=== PATIENT | male | born 1950 | race Caucasian/White ===

== ENCOUNTER 2018-05-26 11:55 | Inpatient (IN) ==
[2018-05-26] MEDS ORDERED: Sod Chloride 0.9% Inj 1,000 ML IV.SIG ONE (12:11)
--- NOTE | 2018-05-26 12:33 | ED ---
HPI General Chief Complaint: Altered Mental Status Stated Complaint: Poss AMS Time Seen by Provider: 05/26/18 12:05 Source: EMS Mode of arrival: EMS Limitations: altered mental status History of Present Illness HPI narrative: 68 YO M presents to the ED via EMS for evaluation of altered mental status. Per EMS report the patient was found lying on a couch, in filthy living conditions and altered this morning by his landlord. The landlord states that they last saw the patient normal about 6 weeks ago. On arrival to the ED the patient is alert to self only. He is covered in feces and urine. He moves the extremities spontaneously. He answers YES or WHY repeatedly to all history questions. He intermittently follows commands. He is resistant to exam, repeatedly trying to brush my hands and instruments away. EMS reportedly administered 1L NS enroute with no change to the patients status. Per EMS the patient has a history of stroke. Related Data Home Medications Medication Instructions Recorded Confirmed Unable to Obtain Home Meds 05/26/18 05/26/18 Allergies Allergy/AdvReac Type Severity Reaction Status Date / Time No Known Allergies Allergy Uncoded 07/11/16 17:32 Review of Systems ROS Unobtainable ROS Unobtainable: unobtainable due to mental status PMFSH Social History Social History Substance History: Past History Second Hand Smoke Exposure: Yes Smoking Status: Current every day smoker Tobacco Type: Cigarettes How Often Do You Have a Drink Containing Alcohol: Unable to Obtain Recent Travel in [facility] within the Last 8 Weeks: No Recent Out of Country Travel within the Last 8 Weeks: No Exam Narrative Exam Narrative: GENERAL: Cachetic, foul smelling white male in NAD. SKIN: Focused skin assessment warm/dry. Nail clubbing noted. HEAD: Atraumatic. Normocephalic. EYES: Pupils equal and round. No scleral icterus. No injection or drainage. ENT: No nasal bleeding or discharge. Mucous membranes dry. NECK: Trachea midline. No JVD. CARDIOVASCULAR: Regular rate and rhythm. No murmur appreciated. RESPIRATORY: No accessory muscle use. Clear to auscultation. Breath sounds equal bilaterally. GASTROINTESTINAL: Abdomen scaphoid, non-tender, nondistended. No hepatosplenomegaly. Hypoactive bowel sounds. MUSCULOSKELETAL: No obvious deformities. No clubbing. No cyanosis. No edema. Equal revenue enforcement agent strength bilaterally. NEUROLOGICAL: Awake and alert. No obvious cranial nerve deficits. Motor grossly within normal limits. Garbled speech. PSYCHIATRIC: Altered. Intermittently aggressive. Course Initial Documented Vital Signs Temperature 96.3 F L 05/26/18 11:59 Pulse Rate 106 H 05/26/18 11:59 Respiratory Rate 22 05/26/18 11:59 Blood Pressure 142/80 H 05/26/18 11:59 Pulse Oximetry 95 05/26/18 11:59 Last Documented Vital Signs Temperature 96.3 F L 05/26/18 12:37 Pulse Rate 103 H 05/26/18 13:18 Respiratory Rate 26 H 05/26/18 17:37 Blood Pressure 140/80 05/26/18 13:18 Pulse Oximetry 96 05/26/18 13:18 Medical Decision Making SILVA Attestation SILVA supervised visit: Yes Attestation: I, Dr. Gardner, have reviewed the advance practice practitioner's documentation and am in agreement, met with the patient face to face, made the diagnosis, and the medical decision making was done by me. *My assessment and Findings: Patient is a 68-year-old male who is acutely altered. He is grabbing at staff. He does say he drinks every day. He did appears somewhat tremulous. He is tachycardic on exam. Patient given IV fluids, given Ativan. Admitted for further management. MDM Narrative Medical decision making narrative: 68 YO M presents to the ED via EMS for evaluation of altered mental status. Per EMS report the patient was found lying on a couch, in filthy living conditions and altered this morning by his landlord. normal about 6 weeks ago. On arrival to the ED the patient is alert to self only. He is covered in feces and urine. He moves the extremities spontaneously. He answers YES or WHY repeatedly to all history questions. He intermittently follows commands. He is resistant to exam. Patient is tachycardic with a rectal temp of 96.3 on arrival. He was administered a liter of fluids, warming blanket was placed. Lab work reveals no anemia or leukocytosis. Mild dehydration noted. EKG without acute findings.Head CT without acute findings. No acute findings on the chest x-ray. On recheck the patient states "I drink every day." He repeatedly reaches out to grab the providers at bedside. He was administered 2 mg Ativan. [facility] protocol was ordered. UA with evidence of UTI, administered 750 Levaquin IV. Patient remains altered. Plan to admit to medicine. I spoke with Dr. Goldsmith who agrees to accept the patient to the medicine service. Please see medicine notes for disposition. Medical Screen Exam Complete: Yes Emergency Medical Condition: Yes Differential Diagnosis Differential Diagnosis: ACS versus ICH versus PNA versus UTI versus metabolic derangement versus alcohol withdrawal versus other Medical Records Medical records reviewed: Yes I reviewed the patient's medical records. PAD, stroke, herpes zoster, chronic pain, current smoker according to chart review. Last visit in 2015. Lab Data Result diagrams: 05/26/18 12:24 05/26/18 12:24 Lab Results 05/26/18 05/26/18 05/26/18 Range/Units 12:24 12:24 12:24 WBC 7.3 (4.0-11.0) th/mm3 RBC 3.79 L (4.50-5.90) mil/mm3 Hgb 12.7 L (13.0-17.0) gm/dL Hct 37.0 L (39.0-51.0) % MCV 97.5 (80.0-100.0) fL MCH 33.5 (27.0-34.0) pg MCHC 34.3 (32.0-36.0) % RDW 17.0 (11.6-17.2) % Plt Count 161 (150-450) th/mm3 MPV 8.2 (7.0-11.0) fL Neut % (Auto) 83.3 H (16.0-70.0) % Lymph % (Auto) 10.4 (9.0-44.0) % Childress % (Auto) 6.0 (0.0-8.0) % Eos % (Auto) 0.3 (0.0-4.0) % Baso % (Auto) 0.0 (0.0-2.0) % Neut # (Auto) 6.1 (1.8-7.7) th/mm3 Lymph # (Auto) 0.8 L (1.0-4.8) th/mm3 Childress # (Auto) 0.4 (0.0-0.9) th/mm3 Eos # (Auto) 0.0 (0.0-0.4) th/mm3 Baso # (Auto) 0.0 (0.0-0.2) th/mm3 WBC Differential . Differential Comment Auto diff final Sodium 137 (136-145) meq/L Potassium 3.8 (3.5-5.1) meq/L Chloride 102 (98-107) meq/L Carbon Dioxide 23.6 (21.0-32.0) meq/L Anion Gap 11 (5-15) meq/L BUN 22 H (7-18) mg/dL Creatinine 1.07 (0.60-1.30) mg/dL Estimated GFR 69 L (>89) mL/min Random Glucose 74 (74-106) mg/dL Calcium 8.1 L (8.5-10.1) mg/dL Phosphorus 2.2 L (2.5-4.9) mg/dL Magnesium 1.9 (1.5-2.5) mg/dL Total Bilirubin 1.3 H (0.2-1.0) mg/dL AST 15 (15-37) U/L ALT 15 (12-78) U/L Alkaline Phosphatase 72 (45-117) U/L Ammonia (11-32) mcmol/L Total Creatine Kinase 29 L (39-308) U/L Troponin I 0.02 (0.02-0.05) ng/mL Total Protein 6.1 L (6.4-8.2) g/dL Albumin 2.6 L (3.4-5.0) g/dL Vitamin B12 Greater than 2000 H Cancelled (193-986) pg/mL TSH 1.470 (0.358-3.740) uIU/mL Urine Color (Yellw/Straw) Urine Clarity (Clear) Urine pH (5.0-8.5) Ur Specific [place] (1.002-1.035) Urine Protein (Neg-Trace) mg/dL Urine Glucose (UA) (Negative) mg/dL Urine Ketones (Negative) mg/dL Urine Occult Blood (Negative) Urine Nitrate (Negative) Urine Bilirubin (Negative) Urine Urobilinogen (Less than 2) mg/dL Ur Leukocyte Esterase (Negative) Urine RBC (0-3) /hpf Urine WBC (0-5) /hpf Urine Bacteria (None) /hpf Urine Mucus (Occasional) /lpf Micro UA Comment Ur Microscopic Review Urine Culture Comments Urine Opiates Screen (Neg) Ur Barbiturates Screen (Neg) Ur Amphetamines Screen (Neg) U Benzodiazepines Scrn (Neg) Urine Cocaine Screen (Neg) U Cannabinoids Screen (Neg) Serum Alcohol Less than 3 (0-5) mg/dL 05/26/18 05/26/18 05/26/18 Range/Units 12:24 12:24 12:24 WBC (4.0-11.0) th/mm3 RBC (4.50-5.90) mil/mm3 Hgb (13.0-17.0) gm/dL Hct (39.0-51.0) % MCV (80.0-100.0) fL MCH (27.0-34.0) pg MCHC (32.0-36.0) % RDW (11.6-17.2) % Plt Count (150-450) th/mm3 MPV (7.0-11.0) fL Neut % (Auto) (16.0-70.0) % Lymph % (Auto) (9.0-44.0) % Childress % (Auto) (0.0-8.0) % Eos % (Auto) (0.0-4.0) % Baso % (Auto) (0.0-2.0) % Neut # (Auto) (1.8-7.7) th/mm3 Lymph # (Auto) (1.0-4.8) th/mm3 Childress # (Auto) (0.0-0.9) th/mm3 Eos # (Auto) (0.0-0.4) th/mm3 Baso # (Auto) (0.0-0.2) th/mm3 WBC Differential Differential Comment Sodium (136-145) meq/L Potassium (3.5-5.1) meq/L Chloride (98-107) meq/L Carbon Dioxide (21.0-32.0) meq/L Anion Gap (5-15) meq/L BUN (7-18) mg/dL Creatinine (0.60-1.30) mg/dL Estimated GFR (>89) mL/min Random Glucose (74-106) mg/dL Calcium (8.5-10.1) mg/dL Phosphorus Cancelled (2.5-4.9) mg/dL Magnesium Cancelled (1.5-2.5) mg/dL Total Bilirubin (0.2-1.0) mg/dL AST (15-37) U/L ALT (12-78) U/L Alkaline Phosphatase (45-117) U/L Ammonia (11-32) mcmol/L Total Creatine Kinase Cancelled (39-308) U/L Troponin I (0.02-0.05) ng/mL Total Protein (6.4-8.2) g/dL Albumin (3.4-5.0) g/dL Vitamin B12 (193-986) pg/mL TSH (0.358-3.740) uIU/mL Urine Color (Yellw/Straw) Urine Clarity (Clear) Urine pH (5.0-8.5) Ur Specific [place] (1.002-1.035) Urine Protein (Neg-Trace) mg/dL Urine Glucose (UA) (Negative) mg/dL Urine Ketones (Negative) mg/dL Urine Occult Blood (Negative) Urine Nitrate (Negative) Urine Bilirubin (Negative) Urine Urobilinogen (Less than 2) mg/dL Ur Leukocyte Esterase (Negative) Urine RBC (0-3) /hpf Urine WBC (0-5) /hpf Urine Bacteria (None) /hpf Urine Mucus (Occasional) /lpf Micro UA Comment Ur Microscopic Review Urine Culture Comments Urine Opiates Screen (Neg) Ur Barbiturates Screen (Neg) Ur Amphetamines Screen (Neg) U Benzodiazepines Scrn (Neg) Urine Cocaine Screen (Neg) U Cannabinoids Screen (Neg) Serum Alcohol (0-5) mg/dL 05/26/18 05/26/18 05/26/18 Range/Units 12:47 14:30 14:30 WBC (4.0-11.0) th/mm3 RBC (4.50-5.90) mil/mm3 Hgb (13.0-17.0) gm/dL Hct (39.0-51.0) % MCV (80.0-100.0) fL MCH (27.0-34.0) pg MCHC (32.0-36.0) % RDW (11.6-17.2) % Plt Count (150-450) th/mm3 MPV (7.0-11.0) fL Neut % (Auto) (16.0-70.0) % Lymph % (Auto) (9.0-44.0) % Childress % (Auto) (0.0-8.0) % Eos % (Auto) (0.0-4.0) % Baso % (Auto) (0.0-2.0) % Neut # (Auto) (1.8-7.7) th/mm3 Lymph # (Auto) (1.0-4.8) th/mm3 Childress # (Auto) (0.0-0.9) th/mm3 Eos # (Auto) (0.0-0.4) th/mm3 Baso # (Auto) (0.0-0.2) th/mm3 WBC Differential Differential Comment Sodium (136-145) meq/L Potassium (3.5-5.1) meq/L Chloride (98-107) meq/L Carbon Dioxide (21.0-32.0) meq/L Anion Gap (5-15) meq/L BUN (7-18) mg/dL Creatinine (0.60-1.30) mg/dL Estimated GFR (>89) mL/min Random Glucose (74-106) mg/dL Calcium (8.5-10.1) mg/dL Phosphorus (2.5-4.9) mg/dL Magnesium (1.5-2.5) mg/dL Total Bilirubin (0.2-1.0) mg/dL AST (15-37) U/L ALT (12-78) U/L Alkaline Phosphatase (45-117) U/L Ammonia 11 (11-32) mcmol/L Total Creatine Kinase (39-308) U/L Troponin I (0.02-0.05) ng/mL Total Protein (6.4-8.2) g/dL Albumin (3.4-5.0) g/dL Vitamin B12 (193-986) pg/mL TSH (0.358-3.740) uIU/mL Urine Color Yellow (Yellw/Straw) Urine Clarity Clear (Clear) Urine pH 6.0 (5.0-8.5) Ur Specific [place] 1.018 (1.002-1.035) Urine Protein Negative (Neg-Trace) mg/dL Urine Glucose (UA) Negative (Negative) mg/dL Urine Ketones Trace H (Negative) mg/dL Urine Occult Blood Small H (Negative) Urine Nitrate Negative (Negative) Urine Bilirubin Negative (Negative) Urine Urobilinogen 2.0 H (Less than 2) mg/dL Ur Leukocyte Esterase Negative (Negative) Urine RBC Less than 1 (0-3) /hpf Urine WBC 4 (0-5) /hpf Urine Bacteria Rare H (None) /hpf Urine Mucus Few H (Occasional) /lpf Micro UA Comment Cath-culture ind Ur Microscopic Review Not Reportable Urine Culture Comments Cath-cult indicated Urine Opiates Screen Neg (Neg) Ur Barbiturates Screen Neg (Neg) Ur Amphetamines Screen Neg (Neg) U Benzodiazepines Scrn Neg (Neg) Urine Cocaine Screen Neg (Neg) U Cannabinoids Screen Neg (Neg) Serum Alcohol (0-5) mg/dL Imaging Data Radiologist's impression: Head MRI 05/26/18 00:00 Diffusion weighted images demonstrate tiny foci of restricted diffusion in the right frontal cortex. There is diffuse atrophy. There is a large area of encephalomalacia and scoliosis in the left frontal lobe from previous infarction. There is slight ex vacuo dilatation of the left lateral ventricle and remote left basal ganglia lacunar infarcts. In addition remote right occipital infarct and encephalomalacia noted. There are no signs of acute intracranial hemorrhage though there is evidence of remote hemosiderin along the right parietal cortex. No abnormal areas of enhancement are seen. There is no evidence for mass.. CONCLUSION: 1. Atrophy and white matter disease with remote infarcts identified. 2. 2-3 tiny foci of restricted diffusion in the right frontal lobe characteristic of tiny foci of acute infarction. Head CT 05/26/18 12:11 CONCLUSION: 1. No acute findings. Atrophy and remote infarcts. . Chest X-Ray 05/26/18 12:12 CONCLUSION: 1. Changes of obstructive pulmonary disease without acute abnormality or significant interval change. ECG Data Attestation: I personally reviewed and interpreted this ECG as follows: (Rate 106, sinus tachycardia. IN interval 124, QRS 72, QTC 393 ms. Normal axis. No acute ST changes.) Discharge Plan Discharge Disposition Patient Disposition: 30 Still Patient Physicians Team ED Provider: Lisseth Gardner ED Midlevel Provider: Seble Rao Primary Care Provider: Je Graves Attending Provider: Poli Goldsmith Discharge Interventions Interventions: ED Discharge Assessment Last Done: 05/26/18 17:37 Status ED Status: Left Department Discharge Information Discharge Date/Time: 05/26/18 16:30
--- NOTE | 2018-05-26 12:47 | XR ---
EXAM DATE: 05/26/2018 12:12 PM EDT AGE/SEX: 68 years / Male INDICATIONS: Cough; AMS. CLINICAL DATA: This is the patient's initial encounter. Patient reports that signs and symptoms have been present for 1 day and indicates a pain score of Nonresponsive. MEDICAL/SURGICAL HISTORY: . Unobtainable. . Unobtainable. COMPARISON: [facility], CHEST PA & LAT, 04/30/2013. . FINDINGS: Lungs are hyperexpanded with mild diffuse interstitial prominence. No new focal pleural or parenchyma l opacities. The cardiomediastinal contours are unremarkable. Osseous structures are intact. CONCLUSION: 1. Changes of obstructive pulmonary disease without acute abnormality or significant interval change . Electronically signed by: Jc Caraballo MD 05/26/2018 12:46 PM EDT
[2018-05-26 13:02] LABS: Eos % (Auto) 0.3 % (0.0-4.0); Hemoglobin 12.7 gm/dL (13.0-17.0); Lymph # (Auto) 0.8 th/mm3 (1.0-4.8); Lymph % (Auto) 10.4 % (9.0-44.0); Mean Corpuscular HGB Conc 34.3 % (32.0-36.0); Mean Corpuscular Hemoglobin 33.5 pg (27.0-34.0); Mean Corpuscular Volume 97.5 fL (80.0-100.0); Mean Platelet Volume 8.2 fL (7.0-11.0); Mono # (Auto) 0.4 th/mm3 (0.0-0.9); Neut # (Auto) 6.1 th/mm3 (1.8-7.7); Neut % (Auto) 83.3 % (16.0-70.0); Platelet Count 161 th/mm3 (150-450); Red Blood Count 3.79 mil/mm3 (4.50-5.90); White Blood Count 7.3 th/mm3 (4.0-11.0)
[2018-05-26 13:09] LABS: Alanine Aminotransferase 15 U/L (12-78); Albumin 2.6 g/dL (3.4-5.0); Anion Gap 11 meq/L (5-15); Aspartate Aminotransferase 15 U/L (15-37); Blood Urea Nitrogen 22 mg/dL (7-18); Calcium 8.1 mg/dL (8.5-10.1); Carbon Dioxide 23.6 meq/L (21.0-32.0); Chloride 102 meq/L (98-107); Glomerular Filtration Rate 69 mL/min (>89); Glucose,Random 74 mg/dL (74-106); Potassium 3.8 meq/L (3.5-5.1); Sodium 137 meq/L (136-145)
[2018-05-26 13:19] LABS: Alkaline Phosphatase 72 U/L (45-117); Total Protein 6.1 g/dL (6.4-8.2); Troponin I 0.02 ng/mL (0.02-0.05)
--- NOTE | 2018-05-26 13:23 | CT ---
EXAM DATE: 05/26/2018 1:08 PM EDT AGE/SEX: 68 years / Male INDICATIONS: Altered mental status. CLINICAL DATA: This is the patient's initial encounter. Patient reports that signs and symptoms have been present for 1 day and indicates a pain score of Nonresponsive. MEDICAL/SURGICAL HISTORY: Non-responsive. Non-responsive. RADIATION DOSE: 37.04 CTDI (mGy) COMPARISON: [facility], CT BRAIN W/O CONTRAST, 04/22/2013. . TECHNIQUE: CT of the head without contrast. Using automated exposure control and adjustment of the mA and/or kV according to patient size, radiation dose was kept as low as reasonably achievable to ob tain optimal diagnostic quality images. DICOM format image data is available electronically for revi ew and comparison. FINDINGS: There is diffuse atrophy. Encephalomalacia from remote right occipital infarct in left MCA infarct ag ain noted. There is patchy and confluent white matter disease periventricular white matter again note d. There are no fractures. Carotid artery calcifications are noted. CONCLUSION: 1. No acute findings. Atrophy and remote infarcts. . Electronically signed by: Ray Santos MD 05/26/2018 1:21 PM EDT
[2018-05-26 14:44] LABS: Bacteria,Urine Rare /hpf; Bilirubin,Urine Negative (Negative); Clarity,Urine Clear (Clear); Color,Urine Yellow (Yellw/Straw); Glucose,Urine (UA) Negative (Negative); Leukocyte Esterase,Urine Negative (Negative); Mucus,Urine Few /lpf (Occasional); Nitrite,Urine Negative (Negative); Specific Gravity,Urine 1.018 (1.002-1.035)
[2018-05-26 14:50] LABS: Amphetamine Screen,Urine Neg (Neg); Barbiturate Screen,Urine Neg (Neg); Cannabinoid Screen,Urine Neg (Neg); Cocaine Screen,Urine Neg (Neg)
[2018-05-26 14:56] LABS: Opiate Screen,Urine Neg (Neg)
--- NOTE | 2018-05-26 16:02 | P.HP ---
History of Present Illness Primary Care Physician: Je Graves MD History of Present Illness: 68-year-old admitted for encephalopathy. History is limited as the patient is disoriented and confused, brought in by his landlord. Largely obtained otherwise from emergency room staff. When I try to talk to the patient he makes eye contact but answers almost all questions incorrectly. Patient was brought in to the emergency department because he was found by his landlord to be disheveled and highly unsanitary conditions including being in feces and urine. In the emergency department patient's blood work was relatively unremarkable except for some very mild hypoalbuminemia. He was slightly hypothermic around 96.3 slightly tachycardic around 103. A chest x- ray was performed which I independently reviewed which was negative for any acute findings. He had a head CT done which showed no acute findings as well. Upon my review the UA does not look suspicious for urinary tract infection. Patient told that ER staff that he drinks. Patient was started on normal saline and a warming blanket. This patient has not been admitted to [facility] in at least 2 years. I am unable to obtain family history due to the patient's encephalopathic status. Inpatient Certification: I certify that the inpatient services were ordered in accordance with Medicare regulations governing the order. This includes certification that hospital inpatient services are reasonable and necessary and in the case of services not specified as inpatient-only under 42 CFR 419.22(n), that they are appropriately provided as inpatient services in accordance to with the 2-midnight benchmark under 43 CFR 412.3(e) Review of Systems unobtainable due to mental status PMFSH - History History Provided By: Law Office Assistant / EMT - Medical History Medical History: Medical History (Last Reviewed 05/26/18 @ 15:57 by Poli Goldsmith MD) CVA (cerebral vascular accident) - Social History I have reviewed the patient's Social History: Yes - Tobacco History Tobacco Use In Past 30 Days: Yes Smoking Status: Current every day smoker Tobacco Type: Cigarettes - Alcohol History How Often Do You Have a Drink Containing Alcohol: Unable to Obtain - Substance Use History Substance History: Unable to Obtain - Travel History Recent Travel in the [place] Within the Last 8 Weeks: No Recent Travel Out of the Country Within the Last 8 Weeks: No - Immunization History Tetanus Immunization: Unable to Assess Medications and Allergies Active Medications: Active Medications Haloperidol Lactate (Haldol Inj) 1 mg IV.PUSH Q15M PRN PRN Reason: for severe agitation Lorazepam (Ativan Inj) 1 mg IV.PUSH Q4H PRN PRN Reason: for CIWA 8-10 Lorazepam (Ativan Inj) 2 mg IV.PUSH Q15M PRN PRN Reason: for CIWA > 20 Lorazepam (Ativan Inj) 2 mg IV.PUSH Q1H PRN PRN Reason: for CIWA 15-20 Lorazepam (Ativan Inj) 2 mg IV.PUSH Q2H PRN PRN Reason: for CIWA 11-14 Lorazepam (Ativan) 1 mg PO Q4H PRN PRN Reason: for CIWA 8-10 Lorazepam (Ativan) 2 mg PO Q2H PRN PRN Reason: for CIWA 11-14 Sodium Chloride (Ns Flush) 2 ml IV.FLUSH PRN PRN PRN Reason: FLUSH AFTER USING IV ACCESS Allergies Allergy/AdvReac Type Severity Reaction Status Date / Time No Known Allergies Allergy Uncoded 07/11/16 17:32 Home Medications Medication Instructions Recorded Confirmed Type Unable to Obtain Home Meds 05/26/18 05/26/18 History Exam Vital signs: Vital Signs 05/26/18 11:59 05/26/18 12:30 05/26/18 12:37 Temperature 96.3 F L 96.3 F L 96.3 F L Pulse Rate 106 H Respiratory Rate 22 Blood Pressure 142/80 H Pulse Oximetry 95 05/26/18 13:18 05/26/18 13:20 Temperature Pulse Rate 103 H Respiratory Rate 16 20 Blood Pressure 140/80 Pulse Oximetry 96 Intake & Output 05/25/18 05/26/18 05/26/18 18:59 06:59 18:59 Weight 49.895 kg Narrative: VS: afebrile GENERAL: Thin, under nourished white male who appears very disheveled and is shivering, smells of urine SKIN: Warm and dry. Multiple bruises on his extremities, scattered in dirt EYES: Pupils equal and round. No scleral icterus. No injection or drainage. ENT: No nasal bleeding or discharge. Mucous membranes pink and moist. CARDIOVASCULAR: Slightly tachycardic, no murmurs RESPIRATORY: No accessory muscle use. Clear to auscultation. Breath sounds equal bilaterally. GASTROINTESTINAL: Abdomen soft, non-tender, nondistended. Extremities: No clubbing, cyanosis, or edema. No obvious deformities. MUSCULOSKELETAL: Does spontaneously move all 4 extremities. Has decreased muscle bulk and tone for age and habitus NEUROLOGICAL: Awake, alert, but appears confused and disoriented with slowed mentation evident through slowed responses that are incorrect as well. No facial droop, no slurred speech, unable to assess lower extremity patellar's bilaterally due to poor cooperation. Does have good fist kilnman strength bilaterally. Opens his mouth on prompting but does not protrude his tongue on prompting. PSYCHIATRIC: Unable to assess mood and affect and judgment and insight due to encephalopathic status Results - Labs CBC & Chem 7: 05/26/18 12:24 05/26/18 12:24 Labs: Laboratory Results - last 24 hr 05/26/18 05/26/18 05/26/18 12:24 12:24 12:47 WBC 7.3 RBC 3.79 L Hgb 12.7 L Hct 37.0 L MCV 97.5 MCH 33.5 MCHC 34.3 RDW 17.0 Plt Count 161 MPV 8.2 Neut % (Auto) 83.3 H Lymph % (Auto) 10.4 [place] % (Auto) 6.0 Eos % (Auto) 0.3 Baso % (Auto) 0.0 Neut # (Auto) 6.1 Lymph # (Auto) 0.8 L [place] # (Auto) 0.4 Eos # (Auto) 0.0 Baso # (Auto) 0.0 WBC Differential . Differential Comment Auto diff final Sodium 137 Potassium 3.8 Chloride 102 Carbon Dioxide 23.6 Anion Gap 11 BUN 22 H Creatinine 1.07 Estimated GFR 69 L Random Glucose 74 Calcium 8.1 L Total Bilirubin 1.3 H AST 15 ALT 15 Alkaline Phosphatase 72 Ammonia 11 Troponin I 0.02 Total Protein 6.1 L Albumin 2.6 L TSH 1.470 Urine Color Urine Clarity Urine pH Ur Specific [place] Urine Protein Urine Glucose (UA) Urine Ketones Urine Occult Blood Urine Nitrate Urine Bilirubin Urine Urobilinogen Ur Leukocyte Esterase Urine RBC Urine WBC Urine Bacteria Urine Mucus Micro UA Comment Ur Microscopic Review Urine Culture Comments Urine Opiates Screen Ur Barbiturates Screen Ur Amphetamines Screen U Benzodiazepines Scrn Urine Cocaine Screen U Cannabinoids Screen Serum Alcohol Less than 3 05/26/18 05/26/18 14:30 14:30 WBC RBC Hgb Hct MCV MCH MCHC RDW Plt Count MPV Neut % (Auto) Lymph % (Auto) [place] % (Auto) Eos % (Auto) Baso % (Auto) Neut # (Auto) Lymph # (Auto) [place] # (Auto) Eos # (Auto) Baso # (Auto) WBC Differential Differential Comment Sodium Potassium Chloride Carbon Dioxide Anion Gap BUN Creatinine Estimated GFR Random Glucose Calcium Total Bilirubin AST ALT Alkaline Phosphatase Ammonia Troponin I Total Protein Albumin TSH Urine Color Yellow Urine Clarity Clear Urine pH 6.0 Ur Specific [place] 1.018 Urine Protein Negative Urine Glucose (UA) Negative Urine Ketones Trace H Urine Occult Blood Small H Urine Nitrate Negative Urine Bilirubin Negative Urine Urobilinogen 2.0 H Ur Leukocyte Esterase Negative Urine RBC Less than 1 Urine WBC 4 Urine Bacteria Rare H Urine Mucus Few H Micro UA Comment Cath-culture ind Ur Microscopic Review Not Reportable Urine Culture Comments Cath-cult indicated Urine Opiates Screen Neg Ur Barbiturates Screen Neg Ur Amphetamines Screen Neg U Benzodiazepines Scrn Neg Urine Cocaine Screen Neg U Cannabinoids Screen Neg Serum Alcohol - Imaging Impressions Head CT 05/26/18 12:11 CONCLUSION: 1. No acute findings. Atrophy and remote infarcts. . Chest X-Ray 05/26/18 12:12 CONCLUSION: 1. Changes of obstructive pulmonary disease without acute abnormality or significant interval change. Caprini VTE Risk Assessment Caprini VTE Risk Assessment: No/Low Risk (score <= 1) Caprini Risk Assessment Model: Point Value = 1 Point Value = 2 Point Value = 3 Point Value = 5 Age 41-60 Minor surgery BMI > 25 kg/m2 Swollen legs Varicose veins or History of unexplained or recurrent spontaneous Oral contraceptives or hormone replacement Sepsis (< 1 month) Serious lung disease, including pneumonia (< 1 month) Abnormal pulmonary function Acute myocardial infarction Congestive heart failure (< 1 month) History of inflammatory bowel disease Medical patient at bed rest Age 61-74 Arthroscopic surgery Major open surgery (> 45 min) Laparoscopic surgery (> 45 min) Malignancy Confined to bed (> 72 hours) Immobilizing plaster cast Central venous access Age >= 75 History of VTE Family history of VTE Factor V Leiden Prothrombin [id number] Lupus anticoagulant Anticardiolipin antibodies Elevated serum homocysteine Heparin-induced thrombocytopenia Other congenital or acquired thrombophilia Stroke (< 1 month) Elective arthroplasty Hip, pelvis, or leg fracture Acute spinal cord injury (< 1 month) Prophylaxis Regimen: Total Risk Factor Score Risk Level Prophylaxis Regimen 0-1 Low Early ambulation 2 Moderate Order ONE of the following: *Sequential Compression Device (SCD) *Heparin 5000 units SQ BID 3-4 Higher Order ONE of the following medications: *Heparin 5000 units SQ TID *Enoxaparin/Lovenox 40 mg SQ daily (WT < 150 kg, CrCl > 30 mL/min) *Enoxaparin/Lovenox 30 mg SQ daily (WT < 150 kg, CrCl > 10-29 mL/min) *Enoxaparin/Lovenox 30 mg SQ BID (WT < 150 kg, CrCl > 30 mL/min) AND/OR *Sequential Compression Device (SCD) 5 or more Highest Order ONE of the following medications: *Heparin 5000 units SQ TID (Preferred with Epidurals) *Enoxaparin/Lovenox 40 mg SQ daily (WT < 150 kg, CrCl > 30 mL/min) *Enoxaparin/Lovenox 30 mg SQ daily (WT < 150 kg, CrCl > 10-29 mL/min) *Enoxaparin/Lovenox 30 mg SQ BID (WT < 150 kg, CrCl > 30 mL/min) AND *Sequential Compression Device (SCD) Assessment and Plan - Plan 68-year-old white male being admitted for encephalopathy, limited history. Encephalopathy -Unclear etiology at this time, possible ETOH withdrawal, CIWA protocol in place -CT head is negative for any acute findings (chronic encephalomalacia + old CVA ) as well as initial blood work. -TSH, ammonia, UDS all negative -Ordering B12, magnesium, phosphorus, -MRI of the head to r/o any new/acute infarcts -ST for cognition and swallow evaluation -UC pending, UA neg per my independent review -IVFs Diffuse ecchymoses Possible ETOH abuse - check INR and CK - ciwa protocol Subclinical trace hypothermia -Likely secondary to malnutrition, given normal saline with warming blanket, monitor -Ordering lactic acid Deconditioning/generalized weakness -Pending magnesium, phosphorus, B12, CK levels PT OT ST History of CVA HTN -baby aspirin -Continue Below meds verified by [facility] most recently picked up in March: flonase lipitor Resume home lisinopril when clinical status improves Lisinopril 40 mg daily Discussed Condition With: I have attempted to contact the daughter and only reached a voicemail for was I left a message. I have spoken to the sister and updated her on his admission status.
[2018-05-26 16:46] LABS: Magnesium 1.9 mg/dL (1.5-2.5); Phosphorus 2.2 mg/dL (2.5-4.9)
[2018-05-26 17:11] LABS: Creatine Kinase 29 U/L (39-308)
--- NOTE | 2018-05-26 17:51 | MR ---
EXAM DATE: 05/26/2018 5:05 PM EDT AGE/SEX: 68 years / Male INDICATIONS: Altered mental status. CLINICAL DATA: This is the patient's initial encounter. Patient reports that signs and symptoms have been present for 2 days and indicates a pain score of Nonresponsive. MEDICAL/SURGICAL HISTORY: Stroke. . Stent Left SFA. COMPARISON: [facility] [place], 05/26/2018. . TECHNIQUE: Multiplanar, multisequence examination of the brain was performed without and with 5 ml Ga davist (gadobutrol) contrast as a single exam dose. FINDINGS: Diffusion weighted images demonstrate tiny foci of restricted diffusion in the right frontal cortex. There is diffuse atrophy. There is a large area of encephalomalacia and scoliosis in the left frontal lobe from previous infarction. There is slight ex vacuo dilatation of the left lateral ventricle and remote left basal ganglia lacunar infarcts. In addition remote right occipital infarct and encephalo malacia noted. There are no signs of acute intracranial hemorrhage though there is evidence of remote hemosiderin along the right parietal cortex. No abnormal areas of enhancement are seen. There is no evidence for mass.. CONCLUSION: 1. Atrophy and white matter disease with remote infarcts identified. 2. 2-3 tiny foci of restricted diffusion in the right frontal lobe characteristic of tiny foci of ac chenega infarction. Electronically signed by: Ray Santos MD 05/26/2018 5:50 PM EDT
[2018-05-26] MEDS ORDERED: Gadobutrol PF 7.5 MMOL/7.5 ML Vial (for RAD) IV.SIG ONE (18:42)
[2018-05-26] MEDS: Sod Chloride 0.9% Inj 1,000 ML IV.CONT SCH (19:00)
[2018-05-26 19:27] LABS: INR 1.1 Ratio; Prothrombin Time 10.9 sec (9.8-11.6)
[2018-05-27] MEDS: Sod Chloride 0.9% Inj 1,000 ML IV.CONT SCH ×2 (06:07→18:53)
--- NOTE | 2018-05-27 09:55 | P.PNWCN ---
Wound Care Nurse Consult Description: Wound consult ordered by for wound management Communicated with: yaritza MEDEIROS, Recommendation: 1. Manually reposition patient every 2 hours for comfort and offloading 2. Skin prep x2 to bilateral trochanters and sacral region. 3. Cleanse left ischium with normal saline only. 4. Apply Santyl 2mm thick to intact slough ,cover with saline moistened 2x2 secure with border gauze 5. Change daily or as needed for exudate/dislodgement. Additional information: Patient was seen today by law writer for wound management.Patient alert in bed but very confused bed found in highest position upon trying to lower bed law writer identified bed not functioning properly .Survey Engineer informed Nurse and case management regarding bed .Patient noted to be cachetic with visible malathi prominence Patient was repositioned to left side for sacral region assessment.law writer was able to visualize sacral/coccyx region patient noted to have blanchable intact tissue patient noted to be in high need of bath/ shower.Survey Engineer removed cotton underpad from under patient upon repositioning patient to right side law writer was able to visualize unstageable pressure injury to left ischium measuring ~1cm x ~1cm x slough.Erythema noted to periwound circumferentially .wound base is 100% adhered soft yellow/brown slough.Wound cleansed with normal saline and left open to air till Santyl available.Patient was offloaded to right side with use of bath blankets for support 3 rails raised for patient safety with over bed table within patient reach with call bed.Wound care team to order specialty surface if patient admitted to floor. Wound/Pressure Injury - Patient Status Premedicated for Pain Prior to Dressing Change: No - Wound Left Ischium Wound Staging: Unstageable Wound Assessment: Admission Wound Type: Pressure Injury Is This a Chronic Wound: Yes Requested from Provider a Wound Care Consult: No (Rossana MEDEIROS,[facility] seen 05/27) Length (cm): 1.0 Width (cm): 1.0 Wound Bed Appearance: Necrotic, Yellow Wound Bed Appearance: 100% soft adhered slough Surrounding Tissue Appearance: Erythema Surrounding Tissue Temperature: Cool Drainage Amount: None Drainage Odor: No Odor Dressing Status: Open to Air Cleansing Solution: Saline Topical: Enzymatic Debridement Ointment Wound Packing Type: Gauze Pads Primary Dressing: Adhesive Dressing Wound Dressing Change Date: 05/27/18
[2018-05-27] MEDS: Enoxaparin Inj 30 MG/0.3 ML Syringe SQ SCH (10:18)
--- NOTE | 2018-05-27 16:00 | ECG ---
Date Performed: 05/26/2018 Time Performed: 12:31:46 PTAGE: 68 years EKG: SINUS TACHYCARDIA POSSIBLE RIGHT ATRIAL ENLARGEMENT SEPTAL MYOCARDIAL INFARCTION Since prev ious tracing, no significant change noted ABNORMAL ECG PREVIOUS TRACING : 04/30/2013 12.30 DOCTOR: Ramon Hudson Interpretating Date/Time 05/27/2018 15:58:29
--- NOTE | 2018-05-27 17:11 | P.PNIM ---
Subjective Interval history: Patient laying down in bed and is keeps repeating "my son, my son." Otherwise he does not appear to be in any acute distress. Physical Exam Vital signs: Vital Signs 05/26/18 17:37 05/26/18 20:00 05/27/18 00:00 Temperature 98.6 F 97.4 F L Pulse Rate 106 H 103 H Respiratory Rate 26 H 18 19 Blood Pressure 139/71 129/85 Pulse Oximetry 97 96 05/27/18 04:00 05/27/18 07:14 05/27/18 11:44 Temperature 97.3 F L 97.5 F L 97.5 F L Pulse Rate 101 H 101 H 100 H Respiratory Rate 18 20 16 Blood Pressure 124/81 129/85 152/87 H Pulse Oximetry 93 L 96 96 05/27/18 15:24 Temperature 98.6 F Pulse Rate 100 H Respiratory Rate 12 Blood Pressure 138/87 Pulse Oximetry 95 Intake & Output 05/26/18 05/27/18 05/27/18 18:59 06:59 18:59 Intake Total 1999 Balance 1999 Weight 49.895 kg 49.9 kg Intake: IV 1999 NS Inj 1,000 ML @ 84 mls/hr IV. 1000 / 1000 CONT .[id number] [facility] Rx#:[id number] Other: # Incontinent Voids 1 Weight On Admission 49.895 kg Narrative: General patient is awake and alert however he does not respond to my appropriately. Patient appears malnutrition. HEENT extraocular movements are intact, clear oropharyngeal mucosa, poor dentition Cardiovascular S1-S2 audible Respiratory clear to auscultation bilaterally Abdomen soft, nontender, nondistended, normal bowel sounds Extremities no edema 2+ distal pulses in bilateral upper and lower extremities Neuro patient appears to be moving all 4 extremities sensation is intact bilaterally. Full neurological examination is difficult to assess as the patient is not very cooperative during examination. Results - Labs CBC & Chem 7: 05/26/18 12:24 05/26/18 12:24 Laboratory Results - last 24 hr 05/26/18 05/26/18 05/26/18 12:24 14:30 18:49 PT INR Lactic Acid 1.6 Total Creatine Kinase 29 L Vitamin B12 Greater than 2000 H Urine Color Yellow Urine Clarity Clear Urine pH 6.0 Ur Specific [place] 1.018 Urine Protein Negative Urine Glucose (UA) Negative Urine Ketones Trace H Urine Occult Blood Small H Urine Nitrate Negative Urine Bilirubin Negative Urine Urobilinogen 2.0 H Ur Leukocyte Esterase Negative Urine RBC Less than 1 Urine WBC 4 Urine Bacteria Rare H Urine Mucus Few H Micro UA Comment Cath-culture ind Urine Culture Comments Cath-cult indicated 05/26/18 18:49 PT 10.9 INR 1.1 Lactic Acid Total Creatine Kinase Vitamin B12 Urine Color Urine Clarity Urine pH Ur Specific [place] Urine Protein Urine Glucose (UA) Urine Ketones Urine Occult Blood Urine Nitrate Urine Bilirubin Urine Urobilinogen Ur Leukocyte Esterase Urine RBC Urine WBC Urine Bacteria Urine Mucus Micro UA Comment Urine Culture Comments Microbiology 05/26/18 14:30 Catheterized Urine Urine Culture - Preliminary gram positive cocci - Imaging Impressions Head MRI 05/26/18 00:00 Diffusion weighted images demonstrate tiny foci of restricted diffusion in the right frontal cortex. There is diffuse atrophy. There is a large area of encephalomalacia and scoliosis in the left frontal lobe from previous infarction. There is slight ex vacuo dilatation of the left lateral ventricle and remote left basal ganglia lacunar infarcts. In addition remote right occipital infarct and encephalomalacia noted. There are no signs of acute intracranial hemorrhage though there is evidence of remote hemosiderin along the right parietal cortex. No abnormal areas of enhancement are seen. There is no evidence for mass.. CONCLUSION: 1. Atrophy and white matter disease with remote infarcts identified. 2. 2-3 tiny foci of restricted diffusion in the right frontal lobe characteristic of tiny foci of acute infarction. Assessment and Plan - Plan This patient is a 68-year-old male who was brought in after he was found at home by his landlord. The patient was altered and found to be covered in urine and feces. He was then brought into our emergency department for evaluation. 1. Acute encephalopathy possibly secondary to acute CVA. A CT scan of the head was done which did not show any acute findings other than chronic encephalomalacia and old CVA. MRI shows what appears to be a right frontal lobe infarct. Neurology will be consulted to evaluate the patient given MRI findings. As the patient failed swallow evaluation aspirin will be given per rectal. The etiology of the patient's acute encephalopathy Possibly be due to to the acute CVA. Ammonia, TSH, urine drug screen have returned negative. A swallow evaluation was done which the patient failed. He will be kept n.p.o. and on IV fluids for now. Urinalysis was negative. Will follow up with recommendations from neurology. Continue IV fluids I will discussed the case with the patient's son today to get an idea of what the patient's baseline mental status is like. 2. Deconditioning Continue PT. 3. History of alcohol abuse CIWA protocol in place if the patient begins to withdraw. 4. Malnutrition BMI 16. Nutrition consult will be placed.
[2018-05-27] MEDS: Dextrose 5%/NaCl 0.9% Inj 1,000 ML IV.CONT SCH (18:54)
[2018-05-28] MEDS: Dextrose 5%/NaCl 0.9% Inj 1,000 ML IV.CONT SCH ×3 (04:58→20:27)
[2018-05-28 06:39] LABS: Baso % (Auto) 0.2 % (0.0-2.0); Eos % (Auto) 0.4 % (0.0-4.0); Hematocrit 32.9 % (39.0-51.0); Hemoglobin 11.2 gm/dL (13.0-17.0); Lymph # (Auto) 0.6 th/mm3 (1.0-4.8); Lymph % (Auto) 9.4 % (9.0-44.0); Mean Corpuscular HGB Conc 34.1 % (32.0-36.0); Mean Corpuscular Hemoglobin 33.6 pg (27.0-34.0); Mean Corpuscular Volume 98.6 fL (80.0-100.0); Mean Platelet Volume 8.4 fL (7.0-11.0); Mono # (Auto) 0.5 th/mm3 (0.0-0.9); Mono % (Auto) 7.2 % (0.0-8.0); Neut # (Auto) 5.4 th/mm3 (1.8-7.7); Neut % (Auto) 82.8 % (16.0-70.0); Platelet Count 119 th/mm3 (150-450); Red Blood Count 3.34 mil/mm3 (4.50-5.90); Red Cell Distribution Width 17.5 % (11.6-17.2); White Blood Count 6.6 th/mm3 (4.0-11.0)
[2018-05-28 06:44] LABS: Calcium 7.9 mg/dL (8.5-10.1); Carbon Dioxide 20.9 meq/L (21.0-32.0); Magnesium 1.9 mg/dL (1.5-2.5); Potassium 3.3 meq/L (3.5-5.1)
[2018-05-28] MEDS: Enoxaparin Inj 30 MG/0.3 ML Syringe SQ SCH (10:03)
[2018-05-28] MEDS: Aspirin 300 MG Supp RECTAL SCH (10:03)
--- NOTE | 2018-05-28 10:55 | US ---
EXAM DATE: 05/28/2018 12:00 AM EDT AGE/SEX: 68 years / Male INDICATIONS: Altered mental status. CLINICAL DATA: This is the patient's initial encounter. Patient reports that signs and symptoms have been present for 1 day and indicates a pain score of 0/10. MEDICAL/SURGICAL HISTORY: . Cerebral vascular accident. Altered mental status. . Unable to obt ain. COMPARISON: . [facility] PARAMETERS: ICA/CCA Ratio: Right 1.9 , Left N/A ICA: Right 145 cm/sec, Left Occluded cm/sec CCA: Right 74 cm/sec, Left 64 cm/sec ECA: Right 164 cm/sec, Left 123 cm/sec Vertebral: Right 52 cm/sec antegrade, Left 31 cm/sec antegrade FINDINGS: Right Carotid: Moderate arteriosclerotic plaque is visualized.The waveforms are within normal limits . Left Carotid: Occluded internal carotid artery Other: None. CONCLUSION: 1. Mild to moderate stenosis on the right not felt to be hemodynamically significant at this point. CT angiography could be used to exclude soft plaque. 2. Occluded left internal carotid artery Electronically signed by: Ishan Turner MD 05/28/2018 10:54 AM EDT
--- NOTE | 2018-05-28 11:02 | MR ---
EXAM DATE: 05/28/2018 9:49 AM EDT AGE/SEX: 68 years / Male INDICATIONS: CVA. Altered mental status. CLINICAL DATA: This is the patient's subsequent encounter. Patient reports that signs and symptoms h ave been present for 1 week and indicates a pain score of 0/10. MEDICAL/SURGICAL HISTORY: Cerebrovascular disease. None. COMPARISON: [facility] – [place], [place] W & W/O CONTRAST, 05/26/2018. [facility] [place] CAROTID DOPPLER BI, 05/28/2018. . TECHNIQUE: 3D [id number] MRA was performed. Source images, multiplanar STS MIP, and 3D volum e MIP reconstructions were reviewed. FINDINGS: Posterior cerebral arteries, posterior communicating arteries, anterior and middle cerebral arteries are patent. Basilar artery and left vertebral artery patent. Right vertebral artery may terminate in PICA, not clearly seen. Left internal carotid artery is occluded. There is nonvisualization of the ca vernous left internal carotid artery extending inferiorly into the neck. CONCLUSION: 1. Occluded left internal carotid artery. Electronically signed by: Ray Santos MD 05/28/2018 11:01 AM EDT
--- NOTE | 2018-05-28 11:15 | P.PNIM ---
Subjective Interval history: Patient appears to be comfortable laying down in bed in a semi-supine position. Physical Exam Vital signs: Vital Signs 05/27/18 11:44 05/27/18 15:24 05/27/18 19:17 Temperature 97.5 F L 98.6 F 98.6 F Pulse Rate 100 H 100 H 104 H Respiratory Rate 16 12 20 Blood Pressure 152/87 H 138/87 142/81 H Pulse Oximetry 96 95 95 05/27/18 23:41 05/28/18 03:49 05/28/18 08:14 Temperature 97.6 F 97.8 F 97.9 F Pulse Rate 104 H 101 H 98 H Respiratory Rate 20 21 22 Blood Pressure 155/85 H 161/82 H 140/75 Pulse Oximetry 89 L 92 L 77 L 05/28/18 08:45 Temperature Pulse Rate Respiratory Rate Blood Pressure Pulse Oximetry 90 L Intake & Output 05/27/18 05/28/18 05/28/18 18:59 06:59 18:59 Intake Total 350 / 350 1000 / 1000 Output Total 100 / 100 Balance 250 / 250 1000 / 1000 Intake: IV 350 / 350 1000 / 1000 D5W/Normal Saline Inj 1,000 ML 1000 / 1000 @ 84 mls/hr IV.CONT .[id number] [facility] Rx#:[id number] NS Inj 1,000 ML @ 84 mls/hr IV. 350 / 350 CONT .[id number] [facility] Rx#:[id number] Output: Urine 100 / 100 Narrative: General patient does not appear to be in any acute distress. HEENT extraocular movements are intact Cardiovascular S1-S2 audible, RRR, no murmurs rubs or gallops Respiratory mild coarseness auscultated bilaterally. No wheezing. Abdomen soft, nontender, nondistended, normal bowel sounds Extremities no edema 2+ distal pulses in bilateral upper and lower extremities Neuro patient can move all 4 extremities. Sensation appears to be intact bilaterally. He is still not following commands and full neurological examination is difficult to assess given his current state. Results - Labs CBC & Chem 7: 05/28/18 05:15 05/28/18 05:15 Laboratory Results - last 24 hr 05/26/18 05/28/18 05/28/18 14:30 05:15 05:15 WBC 6.6 RBC 3.34 L Hgb 11.2 L Hct 32.9 L MCV 98.6 MCH 33.6 MCHC 34.1 RDW 17.5 H Plt Count 119 L MPV 8.4 Neut % (Auto) 82.8 H Lymph % (Auto) 9.4 [place] % (Auto) 7.2 Eos % (Auto) 0.4 Baso % (Auto) 0.2 Neut # (Auto) 5.4 Lymph # (Auto) 0.6 L [place] # (Auto) 0.5 Eos # (Auto) 0.0 Baso # (Auto) 0.0 WBC Differential . Differential Comment Auto diff final Sodium 140 Potassium 3.3 L Chloride 109 H Carbon Dioxide 20.9 L Anion Gap 10 BUN 19 H Creatinine 1.04 Estimated GFR 71 L Random Glucose 105 Calcium 7.9 L Magnesium 1.9 Urine Color Yellow Urine Clarity Clear Urine pH 6.0 Ur Specific [place] 1.018 Urine Protein Negative Urine Glucose (UA) Negative Urine Ketones Trace H Urine Occult Blood Small H Urine Nitrate Negative Urine Bilirubin Negative Urine Urobilinogen 2.0 H Ur Leukocyte Esterase Negative Urine RBC Less than 1 Urine WBC 4 Urine Bacteria Rare H Urine Mucus Few H Micro UA Comment Cath-culture ind Urine Culture Comments Cath-cult indicated Microbiology 05/26/18 14:30 Catheterized Urine Urine Culture - Final Enterococcus faecalis - Imaging Impressions Carotid Doppler Study 05/28/18 00:00 CONCLUSION: 1. Mild to moderate stenosis on the right not felt to be hemodynamically significant at this point. CT angiography could be used to exclude soft plaque. 2. Occluded left internal carotid artery Head MRA 05/28/18 00:00 CONCLUSION: 1. Occluded left internal carotid artery. Assessment and Plan - Plan This patient is a 68-year-old male who was brought in after he was found at home by his landlord. The patient was altered and found to be covered in urine and feces. He was then brought into our emergency department for evaluation. 1. Acute encephalopathy likely secondary to acute CVA. A CT scan of the head was done which did not show any acute findings other than chronic encephalomalacia and old CVA. MRI shows an acute right frontal lobe infarct. Neurology was consulted and has evaluated the patient. Carotid Doppler and MRA of the head and neck was ordered which shows what appears to be complete occlusion of the left internal carotid artery and mild stenosis on the right. I will follow-up with neurology's recommendations given the imaging findings and recent stroke. Patient failed swallow evaluation. He will be kept n.p.o. and will need continued speech therapy. Physical therapy will evaluate the patient. Continue D5 NS IV fluids. 2. COPD Had a discussion with the patient's son yesterday who gave me more information regarding the patient's history and current condition. Patient has an extensive history of tobacco smoking and on physical examination has clubbing of his fingers. He was placed on 2-3 L of supplemental oxygen yesterday after pulse oximetry showed that the patient was de-satting to the 80s on room air. We will continue breathing treatments as needed. Continue supplemental oxygen and keep O2 saturations around 92%. A chest x-ray was ordered and will be followed up. 2. Deconditioning Continue PT. 3. History of alcohol abuse CIWA protocol in place if the patient begins to withdraw. 4. Malnutrition BMI 16. Nutrition consult will be placed. 5. Left ischium ulcer Continue wound care. Wound care nurse consulted yesterday.
--- NOTE | 2018-05-28 11:56 | XR ---
EXAM DATE: 05/28/2018 12:00 AM EDT AGE/SEX: 68 years / Male INDICATIONS: COPD CLINICAL DATA: This is the patient's initial encounter. Patient reports that signs and symptoms have been present for 4 - 6 days and indicates a pain score of Nonresponsive. MEDICAL/SURGICAL HISTORY: . stroke, left SFA None. COMPARISON: C, CHEST 1V SINGLE AP, 05/26/2018. . FINDINGS: Hyperinflation. Left lung is clear. Heart size normal. There is increased hazy opacification of the r ight hemithorax greatest in the right upper lobe. CONCLUSION: Right lung airspace disease suspected. Electronically signed by: Ray Santos MD 05/28/2018 11:55 AM EDT
--- NOTE | 2018-05-28 14:27 | MB ---
cc: Kenia Olsen MD DATE: 05/28/2018 REASON FOR CONSULTATION: Stroke. PRIMARY CARE DOCTOR: Dr. Francois Graves. HISTORY OF PRESENT ILLNESS: History is taken from the chart. The patient is a 68-year-old man admitted with encephalopathy history. Apparently, he was disoriented and confused, brought in by his landlord. The patient currently is on oxygen; asleep, arousable, but does not make any eye contact or follow any direction. Apparently he was found to be disheveled by his landlord; in feces and urine, found to be hypothermic 96.3, tachycardic at 103 when he came. There is a possibility of a UTI when he came in. He had an MRI that showed 2 small foci of infarct in the right frontal, but it looks like he has had previous strokes in the past given the reading and the viewing of the MRI. PAST MEDICAL HISTORY: Stroke apparently. SOCIAL HISTORY: Unknown. FAMILY HISTORY: Unknown. MEDICATIONS AT HOME: Unknown. PHYSICAL EXAMINATION: VITAL SIGNS: Temperature 97.9 currently, heart 98, respiratory rate 22, blood pressure 140/75, satting at 77% and he is put on a Venturi mask at a flow rate of 6. FiO2 of 40%, satting at 90%. NECK: Supple. I do not appreciate any bruits. HEART: Regular. NEUROLOGIC: He is arousable, does not follow commands. Difficult to tell if he has a facial asymmetry. He withdraws in all 4 extremities, but does not follow for strength testing. DTRs are trace. Toes withdraws. Cerebellar gait cannot be assessed. LABORATORY DATA: Reviewed. Hemoglobin 11.2, white count 6.6, platelets 119,000. Coags are negative. Normal chemistries, potassium 3.3, CO2 20.9, BUN 19, creatinine 1.04, GFR 71, calcium 7.9, magnesium 1.9, ammonia 11, B12 is greater than 2000. TSH is normal at 1.470. Urine trace ketones, occult blood; small culture indicated. Tox screen was negative. Microbiology: Enterococcus faecalis in the urine culture. MEDICATIONS: Currently, he is on Lovenox 30 mg daily; on Lipitor and other p.r.n. medications. Aspirin was given to him in the ED. IMPRESSION: Two small infarcts of the right frontal lobe with history of infarcts clearly visible on his MRI. He has Enterococcus faecalis in his urine. PLAN: I would recommend, if it has not been done, getting an MRA carotid ultrasound echo. Swallow evaluation. We will get EEG. He will need evaluation by PT and OT, further recommendations will be made. MD TRUDI Diaz/garo/adilene , 09:30 AM , 09:38 AM
--- NOTE | 2018-05-28 16:38 | ECHRPT ---
Indication: cva CONCLUSIONS Normal left ventricular size. Wall thickness is normal. The left ventricular systolic function is normal with an estimated ejection fraction of 60%. Trace mitral valve regurgitation. There is a small pericardial effusion present. BP: / HR: Rhythm: MEASUREMENTS (Male / Female) Normal Values Technical Quality:Very technically difficult study 2D ECHO LV Diastolic Diameter PLAX 4.0 cm 4.2 - 5.9 / 3.9 - 5.3 cm LV Systolic Diameter PLAX 3.0 cm IVS Diastolic Thickness 0.6 cm 0.6 - 1.0 / 0.6 - 0.9 cm LVPW Diastolic Thickness 0.7 cm 0.6 - 1.0 / 0.6 - 0.9 cm LV Relative Wall Thickness 0.3 RV Internal Dim ED PLAX 2.3 cm LVOT Diameter 2.3 cm DOPPLER AV Peak Velocity 85.3 cm/s AV Peak Gradient 2.9 mmHg LVOT Peak Velocity 81.9 cm/s LVOT Peak Gradient 2.7 mmHg AV Area Cont Eq pk 4.0 cm Mitral E Point Velocity 59.7 cm/s Mitral A Point Velocity 64.2 cm/s Mitral E to A Ratio 0.9 PV Peak Velocity 106.0 cm/s PV Peak Gradient 4.5 mmHg FINDINGS LEFT VENTRICLE Normal left ventricular size. Wall thickness is normal. The left ventricular systolic function is normal with an estimated ejection fraction of 60%. RIGHT VENTRICLE Normal right ventricular size and systolic function. LEFT ATRIUM The left atrial size is normal. RIGHT ATRIUM The right atrial size is normal. ATRIAL SEPTUM Normal atrial septal thickness without atrial level shunting by limited color doppler interrogation. AORTA The aortic root and proximal ascending aorta are normal in size on limited imaging. MITRAL VALVE Trace mitral valve regurgitation. AORTIC VALVE Trileaflet aortic valve. No aortic valve stenosis or regurgitation. TRICUSPID VALVE Structurally normal tricuspid valve. No tricuspid valve stenosis or regurgitation. PULMONARY VALVE The pulmonary valve is not well visualized. VESSELS The inferior vena cava is normal in size. PERICARDIUM There is a small pericardial effusion present. Elisabeth Stephens MD, FACC (Electronically Signed) Final Date:28 May 2018 16:37
--- NOTE | 2018-05-28 21:20 | MG ---
cc: Siva Carty MD EEG #: [id number] FINDINGS: Fast frequency myogenic artifact occurring in the beginning followed by low-amplitude theta and beta frequencies. A lot of movement myogenic artifact during photic stimulation. Single EKG with artifact as well. INTERPRETATION: Appearance of at least mild encephalopathy with moderate amount of myogenic artifact. Clinical correlation. MD CHAN Valle/alexandria , 08:44 PM , 08:49 PM
[2018-05-29] MEDS: Dextrose 5%/NaCl 0.9% Inj 1,000 ML IV.CONT SCH (05:56)
--- NOTE | 2018-05-29 08:49 | P.PN ---
Subjective Interval history: sleepy arousable mumbles not clear ?baseline Physical Exam Vital signs: Vital Signs 05/28/18 08:45 05/28/18 08:47 05/28/18 09:00 Temperature Pulse Rate 98 H Respiratory Rate Blood Pressure Pulse Oximetry 90 L 90 L 05/28/18 13:57 05/28/18 16:00 05/28/18 19:28 Temperature 97.9 F 96.5 F L Pulse Rate 93 H 90 Respiratory Rate 20 16 Blood Pressure 138/81 138/80 Pulse Oximetry 93 L 98 95 05/28/18 19:45 05/29/18 00:00 05/29/18 03:57 Temperature 97.6 F 97.7 F 97.7 F Pulse Rate 85 85 84 Respiratory Rate 20 18 19 Blood Pressure 129/78 138/81 119/71 Pulse Oximetry 95 95 93 L 05/29/18 04:00 05/29/18 07:37 Temperature 97.6 F Pulse Rate 83 84 Respiratory Rate 16 Blood Pressure 114/67 Pulse Oximetry 94 L Intake & Output 05/28/18 05/29/18 05/29/18 18:59 06:59 18:59 Intake Total 1000 / 1000 1000 / 1000 Balance 1000 / 1000 1000 / 1000 Intake: IV 1000 / 1000 1000 / 1000 D5W/Normal Saline Inj 1,000 ML 1000 / 1000 1000 / 1000 @ 84 mls/hr IV.CONT .[id number] [facility] Rx#:[id number] Narrative: arouses w/deep sternal but did have ativan for agitation I was told by nurse. perrla speech unable to understand motor seems to w/d on all 4. does not follow gait can not assess. Results - Labs CBC & Chem 7: 05/28/18 05:15 05/28/18 05:15 Microbiology 05/26/18 14:30 Catheterized Urine Urine Culture - Final Enterococcus faecalis - Imaging Impressions Carotid Doppler Study 05/28/18 00:00 CONCLUSION: 1. Mild to moderate stenosis on the right not felt to be hemodynamically significant at this point. CT angiography could be used to exclude soft plaque. 2. Occluded left internal carotid artery Chest X-Ray 05/28/18 00:00 CONCLUSION: Right lung airspace disease suspected. Head MRA 05/28/18 00:00 CONCLUSION: 1. Occluded left internal carotid artery. echo result pending eeg c/w encephalopathy Assessment and Plan - Assessment (1) CVA (cerebral vascular accident) Code(s): I63.9 - Cerebral infarction, unspecified Status: Acute - Plan cont asa qd pt-ot-st rehab eval if renal parameters are ok consider cta of carotids can ask vascular to comment on right ica as left is occluded.stroke is on right frontal telemetry watch for a fib may need event or loop at some point. we don't know his baseline but seems to have lived alone so may have been fully functional. continue current care. call if any questions.
[2018-05-29] MEDS: Enoxaparin Inj 30 MG/0.3 ML Syringe SQ SCH (11:57)
[2018-05-29] MEDS: Aspirin 300 MG Supp RECTAL SCH (11:58)
--- NOTE | 2018-05-29 17:09 | P.PNIM ---
Subjective Interval history: Patient is currently not in any acute distress. He appears to be sleeping. No change in the patient's mental status. Physical Exam Vital signs: Vital Signs 05/28/18 19:28 05/28/18 19:45 05/29/18 00:00 Temperature 97.6 F 97.7 F Pulse Rate 85 85 Respiratory Rate 20 18 Blood Pressure 129/78 138/81 Pulse Oximetry 95 95 95 05/29/18 03:57 05/29/18 04:00 05/29/18 07:37 Temperature 97.7 F 97.6 F Pulse Rate 84 83 84 Respiratory Rate 19 16 Blood Pressure 119/71 114/67 Pulse Oximetry 93 L 94 L 05/29/18 11:23 05/29/18 16:00 Temperature 98.1 F 97.8 F Pulse Rate 79 72 Respiratory Rate 16 16 Blood Pressure 107/66 110/69 Pulse Oximetry 96 95 Intake & Output 05/28/18 05/29/18 05/29/18 18:59 06:59 18:59 Intake Total 1000 / 1000 1000 / 1000 Balance 1000 / 1000 1000 / 1000 Intake: IV 1000 / 1000 1000 / 1000 D5W/Normal Saline Inj 1,000 ML 1000 / 1000 1000 / 1000 @ 84 mls/hr IV.CONT .[id number] [facility] Rx#:[id number] Narrative: General patient does not appear to be in any acute distress. HEENT extraocular movements are intact Cardiovascular S1-S2 audible, RRR, no murmurs rubs or gallops Respiratory mild coarseness auscultated bilaterally. No wheezing. Abdomen soft, nontender, nondistended, normal bowel sounds Extremities no edema 2+ distal pulses in bilateral upper and lower extremities Neuro patient can move all 4 extremities. Sensation appears to be intact bilaterally. He is still not following commands and full neurological examination is difficult to assess given his current state. Results - Labs CBC & Chem 7: 05/28/18 05:15 05/28/18 05:15 Assessment and Plan - Plan This patient is a 68-year-old male who was brought in after he was found at home by his landlord. The patient was altered and found to be covered in urine and feces. He was then brought into our emergency department for evaluation. 1. Acute encephalopathy likely secondary to acute CVA. 2. Acute ischemic right frontal CVA No significant change in the patient's mental status today. He is being followed by neurology. We will obtain a CTA of the carotids to better evaluate his carotid stenosis. Vascular surgery will also be consulted if the patient possibly needs intervention of the right carotid, the CVA was in the right frontal lobe. Continue aspirin per rectal. Patient will be kept n.p.o. as he failed swallow evaluation. Continue PT/OT/S T Continue IV fluids with D5 NS. The patient will also possibly need a PEG tube placement in the near future. I will attempt to reach his son and discussed the patient's current status with him. No significant events noted on telemetry. No evidence of atrial fibrillation on telemetry. Continue to monitor on telemetry. 2. COPD 3. Community acquired pneumonia Continue supplemental oxygen as needed. Continue breathing treatments as needed. Chest x-ray shows some haziness in the right mid to upper lobe. He will be started on antibiotics. 4. History of alcohol abuse CIWA protocol in place if the patient begins to withdraw. Currently he appears comfortable no signs of withdrawal. 5. Left ischium ulcer Continue wound care. Wound care nurse consulted yesterday. Lovenox for DVT prophylaxis.
--- NOTE | 2018-05-29 17:58 | P.DIET ---
Nutritional Evaluation Type of nutrition evaluation: initial Nutrition consult regarding: Diet Evaluation Screening comments: [place] [facility] [place] Subjective Barriers to Nutrition: Swallowing problem Subjective Comments: Pt receiving nursing care when visit attempted. Pt w/some missing and chipped teeth. Objective - Diagnosis Encephalopathy - Objective [place] body weight: 72.7 kg % IBW: 69 Body Weight Used for Calculations: Actual (49.9kg) Energy Needs - Lower Range (kCal/kg): 40 Energy Needs - Upper Range (kCal/kg): 45 Lower Limit kCal/kg (kCals): 1,996 Upper Limit kCal/kg (kCals): 2,246 Lower Limit Protein Factor (Grams per Kg): 1.4 Upper Limit Protein Factor (Grams per Kg): 1.8 Lower Protein Needs (Protein): 70 Upper Protein Needs (Protein): 90 Dietitian Reviewed in Medical Record: Curent medications, Intake & Output, Labs , Medical history Diet Order: NPO Speech Therapy Recommendations: Yes (05/29 NPO) Objective Comments: PMH includes: CVA Integumentary: Left Ischium Pressure Injury; Coccyx maceration Albumin 2.6 Meds include: Lipitor, Haldol, Ativan Assessment Assessment: Pt is at high nutritional risk r/t clinical status and need to remain NPO per ST and very low BMI 16.2. Rec an alternative method of nutrition if diet cannot be advanced. For TF'ing, Rec Jevity 1.5 @ 30ml/hr, increase 10ml Q 4-hr, as tolerated, to goal rate 60ml/hr to offer 2160 kcal, 91.9g protein and 1094ml free water. Labs reviewed-noted concern for low albumin; however, albumin is no longer an indicator of nutritional status and is a negative-acute phase reactant relative to the presence of inflammation in the body. Additional Recs to follow r/t Clinical Course. Recommendations: 1. Rec an alternative method of nutrition if diet cannot be advanced 2. For TF'ing, Rec Jevity 1.5 @ 30ml/hr, increase 10ml Q 4-hr, as tolerated, to goal rate 60ml/hr 3. Additional Recs to follow r/t Clinical Course Dietitian to Monitor: Lab values, Intake & Output, Weight change, Diet advancement, Wound/skin status, Swallow recommendations, Medical course
--- NOTE | 2018-05-29 19:08 | P.PNVS ---
Subjective Subjective/Hospital Course: Patient evaluated Full consult TF CTA carotids pending Thanks J Objective Vital Signs / I&O: Vital Signs 05/28/18 19:28 05/28/18 19:45 05/29/18 00:00 Temperature 97.6 F 97.7 F Pulse Rate 85 85 Respiratory Rate 20 18 Blood Pressure 129/78 138/81 Pulse Oximetry 95 95 95 05/29/18 03:57 05/29/18 04:00 05/29/18 07:37 Temperature 97.7 F 97.6 F Pulse Rate 84 83 84 Respiratory Rate 19 16 Blood Pressure 119/71 114/67 Pulse Oximetry 93 L 94 L 05/29/18 11:23 05/29/18 16:00 Temperature 98.1 F 97.8 F Pulse Rate 79 72 Respiratory Rate 16 16 Blood Pressure 107/66 110/69 Pulse Oximetry 96 95 Intake & Output 05/29/18 05/29/18 05/30/18 06:59 18:59 06:59 Intake Total 1000 / 1000 Balance 1000 / 1000 Intake: IV 1000 / 1000 D5W/Normal Saline Inj 1,000 ML 1000 / 1000 @ 84 mls/hr IV.CONT .[id number] [facility] Rx#:[id number] Impressions Carotid Doppler Study 05/28/18 00:00 CONCLUSION: 1. Mild to moderate stenosis on the right not felt to be hemodynamically significant at this point. CT angiography could be used to exclude soft plaque. 2. Occluded left internal carotid artery Chest X-Ray 05/28/18 00:00 CONCLUSION: Right lung airspace disease suspected. Head MRA 05/28/18 00:00 CONCLUSION: 1. Occluded left internal carotid artery.
[2018-05-29] MEDS: Azithromycin Inj 250 MG in Sodium Chlor 0.9% Inj 250 ML IV.SIG SCH (21:16)
[2018-05-30] MEDS: Enoxaparin Inj 30 MG/0.3 ML Syringe SQ SCH (09:25)
[2018-05-30] MEDS: Aspirin 300 MG Supp RECTAL SCH (09:25)
[2018-05-30] MEDS: Dextrose 5%/NaCl 0.9% Inj 1,000 ML IV.CONT SCH ×3 (09:36→19:37)
--- NOTE | 2018-05-30 12:11 | MB ---
cc: Mitzy Sena MD DATE: 05/29/2018 CONSULTING PHYSICIAN: Dr. Sena, Vascular Surgery. REASON FOR CONSULTATION: Right carotid stenosis, left carotid occlusion. HISTORY OF PRESENT DISEASE: This 68-year-old male is admitted because he was found, disoriented, confused and disheveled by his landlord. Patient is clearly suffering from encephalopathy and he is currently being worked up for various problems. In the process of workup, the patient was found to be weak, barely functioning and in functional decline. He was also found to have a left internal carotid artery occlusion and a right carotid artery stenosis and the arises about the significance of these findings and the vascular remedy. PAST MEDICAL HISTORY: Is not know to me, although the patient has been several times in the hospital in the past. PAST SURGICAL HISTORY: Cannot be obtained. The patient is confused and aphasic. SOCIAL HISTORY: Per chart the patient smokes about a pack a day. Unknown if he drinks. PHYSICAL EXAMINATION: VITAL SIGNS: Reveals about 68-year-old male who appears to be thin, malnourished weak. HEENT: Normocephalic. No trauma to the head. Pupils equally reactive. Extraocular muscles appear to be intact. The patient is nonverbal. NECK: Bilateral carotid pulses in the common carotids. On the left side, there is no internal carotid artery. Apparently it is occluded, but I could not tell that just by looking at the patient. On the right side, I do not feel any bruits. The neck is thin; the patient clearly has lost some weight. CHEST: Bilateral breath sounds. The patient appears to be cachectic with loss of chest wall musculature and pulmonary cachexia, possibly functional due to other reasons. HEART: Regular rate and rhythm, slightly hypotensive. When I saw him blood pressure was 108/60. ABDOMEN: Soft, patulous. No rebound, no guarding, no masses. EXTREMITIES: The patient has palpable femoral pulses and palpable weak distal pulses. No signs of acute vascular deficit. BACK: Normal. The patient had some bruising over the lower back, but no decubitus. NEUROLOGIC: The patient is awake; however nonverbal at this time. Moves all 4 extremities, does not follow any commands. Deep tendon reflexes are fairly weak; patient is in bed and does not walk. IMPRESSION AND RECOMMENDATIONS: 1. This patient has clearly symptoms of sepsis with dehydration, probably either pulmonary or urinary, both of which have to be evaluated. 2. The patient has a neurologic exam that is consistent with confusion, but no lateralization is noted. On the CT scan, he has 2 small right frontal infarcts and some old infarcts on MRI. His left carotid is completely occluded. On the right side, the patient has stenosis by ultrasound, but I do not know how significant this is. In patients who has have unilateral carotid flow, even a lesser degree of stenosis may be significant because this is the only perfusion of the brain short of small vertebral arteries, so CTA is mandatory. If the stenosis is over 55%-60%, then patient should have this corrected. On the other hand, the patient is clearly a high risk of stroke because of no flow from the other side. The fact that the patient has right-sided strokes tells me that this may be a soft carotid plaque that is flushing off and causing embolizations and it is only a matter of time before the patient has a major stroke. Therefore, a CTA will be done and we will be able to tell better what is going on. As far as patient's general condition is concerned, right now he is not a candidate for any type of surgery and the first things come first; patient should be evaluated for sources of infection including pulmonary, urinary and other and when he is a little better, then we are going to discuss the possibility of any surgery. Thank you for this referral. I will continue to follow patient with you. MD MARLEY Lpoez/garo , 11:27 AM , 11:40 AM
[2018-05-30 12:47] LABS: Calcium 8.8 mg/dL (8.5-10.1); Carbon Dioxide 24.2 meq/L (21.0-32.0); Potassium 3.2 meq/L (3.5-5.1)
[2018-05-30] MEDS ORDERED: Potassium Chloride 25 MEQ Effervescent Tablet PO ONE (14:05)
--- NOTE | 2018-05-30 14:20 | P.PN ---
Subjective Interval history: Follow up for encephalopathy, stroke: pt. seen and examined, patient able to provide first name, his age. On a Ventimask, sats 93%. Coarse breath sounds are audible. Follow simple commands. No fever. Sinus tach on telemetry. No family at bedside Physical Exam Vital signs: Vital Signs 05/29/18 16:00 05/29/18 20:00 05/30/18 02:08 Temperature 97.8 F 97.8 F Pulse Rate 72 94 H 102 H Respiratory Rate 16 20 Blood Pressure 110/69 130/80 Pulse Oximetry 95 97 05/30/18 04:00 05/30/18 05:34 05/30/18 05:35 Temperature 97.2 F L Pulse Rate 107 H 105 H Respiratory Rate 23 22 Blood Pressure 140/79 Pulse Oximetry 91 L 95 05/30/18 08:00 05/30/18 09:04 05/30/18 09:05 Temperature 97.3 F L Pulse Rate 107 H 80 Respiratory Rate 17 19 Blood Pressure 145/76 H Pulse Oximetry 96 95 05/30/18 12:00 Temperature 97.4 F L Pulse Rate 109 H Respiratory Rate 17 Blood Pressure 114/73 Pulse Oximetry 93 L Intake & Output 05/29/18 05/30/18 05/30/18 18:59 06:59 18:59 Intake Total 350 / 350 1120 / 1120 Output Total 275 / 275 Balance 350 / 350 845 / 845 Weight 50 kg Intake: IV 350 / 350 1000 / 1000 D5W/Normal Saline Inj 1,000 ML 1000 / 1000 @ 84 mls/hr IV.CONT .[id number] [facility] Rx#:[id number] Azithromycin Inj 250 MG In NS 250 / 250 Inj 250 ML @ 250 mls/hr IV.SIG Q24H [facility] Rx#:[id number] Rocephin Inj 1,000 MG In NS Inj 100 / 100 100 ML @ 200 mls/hr IV.SIG Q24H [facility] Rx#:[id number] Oral 120 / 120 Output: Urine 275 / 275 Other: Date of Last Bowel Movement 05/28/18 05/29/18 Narrative: GENERAL: Malnourished, thin male. Mild distress SKIN: Warm and dry. HEAD: Atraumatic. Normocephalic. EYES: Pupils equal and round. No scleral icterus. No injection or drainage. ENT: No nasal bleeding or discharge. Mucous membranes pink and moist. NECK: Trachea midline. No JVD. CARDIOVASCULAR: Regular rate and rhythm. RESPIRATORY: Coarse breath sounds throughout, on Ventimask. GASTROINTESTINAL: Abdomen soft, non-tender, nondistended. Hepatic and splenic margins not palpable. MUSCULOSKELETAL: Extremities without clubbing, cyanosis, or edema. No obvious deformities. NEUROLOGICAL: Patient awakes to voice, oriented to self. Follows simple commands. Appears to move all extremities well. PSYCHIATRIC: Unable to assess Results - Labs CBC & Chem 7: 05/28/18 05:15 05/30/18 11:41 Laboratory Results - last 24 hr 05/30/18 05/30/18 11:41 11:41 Sodium 144 Potassium 3.2 L Chloride 112 H Carbon Dioxide 24.2 Anion Gap 8 BUN 15 Creatinine 0.96 Estimated GFR 78 L Random Glucose 103 Calcium 8.8 Prealbumin 9 L Assessment and Plan - Assessment (1) CVA (cerebral vascular accident) Code(s): I63.9 - Cerebral infarction, unspecified Status: Acute (2) Pneumonia Code(s): J18.9 - Pneumonia, unspecified organism Status: Acute (3) Protein calorie malnutrition Code(s): E46 - Unspecified protein-calorie malnutrition Status: Acute (4) COPD (chronic obstructive pulmonary disease) Code(s): J44.9 - Chronic obstructive pulmonary disease, unspecified Status: Chronic (5) Pleural effusion Code(s): J90 - Pleural effusion, not elsewhere classified Status: Acute (6) Respiratory insufficiency Code(s): R06.89 - Other abnormalities of breathing Status: Acute - Plan Assessment/Plan 68-year-old male who was brought in after he was found at home by his landlord. The patient was altered and found to be covered in urine and feces. He was then brought into our emergency department for evaluation. Acute metabolic encephalopathy, possibly secondary to CVA, dehydration, infection -Continue with neuro checks Continue with IV fluids We will check ammonia level in the morning Acute ischemic right frontal CVA MRI of the brain shows right frontal lobe infarction, 2-3 tiny foci. Possibly embolic stroke. No evidence of A. fib on telemetry -Continue with neuro checks Neurology input appreciated Neurology workup in progress Echocardiogram done, EF 60%, trace mitral valve regurgitation, small pericardial effusion. -Carotid ultrasound results noted, left internal carotid occluded, right carotid moderate plaque -Continue with aspirin rectally 300 mg Continue with Lipitor, has not taken, NPO -Appreciate vascular surgeon input, recommends CTA of the neck. Due to patient' s current condition, he is not a candidate for any type of surgery. -Patient to remain n.p.o., he has failed swallow eval PT/OT/ST following Dysphagia -Continue with IV fluids for now, dec. to 40/hr Keep n.p.o. We will have RN insert NG tube and start tube feedings per dietitian recommendation. Jevity 1.5 increase up to goal of 60 with water flushes -We will need to discuss with family, patient may need PEG tube COPD with exacerbation Community acquired pneumonia-cxr with poss findings of RLL pna 05/28 -Continue with Ventimask to keep sats greater than 92 has been started on Rocephin and Zithromax, will continue for now Continue with duo nebs We will add Solu-Medrol 40 mg IV twice daily -noted with inc. coarse breath sounds, dec. IVF, give Lasix 40 mg IVP x 1 -repeat CXR now History of alcohol abuse Patient restless overnight, now in restraints -CIWA protocol in place Left ischium ulcer -Continue wound care. -Wound care nurse consult Malnourished Prealb. 9 -NG to be inserted, start TF Hypokalemia -replace K -follow BMP in am Lovenox for DVT prophylaxis. Left a message for son to call me back, we will need to discuss goals of care. Patient will likely need PEG and SNF placement Code Status: Full code Discussed Condition With: RN, pt, CM left message for denia Santos Discharge Planning: Not ready for dc yet, likely need SNF placement (1) CVA (cerebral vascular accident) Qualifiers: Laterality of affected vessel: right (3) Protein calorie malnutrition Qualifiers: Protein-calorie malnutrition severity: severe Qualified Code(s): E43 - Unspecified severe protein-calorie malnutrition (4) COPD (chronic obstructive pulmonary disease) Qualifiers: COPD type: unspecified COPD Qualified Code(s): J44.9 - Chronic obstructive pulmonary disease, unspecified
--- NOTE | 2018-05-30 14:35 | XR ---
EXAM DATE: 05/30/2018 2:04 PM EDT AGE/SEX: 68 years / Male INDICATIONS: CHF. CLINICAL DATA: This is the patient's initial encounter. Patient reports that signs and symptoms have been present for 1 day and indicates a pain score of Nonresponsive. MEDICAL/SURGICAL HISTORY: . stroke, left SFA None. COMPARISON: C, CHEST 1V SINGLE AP, 05/28/2018. . FINDINGS: NG tip is in the stomach. Bilateral effusions, right greater than left with predominantly right perih ilar airspace disease slightly increased from May 28. Mild dependent left basilar airspace diseas e. No pneumothorax. CONCLUSION: Bilateral pleural effusions and right greater than left airspace disease, both slightly worsened comp ared with May 18. No pneumothorax. NG tube in stomach. Electronically signed by: Justin Monk MD 05/30/2018 2:34 PM EDT
--- NOTE | 2018-05-30 14:46 | CT ---
EXAM DATE: 05/30/2018 12:20 PM EDT AGE/SEX: 68 years / Male INDICATIONS: Abnormal carotid ultrasound, carotid occlusion. CLINICAL DATA: This is the patient's initial encounter. Patient reports that signs and symptoms have been present for 2 days and indicates a pain score of Nonresponsive. MEDICAL/SURGICAL HISTORY: Non-responsive. Non-responsive. RADIATION DOSE: 29.19 CTDI (mGy) COMPARISON: [facility], CT CERVICAL SPINE W/O CONTRAST, 04/22/2013. [facility] [place], [place] CAROTID DOPPLER BI, 018. . TECHNIQUE: Volumetric scanning was performed using a multirow detector CT scanner during bolus infus ion of 75 ml Omnipaque 350 (iohexol) nonionic water-soluble contrast as a single exam dose. The da ta was postprocessed with a variety of visualization algorithms including full-volume maximum intensi ty projection, multiplanar sliding thin-slab reformation, curved-planar reformation, and surface-rend ering techniques. Using automated exposure control and adjustment of the mA and/or kV according to p atient size, radiation dose was kept as low as reasonably achievable to obtain optimal diagnostic kaylee lity images. DICOM format image data is available electronically for review and comparison. Percent stenosis is calculated using the diameter of the stenotic region over the diameter of the nor mal distal internal carotid artery. FINDINGS: There is patchy consolidation in the right lower lobe and right upper lobe with severe emp hysema noted. A spiculated right upper lobe mass is seen with linear extensions to the pleura suspici ous for primary bronchogenic malignancy until proven otherwise. It measures 1.3 cm on axial image 16 of the lung windows. The esophagus is dilated and fluid-filled. Aortic Arch: There is a three-vessel origin of the great vessels from the aorta. No evidence of ost ial narrowing Right Carotid: There is moderate to severe calcific and soft plaque deposition at the right carotid bulb identified. This results in a less than 50% stenosis by NASCET criteria. There is mild atheroscl erosis at the origin of the external carotid artery without hemodynamically significant stenosis. Left Carotid: There is occlusion of the left internal carotid artery at its arch with calcific and s oft plaque deposition noted. External carotid artery origin is widely patent. Vertebrals: The dominant left vertebral artery is noted. The left vertebral is occluded at its origi n. There is reconstitution of the left vertebral artery at C5. CONCLUSION: 1. 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 2. Occluded left internal carotid artery at its origin. 3. Less than 50% stenosis of the right internal carotid artery secondary to atherosclerotic plaquing . 4. Emphysema and right upper lobe/lower lobe parenchymal infiltrate. 5. Spiculated mass in the right upper lobe suspicious for primary bronchogenic malignancy until prov en otherwise. Electronically signed by: Rya Santos MD 05/30/2018 2:45 PM EDT
--- NOTE | 2018-05-30 16:57 | P.PNVS ---
Subjective Subjective/Hospital Course: Patient evaluated Full consult TF CTA carotids pending Thanks José 05/30/2018 Unfortunate gentleman with multiple medical problems and severe functional decline presents with a left carotid artery occlusion, left vertebral (dominant ) artery occlusion and several frontal right-sided small strokes As noted in the consult this patient has multiple other issues and therefore CTA is essential to evaluate degree of carotid stenosis and any need for intervention. I reviewed the CTA of the carotids which reveals only about 50% right internal carotid artery stenosis and therefore no surgical intervention is necessary. Patient's strokes are due to small vessel disease in the brain and there is no surgical procedure to remedy this. 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 At this point there is nothing more to offer to patient care so I will sign off Thanks José Objective Vital Signs / I&O: Vital Signs 05/29/18 20:00 05/30/18 02:08 05/30/18 04:00 Temperature 97.8 F 97.2 F L Pulse Rate 94 H 102 H 107 H Respiratory Rate 20 23 Blood Pressure 130/80 140/79 Pulse Oximetry 97 91 L 05/30/18 05:34 05/30/18 05:35 05/30/18 08:00 Temperature 97.3 F L Pulse Rate 105 H 107 H Respiratory Rate 22 17 Blood Pressure 145/76 H Pulse Oximetry 95 96 05/30/18 09:04 05/30/18 09:05 05/30/18 12:00 Temperature 97.4 F L Pulse Rate 80 109 H Respiratory Rate 19 17 Blood Pressure 114/73 Pulse Oximetry 95 93 L 05/30/18 16:00 Temperature 97.5 F L Pulse Rate 107 H Respiratory Rate 17 Blood Pressure 136/78 Pulse Oximetry 99 Intake & Output 05/29/18 05/30/18 05/30/18 18:59 06:59 18:59 Intake Total 350 / 350 1120 / 1120 Output Total 275 / 275 Balance 350 / 350 845 / 845 Weight 50 kg Intake: IV 350 / 350 1000 / 1000 D5W/Normal Saline Inj 1,000 ML 1000 / 1000 @ 84 mls/hr IV.CONT .[id number] [facility], [facility]1983 Rx#:[id number] Azithromycin Inj 250 MG In NS 250 / 250 Inj 250 ML @ 250 mls/hr IV.SIG Q24H [facility] Rx#:[id number] Rocephin Inj 1,000 MG In NS Inj 100 / 100 100 ML @ 200 mls/hr IV.SIG Q24H ER[facility]STO Rx#:[id number] Oral 120 / 120 Output: Urine 275 / 275 Other: Date of Last Bowel Movement 05/28/18 05/29/18 Laboratory Results - last 24 hr 05/30/18 05/30/18 05/30/18 11:41 11:41 14:33 Sodium 144 Potassium 3.2 L Chloride 112 H Carbon Dioxide 24.2 Anion Gap 8 BUN 15 Creatinine 0.96 Estimated GFR 78 L Random Glucose 103 Calcium 8.8 Ammonia 13 Prealbumin 9 L Impressions Neck CTA 05/30/18 00:00 CONCLUSION: 1. 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 2. Occluded left internal carotid artery at its origin. 3. Less than 50% stenosis of the right internal carotid artery secondary to atherosclerotic plaquing. 4. Emphysema and right upper lobe/lower lobe parenchymal infiltrate. 5. Spiculated mass in the right upper lobe suspicious for primary bronchogenic malignancy until proven otherwise. Chest X-Ray 05/30/18 14:04 CONCLUSION: Bilateral pleural effusions and right greater than left airspace disease, both slightly worsened compared with May 18. No pneumothorax. NG tube in stomach.
[2018-05-30] MEDS: Azithromycin Inj 250 MG in Sodium Chlor 0.9% Inj 250 ML IV.SIG SCH (17:59)
[2018-05-30] MEDS: MethylPREDNISolone Sod Succinate Inj 40 MG/ML Vial IV.PUSH SCH (22:27)
--- NOTE | 2018-05-30 22:55 | XR ---
EXAM DATE: 05/30/2018 12:00 AM EDT AGE/SEX: 68 years / Male INDICATIONS: NG tube placement. CLINICAL DATA: This is the patient's subsequent encounter. Patient reports that signs and symptoms h ave been present for 1 day and indicates a pain score of Nonresponsive. MEDICAL/SURGICAL HISTORY: . stroke, left SFA None. COMPARISON: No prior exams available for comparison. FINDINGS: NG tip in stomach. Residual contrast in renal collecting systems. Bilateral iliac stents present. No bowel obstruction or free air. CONCLUSION: NG tip in stomach. Bilateral iliac stents. Electronically signed by: Justin Monk MD 05/30/2018 10:54 PM EDT
[2018-05-31] MEDS: Dextrose 5%/NaCl 0.9% Inj 1,000 ML IV.CONT SCH (07:36)
[2018-05-31] MEDS: MethylPREDNISolone Sod Succinate Inj 40 MG/ML Vial IV.PUSH SCH ×2 (09:53→21:18)
[2018-05-31] MEDS: Aspirin 300 MG Supp RECTAL SCH (09:54)
[2018-05-31] MEDS: Enoxaparin Inj 30 MG/0.3 ML Syringe SQ SCH (09:55)
[2018-05-31 10:02] LABS: Hematocrit 38.1 % (39.0-51.0); Hemoglobin 12.9 gm/dL (13.0-17.0); Mean Corpuscular HGB Conc 33.7 % (32.0-36.0); Mean Corpuscular Hemoglobin 33.5 pg (27.0-34.0); Mean Corpuscular Volume 99.3 fL (80.0-100.0); Mean Platelet Volume 8.9 fL (7.0-11.0); Platelet Count 114 th/mm3 (150-450); Red Blood Count 3.84 mil/mm3 (4.50-5.90); Red Cell Distribution Width 17.9 % (11.6-17.2); White Blood Count 5.6 th/mm3 (4.0-11.0)
[2018-05-31 10:31] LABS: Calcium 8.8 mg/dL (8.5-10.1); Carbon Dioxide 25.4 meq/L (21.0-32.0); Potassium 3.1 meq/L (3.5-5.1)
--- NOTE | 2018-05-31 14:28 | P.PN ---
Subjective Interval history: Follow up for encephalopathy, stroke: pt. seen and examined, patient able to provide first name, his age. On a Ventimask, 6 L, desats when off oxygen.sats 96%. Following simple commands, voice very soft, difficult to understand. Appears more calm today. N.p.o. Tolerating tube feeding well. Physical Exam Vital signs: Vital Signs 05/30/18 16:00 05/30/18 20:00 05/31/18 00:00 Temperature 97.5 F L 97.2 F L 97.6 F Pulse Rate 107 H 106 H 103 H Respiratory Rate 17 22 21 Blood Pressure 136/78 148/79 H 142/82 H Pulse Oximetry 99 92 L 96 05/31/18 04:10 05/31/18 08:00 05/31/18 10:24 Temperature 97.2 F L 97.3 F L Pulse Rate 100 H 100 H Respiratory Rate 22 22 18 Blood Pressure 165/83 H 166/79 H Pulse Oximetry 98 88 L 05/31/18 12:31 Temperature 95.8 F L Pulse Rate 90 Respiratory Rate 16 Blood Pressure 130/80 Pulse Oximetry 96 Intake & Output 05/30/18 05/31/18 05/31/18 18:59 06:59 18:59 Intake Total 1220 / 1220 1250 / 1250 Output Total 625 / 625 1500 / 1500 Balance 595 / 595 -250 / -250 Weight 50 kg Intake: IV 1100 / 1100 1250 / 1250 D5W/Normal Saline Inj 1,000 ML 1000 / 1000 1000 / 1000 @ 40 mls/hr IV.CONT .Q24H ER[facility]STO Rx#:[id number] Azithromycin Inj 250 MG In NS 250 / 250 Inj 250 ML @ 250 mls/hr IV.SIG Q24H [facility] Rx#:[id number] Rocephin Inj 1,000 MG In NS Inj 100 / 100 100 ML @ 200 mls/hr IV.SIG Q24H [facility]O Rx#:[id number] Oral 120 / 120 Output: Urine 625 / 625 1500 / 1500 Other: Date of Last Bowel Movement 05/30/18 # Bowel Movements 1 Narrative: GENERAL: Malnourished, thin male. Mild distress SKIN: Warm and dry. HEAD: Atraumatic. Normocephalic. EYES: Pupils equal and round. No scleral icterus. No injection or drainage. ENT: No nasal bleeding or discharge. Mucous membranes pink and moist. NECK: Trachea midline. No JVD. CARDIOVASCULAR: Regular rate and rhythm. RESPIRATORY: Improved breath sounds, scattered rhonchi. Remains on Ventimask. GASTROINTESTINAL: Abdomen soft, non-tender, nondistended. Hepatic and splenic margins not palpable. MUSCULOSKELETAL: Extremities without clubbing, cyanosis, or edema. No obvious deformities. NEUROLOGICAL: Awakes to voice, oriented to self. Follows commands. Unable to detect any focal weakness. Difficult to understand at times. PSYCHIATRIC: Unable to assess Results - Labs CBC & Chem 7: 05/31/18 08:37 05/31/18 08:37 Laboratory Results - last 24 hr 05/30/18 05/31/18 05/31/18 14:33 08:37 08:37 WBC 5.6 RBC 3.84 L Hgb 12.9 L Hct 38.1 L MCV 99.3 MCH 33.5 MCHC 33.7 RDW 17.9 H Plt Count 114 L MPV 8.9 Sodium 146 H Potassium 3.1 L Chloride 113 H Carbon Dioxide 25.4 Anion Gap 8 BUN 20 H Creatinine 1.16 Estimated GFR 63 L Random Glucose 153 H Calcium 8.8 Ammonia 13 - Imaging Impressions Abdomen X-Ray 05/30/18 00:00 CONCLUSION: NG tip in stomach. Bilateral iliac stents. Neck CTA 05/30/18 00:00 CONCLUSION: 1. 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 2. Occluded left internal carotid artery at its origin. 3. Less than 50% stenosis of the right internal carotid artery secondary to atherosclerotic plaquing. 4. Emphysema and right upper lobe/lower lobe parenchymal infiltrate. 5. Spiculated mass in the right upper lobe suspicious for primary bronchogenic malignancy until proven otherwise. Chest X-Ray 05/30/18 14:04 CONCLUSION: Bilateral pleural effusions and right greater than left airspace disease, both slightly worsened compared with May 18. No pneumothorax. NG tube in stomach. Assessment and Plan - Assessment (1) CVA (cerebral vascular accident) Code(s): I63.9 - Cerebral infarction, unspecified Status: Acute (2) Pneumonia Code(s): J18.9 - Pneumonia, unspecified organism Status: Acute (3) Protein calorie malnutrition Code(s): E46 - Unspecified protein-calorie malnutrition Status: Acute (4) COPD (chronic obstructive pulmonary disease) Code(s): J44.9 - Chronic obstructive pulmonary disease, unspecified Status: Chronic (5) Pleural effusion Code(s): J90 - Pleural effusion, not elsewhere classified Status: Acute (6) Respiratory insufficiency Code(s): R06.89 - Other abnormalities of breathing Status: Acute (7) Mass of upper lobe of left lung Code(s): R91.8 - Other nonspecific abnormal finding of lung field Status: Acute - Plan Assessment/Plan 68-year-old male who was brought in after he was found at home by his landlord. The patient was altered and found to be covered in urine and feces. He was then brought into our emergency department for evaluation. Acute metabolic encephalopathy, possibly secondary to CVA, dehydration, infection -Continue with neuro checks ammonia okay -more alert today, less agitated. Acute ischemic right frontal CVA MRI of the brain shows right frontal lobe infarction, 2-3 tiny foci. Possibly embolic stroke. No evidence of A. fib on telemetry -Continue with neuro checks Neurology input appreciated Echocardiogram done, EF 60%, trace mitral valve regurgitation, small pericardial effusion. -Carotid ultrasound results noted, left internal carotid occluded, right carotid moderate plaque -Continue with aspirin rectally 300 mg Continue with Lipitor -Appreciate vascular surgeon input, recommended CTA of the neck. -CTA of the carotids which reveals only about 50% right internal carotid artery stenosis, occluded left internal carotid artery at its origin. -Dr. Kumar has signed off, no surgical intervention recommended PT/OT/ST following Dysphagia -DC IV fluids, inc. congestion NG tube inserted, continue with Jevity. -We will repeat swallow eval today, if he continues to fail, he will need PEG tube. COPD with exacerbation Community acquired pneumonia-cxr with poss findings of RLL pna 05/28 -Continue with Ventimask to keep sats greater than 92 has been started on Rocephin and Zithromax, will continue for now Continue with duo nebs Continue with Solu-Medrol 40 mg IV twice daily -CXR 05/30, bilateral pleural effusions, right greater than left airspace disease, both slightly worsened. Incidental findings of a spiculated mass right upper lobe suspicious for primary bronchogenic malignancy per CTA of neck Patient's son endorses that patient has been debilitated prior to stroke, positive for unintentional weight loss No prior history of malignancy History of tobacco and alcohol abuse -will do CT chest to further evaluate mass -tumor marker LDH, CA 19-9, CEA, Alpha fetoprotein -d/w son, not sure what he wants to do. He wants to discuss with rest of family. Pleural effusions Chest x-ray with findings of bilateral pleural effusions -Started on Lasix 20 mg IV twice daily History of alcohol abuse Patient restless overnight, now in restraints -CIWA protocol in place Left ischium ulcer -Continue wound care. -Wound care nurse consult Malnourished Prealb. 9 -Continue tube feeding Hypokalemia -replace K -Start on daily potassium, 20 meq -follow BMP in am Lovenox for DVT prophylaxis. Discussed with son on the phone, updated on patient's condition and findings of CTA of neck. Indicates that he is not sure how he wants to proceed. He did ask questions about further diagnostic workup and whether patient could undergo treatment if indeed this is a malignancy. The patient is extremely malnourished, will likely not tolerate treatment. He wants to discuss with the rest of the family who is arriving today. Patient does not have any advanced directives, patient has a son and a daughter plus siblings. I recommended palliative care consultation to assist with decision making and son was agreeable. We will consult palliative care At this time, patient continues full CODE STATUS Code Status: Full code Discussed Condition With: RN pt's son Discharge Planning: Not ready for dc yet, needs SNF placement (1) CVA (cerebral vascular accident) Qualifiers: Laterality of affected vessel: right (3) Protein calorie malnutrition Qualifiers: Protein-calorie malnutrition severity: severe Qualified Code(s): E43 - Unspecified severe protein-calorie malnutrition (4) COPD (chronic obstructive pulmonary disease) Qualifiers: COPD type: unspecified COPD Qualified Code(s): J44.9 - Chronic obstructive pulmonary disease, unspecified
--- NOTE | 2018-05-31 17:19 | CT ---
EXAM DATE: 05/31/2018 4:05 PM EDT AGE/SEX: 68 years / Male INDICATIONS: Shortness of breath. CLINICAL DATA: This is the patient's initial encounter. Patient reports that signs and symptoms have been present for 1 day and indicates a pain score of Nonresponsive. MEDICAL/SURGICAL HISTORY: Chronic obstructive pulmonary disease. Stroke. None. RADIATION DOSE: 6.68 CTDI (mGy) COMPARISON: . TECHNIQUE: Multiple contiguous axial images were obtained through the chest without contrast. Image s were obtained in suspended respiration using multiple row detector helical technique. Using automa serafin exposure control and adjustment of the mA and/or kV according to patient size, radiation dose was kept as low as reasonably achievable to obtain optimal diagnostic quality images. DICOM format imag e data is available electronically for review and comparison. FINDINGS: Lungs: There is a spiculated noncalcified nodule within the right upper lobe measuring 13 mm which i s suspicious for bronchogenic carcinoma until proven otherwise. Extensive alveolar consolidations are noted within the right upper and lower lobes consistent with probable pneumonia. Emphysematous gilliam es are noted bilaterally. Azygos lobe and fissure are noted. Mediastinum: Precarinal and subcarinal mediastinal as well as right hilar lymphadenopathy is noted. Small pericardial effusion is noted. Coronary artery calcifications are noted. Pleurae: There is a moderate-sized right pleural effusion. Axillae: Unremarkable. Bony Structures: Mild degenerative changes and scoliosis of the thoracic spine are noted. Multiple c hronic mild compression deformities are noted throughout the thoracic spine. Miscellaneous: The examination was extended to include the upper abdomen, and both adrenal glands ar e normal in size and configuration. CONCLUSION: 1. Spiculated noncalcified nodule within the right upper lobe measuring 13 mm which is suspicious fo r bronchogenic carcinoma until proven otherwise. 2. Precarinal and subcarinal mediastinal as well as right hilar lymphadenopathy is noted. 3. Small pericardial effusion is noted. 4. Extensive alveolar consolidations are noted within the right upper and lower lobes consistent wit h probable pneumonia. 5. Emphysematous changes are noted bilaterally. 6. Moderate-sized right pleural effusion. 7. Mild degenerative changes and scoliosis of the thoracic spine are noted. 8. Multiple chronic mild compression deformities are noted throughout the thoracic spine. Electronically signed by: Rodríguez Diane MD 05/31/2018 5:17 PM EDT
[2018-05-31] MEDS: Azithromycin Inj 250 MG in Sodium Chlor 0.9% Inj 250 ML IV.SIG SCH (18:14)
--- NOTE | 2018-06-01 03:31 | XR ---
EXAM DATE: 06/01/2018 2:30 AM EDT AGE/SEX: 68 years / Male INDICATIONS: NG tube placement. CLINICAL DATA: This is the patient's subsequent encounter. Patient reports that signs and symptoms h ave been present for 4 - 6 days and indicates a pain score of 0/10. MEDICAL/SURGICAL HISTORY: . Chronic obstructive pulmonary disease. Stroke. None. COMPARISON: [facility] [place] [facility] 05/30/2018. . FINDINGS: Examination of the abdomen demonstrates a normal bowel gas pattern. No free air is identified. No o rganomegaly is evident. Osseous structures are intact. Nasogastric tube with tip in distal esophagus . CONCLUSION: Nasogastric tube with tip in distal esophagus and should be advanced at least 8 cm. Electronically signed by: José Antonio Bolanos MD 06/01/2018 3:30 AM EDT
[2018-06-01] MEDS: Enoxaparin Inj 30 MG/0.3 ML Syringe SQ SCH (09:03)
[2018-06-01] MEDS: MethylPREDNISolone Sod Succinate Inj 40 MG/ML Vial IV.PUSH SCH ×2 (09:05→21:23)
[2018-06-01] MEDS: Aspirin 300 MG Supp RECTAL SCH (09:08)
--- NOTE | 2018-06-01 14:40 | P.PN ---
Subjective Interval history: Follow up for encephalopathy, stroke: pt. seen and examined, patient more awake and alert today. Difficulty speaking, voice is muffled. Able to provide name. Follows commands. Does become agitated occasionally, removed NG tube last night. Tolerating tube feedings well. No fever. Diuresing well. Family at bedside. Physical Exam Vital signs: Vital Signs 05/31/18 16:00 05/31/18 20:00 06/01/18 00:00 Temperature 97.4 F L 97.6 F Pulse Rate 101 H 106 H 100 H Respiratory Rate 17 20 20 Blood Pressure 147/78 H 139/68 127/72 Pulse Oximetry 95 95 92 L 06/01/18 04:00 06/01/18 08:00 06/01/18 09:38 Temperature 97.2 F L 97.1 F L Pulse Rate 107 H 99 H Respiratory Rate 20 16 18 Blood Pressure 142/72 H 121/71 Pulse Oximetry 91 L 92 L 06/01/18 12:00 Temperature 97.2 F L Pulse Rate 100 H Respiratory Rate 20 Blood Pressure 139/79 Pulse Oximetry 92 L Intake & Output 05/31/18 06/01/18 06/01/18 18:59 06:59 18:59 Intake Total 1540 / 1540 250 / 250 100 / 100 Output Total 850 / 850 100 / 100 Balance 690 / 690 150 / 150 100 / 100 Weight 49.6 kg Intake: IV 730 / 730 250 / 250 100 / 100 D5W/Normal Saline Inj 1,000 ML 630 / 630 @ 40 mls/hr IV.CONT .Q24H ERNESTO Rx#:[id number] Azithromycin Inj 250 MG In NS 250 / 250 Inj 250 ML @ 250 mls/hr IV.SIG Q24H ERNESTO Rx#:[id number] Maxipime Inj 2,000 MG In NS Inj 100 / 100 100 ML @ 200 mls/hr IV.SIG Q12H ERNESTO Rx#:[id number] Rocephin Inj 1,000 MG In NS Inj 100 / 100 100 ML @ 200 mls/hr IV.SIG Q24H ERNESTO Rx#:[id number] Tube Feeding 750 / 750 Tube Irrigant 60 / 60 Output: Urine 850 / 850 100 / 100 Other: Date of Last Bowel Movement 05/31/18 05/31/18 Narrative: GENERAL: Malnourished, thin male. Mild distress SKIN: Warm and dry. Clubbing of fingers noted. HEAD: Atraumatic. Normocephalic. EYES: Pupils equal and round. No scleral icterus. No injection or drainage. ENT: No nasal bleeding or discharge. Mucous membranes pink and moist. NECK: Trachea midline. No JVD. CARDIOVASCULAR: Regular rate and rhythm. RESPIRATORY: Faint rhonchi, on nasal cannula now. GASTROINTESTINAL: Abdomen soft, non-tender, nondistended. Hepatic and splenic margins not palpable. MUSCULOSKELETAL: Extremities without clubbing, cyanosis, or edema. No obvious deformities. NEUROLOGICAL: More awake and alert, oriented to self. Voice is muffled. Follows simple commands. PSYCHIATRIC: Unable to assess Results - Labs CBC & Chem 7: 05/31/18 08:37 05/31/18 08:37 Laboratory Results - last 24 hr 05/31/18 05/31/18 16:25 16:35 Lactate Dehydrogenase 161 Tumor Marker AFP 3.0 Carcinoembryonic Ag 4.0 CA 19-9 Antigen 8.2 - Imaging Impressions Chest CT 05/31/18 00:00 CONCLUSION: 1. Spiculated noncalcified nodule within the right upper lobe measuring 13 mm which is suspicious for bronchogenic carcinoma until proven otherwise. 2. Precarinal and subcarinal mediastinal as well as right hilar lymphadenopathy is noted. 3. Small pericardial effusion is noted. 4. Extensive alveolar consolidations are noted within the right upper and lower lobes consistent with probable pneumonia. 5. Emphysematous changes are noted bilaterally. 6. Moderate-sized right pleural effusion. 7. Mild degenerative changes and scoliosis of the thoracic spine are noted. 8. Multiple chronic mild compression deformities are noted throughout the thoracic spine. Abdomen X-Ray 06/01/18 02:30 CONCLUSION: Nasogastric tube with tip in distal esophagus and should be advanced at least 8 cm. Assessment and Plan - Assessment (1) CVA (cerebral vascular accident) Code(s): I63.9 - Cerebral infarction, unspecified Status: Acute (2) Pneumonia Code(s): J18.9 - Pneumonia, unspecified organism Status: Acute (3) Protein calorie malnutrition Code(s): E46 - Unspecified protein-calorie malnutrition Status: Acute (4) COPD (chronic obstructive pulmonary disease) Code(s): J44.9 - Chronic obstructive pulmonary disease, unspecified Status: Chronic (5) Pleural effusion Code(s): J90 - Pleural effusion, not elsewhere classified Status: Acute (6) Respiratory insufficiency Code(s): R06.89 - Other abnormalities of breathing Status: Acute (7) Mass of upper lobe of left lung Code(s): R91.8 - Other nonspecific abnormal finding of lung field Status: Acute - Plan 68-year-old male who was brought in after he was found at home by his landlord. The patient was altered and found to be covered in urine and feces. He was then brought into our emergency department for evaluation. Acute metabolic encephalopathy, possibly secondary to CVA, dehydration, infection -Continue with neuro checks ammonia okay -Mentation improving, more alert today. Acute ischemic right frontal CVA MRI of the brain shows right frontal lobe infarction, 2-3 tiny foci. Possibly embolic stroke. No evidence of A. fib on telemetry Family endorses prior CVA 12 years ago, he did have residual expressive aphasia and possibly some swallowing difficulty. -Continue with neuro checks Neurology input appreciated Echocardiogram done, EF 60%, trace mitral valve regurgitation, small pericardial effusion. -Carotid ultrasound results noted, left internal carotid occluded, right carotid moderate plaque -Continue with aspirin rectally 300 mg Continue with Lipitor-discussed with RN to please give patient via NG tube. Patient has not been receiving -Appreciate vascular surgeon input, recommended CTA of the neck. -CTA of the carotids which reveals only about 50% right internal carotid artery stenosis, occluded left internal carotid artery at its origin. -Dr. Kumar has signed off, no surgical intervention recommended PT/OT/ST following Dysphagia NG tube inserted, continue with Jevity. -Swallow evaluation pending. Patient may need PEG COPD with exacerbation Community acquired pneumonia-cxr with poss findings of RLL pna 05/28 CT findings noted, Extensive alveolar consolidations are noted within the right upper and lower lobes consistent with probable pneumonia. Emphysematous changes. Moderate size right pleural effusion. -Continue with Ventimask to keep sats greater than 92 Continue with duo nebs Continue with Solu-Medrol 40 mg IV twice daily -CXR 05/30, bilateral pleural effusions, right greater than left airspace disease, both slightly worsened. -changed antibiotics to cefepime 2 g IV every [address] findings[address] Continue with Zithromax -Improving slowly, no fever. Incidental findings of a spiculated mass right upper lobe suspicious for primary bronchogenic malignancy per CTA of neck Patient's son endorses that patient has been debilitated prior to stroke, positive for unintentional weight loss No prior history of malignancy History of tobacco and alcohol abuse -CT of the chest piculated noncalcified nodule within the right upper lobe measuring 13 mm which is suspicious for bronchogenic carcinoma. Precarinal and subcarinal mediastinal as well as right heel or lymphadenopathy is noted. -Tumor markers done, within normal limits. Pleural effusions Chest x-ray with findings of bilateral pleural effusions -Continue Lasix 20 mg IV twice daily History of alcohol abuse Patient restless overnight, now in restraints -CIWA protocol in place Left ischium ulcer -Continue wound care. -Wound care nurse consult Malnourished Prealb. 9 -Continue tube feeding Hypokalemia -Replace electrolytes as needed -Continue daily potassium, 20 meq -follow BMP in am Lovenox for DVT prophylaxis. BMP now Repeat labs in the morning Discussed with patient's family at length, present during the conversation was his son and daughter and his siblings. Extensive conversation regarding patient 's condition, recent CT findings. They are agreeable with meeting with palliative care and then decide whether they want further workup including biopsy of nodule. They appear to be realistic that he will likely not tolerate any kind of treatment if indeed CT findings are positive for malignancy nor would he do well with biopsy if needed at this time. They would like some guidance regarding advance directives, code status. Code Status: Full code Discussed Condition With: RN, pt's family Discharge Planning: Not ready for dc yet, needs SNF placement (1) CVA (cerebral vascular accident) Qualifiers: Laterality of affected vessel: right (3) Protein calorie malnutrition Qualifiers: Protein-calorie malnutrition severity: severe Qualified Code(s): E43 - Unspecified severe protein-calorie malnutrition (4) COPD (chronic obstructive pulmonary disease) Qualifiers: COPD type: unspecified COPD Qualified Code(s): J44.9 - Chronic obstructive pulmonary disease, unspecified
[2018-06-01] MEDS: Azithromycin Inj 250 MG in Sodium Chlor 0.9% Inj 250 ML IV.SIG SCH (17:26)
--- NOTE | 2018-06-02 06:03 | XR ---
EXAM DATE: 06/02/2018 12:00 AM EDT AGE/SEX: 68 years / Male INDICATIONS: NG tube placement. CLINICAL DATA: This is the patient's subsequent encounter. Patient reports that signs and symptoms h ave been present for 1 week and indicates a pain score of Nonresponsive. MEDICAL/SURGICAL HISTORY: Stroke. Smoker. Non-responsive. COMPARISON: [facility] – [place], [facility]BDOMEN [facility], 06/01/2018. . FINDINGS: The bowel gas pattern is unremarkable. Free air is not seen. Vascular stents are seen bilaterally in the pelvis. There is an NG tube with its tip in the upper stomach. CONCLUSION: Negative single view abdomen. Electronically signed by: Francois Ward MD 06/02/2018 6:02 AM EDT
[2018-06-02 07:01] LABS: Hematocrit 37.1 % (39.0-51.0); Hemoglobin 12.9 gm/dL (13.0-17.0); Mean Corpuscular HGB Conc 34.7 % (32.0-36.0); Mean Corpuscular Hemoglobin 33.5 pg (27.0-34.0); Mean Corpuscular Volume 96.5 fL (80.0-100.0); Mean Platelet Volume 8.9 fL (7.0-11.0); Platelet Count 121 th/mm3 (150-450); Red Blood Count 3.85 mil/mm3 (4.50-5.90); Red Cell Distribution Width 17.8 % (11.6-17.2)
[2018-06-02] MEDS: Haloperidol Inj 5 MG/ML Ampul IV.PUSH PRN (07:42)
[2018-06-02] MEDS: MethylPREDNISolone Sod Succinate Inj 40 MG/ML Vial IV.PUSH SCH (08:52)
[2018-06-02] MEDS: Enoxaparin Inj 30 MG/0.3 ML Syringe SQ SCH (08:53)
[2018-06-02] MEDS: Aspirin 300 MG Supp RECTAL SCH (09:04)
--- NOTE | 2018-06-02 09:41 | P.PN ---
Subjective Interval history: Follow up for encephalopathy, stroke: pt. seen and examined, more awake, oriented to self, follows simple commands. Occasionally agitated, has remove NG tube twice overnight. Tolerating tube feedings well. On room air, sats 95% . Continues to fail swallow eval. Unable to obtain ROS. No fever. No family at bedside. Physical Exam Vital signs: Vital Signs 06/01/18 12:00 06/01/18 15:55 06/01/18 19:30 Temperature 97.2 F L 99.1 F Pulse Rate 101 H 100 H 106 H Respiratory Rate 20 16 Blood Pressure 139/79 109/64 Pulse Oximetry 92 L 90 L 06/01/18 20:00 06/02/18 00:00 06/02/18 04:00 Temperature 98.7 F 98.7 F 98.3 F Pulse Rate 100 H 104 H 103 H Respiratory Rate 16 16 18 Blood Pressure 126/70 135/76 139/76 Pulse Oximetry 94 L 95 95 06/02/18 09:34 Temperature Pulse Rate Respiratory Rate 17 Blood Pressure Pulse Oximetry Intake & Output 06/01/18 06/02/18 06/02/18 18:59 06:59 18:59 Intake Total 1088 / 1088 560 / 560 100 / 100 Output Total 1100 / 1100 Balance 1088 / 1088 -540 / -540 100 / 100 Intake: IV 350 / 350 100 / 100 100 / 100 Azithromycin Inj 250 MG In NS 250 / 250 Inj 250 ML @ 250 mls/hr IV.SIG Q24H ERNESTO Rx#:[id number] Maxipime Inj 2,000 MG In NS Inj 100 / 100 100 / 100 100 / 100 100 ML @ 200 mls/hr IV.SIG Q12H ERNESTO Rx#:[id number] Tube Feeding 738 / 738 280 / 280 Water Bolus Amount 180 / 180 Output: Urine 1100 / 1100 Other: Date of Last Bowel Movement 05/31/18 Narrative: GENERAL: Malnourished, thin male. No distress. SKIN: Warm and dry. Clubbing of fingers noted. HEAD: Atraumatic. Normocephalic. EYES: Pupils equal and round. No scleral icterus. No injection or drainage. ENT: No nasal bleeding or discharge. Mucous membranes pink and moist. NECK: Trachea midline. No JVD. CARDIOVASCULAR: Regular rate and rhythm. RESPIRATORY: Diminished at bases. GASTROINTESTINAL: Abdomen soft, non-tender, nondistended. Hepatic and splenic margins not palpable. NG tube with tube feeding in place. MUSCULOSKELETAL: Extremities without clubbing, cyanosis, or edema. No obvious deformities. NEUROLOGICAL: More awake, oriented to self. Voice is muffled. Follows simple commands. Disoriented. PSYCHIATRIC: Unable to assess Results - Labs CBC & Chem 7: 06/02/18 06:15 06/02/18 06:05 Laboratory Results - last 24 hr 06/02/18 06:15 WBC 9.0 RBC 3.85 L Hgb 12.9 L Hct 37.1 L MCV 96.5 MCH 33.5 MCHC 34.7 RDW 17.8 H Plt Count 121 L MPV 8.9 - Imaging Impressions Abdomen X-Ray 06/02/18 00:00 CONCLUSION: Negative single view abdomen. Assessment and Plan - Assessment (1) CVA (cerebral vascular accident) Code(s): I63.9 - Cerebral infarction, unspecified Status: Acute (2) Pneumonia Code(s): J18.9 - Pneumonia, unspecified organism Status: Acute (3) Protein calorie malnutrition Code(s): E46 - Unspecified protein-calorie malnutrition Status: Acute (4) COPD (chronic obstructive pulmonary disease) Code(s): J44.9 - Chronic obstructive pulmonary disease, unspecified Status: Chronic (5) Pleural effusion Code(s): J90 - Pleural effusion, not elsewhere classified Status: Acute (6) Respiratory insufficiency Code(s): R06.89 - Other abnormalities of breathing Status: Acute (7) Mass of upper lobe of left lung Code(s): R91.8 - Other nonspecific abnormal finding of lung field Status: Acute - Plan 68-year-old male who was brought in after he was found at home by his landlord. The patient was altered and found to be covered in urine and feces. He was then brought into our emergency department for evaluation. Acute metabolic encephalopathy, possibly secondary to CVA, dehydration, infection -Continue with neuro checks ammonia okay -Mentation improving, more alert today. Acute ischemic right frontal CVA MRI of the brain shows right frontal lobe infarction, 2-3 tiny foci. Possibly embolic stroke. No evidence of A. fib on telemetry Family endorses prior CVA 12 years ago, he did have residual expressive aphasia and possibly some swallowing difficulty. -Continue with neuro checks Neurology input appreciated Echocardiogram done, EF 60%, trace mitral valve regurgitation, small pericardial effusion. -Carotid ultrasound results noted, left internal carotid occluded, right carotid moderate plaque -Continue with aspirin rectally 300 mg Continue with Lipitor-discussed with RN to please give patient via NG tube. Patient has not been receiving -Appreciate vascular surgeon input, recommended CTA of the neck. -CTA of the carotids which reveals only about 50% right internal carotid artery stenosis, occluded left internal carotid artery at its origin. -Dr. Kumar has signed off, no surgical intervention recommended PT/OT/ST following Dysphagia NG tube inserted, continue with Jevity. -Continues to fail swallow eval Patient likely needs PEG tube COPD with exacerbation Community acquired pneumonia-cxr with poss findings of RLL pna 05/28 CT findings noted, Extensive alveolar consolidations are noted within the right upper and lower lobes consistent with probable pneumonia. Emphysematous changes. Moderate size right pleural effusion. -Continue with Ventimask to keep sats greater than 92 Continue with duo nebs Wean off Solu-Medrol, decrease to 40 mg IV daily -CXR 05/30, bilateral pleural effusions, right greater than left airspace disease, both slightly worsened. -changed antibiotics to cefepime 2 g IV every [address] findings[address] Continue with Zithromax -Symptoms improving, no fever. Can be changed to antibiotics via NG tube tomorrow. Incidental findings of a spiculated mass right upper lobe suspicious for primary bronchogenic malignancy per CTA of neck Patient's son endorses that patient has been debilitated prior to stroke, positive for unintentional weight loss No prior history of malignancy History of tobacco and alcohol abuse -CT of the chest piculated noncalcified nodule within the right upper lobe measuring 13 mm which is suspicious for bronchogenic carcinoma. Precarinal and subcarinal mediastinal as well as right heel or lymphadenopathy is noted. -Tumor markers done, within normal limits. -Further workup depending on family's wishes after they speak to palliative care Pleural effusions Chest x-ray with findings of bilateral pleural effusions -Change to Lasix 20 mg p.o. daily History of alcohol abuse Patient restless overnight, now in restraints -CIWA protocol in place Left ischium ulcer -Continue wound care. -Wound care nurse consult Malnourished Prealb. 9 -Continue tube feeding Hypokalemia Hypernatremia, sodium 146 147 -Replace electrolytes as needed -Continue daily potassium, 20 meq -Increase free water to 150 cc every 6 Follow BMP Lovenox for DVT prophylaxis. BMP in a.m. Discussed with patient's family at length yesterday, palliative care consultation. Discussed with palliative care nurse practitioner María Guzman. She will reach out to family to set up meeting At this point, family wants to speak to palliative care before deciding whether they want to pursue any further diagnostic workup with right upper lung nodule. Patient will likely need PEG placement. Code Status: Full code Discussed Condition With: RN, CM, LOS [place] Discharge Planning: Not ready for dc yet, needs SNF placement (1) CVA (cerebral vascular accident) Qualifiers: Laterality of affected vessel: right (3) Protein calorie malnutrition Qualifiers: Protein-calorie malnutrition severity: severe Qualified Code(s): E43 - Unspecified severe protein-calorie malnutrition (4) COPD (chronic obstructive pulmonary disease) Qualifiers: COPD type: unspecified COPD Qualified Code(s): J44.9 - Chronic obstructive pulmonary disease, unspecified
--- NOTE | 2018-06-02 09:45 | XR ---
EXAM DATE: 06/02/2018 12:00 AM EDT AGE/SEX: 68 years / Male INDICATIONS: NG Tube placement. CLINICAL DATA: This is the patient's initial encounter. Patient reports that signs and symptoms have been present for 1 day and indicates a pain score of 0/10. MEDICAL/SURGICAL HISTORY: Chronic obstructive pulmonary disease. Stroke. None. COMPARISON: [facility] – [place] [facility], 06/02/2018. . FINDINGS: On this examination there is an NG tube well within the stomach. The lung bases are grossly clear. Th e bowel gas pattern is within normal limits. CONCLUSION: NG tube is within the stomach. Electronically signed by: Pablo Hutchins MD 06/02/2018 9:44 AM EDT
[2018-06-02 10:13] LABS: Calcium 9.3 mg/dL (8.5-10.1); Carbon Dioxide 31.9 meq/L (21.0-32.0); Potassium 3.6 meq/L (3.5-5.1)
--- NOTE | 2018-06-02 15:21 | XR ---
EXAM DATE: 06/02/2018 12:00 AM EDT AGE/SEX: 68 years / Male INDICATIONS: Confirm NG tube placement. CLINICAL DATA: This is the patient's subsequent encounter. Patient reports that signs and symptoms h ave been present for 2 days and indicates a pain score of 0/10. MEDICAL/SURGICAL HISTORY: Chronic obstructive pulmonary disease. Stroke. None. COMPARISON: [facility] – [place], [facility]BDOMEN [facility], 06/02/2018. . FINDINGS: There is an NGT with tip in the stomach. General paucity of bowel gas in the visualized upper abdomen . Lung bases are stable and grossly clear. Remainder of the exam is unchanged. CONCLUSION: 1. Suction-type NGT in the proximal stomach. Electronically signed by: Jc Caraballo MD 06/02/2018 3:20 PM EDT
[2018-06-02] MEDS: Azithromycin Inj 250 MG in Sodium Chlor 0.9% Inj 250 ML IV.SIG SCH (17:39)
--- NOTE | 2018-06-02 18:31 | P.CONPAL ---
Consult Service: Palliative Care Requesting Physician: Grace Bah Reason for Consult: a. To assist with evaluation and management of symptoms including:pain, dyspnea , dysphagia. b. To assist medical decision maker(s) with: better understanding of current medical conditions; weighing benefits/burdens of medical treatment options; making medical treatment decisions. Primary Care Provider: Je Graves MD History of Present Illness History of Present Illness: Mr. Saleem is a 68 year old male with past medical history of encephalopathy, stroke (12 years ago), alcohol abuse (quit 12 years ago) and tobacco use. Patient presented to [facility] emergency department on 05/26/18 with altered mental status. He was reportedly disoriented, confused. He was found by his landlord disheveled and unsanitary found in urine and feces. Patient was unable to provide medical history on arrival. Upon arrival to the emergency room labs were unremarkable except hypoalbuminemia. He was hypothermic temp 96.3 (warming blanket placed), heart rate 103. Chest x-ray was negative. CT head revealed no acute finding, atrophy and remote infarcts noted. MRI head atrophy and white matter disease with remote infarcts, 2-3 tiny foci of restricted diffusion in the right frontal lobe characteristic of tiny foci of infarction. Neurology, Dr. Olsen was consulted. Carotid doppler US revealed mild to moderate stenosis on the right not felt to be hemodynamically significant, occluded left internal carotid artery. Echocardiogram revealed EF 60%, trace mitral valve regurgitation, small pericardial effusion. 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 MRA head revealed occluded left internal carotid artery. EEG revealed mild encephalopathy. Vascular surgery, Dr. Sena was consulted for carotid artery occlusion, patient was deemed not to be a candidate for any surgical intervention given overall poor (functional, neurologic and nutritional) condition. CT chest revealed 13 mm spiculated mass , mediastinal and right hilar adenopathy, pneumonia, emphysema bilaterally, moderate right pleural effusion, degenerative changes and scoliosis. Patient failed and has continued to fail swallow tests since admission. Remains NPO, tolerating tube feeding via NGT. May need PEG tube if family desires continued aggressive care. Patient remains encephalopathic, follows some simple commands, voice is soft, speech somewhat garbled difficult to understand. Has had some intermittent agitation. Bilateral soft restraints appears to be for agitation and concern of pulling out NG tube. Family has been considering treatment options including PEG tube, biopsy, rehabilitation etc. Family has also verbalized concern that patient would not tolerate treatment. Palliative care was consulted to assist with symptom management, further clarification of goals of medical treatment. Spoke with Martita MTZ via telephone. She indicates family will be coming to hospital 06/03/18, offered family meeting in person/via conference call with family. She will speak with family and let me know. We discussed his overall nutritional, functional and cognitive changes. We talked briefly about things to consider (CODE status, benefits and burdens of biopsy, what would we do with this information, PEG tube placement, rehabilitation, likely lung cancer etc). Questions answered. She will call me with time for family meeting. She also provided additional history. Function/Cognitive Trajectory: Patient has had ongoing decline. He was living alone which was becoming more difficult. He has had difficulty communicating since his stroke 12 years ago. Review of Systems ROS per Martita MTZ reports. Constitutional: Reports anorexia, Reports fatigue, Reports lack of energy, Reports malaise, Reports weakness, Reports weight loss (unintentional) Ears, Nose, Mouth, and Throat: Reports difficulty swallowing, Reports dry mouth Cardiovascular: Reports shortness of breath Respiratory: Reports cough Skin/Breast: Reports dry skin Neurologic: Reports confusion, Reports weakness Psychiatric: Reports confusion PMFSH - History History Provided By: Family Member - Medical / Surgical Hx Neg / Unobtainable Surgical History: Unable to Obtain - Medical History Medical History: Medical History (Last Updated 06/02/18 @ 18:16 by Hoa Guzman) Alcohol abuse Tobacco abuse CVA (cerebral vascular accident) - Family History Family History: Family History (Last Updated 06/02/18 @ 18:17 by Hoa Guzman) Other Emphysema lung - Social History I have reviewed the patient's Social History: Yes - Tobacco History Second Hand Smoke Exposure: Yes Tobacco Use In Past 30 Days: Yes Smoking Status: Current every day smoker Tobacco Type: Cigarettes - Alcohol History How Often Do You Have a Drink Containing Alcohol: Unable to Obtain (prior alocoholism, quit 12 years ago after stroke) - Substance Use History Substance History: Past History - Travel History Recent Travel in the [place] Within the Last 8 Weeks: No Recent Travel Out of the Country Within the Last 8 Weeks: No - Immunization History Tetanus Immunization: Unable to Assess Medications and Allergies Active Medications: Active Medications Albuterol (Duoneb Neb (Prn)) 1 ampul NEB Q4HR NEB PRN PRN Reason: SHORTNESS OF BREATH Last Admin: 05/30/18 09:03 Dose: 1 ampul Aspirin (Aspirin Supp) 300 mg RECTAL DAILY ERNESTO Last Admin: 06/02/18 09:04 Dose: 300 mg Atorvastatin Calcium (Lipitor) 20 mg NG/OG HS ERNESTO Last Admin: 06/01/18 21:23 Dose: 20 mg Enoxaparin Sodium (Lovenox Inj) 30 mg SQ DAILY ERNESTO Last Admin: 06/02/18 08:53 Dose: 30 mg Furosemide (Lasix) 20 mg PO DAILY ERNESTO Haloperidol Lactate (Haldol Inj) 1 mg IV.PUSH Q15M PRN PRN Reason: for severe agitation Last Admin: 06/02/18 07:42 Dose: 1 mg Azithromycin 250 mg/ Sodium (Chloride) 250 mls @ 250 mls/hr IV.SIG Q24H ERNESTO Last Infusion: 06/01/18 18:26 Dose: Infused Cefepime HCl 2,000 mg/ Sodium (Chloride) 100 mls @ 200 mls/hr IV.SIG Q12H ERNESTO Last Infusion: 06/02/18 09:20 Dose: Infused Lorazepam (Ativan Inj) 1 mg IV.PUSH Q4H PRN PRN Reason: for CIWA 8-10 Last Admin: 05/29/18 03:23 Dose: 1 mg Lorazepam (Ativan Inj) 2 mg IV.PUSH Q15M PRN PRN Reason: for CIWA > 20 Lorazepam (Ativan Inj) 2 mg IV.PUSH Q1H PRN PRN Reason: for CIWA 15-20 Lorazepam (Ativan Inj) 2 mg IV.PUSH Q2H PRN PRN Reason: for CIWA 11-14 Last Admin: 05/28/18 15:29 Dose: 2 mg Lorazepam (Ativan) 1 mg PO Q4H PRN PRN Reason: for CIWA 8-10 Lorazepam (Ativan) 2 mg PO Q2H PRN PRN Reason: for CIWA 11-14 Methylprednisolone Sodium Succinate (Solumedrol Inj) 40 mg IV.PUSH DAILY ERNESTO Potassium Chloride (K-Dur) 20 meq PO DAILY ERNESTO Last Admin: 06/02/18 09:02 Dose: 20 meq Sodium Chloride (Ns Flush) 2 ml IV.FLUSH PRN PRN PRN Reason: FLUSH AFTER USING IV ACCESS Last Admin: 06/02/18 07:43 Dose: 2 ml Sodium Chloride (Ns Flush) 2 ml IV.FLUSH BID ERNESTO Last Admin: 06/02/18 09:02 Dose: 2 ml Allergies Allergy/AdvReac Type Severity Reaction Status Date / Time No Known Allergies Allergy Uncoded 07/11/16 17:32 Home Medications Medication Instructions Recorded Confirmed Type Unable to Obtain Home Meds 05/26/18 05/26/18 History Advance Directives Living Will: No Healthcare Surrogate: No Power of Sewing Machinist: No Today's verbally stated goals: Patient is not capacitated to make his own health care decisions, uncertain if he will regain capacity. Family/friends goals: Family meeting planned for 06/03/18. Ethical and Legal Issues: Patient is not capacitated to make his own health care decisions, uncertain if he will regain capacity. According to [place] statutes, health care proxy decision making falls to the majority of adult children. Physical Exam Vital Signs: Vital Signs - 24 hr 06/01/18 19:30 06/01/18 20:00 06/02/18 00:00 Temperature 98.7 F 98.7 F Pulse Rate 106 H 100 H 104 H Respiratory Rate 16 16 Blood Pressure 126/70 135/76 Pulse Oximetry 94 L 95 06/02/18 04:00 06/02/18 08:00 06/02/18 09:00 Temperature 98.3 F 97.6 F Pulse Rate 103 H 101 H 106 H Respiratory Rate 18 18 Blood Pressure 139/76 128/66 Pulse Oximetry 95 95 06/02/18 09:34 06/02/18 12:00 Temperature 97.3 F L Pulse Rate 107 H Respiratory Rate 17 18 Blood Pressure 127/61 Pulse Oximetry 95 I&O: Intake & Output 05/31/18 06/01/18 06/02/18 06/03/18 06:59 06:59 06:59 06:59 Intake Total 2470 / 2470 1790 / 1790 1648 / 1648 250 / 250 Output Total 2125 / 2125 950 / 950 1100 / 1100 Balance 345 / 345 840 / 840 548 / 548 250 / 250 Weight 50 kg 49.6 kg Physical Exam: CONSTITUTIONAL/GENERAL: This is a frail, cachectic patient, in no apparent distress. TUBES/LINES/DRAINS: oxygen, NG, PIV, wrist restraints. SKIN: Temporal and muscle wasting. No jaundice, rashes, or lesions. Dry skin. Bruises arms. No wounds seen anteriorly. Skin temperature appropriate. Not diaphoretic. HEAD: Atraumatic. Normocephalic. EYES: Pupils equal and round and reactive. Extraocular motions intact. No scleral icterus. No injection or drainage. Fundi not examined. ENT: Hearing grossly normal. Nose without bleeding or purulent drainage. Oral mucosa dry. NECK: Trachea midline. CARDIOVASCULAR: Regular rate and rhythm without murmurs, gallops, or rubs. No JVD. RESPIRATORY/CHEST: Symmetric, unlabored respirations. scattered rhonchi. GASTROINTESTINAL: Abdomen soft, non-tender, nondistended. No guarding. Bowel sounds present. GENITOURINARY: Without palpable bladder distension. Fox catheter in place. MUSCULOSKELETAL: Extremities without clubbing, cyanosis, or edema. No joint tenderness or effusion noted. No calf tenderness. No mottling or clubbing. LYMPHATICS: No palpable cervical or supraclavicular adenopathy. NEUROLOGICAL: Awake and sleepy. Oriented to self, soft mumbled speech, difficult to understand. Follows simple commands. Generalized weakness. PSYCHIATRIC:Smiles, calm. Diagnostic Tests Laboratory: Laboratory Results - last 72 hr 05/31/18 05/31/18 05/31/18 08:37 08:37 16:25 WBC 5.6 RBC 3.84 L Hgb 12.9 L Hct 38.1 L MCV 99.3 MCH 33.5 MCHC 33.7 RDW 17.9 H Plt Count 114 L MPV 8.9 Sodium 146 H Potassium 3.1 L Chloride 113 H Carbon Dioxide 25.4 Anion Gap 8 BUN 20 H Creatinine 1.16 Estimated GFR 63 L Random Glucose 153 H Calcium 8.8 Lactate Dehydrogenase 161 Tumor Marker AFP 3.0 Carcinoembryonic Ag 4.0 CA 19-9 Antigen 05/31/18 06/02/18 06/02/18 16:35 06:05 06:15 WBC 9.0 RBC 3.85 L Hgb 12.9 L Hct 37.1 L MCV 96.5 MCH 33.5 MCHC 34.7 RDW 17.8 H Plt Count 121 L MPV 8.9 Sodium 147 H Potassium 3.6 Chloride 105 D Carbon Dioxide 31.9 Anion Gap 10 BUN 38 H Creatinine 1.18 Estimated GFR 62 L Random Glucose 93 Calcium 9.3 Lactate Dehydrogenase Tumor Marker AFP Carcinoembryonic Ag CA 19-9 Antigen 8.2 Result Diagrams: 06/02/18 06:15 06/02/18 06:05 Imaging: Head MRI 05/26/18 00:00 Diffusion weighted images demonstrate tiny foci of restricted diffusion in the right frontal cortex. There is diffuse atrophy. There is a large area of encephalomalacia and scoliosis in the left frontal lobe from previous infarction. There is slight ex vacuo dilatation of the left lateral ventricle and remote left basal ganglia lacunar infarcts. In addition remote right occipital infarct and encephalomalacia noted. There are no signs of acute intracranial hemorrhage though there is evidence of remote hemosiderin along the right parietal cortex. No abnormal areas of enhancement are seen. There is no evidence for mass.. CONCLUSION: 1. Atrophy and white matter disease with remote infarcts identified. 2. 2-3 tiny foci of restricted diffusion in the right frontal lobe characteristic of tiny foci of acute infarction. Head CT 05/26/18 12:11 CONCLUSION: 1. No acute findings. Atrophy and remote infarcts. . Carotid Doppler Study 05/28/18 00:00 CONCLUSION: 1. Mild to moderate stenosis on the right not felt to be hemodynamically significant at this point. CT angiography could be used to exclude soft plaque. 2. Occluded left internal carotid artery Head MRA 05/28/18 00:00 CONCLUSION: 1. Occluded left internal carotid artery. Neck CTA 05/30/18 00:00 CONCLUSION: 1. 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 2. Occluded left internal carotid artery at its origin. 3. Less than 50% stenosis of the right internal carotid artery secondary to atherosclerotic plaquing. 4. Emphysema and right upper lobe/lower lobe parenchymal infiltrate. 5. Spiculated mass in the right upper lobe suspicious for primary bronchogenic malignancy until proven otherwise. Chest X-Ray 05/30/18 14:04 CONCLUSION: Bilateral pleural effusions and right greater than left airspace disease, both slightly worsened compared with May 18. No pneumothorax. NG tube in stomach. Chest CT 05/31/18 00:00 CONCLUSION: 1. Spiculated noncalcified nodule within the right upper lobe measuring 13 mm which is suspicious for bronchogenic carcinoma until proven otherwise. 2. Precarinal and subcarinal mediastinal as well as right hilar lymphadenopathy is noted. 3. Small pericardial effusion is noted. 4. Extensive alveolar consolidations are noted within the right upper and lower lobes consistent with probable pneumonia. 5. Emphysematous changes are noted bilaterally. 6. Moderate-sized right pleural effusion. 7. Mild degenerative changes and scoliosis of the thoracic spine are noted. 8. Multiple chronic mild compression deformities are noted throughout the thoracic spine. Abdomen X-Ray 06/02/18 00:00 CONCLUSION: 1. Suction-type NGT in the proximal stomach. Patient/Family Conference Present at Family Conference: Spoke with Martita MTZ via phone. Family Conference Time: 40 Family Conference Location: Telephone Issues Discussed: * Palliative care role, purpose, approach * Additional medical, psychosocial, and spiritual history * Patients general health, functional status, and cognitive changes in the months leading up to the current hospitalization * Patient/family understanding of the current medical problems * Patient/family understanding of prognosis * Patients goals of care as best understood from advance directives and/or conversations and/or values * Current medical treatment options and benefits/burdens of those options * Likely scenarios comparing ongoing aggressive care with a transition to comfort measures only * Questions answered to the best of my ability * Palliative care contact information provided Assessment and Plan - Disease Oriented Problem List (1) CVA (cerebral vascular accident) (2) Pneumonia (3) Protein calorie malnutrition (4) COPD (chronic obstructive pulmonary disease) (5) Pleural effusion (6) Respiratory insufficiency (7) Mass of upper lobe of left lung - Symptom Scale (1) Dysphagia 0-10 Scale: Unable to quantify (2) Dyspnea 0-10 Scale: Unable to quantify (3) Debility 0-10 Scale: Unable to quantify (4) Pain 0-10 Scale: Unable to quantify Pertinent Non-Medical Issues: Psychosocial: Spiritual: Legal: Ethical issues impacting care: Important Contacts: * Miguel Saleem, son: [phone] * Martita Stiven, [id number]: [phone] * Brandi Russell: Sister: [phone] Prognosis: Mr. hung is a 68-year-old male with remote stroke and new stroke with significant dysphagia, significant unintentional weight loss, cachexia requiring NG tube feedings, new finding of spiculated lung mass with mediastinal adenopathy concerning for malignancy. Patient with significant cognitive, nutritional and functional deficits. Overall prognosis appears poor. I suspect even with a confirmed, biopsy-proven diagnosis of malignancy he would not be a candidate for treatment. Hospice appropriate if goals are comfort oriented. Code Status: Full Code (Family considering CODE STATUS) Plan: * Patient is not capacitated to make his own health care decisions, uncertain if he will regain capacity. According to [place] statutes, health care proxy decision making falls to the majority of adult children. * FULL CODE * Family meeting tentatively planned for 06/03/18, time to be determined. * SYMPTOMS: Dysphagia: Remote and recent stroke, carotid artery stenosis/ occlusion. Unintentional weight loss over the past 6 months. Tolerating TF via NGT. May need PEG tube if family desires continued aggressive care. Dyspnea: History of COPD/ emphysema, new spiculated mass in lung likely cancer with mediastinal adenopathy. Debility: Secondary to general decline, possible malignancy, malnutrition. Continue PT. Concerned patient will have continued decline. * Palliative care number provided. * Palliative care will continue to follow throughout hospital course to assist with symptom management further clarification of goals of medical treatment. Appreciation Thank you for the opportunity to participate in the care of Tom Saleem. Attestation Attestation: To help prompt me to consider important information that might be impacting today's encounter and assessment, information from prior notes written by myself or my colleagues may have been "brought forward" into today's note. My signature on this note, however, is an attestation that I personally performed the exam, history, and/or decision-making noted today, and, unless otherwise indicated, the interactions with patient, family, and staff as well as the review of records all occurred today. I also attest that the listed assessment and stated plan reflect my best clinical judgment today based on the combination of historical information, prior notes, and today's exam/ interactions. When time spent is documented, it refers only to time spent today by the signer, or if indicated, combined time spent today by collaborating physician/nurse practitioner.
[2018-06-03 08:07] LABS: Calcium 8.6 mg/dL (8.5-10.1); Carbon Dioxide 35.9 meq/L (21.0-32.0); Potassium 3.3 meq/L (3.5-5.1)
[2018-06-03] MEDS: Enoxaparin Inj 30 MG/0.3 ML Syringe SQ SCH (09:20)
[2018-06-03] MEDS: Aspirin 300 MG Supp RECTAL SCH (09:20)
[2018-06-03] MEDS: MethylPREDNISolone Sod Succinate Inj 40 MG/ML Vial IV.PUSH SCH (09:21)
[2018-06-03] MEDS: Furosemide 20 MG Tablet PO SCH (09:22)
--- NOTE | 2018-06-03 12:05 | P.CONGI ---
History of Present Illness Consult date: 06/03/18 Consult reason: PEG tube placement Chief complaint: encephalopathy History of Present Illness: This patient is a 68-year-old male patient with past medical history significant for CVA, alcohol abuse, tobacco use, and encephalopathy. Patient presented to the emergency room at [facility] on 1014 with altered mental status. Patient unable to provide medical history. Apparently patient was found in unsanitary conditions by his landlord. Neurology was consulted to see patient and found carotid Doppler ultrasound revealed moderate stenosis on the right with an occluded left internal carotid artery. EEG revealed mild encephalopathy. CT chest revealed 13 mm spiculated mass, mediastinal and right hilar adenopathy, emphysema bilaterally. Patient has had multiple swallow tests and has continued to fail test since admission. Presently patient is n.p.o., tolerating tube feedings via NG. Jevity 1.5 with a goal rate of 60 mL's per hour as noted per nutritional consult. Our service has been consulted for PEG placement. <Phoebe Encinas - Last Filed: 06/03/18 11:53> Review of Systems All other systems reviewed negative except as stated in HPI <Phoebe Encinas - Last Filed: 06/03/18 11:53> PMFSH - History History Provided By: Family Member - Medical History Medical History: Medical History (Last Reviewed 06/03/18 @ 07:58 by Silva Brown) Alcohol abuse Tobacco abuse CVA (cerebral vascular accident) - Family History Family History: Family History (Last Updated 06/02/18 @ 18:18 by Hoa Guzman) Mother Emphysema lung Father Myocardial infarction - Tobacco History Second Hand Smoke Exposure: Yes Tobacco Use In Past 30 Days: Yes Smoking Status: Current every day smoker Tobacco Type: Cigarettes - Alcohol History How Often Do You Have a Drink Containing Alcohol: Unable to Obtain (prior alocoholism, quit 12 years ago after stroke) - Substance Use History Substance History: Past History - Travel History Recent Travel in the [place] Within the Last 8 Weeks: No Recent Travel Out of the Country Within the Last 8 Weeks: No - Immunization History Tetanus Immunization: Unable to Assess <Phoebe Encinas - Last Filed: 06/03/18 11:53> - Medical History Medical History: Medical History (Last Reviewed 06/03/18 @ 07:58 by Silva Brown) Alcohol abuse Tobacco abuse CVA (cerebral vascular accident) - Family History Family History: Family History (Last Updated 06/02/18 @ 18:18 by Hoa Guzman) Mother Emphysema lung Father Myocardial infarction <Jayden Garcia - Last Filed: 06/03/18 22:59> Medications and Allergies Active Medications: Active Medications Albuterol (Duoneb Neb (Prn)) 1 ampul NEB Q4HR NEB PRN PRN Reason: SHORTNESS OF BREATH Last Admin: 06/03/18 11:22 Dose: 1 ampul Aspirin (Aspirin Supp) 300 mg RECTAL DAILY ERNESTO Last Admin: 06/03/18 09:20 Dose: Not Given Atorvastatin Calcium (Lipitor) 20 mg NG/OG HS [facility]NESTO Last Admin: 06/02/18 21:03 Dose: 20 mg Enoxaparin Sodium (Lovenox Inj) 30 mg SQ DAILY [facility] Last Admin: 06/03/18 09:20 Dose: 30 mg Furosemide (Lasix) 20 mg PO DAILY [facility] Last Admin: 06/03/18 09:22 Dose: 20 mg Haloperidol Lactate (Haldol Inj) 1 mg IV.PUSH Q15M PRN PRN Reason: for severe agitation Last Admin: 06/02/18 07:42 Dose: 1 mg Azithromycin 250 mg/ Sodium (Chloride) 250 mls @ 250 mls/hr IV.SIG Q24H ERNESTO Last Infusion: 06/02/18 18:40 Dose: Infused Cefepime HCl 2,000 mg/ Sodium (Chloride) 100 mls @ 200 mls/hr IV.SIG Q12H ERNESTO Last Infusion: 06/03/18 09:55 Dose: Infused Lorazepam (Ativan Inj) 1 mg IV.PUSH Q4H PRN PRN Reason: for CIWA 8-10 Last Admin: 05/29/18 03:23 Dose: 1 mg Lorazepam (Ativan Inj) 2 mg IV.PUSH Q15M PRN PRN Reason: for CIWA > 20 Lorazepam (Ativan Inj) 2 mg IV.PUSH Q1H PRN PRN Reason: for CIWA 15-20 Lorazepam (Ativan Inj) 2 mg IV.PUSH Q2H PRN PRN Reason: for CIWA 11-14 Last Admin: 05/28/18 15:29 Dose: 2 mg Lorazepam (Ativan) 1 mg PO Q4H PRN PRN Reason: for CIWA 8-10 Lorazepam (Ativan) 2 mg PO Q2H PRN PRN Reason: for CIWA 11-14 Methylprednisolone Sodium Succinate (Solumedrol Inj) 40 mg IV.PUSH DAILY [facility] Last Admin: 06/03/18 09:21 Dose: 40 mg Potassium Chloride (K-Dur) 20 meq PO DAILY [facility] Last Admin: 06/03/18 09:27 Dose: Not Given Sodium Chloride (Ns Flush) 2 ml IV.FLUSH PRN PRN PRN Reason: FLUSH AFTER USING IV ACCESS Last Admin: 06/02/18 07:43 Dose: 2 ml Sodium Chloride (Ns Flush) 2 ml IV.FLUSH BID [facility] Last Admin: 06/03/18 09:25 Dose: 2 ml <Phoebe Encinas - Last Filed: 06/03/18 11:53> Active Medications: Active Medications Albuterol (Duoneb Neb (Prn)) 1 ampul NEB Q4HR NEB PRN PRN Reason: SHORTNESS OF BREATH Last Admin: 06/03/18 19:32 Dose: 1 ampul Amoxicillin (Amoxil) 500 mg NG/OG Q8HR [facility] Stop: 06/10/18 13:59 Last Admin: 06/03/18 21:56 Dose: Not Given Aspirin (Aspirin Supp) 300 mg RECTAL DAILY [facility] Last Admin: 06/03/18 09:20 Dose: Not Given Atorvastatin Calcium (Lipitor) 20 mg NG/OG HS [facility] Last Admin: 06/03/18 20:59 Dose: Not Given Enoxaparin Sodium (Lovenox Inj) 30 mg SQ DAILY [facility] Last Admin: 06/03/18 09:20 Dose: 30 mg Furosemide (Lasix) 20 mg PO DAILY [facility] Last Admin: 06/03/18 09:22 Dose: 20 mg Haloperidol Lactate (Haldol Inj) 1 mg IV.PUSH Q15M PRN PRN Reason: for severe agitation Last Admin: 06/02/18 07:42 Dose: 1 mg Azithromycin 250 mg/ Sodium (Chloride) 250 mls @ 250 mls/hr IV.SIG Q24H [facility] Last Infusion: 06/03/18 17:38 Dose: Infused Cefepime HCl 2,000 mg/ Sodium (Chloride) 100 mls @ 200 mls/hr IV.SIG Q12H [facility] Last Infusion: 06/03/18 22:01 Dose: Infused Lorazepam (Ativan Inj) 1 mg IV.PUSH Q4H PRN PRN Reason: for CIWA 8-10 Last Admin: 05/29/18 03:23 Dose: 1 mg Lorazepam (Ativan Inj) 2 mg IV.PUSH Q15M PRN PRN Reason: for CIWA > 20 Lorazepam (Ativan Inj) 2 mg IV.PUSH Q1H PRN PRN Reason: for CIWA 15-20 Lorazepam (Ativan Inj) 2 mg IV.PUSH Q2H PRN PRN Reason: for CIWA 11-14 Last Admin: 05/28/18 15:29 Dose: 2 mg Lorazepam (Ativan) 1 mg PO Q4H PRN PRN Reason: for CIWA 8-10 Lorazepam (Ativan) 2 mg PO Q2H PRN PRN Reason: for CIWA 11-14 Methylprednisolone Sodium Succinate (Solumedrol Inj) 40 mg IV.PUSH DAILY [facility] Last Admin: 06/03/18 09:21 Dose: 40 mg Potassium Chloride (K-Dur) 20 meq PO DAILY [facility] Last Admin: 06/03/18 09:27 Dose: Not Given Sodium Chloride (Ns Flush) 2 ml IV.FLUSH PRN PRN PRN Reason: FLUSH AFTER USING IV ACCESS Last Admin: 06/02/18 07:43 Dose: 2 ml Sodium Chloride (Ns Flush) 2 ml IV.FLUSH BID [facility] Last Admin: 06/03/18 21:00 Dose: 2 ml Sterile Water (Free Water) 200 ml NG/OG Q6HR [facility] Last Admin: 06/03/18 17:09 Dose: Not Given <Jayden Garcia E - Last Filed: 06/03/18 22:59> Allergies Allergy/AdvReac Type Severity Reaction Status Date / Time No Known Allergies Allergy Uncoded 07/11/16 17:32 Home Medications Medication Instructions Recorded Confirmed Type Unable to Obtain Home Meds 05/26/18 05/26/18 History Exam Vital signs: Vital Signs 06/02/18 12:00 06/02/18 16:00 06/02/18 20:00 Temperature 97.3 F L 98.1 F 98.9 F Pulse Rate 107 H 103 H 104 H Respiratory Rate 18 20 18 Blood Pressure 127/61 126/65 122/62 Pulse Oximetry 95 93 L 97 06/03/18 00:00 06/03/18 01:57 06/03/18 08:00 Temperature 97.8 F 97.6 F Pulse Rate 104 H 98 H Respiratory Rate 18 17 Blood Pressure 123/68 137/66 Pulse Oximetry 92 L 92 L 94 L 06/03/18 11:24 Temperature Pulse Rate 81 Respiratory Rate 18 Blood Pressure Pulse Oximetry 94 L Intake & Output 06/02/18 06/03/18 06/03/18 18:59 06:59 18:59 Intake Total 500 / 500 100 / 100 100 / 100 Output Total 950 / 950 Balance -450 / -450 100 / 100 100 / 100 Weight 69.9 kg Intake: IV 350 / 350 100 / 100 100 / 100 Azithromycin Inj 250 MG In NS 250 / 250 Inj 250 ML @ 250 mls/hr IV.SIG Q24H [facility] Rx#:[id number] Maxipime Inj 2,000 MG In NS Inj 100 / 100 100 / 100 100 / 100 100 ML @ 200 mls/hr IV.SIG Q12H ERNESTO Rx#:[id number] Oral 0 / 0 Water Bolus Amount 150 / 150 Output: Urine 950 / 950 Other: # Incontinent Voids 2 Date of Last Bowel Movement 05/31/18 05/31/18 06/03/18 # Bowel Movements 0 - Constitutional no acute distress, chronically ill appearing Comments: Bilateral soft wrist restraints in place - Routine HEENT Exam Head: Present: normocephalic - Routine Neck Exam Present: supple - Routine Respiratory Exam Present: CTA bilaterally. Absent: accessory muscle use - Routine Cardiovascular Exam Present: bradycardia - Routine Abdominal Exam Present: soft, normoactive bowel sounds. Absent: tenderness, distended, guarding, firm - Routine Extremities Exam Present: full ROM, pulses intact. Absent: edema - Routine Skin Exam Present: dry, warm - Routine Neurological Exam Generalized weakness , patient nonverbal during exam <Phoebe Encinas - Last Filed: 06/03/18 11:53> Vital signs: Vital Signs 06/03/18 00:00 06/03/18 01:57 06/03/18 08:00 Temperature 97.8 F 97.6 F Pulse Rate 104 H 98 H Respiratory Rate 18 17 Blood Pressure 123/68 137/66 Pulse Oximetry 92 L 92 L 94 L 06/03/18 11:24 06/03/18 12:00 06/03/18 16:00 Temperature 98.0 F 97.1 F L Pulse Rate 81 98 H 102 H Respiratory Rate 18 17 17 Blood Pressure 163/77 H 112/67 Pulse Oximetry 94 L 100 100 06/03/18 19:39 06/03/18 20:00 Temperature 98.3 F Pulse Rate 102 H 99 H Respiratory Rate 27 H 20 Blood Pressure 142/77 H Pulse Oximetry 90 L 95 Intake & Output 06/03/18 06/03/18 06/04/18 06:59 18:59 06:59 Intake Total 100 / 100 350 / 350 100 / 100 Output Total 350 / 350 Balance 100 / 100 0 / 0 100 / 100 Weight 69.9 kg Intake: IV 100 / 100 350 / 350 100 / 100 Azithromycin Inj 250 MG In NS 250 / 250 Inj 250 ML @ 250 mls/hr IV.SIG Q24H [facility] Rx#:[id number] Maxipime Inj 2,000 MG In NS Inj 100 / 100 100 / 100 100 / 100 100 ML @ 200 mls/hr IV.SIG Q12H [facility]STO Rx#:[id number] Oral 0 / 0 Output: Urine 350 / 350 Other: # Voids 2 # Incontinent Voids 2 Date of Last Bowel Movement 05/31/18 06/03/18 <Jayden Garcia - Last Filed: 06/03/18 22:59> Results - Labs CBC & Chem 7: 06/02/18 06:15 06/03/18 07:09 Labs: Laboratory Results - last 24 hr 06/03/18 07:09 Sodium 149 H Potassium 3.3 L Chloride 108 H Carbon Dioxide 35.9 H Anion Gap 5 BUN 43 H Creatinine 1.00 Estimated GFR 75 L Random Glucose 129 H Calcium 8.6 - Imaging Impressions Abdomen X-Ray 06/02/18 00:00 CONCLUSION: 1. Suction-type NGT in the proximal stomach. <Phoebe Encinas - Last Filed: 06/03/18 11:53> - Labs CBC & Chem 7: 06/02/18 06:15 06/03/18 07:09 Labs: Laboratory Results - last 24 hr 06/03/18 07:09 Sodium 149 H Potassium 3.3 L Chloride 108 H Carbon Dioxide 35.9 H Anion Gap 5 BUN 43 H Creatinine 1.00 Estimated GFR 75 L Random Glucose 129 H Calcium 8.6 - Imaging Impressions Abdomen X-Ray 06/03/18 00:00 CONCLUSION: Nasogastric tube is in the right lower lobe airways. <Jayden Garcia - Last Filed: 06/03/18 22:59> Assessment and Plan (1) Dysphagia Status: Acute Code(s): R13.10 - Dysphagia, unspecified - Plan This patient is a 68-year-old male patient with past medical history significant for CVA, alcohol abuse, tobacco use, and encephalopathy. Patient presented to the emergency room at [facility] on 1015 with altered mental status. Patient unable to provide medical history. Apparently patient was found in unsanitary conditions by his landlord. Neurology was consulted to see patient and found carotid Doppler ultrasound revealed moderate stenosis on the right with an occluded left internal carotid artery. EEG revealed mild encephalopathy. CT chest revealed 13 mm spiculated mass, mediastinal and right hilar adenopathy, emphysema bilaterally. Patient has had multiple swallow tests and has continued to fail test since admission. Presently patient is n.p.o., tolerating tube feedings via NG. Jevity 1.5 with a goal rate of 60 mL's per hour as noted per nutritional consult. Our service has been consulted for PEG placement PEG placement/dysphagia Our service has been consulted for PEG placement. Nutritional consult noted, Jevity 1.5 with goal rate of 60 mL's per hour currently infusing via NG tube. Hemoglobin 12.9 hematocrit 37.1 platelet count 121 INR 1.1 Plan -Discontinue tube feedings after midnight -Obtain consent for PEG tube placement -Hold Lovenox 06/04/2018 -Nutritional consult noted -Supportive care -Further recommendations based on patient status and findings This patient has been seen by myself and Dr. Garcia and this note is written on his behalf - Attending Attestation Dr. Saravia <Phoebe Encinas - Last Filed: 06/03/18 11:53> (1) Dysphagia Status: Acute Code(s): R13.10 - Dysphagia, unspecified - Plan Patient seen and examined Agree with above history and physical Continue with current supportive care Monitor labs Plan for PEG placement tomorrow <Jayden Garcia - Last Filed: 06/03/18 22:59>
[2018-06-03] MEDS ORDERED: Potassium Chloride 20 MEQ Pwd Pkt NG/OG ONE (12:38)
--- NOTE | 2018-06-03 12:38 | P.PNIM ---
Subjective Interval history: Confused. Agitated. Currently in bed with restraints. Physical Exam Vital signs: Vital Signs 06/02/18 16:00 06/02/18 20:00 06/03/18 00:00 Temperature 98.1 F 98.9 F 97.8 F Pulse Rate 103 H 104 H 104 H Respiratory Rate 20 18 18 Blood Pressure 126/65 122/62 123/68 Pulse Oximetry 93 L 97 92 L 06/03/18 01:57 06/03/18 08:00 06/03/18 11:24 Temperature 97.6 F Pulse Rate 98 H 81 Respiratory Rate 17 18 Blood Pressure 137/66 Pulse Oximetry 92 L 94 L 94 L 06/03/18 12:00 Temperature 98.0 F Pulse Rate 98 H Respiratory Rate 17 Blood Pressure 163/77 H Pulse Oximetry 100 Intake & Output 06/02/18 06/03/18 06/03/18 18:59 06:59 18:59 Intake Total 500 / 500 100 / 100 100 / 100 Output Total 950 / 950 Balance -450 / -450 100 / 100 100 / 100 Weight 69.9 kg Intake: IV 350 / 350 100 / 100 100 / 100 Azithromycin Inj 250 MG In NS 250 / 250 Inj 250 ML @ 250 mls/hr IV.SIG Q24H [facility] Rx#:[id number] Maxipime Inj 2,000 MG In NS Inj 100 / 100 100 / 100 100 / 100 100 ML @ 200 mls/hr IV.SIG Q12H [facility]NESTO Rx#:[id number] Oral 0 / 0 Water Bolus Amount 150 / 150 Output: Urine 950 / 950 Other: # Incontinent Voids 2 Date of Last Bowel Movement 05/31/18 05/31/18 06/03/18 # Bowel Movements 0 Narrative: GENERAL: Malnourished, thin male. No distress with mild agitation. SKIN: Warm and dry. Clubbing of fingers noted. HEAD: Atraumatic. Normocephalic. EYES: Pupils equal and round. No scleral icterus. No injection or drainage. ENT: No nasal bleeding or discharge. Mucous membranes pink and moist. Ventimask in place NECK: Trachea midline. No JVD. CARDIOVASCULAR: Regular rate and rhythm. RESPIRATORY: Diminished at bases. GASTROINTESTINAL: Abdomen soft, non-tender, nondistended. Hepatic and splenic margins not palpable. NG tube with tube feeding in place. MUSCULOSKELETAL: Extremities without clubbing, cyanosis, or edema. NEUROLOGICAL: Awake, confused. Agitated, Voice is muffled. Follows simple commands and did not move his lower legs for me. Disoriented. Results - Labs CBC & Chem 7: 06/02/18 06:15 06/03/18 07:09 Laboratory Results - last 24 hr 06/03/18 07:09 Sodium 149 H Potassium 3.3 L Chloride 108 H Carbon Dioxide 35.9 H Anion Gap 5 BUN 43 H Creatinine 1.00 Estimated GFR 75 L Random Glucose 129 H Calcium 8.6 - Imaging Impressions Abdomen X-Ray 06/02/18 00:00 CONCLUSION: 1. Suction-type NGT in the proximal stomach. Assessment and Plan - Assessment (1) CVA (cerebral vascular accident) Code(s): I63.9 - Cerebral infarction, unspecified Status: Acute (2) Pneumonia Code(s): J18.9 - Pneumonia, unspecified organism Status: Acute (3) Protein calorie malnutrition Code(s): E46 - Unspecified protein-calorie malnutrition Status: Acute (4) COPD (chronic obstructive pulmonary disease) Code(s): J44.9 - Chronic obstructive pulmonary disease, unspecified Status: Chronic (5) Pleural effusion Code(s): J90 - Pleural effusion, not elsewhere classified Status: Acute (6) Respiratory insufficiency Code(s): R06.89 - Other abnormalities of breathing Status: Acute (7) Mass of upper lobe of left lung Code(s): R91.8 - Other nonspecific abnormal finding of lung field Status: Acute - Plan 68-year-old male who was brought in after he was found at home by his landlord. The patient was altered and found to be covered in urine and feces. He was then brought into our emergency department for evaluation. Acute metabolic encephalopathy, possibly secondary to CVA, dehydration, infection -Continue with neuro checks ammonia okay Acute ischemic right frontal CVA MRI of the brain shows right frontal lobe infarction, 2-3 tiny foci. Possibly embolic stroke. No evidence of A. fib on telemetry Family endorses prior CVA 12 years ago, he did have residual expressive aphasia and possibly some swallowing difficulty. -Continue with neuro checks Neurology service recommendations appreciated. Echocardiogram done, EF 60%, trace mitral valve regurgitation, small pericardial effusion. -Carotid ultrasound results noted, left internal carotid occluded, right carotid moderate plaque, status post vascular surgery evaluation with no surgical intervention recommended. -Continue with aspirin rectally 300 mg Continue with Lipitor- -CTA of the carotids which reveals only about 50% right internal carotid artery stenosis, occluded left internal carotid artery at its origin. PT/OT/ST following Dysphagia NG tube inserted, continue with Jevity. -Continues to fail swallow evaluation Patient likely needs PEG tube GI service has been consulted for PEG placement. Family is meeting with palliative care service to set short-term and long-term goals COPD with exacerbation Community acquired pneumonia-cxr with poss findings of RLL pna 05/28 CT findings noted, Extensive alveolar consolidations are noted within the right upper and lower lobes consistent with probable pneumonia. Emphysematous changes. Moderate size right pleural effusion. -Continue with Ventimask to keep sats greater than 92 Continue with duo nebs Wean off Solu-Medrol, decrease to 40 mg IV daily -CXR 05/30, bilateral pleural effusions, right greater than left airspace disease, both slightly worsened. -changed antibiotics to cefepime 2 g IV every [address] findings[address] Continue with Zithromax -No fevers overnight. Incidental findings of a spiculated mass right upper lobe suspicious for primary bronchogenic malignancy per CTA of neck Patient's son endorses that patient has been debilitated prior to stroke, positive for unintentional weight loss No prior history of malignancy History of tobacco and alcohol abuse -CT of the chest piculated noncalcified nodule within the right upper lobe measuring 13 mm which is suspicious for bronchogenic carcinoma. Precarinal and subcarinal mediastinal as well as right heel or lymphadenopathy is noted. -Tumor markers done, within normal limits. -Further workup depending on family's wishes after they speak to palliative care Pleural effusions Chest x-ray with findings of bilateral pleural effusions -Change to Lasix 20 mg p.o. daily History of alcohol abuse Patient restless overnight, now in restraints -CIWA protocol in place Left ischium ulcer -Continue wound care. -Wound care nurse consult Severe malnutrition Prealb. 9 -Continue tube feeding Dietary consult Hypokalemia Hypernatremia, sodium 146 147 -Replace electrolytes as needed -Continue daily potassium, 20 meq, given extra liquid 25 mEq a day. -Increase free water to 200 cc every 6 Follow BMP Lovenox for DVT prophylaxis. (1) CVA (cerebral vascular accident) Qualifiers: Laterality of affected vessel: right (3) Protein calorie malnutrition Qualifiers: Protein-calorie malnutrition severity: severe Qualified Code(s): E43 - Unspecified severe protein-calorie malnutrition (4) COPD (chronic obstructive pulmonary disease) Qualifiers: COPD type: unspecified COPD Qualified Code(s): J44.9 - Chronic obstructive pulmonary disease, unspecified
[2018-06-03] MEDS ORDERED: Potassium Chloride 25 MEQ Effervescent Tablet NG/OG ONE (14:15)
--- NOTE | 2018-06-03 15:49 | XR ---
EXAM DATE: 06/03/2018 12:00 AM EDT AGE/SEX: 68 years / Male INDICATIONS: Nasogastric tube placement. CLINICAL DATA: This is the patient's initial encounter. Patient reports that signs and symptoms have been present for 4 - 6 days and indicates a pain score of Nonresponsive. MEDICAL/SURGICAL HISTORY: Chronic obstructive pulmonary disease. Stroke. . none known COMPARISON: [facility] [place], ABDOMEN [place], 06/02/2018. . FINDINGS: Nasogastric tube extends into lower lobe airways on the right. The intestinal gas pattern is nonspeci fic and benign. Extensive atherosclerotic vascular calcifications noted in previous vascular stents a re seen in the pelvis. Degenerative changes noted in the spine and hips. CONCLUSION: Nasogastric tube is in the right lower lobe airways. Electronically signed by: Francois Abarca MD 06/03/2018 3:48 PM EDT
[2018-06-03] MEDS: Azithromycin Inj 250 MG in Sodium Chlor 0.9% Inj 250 ML IV.SIG SCH (17:06)
--- NOTE | 2018-06-03 17:21 | P.DIET ---
Nutritional Evaluation Type of nutrition evaluation: follow-up Nutrition consult regarding: Diet Evaluation Screening comments: 06/03/18 [facility] [place] [facility] [place] 05/28/18 [facility] [place] Malnutrition Subjective Barriers to Nutrition: Swallowing problem Subjective Comments: NGT has been removed by Nursing Objective - Diagnosis Encephalopathy - Objective [place] body weight: 72.7 kg % IBW: 69 Body Weight Used for Calculations: Actual (49.9kg) Energy Needs - Lower Range (kCal/kg): 40 Energy Needs - Upper Range (kCal/kg): 45 Lower Limit kCal/kg (kCals): 1,996 Upper Limit kCal/kg (kCals): 2,246 Lower Limit Protein Factor (Grams per Kg): 1.4 Upper Limit Protein Factor (Grams per Kg): 1.8 Lower Protein Needs (Protein): 70 Upper Protein Needs (Protein): 90 Dietitian Reviewed in Medical Record: Curent medications, Intake & Output, Labs , Medical history, Wound/DTI Diet Order: NPO Speech Therapy Recommendations: Yes (06/03 NPO) Wound Care Note: 05/27/18 WOCN note: Left Ischium unstageable pressure injury Objective Comments: PMH includes: CVA Integumentary: Left Ischium Pressure Injury; Coccyx maceration Albumin 2.6; prealbumin 9.0 Meds include: Lipitor, Haldol, Ativan Assessment Assessment: Pt continues at high nutritional risk r/t clinical status and need to remain NPO per ST and very low BMI 16.2. Pt tolerating TF'ing w/ Rec Jevity 1.5 at goal rate 60ml/hr via NGT. NGT has now been discontinued. GI consulted for PEG tube placement w/plan to obtain consent for PEG tube. For PEG tube placement, Rec TF'ing w/Jevity 1.5 @ 30ml/hr , increase 10ml Q 4-hr, as tolerated, to goal rate 60ml/hr to offer 2160 kcal, 92g protein and 1094ml free water. Free Water Flushes per MD. Labs reviewed- noted concern for low albumin and prealbumin; however, albumin and prealbumin are no longer considered to be indicators of nutritional status and are negative -acute phase reactants relative to the presence of inflammation in the body. Wt noted. Additional Recs to follow r/t Clinical Course. Recommendations: 1. For PEG tube placement, Rec TF'ing w/Jevity 1.5 @ 30ml/hr, increase 10ml Q 4- hr, as tolerated, to goal rate 60m/hr 2. Free Water Flushes per MD 3. Noted concern for low albumin and prealbumin; however, albumin and prealbumin are no longer considered to be indicators of nutritional status and are negative-acute phase reactants relative to the presence of inflammation in the body 4. Additional Recs to follow r/t Clinical Course Dietitian to Monitor: Lab values, Electrolytes, Intake & Output, Tube feeding tolerance, Weight change, Diet advancement, Wound/skin status, Swallow recommendations, Medical course
--- NOTE | 2018-06-03 19:19 | P.PNPAL ---
Reason for Visit Reason for visit: a. To assist with evaluation and management of symptoms including:pain, dyspnea , dysphagia. b. To assist medical decision maker(s) with: better understanding of current medical conditions; weighing benefits/burdens of medical treatment options; making medical treatment decisions. Subjective Subjective/Interval History: Patient and seen examined in room. Daughter in law, Martita at bedside. She reports son and daughter want to proceed with PEG tube in hopes this will be more comfortable for the patient. She tells me if he can get out of restraints they feel he will be more comfortable. She provided me with the phone numbers for his son, Miguel ([phone]) and daughter, Cass ([phone]). Advised nurse, Lenora that both children are the health care proxy decision makers and that both should be called for consent for PEG tube. She verbalizes that the family is struggling with decisions regarding code status and whether or not to pursue biopsy. They were hoping PET/CT could be done, explained this could only be done outside of the hospital. Medical update provided. Vital signs stable. On oxygen via Venturi mask. Family/Friend Interactions: See interval note. Advance Directives Living Will: Never completed Health Care Surrogate: Never completed Durable Power of Configuration Engineer: Never completed Health Care Surrogate Name and Number: Health care proxy decision makers: SonMiguel AND daughter, Cass. Documented care wishes:: No written advanced directives. Significant change in goals:: FULL CODE. Family wants to proceed with PEG tube, considering CODE status and whether or not to proceed with lung biopsy. Objective Vital Signs: Vital Signs 06/02/18 20:00 06/03/18 00:00 06/03/18 01:57 Temperature 98.9 F 97.8 F Pulse Rate 104 H 104 H Respiratory Rate 18 18 Blood Pressure 122/62 123/68 Pulse Oximetry 97 92 L 92 L 06/03/18 08:00 06/03/18 11:24 06/03/18 12:00 Temperature 97.6 F 98.0 F Pulse Rate 98 H 81 98 H Respiratory Rate 17 18 17 Blood Pressure 137/66 163/77 H Pulse Oximetry 94 L 94 L 100 06/03/18 16:00 Temperature 97.1 F L Pulse Rate 102 H Respiratory Rate 17 Blood Pressure 112/67 Pulse Oximetry 100 Intake & Output 06/03/18 06/03/18 06/04/18 06:59 18:59 06:59 Intake Total 100 / 100 350 / 350 Output Total 350 / 350 Balance 100 / 100 0 / 0 Weight 69.9 kg Intake: IV 100 / 100 350 / 350 Azithromycin Inj 250 MG In NS 250 / 250 Inj 250 ML @ 250 mls/hr IV.SIG Q24H ERNESTO Rx#:[id number] Maxipime Inj 2,000 MG In NS Inj 100 / 100 100 / 100 100 ML @ 200 mls/hr IV.SIG Q12H ERNESTO Rx#:[id number] Oral 0 / 0 Output: Urine 350 / 350 Other: # Voids 2 # Incontinent Voids 2 Date of Last Bowel Movement 05/31/18 06/03/18 Physical Exam: CONSTITUTIONAL/GENERAL: This is a frail, cachectic patient, in no apparent distress. TUBES/LINES/DRAINS: oxygen Venturi mask, NG, PIV, wrist restraints. SKIN: Temporal and muscle wasting. No jaundice, rashes, or lesions. Dry skin. Bruises arms. No wounds seen anteriorly. Skin temperature appropriate. Not diaphoretic. EYES: eyes closed. ENT: Hearing grossly normal. Nose without bleeding or purulent drainage. Oral mucosa dry. CARDIOVASCULAR: Regular rate and rhythm without murmurs, gallops, or rubs. No JVD. RESPIRATORY/CHEST: Symmetric, unlabored respirations. scattered rhonchi. GASTROINTESTINAL: Abdomen soft, non-tender, nondistended. No guarding. Bowel sounds present. GENITOURINARY: Without palpable bladder distension. Fox catheter in place. MUSCULOSKELETAL: Extremities without clubbing, cyanosis, or edema. No joint tenderness or effusion noted. No calf tenderness. No mottling or clubbing. NEUROLOGICAL: Stirs slightly to voice. PSYCHIATRIC: Stirs slightly to voice. Diagnostic Tests Laboratory: Laboratory Results - last 72 hr 05/31/18 06/02/18 06/02/18 16:35 06:05 06:15 WBC 9.0 RBC 3.85 L Hgb 12.9 L Hct 37.1 L MCV 96.5 MCH 33.5 MCHC 34.7 RDW 17.8 H Plt Count 121 L MPV 8.9 Sodium 147 H Potassium 3.6 Chloride 105 D Carbon Dioxide 31.9 Anion Gap 10 BUN 38 H Creatinine 1.18 Estimated GFR 62 L Random Glucose 93 Calcium 9.3 CA 19-9 Antigen 8.2 06/03/18 07:09 WBC RBC Hgb Hct MCV MCH MCHC RDW Plt Count MPV Sodium 149 H Potassium 3.3 L Chloride 108 H Carbon Dioxide 35.9 H Anion Gap 5 BUN 43 H Creatinine 1.00 Estimated GFR 75 L Random Glucose 129 H Calcium 8.6 CA 19-9 Antigen Result Diagrams: 06/02/18 06:15 06/03/18 07:09 Imaging: Head MRI 05/26/18 00:00 Diffusion weighted images demonstrate tiny foci of restricted diffusion in the right frontal cortex. There is diffuse atrophy. There is a large area of encephalomalacia and scoliosis in the left frontal lobe from previous infarction. There is slight ex vacuo dilatation of the left lateral ventricle and remote left basal ganglia lacunar infarcts. In addition remote right occipital infarct and encephalomalacia noted. There are no signs of acute intracranial hemorrhage though there is evidence of remote hemosiderin along the right parietal cortex. No abnormal areas of enhancement are seen. There is no evidence for mass.. CONCLUSION: 1. Atrophy and white matter disease with remote infarcts identified. 2. 2-3 tiny foci of restricted diffusion in the right frontal lobe characteristic of tiny foci of acute infarction. Head CT 05/26/18 12:11 CONCLUSION: 1. No acute findings. Atrophy and remote infarcts. . Carotid Doppler Study 05/28/18 00:00 CONCLUSION: 1. Mild to moderate stenosis on the right not felt to be hemodynamically significant at this point. CT angiography could be used to exclude soft plaque. 2. Occluded left internal carotid artery Head MRA 05/28/18 00:00 CONCLUSION: 1. Occluded left internal carotid artery. Neck CTA 05/30/18 00:00 CONCLUSION: 1. 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 2. Occluded left internal carotid artery at its origin. 3. Less than 50% stenosis of the right internal carotid artery secondary to atherosclerotic plaquing. 4. Emphysema and right upper lobe/lower lobe parenchymal infiltrate. 5. Spiculated mass in the right upper lobe suspicious for primary bronchogenic malignancy until proven otherwise. Chest X-Ray 05/30/18 14:04 CONCLUSION: Bilateral pleural effusions and right greater than left airspace disease, both slightly worsened compared with May 7. No pneumothorax. NG tube in stomach. Chest CT 05/31/18 00:00 CONCLUSION: 1. Spiculated noncalcified nodule within the right upper lobe measuring 13 mm which is suspicious for bronchogenic carcinoma until proven otherwise. 2. Precarinal and subcarinal mediastinal as well as right hilar lymphadenopathy is noted. 3. Small pericardial effusion is noted. 4. Extensive alveolar consolidations are noted within the right upper and lower lobes consistent with probable pneumonia. 5. Emphysematous changes are noted bilaterally. 6. Moderate-sized right pleural effusion. 7. Mild degenerative changes and scoliosis of the thoracic spine are noted. 8. Multiple chronic mild compression deformities are noted throughout the thoracic spine. Abdomen X-Ray 06/03/18 00:00 CONCLUSION: Nasogastric tube is in the right lower lobe airways. Assessment and Plan - Disease Oriented Problem List (1) CVA (cerebral vascular accident) (2) Pneumonia (3) Protein calorie malnutrition (4) COPD (chronic obstructive pulmonary disease) (5) Pleural effusion (6) Respiratory insufficiency (7) Mass of upper lobe of left lung - Symptom Scale (1) Dysphagia 0-10 Scale: Unable to quantify (2) Dyspnea 0-10 Scale: Unable to quantify (3) Debility 0-10 Scale: Unable to quantify (4) Pain 0-10 Scale: Unable to quantify Pertinent Non-Medical Issues: Psychosocial: Single. Has 1 son and 1 daughter. Spiritual: Protestant agnes. Legal:Patient is not capacitated to make his own health care decisions, uncertain if he will regain capacity. According to [place] statutes, health care proxy decision making falls to the majority of adult children. Ethical issues impacting care: No known concerns at this time. Important Contacts: * Miguel Saleem, son: [phone] * Cass, daughter: [phone] * Martita Saleem, [id number]: [phone] * Brandi Russell: Sister: [phone] Prognosis: Mr. hung is a 68-year-old male with remote stroke and new stroke with significant dysphagia, significant unintentional weight loss, cachexia requiring NG tube feedings, new finding of spiculated lung mass with mediastinal adenopathy concerning for malignancy. Patient with significant cognitive, nutritional and functional deficits. Overall prognosis appears poor. I suspect even with a confirmed, biopsy-proven diagnosis of malignancy he would not be a candidate for treatment. Hospice appropriate if goals are comfort oriented. Code Status: Full Code (Family considering CODE STATUS) Plan: * Patient is not capacitated to make his own health care decisions, does not appear he will regain capacity. According to [place] statutes, health care proxy decision making falls to the majority of adult children. He has 1 son and 1 daughter. * FULL CODE * Family wants to proceed with PEG tube per Martita MTZ. Advised nurse to call son AND daughter for consent. Considering CODE status and whether or not to proceed with lung biopsy. * SYMPTOMS: Dysphagia: Remote and recent stroke, carotid artery stenosis/ occlusion. Unintentional weight loss over the past 6 months. Tolerating TF via NGT. May need PEG tube if family desires continued aggressive care. Dyspnea: History of COPD/ emphysema, new spiculated mass in lung likely cancer with mediastinal adenopathy. Debility: Secondary to general decline, possible malignancy, malnutrition. Continue PT. Concerned patient will have continued decline. * Palliative care will continue to follow throughout hospital course to assist with symptom management further clarification of goals of medical treatment. Attestation Attestation: To help prompt me to consider important information that might be impacting today's encounter and assessment, information from prior notes written by myself or my colleagues may have been "brought forward" into today's note. My signature on this note, however, is an attestation that I personally performed the exam, history, and/or decision-making noted today, and, unless otherwise indicated, the interactions with patient, family, and staff as well as the review of records all occurred today. I also attest that the listed assessment and stated plan reflect my best clinical judgment today based on the combination of historical information, prior notes, and today's exam/ interactions. When time spent is documented, it refers only to time spent today by the signer, or if indicated, combined time spent today by collaborating physician/nurse practitioner.
[2018-06-04] MEDS: Aspirin 300 MG Supp RECTAL SCH (08:25)
[2018-06-04] MEDS: Furosemide 20 MG Tablet PO SCH (08:26)
[2018-06-04] MEDS: MethylPREDNISolone Sod Succinate Inj 40 MG/ML Vial IV.PUSH SCH (08:27)
--- NOTE | 2018-06-04 11:28 | P.PNIM ---
Subjective Interval history: Still confused and less agitated today. Family wants to proceed with G-tube. Physical Exam Vital signs: Vital Signs 06/03/18 11:24 06/03/18 12:00 06/03/18 16:00 Temperature 98.0 F 97.1 F L Pulse Rate 81 98 H 102 H Respiratory Rate 18 17 17 Blood Pressure 163/77 H 112/67 Pulse Oximetry 94 L 100 100 06/03/18 19:39 06/03/18 20:00 06/04/18 00:00 Temperature 98.3 F 97.7 F Pulse Rate 102 H 99 H 101 H Respiratory Rate 27 H 20 18 Blood Pressure 142/77 H 119/59 L Pulse Oximetry 90 L 95 96 06/04/18 04:00 06/04/18 08:00 Temperature 97.3 F L 97.6 F Pulse Rate 57 L 106 H Respiratory Rate 18 17 Blood Pressure 156/73 H 154/82 H Pulse Oximetry 97 100 Intake & Output 06/03/18 06/04/18 06/04/18 18:59 06:59 18:59 Intake Total 350 / 350 100 / 100 100 / 100 Output Total 350 / 350 Balance 0 / 0 100 / 100 100 / 100 Weight 34.6 kg Intake: IV 350 / 350 100 / 100 100 / 100 Azithromycin Inj 250 MG In NS 250 / 250 Inj 250 ML @ 250 mls/hr IV.SIG Q24H ERNESTO Rx#:[id number] Maxipime Inj 2,000 MG In NS Inj 100 / 100 100 / 100 100 / 100 100 ML @ 200 mls/hr IV.SIG Q12H ERNESTO Rx#:[id number] LR 1000 mL Inj 1,000 ML @ 30 0 / 0 mls/hr IV.SIG .Q24H ERNESTO Rx#: [id number] Output: Urine 350 / 350 Other: # Voids 2 # Incontinent Voids 5 Date of Last Bowel Movement 06/03/18 06/03/18 Narrative: GENERAL: Malnourished, thin male. No distress with mild agitation. SKIN: Warm and dry. HEAD: Atraumatic. Normocephalic. NECK: Trachea midline. No JVD. CARDIOVASCULAR: Regular rate and rhythm. RESPIRATORY: Diminished at bases. GASTROINTESTINAL: Abdomen soft, non-tender, nondistended. MUSCULOSKELETAL: Extremities without clubbing, cyanosis, or edema. NEUROLOGICAL: Awake, confused. Agitated, Voice is muffled. Did not want to follow any commands with me. Disoriented. Results - Labs CBC & Chem 7: 06/02/18 06:15 06/03/18 07:09 - Imaging Impressions Abdomen X-Ray 06/03/18 00:00 CONCLUSION: Nasogastric tube is in the right lower lobe airways. Assessment and Plan - Assessment (1) CVA (cerebral vascular accident) Code(s): I63.9 - Cerebral infarction, unspecified Status: Acute (2) Pneumonia Code(s): J18.9 - Pneumonia, unspecified organism Status: Acute (3) Protein calorie malnutrition Code(s): E46 - Unspecified protein-calorie malnutrition Status: Acute (4) COPD (chronic obstructive pulmonary disease) Code(s): J44.9 - Chronic obstructive pulmonary disease, unspecified Status: Chronic (5) Pleural effusion Code(s): J90 - Pleural effusion, not elsewhere classified Status: Acute (6) Respiratory insufficiency Code(s): R06.89 - Other abnormalities of breathing Status: Acute (7) Mass of upper lobe of left lung Code(s): R91.8 - Other nonspecific abnormal finding of lung field Status: Acute - Plan 68-year-old male who was brought in after he was found at home by his landlord. The patient was altered and found to be covered in urine and feces. He was then brought into our emergency department for evaluation. Acute metabolic encephalopathy, possibly secondary to CVA, dehydration, infection -Continue with neuro checks ammonia okay Acute ischemic right frontal CVA MRI of the brain shows right frontal lobe infarction, 2-3 tiny foci. Possibly embolic stroke. No evidence of A. fib on telemetry Family endorses prior CVA 12 years ago, he did have residual expressive aphasia and possibly some swallowing difficulty. -Continue with neuro checks Neurology service recommendations appreciated. Echocardiogram done, EF 60%, trace mitral valve regurgitation, small pericardial effusion. -Carotid ultrasound results noted, left internal carotid occluded, right carotid moderate plaque, status post vascular surgery evaluation with no surgical intervention recommended. -Continue with aspirin rectally 300 mg Continue with Lipitor- -CTA of the carotids which reveals only about 50% right internal carotid artery stenosis, occluded left internal carotid artery at its origin. PT/OT/ST following Dysphagia NG tube was pulled out by patient, -Continues to fail swallow evaluation GI service has been consulted for PEG placement today. Family is meeting with palliative care service to set short-term and long-term goals, they would like to proceed with PEG tube today. Start Jevity when route established. COPD with exacerbation without asthma Community acquired pneumonia-cxr with poss findings of RLL pna 05/28 CT findings noted, Extensive alveolar consolidations are noted within the right upper and lower lobes consistent with probable pneumonia. Emphysematous changes. Moderate size right pleural effusion. -Wean off of Ventimask to nasal cannula to keep sats greater than 92 Continue with duo nebs Wean off Solu-Medrol, decrease to 40 mg IV daily -CXR 05/30, bilateral pleural effusions, right greater than left airspace disease, both slightly worsened. -changed antibiotics to cefepime 2 g IV every [address] findings[address] Continue with Zithromax -No fevers overnight. Incidental findings of a spiculated mass right upper lobe suspicious for primary bronchogenic malignancy per CTA of neck Patient's son endorses that patient has been debilitated prior to stroke, positive for unintentional weight loss No prior history of malignancy History of tobacco and alcohol abuse -CT of the chest piculated noncalcified nodule within the right upper lobe measuring 13 mm which is suspicious for bronchogenic carcinoma. Precarinal and subcarinal mediastinal as well as right heel or lymphadenopathy is noted. -Tumor markers done, within normal limits. -Further workup depending on family's wishes after they speak to palliative care Pleural effusions Chest x-ray with findings of bilateral pleural effusions -Change to Lasix 20 mg p.o. daily History of alcohol abuse Patient restless overnight, now in restraints -CIWA protocol in place Left ischium ulcer -Continue wound care. -Wound care nurse consult Severe malnutrition Prealb. 9 -Start Jevity when G-tube placed. Appreciate dietitian recommendations. Hypokalemia Hypernatremia, -Replace electrolytes as needed -Continue daily potassium, 20 meq, given extra liquid 25 mEq a day. -Increase free water to 200 cc every 6 Follow BMP Lovenox for DVT prophylaxis. (1) CVA (cerebral vascular accident) Qualifiers: Laterality of affected vessel: right (3) Protein calorie malnutrition Qualifiers: Protein-calorie malnutrition severity: severe Qualified Code(s): E43 - Unspecified severe protein-calorie malnutrition (4) COPD (chronic obstructive pulmonary disease) Qualifiers: COPD type: unspecified COPD Qualified Code(s): J44.9 - Chronic obstructive pulmonary disease, unspecified
--- NOTE | 2018-06-04 14:13 | P.PCN ---
Date of procedure: 06/04/18 Pre-op diagnosis: Dysphagia, altered mental state Procedure: PROCEDURE PERFORMED EGD with PEG placement PROCEDURE: The procedure, risks and benefits were discussed with Patient/POA and informed consent was obtained. Anesthesia sedated Patient with Diprivan. Patient was placed in the left lateral decubitus position. EGD: The Pentax videoscope was introduced through the oropharynx and advanced to the second portion of the duodenum under direct visualization. Retroflexion was performed in the stomach. FINDINGS: The esophagus this was normal Stomach this was normal The duodenum this was normal Following the evaluation of the stomach and the duodenum the stomach was insufflated with air and the area of PEG placement was identified through indentation and transillumination the area was prepped and draped in usual fashion 5 cc of lidocaine were injected locally a small incision was made then an Angiocath was passed into the stomach through which a guidewire was passed this was retrieved with the scope into that a PEG tube was attached and pulled into place and thereafter secured in usual fashion The patient tolerated procedure well and there are no immediate complications ESTIMATED BLOOD LOSS: Minimal SPECIMENS REMOVED: None COMPLICATIONS: None IMPRESSION: Normal EGD Successful PEG placement PLAN: 1. May use PEG tube for medications today 2. May start feeding tomorrow 3. May obtain nutritional consult for tube feeding 4. Flush tube with 50 cc of water every 4-6 hours 5. Always flush tube after feedings 6. Apply abdominal binder as necessary 7. Clamp G-tube after use and flush. Anesthesia: MAC Surgeon: Jayden Garcia Condition: stable Disposition: floor
[2018-06-04] MEDS: Azithromycin Inj 250 MG in Sodium Chlor 0.9% Inj 250 ML IV.SIG SCH (16:59)
[2018-06-05 07:53] LABS: Baso % (Auto) 0.1 % (0.0-2.0); Eos % (Auto) 0.3 % (0.0-4.0); Hematocrit 34.8 % (39.0-51.0); Hemoglobin 11.7 gm/dL (13.0-17.0); Lymph # (Auto) 0.8 th/mm3 (1.0-4.8); Lymph % (Auto) 9.6 % (9.0-44.0); Mean Corpuscular HGB Conc 33.5 % (32.0-36.0); Mean Corpuscular Hemoglobin 33.2 pg (27.0-34.0); Mono # (Auto) 0.3 th/mm3 (0.0-0.9); Mono % (Auto) 3.9 % (0.0-8.0); Neut # (Auto) 7.4 th/mm3 (1.8-7.7); Neut % (Auto) 86.1 % (16.0-70.0); Platelet Count 95 th/mm3 (150-450); Red Blood Count 3.52 mil/mm3 (4.50-5.90); Red Cell Distribution Width 17.8 % (11.6-17.2); White Blood Count 8.6 th/mm3 (4.0-11.0)
[2018-06-05 08:24] LABS: Anion Gap 6 meq/L (5-15); Blood Urea Nitrogen 36 mg/dL (7-18); Calcium 8.6 mg/dL (8.5-10.1); Carbon Dioxide 31.2 meq/L (21.0-32.0); Chloride 108 meq/L (98-107); Glomerular Filtration Rate Greater Than 89 mL/min (>89); Glucose,Random 80 mg/dL (74-106); Potassium 3.8 meq/L (3.5-5.1); Sodium 145 meq/L (136-145)
[2018-06-05] MEDS: Furosemide 20 MG Tablet PO SCH (09:13)
[2018-06-05] MEDS: Aspirin 300 MG Supp RECTAL SCH (09:13)
[2018-06-05] MEDS: MethylPREDNISolone Sod Succinate Inj 40 MG/ML Vial IV.PUSH SCH (09:28)
--- NOTE | 2018-06-05 10:13 | P.PNIM ---
Subjective Interval history: Patient confused, sleepy however opens eyes and arousable to voice. Continues to be on restraints. Status post PEG tube placed. Physical Exam Vital signs: Vital Signs 06/04/18 12:00 06/04/18 16:00 06/04/18 17:37 Temperature 97.8 F 97.6 F Pulse Rate 93 H 90 Respiratory Rate 17 17 Blood Pressure 167/74 H 108/53 L Pulse Oximetry 92 L 93 L 93 L 06/04/18 20:00 06/04/18 23:35 06/05/18 00:00 Temperature 97.4 F L 97.0 F L Pulse Rate 88 87 89 Respiratory Rate 20 20 Blood Pressure 103/75 133/75 Pulse Oximetry 99 98 06/05/18 04:00 06/05/18 08:00 Temperature 97.8 F 97.1 F L Pulse Rate 95 H 90 Respiratory Rate 20 18 Blood Pressure 130/65 134/72 Pulse Oximetry 96 95 Intake & Output 06/04/18 06/05/18 06/05/18 18:59 06:59 18:59 Intake Total 650 / 650 100 / 100 Balance 650 / 650 100 / 100 Intake: IV 350 / 350 100 / 100 Azithromycin Inj 250 MG In NS 250 / 250 Inj 250 ML @ 250 mls/hr IV.SIG Q24H ERNESTO Rx#:[id number] Maxipime Inj 2,000 MG In NS Inj 100 / 100 100 / 100 100 ML @ 200 mls/hr IV.SIG Q12H ERNESTO Rx#:[id number] LR 1000 mL Inj 1,000 ML @ 30 0 / 0 mls/hr IV.SIG .Q24H ERNESTO Rx#: [id number] Anesthesia Amount 300 / 300 Other: # Voids 1 # Incontinent Voids 3 Date of Last Bowel Movement 06/03/18 # Bowel Movements 0 Narrative: GENERAL: Malnourished, thin male in no acute distress with mild agitation. SKIN: Warm and dry. HEAD: Atraumatic. Normocephalic. NECK: Trachea midline. No JVD. CARDIOVASCULAR: Regular rate and rhythm. RESPIRATORY: Diminished at bases. GASTROINTESTINAL: Abdomen soft, non-tender, nondistended. G-tube in place MUSCULOSKELETAL: Extremities without clubbing, cyanosis, or edema. NEUROLOGICAL: Sleepy but opens eyes to voice, confused. Did not want to follow any commands with me. Disoriented. Results - Labs CBC & Chem 7: 06/05/18 07:27 06/05/18 07:27 Laboratory Results - last 24 hr 06/05/18 06/05/18 07:27 07:27 WBC 8.6 RBC 3.52 L Hgb 11.7 L Hct 34.8 L MCV 99.0 MCH 33.2 MCHC 33.5 RDW 17.8 H Plt Count 95 L MPV 9.0 Prelim Diff (Auto) Slide review pending Neut % (Auto) 86.1 H Lymph % (Auto) 9.6 [place] % (Auto) 3.9 Eos % (Auto) 0.3 Baso % (Auto) 0.1 Neut # (Auto) 7.4 Lymph # (Auto) 0.8 L [place] # (Auto) 0.3 Eos # (Auto) 0.0 Baso # (Auto) 0.0 WBC Differential . Diff Scan Auto diff confirmed Differential Comment . Sodium 145 Potassium 3.8 Chloride 108 H Carbon Dioxide 31.2 Anion Gap 6 BUN 36 H Creatinine 0.79 Estimated GFR Greater than 89 Random Glucose 80 Calcium 8.6 Assessment and Plan - Assessment (1) CVA (cerebral vascular accident) Code(s): I63.9 - Cerebral infarction, unspecified Status: Acute (2) Pneumonia Code(s): J18.9 - Pneumonia, unspecified organism Status: Acute (3) Protein calorie malnutrition Code(s): E46 - Unspecified protein-calorie malnutrition Status: Acute (4) COPD (chronic obstructive pulmonary disease) Code(s): J44.9 - Chronic obstructive pulmonary disease, unspecified Status: Chronic (5) Pleural effusion Code(s): J90 - Pleural effusion, not elsewhere classified Status: Acute (6) Respiratory insufficiency Code(s): R06.89 - Other abnormalities of breathing Status: Acute (7) Mass of upper lobe of left lung Code(s): R91.8 - Other nonspecific abnormal finding of lung field Status: Acute - Plan 68-year-old male who was brought in after he was found at home by his landlord. The patient was altered and found to be covered in urine and feces. He was then brought into our emergency department for evaluation. Acute metabolic encephalopathy, possibly secondary to CVA, dehydration, infection -Continue with neuro checks which has not changed or shown improvement. Acute ischemic right frontal CVA MRI of the brain shows right frontal lobe infarction, 2-3 tiny foci. Possibly embolic stroke. No evidence of A. fib on telemetry Family endorses prior CVA 12 years ago, he did have residual expressive aphasia and possibly some swallowing difficulty. -Continue with neuro checks Neurology service recommendations appreciated. Echocardiogram done, EF 60%, trace mitral valve regurgitation, small pericardial effusion. -Carotid ultrasound results noted, left internal carotid occluded, right carotid moderate plaque, status post vascular surgery evaluation with no surgical intervention recommended. Change aspirin rectally 300 mg 2 p.o. aspirin. Continue with Lipitor- -CTA of the carotids which reveals only about 50% right internal carotid artery stenosis, occluded left internal carotid artery at its origin. PT/OT/ST following Dysphagia NG tube was pulled out by patient, -Continues to fail swallow evaluation Status post PEG placement with GI 06/04 Family is meeting with palliative care service to set short-term and long-term goals, they would like to proceed with PEG tube today. Start Jevity at 30 cc today and advance to goal of 60 mils per hour COPD with exacerbation without asthma Community acquired pneumonia-cxr with poss findings of RLL pna 05/28 CT findings noted, Extensive alveolar consolidations are noted within the right upper and lower lobes consistent with probable pneumonia. Emphysematous changes. Moderate size right pleural effusion. -Wean off of Ventimask to nasal cannula to keep sats greater than 92 Continue with duo nebs Wean off Solu-Medrol, decrease to 40 mg IV daily -CXR 05/30, bilateral pleural effusions, right greater than left airspace disease, both slightly worsened. -changed antibiotics to cefepime 2 g IV every [address] findings. Continue with Zithromax Incidental findings of a spiculated mass right upper lobe suspicious for primary bronchogenic malignancy per CTA of neck Patient's son endorses that patient has been debilitated prior to stroke, positive for unintentional weight loss No prior history of malignancy History of tobacco and alcohol abuse -CT of the chest piculated noncalcified nodule within the right upper lobe measuring 13 mm which is suspicious for bronchogenic carcinoma. Precarinal and subcarinal mediastinal as well as right heel or lymphadenopathy is noted. -Tumor markers done, within normal limits. -Further workup depending on family's wishes after they speak to palliative care Pleural effusions Chest x-ray with findings of bilateral pleural effusions -Increase Lasix Will discuss with family diagnostic and therapeutic thoracentesis today. History of alcohol abuse Patient restless overnight, now in restraints -CIWA protocol in place Left ischium ulcer -Continue wound care. -Wound care nurse consult Severe malnutrition Prealb. 9 -Start Jevity today Appreciate dietitian recommendations. Hypokalemia Hypernatremia, -Replace electrolytes as needed -Continue daily potassium, 20 meq, given extra liquid 25 mEq a day. -Hyponatremia has improved with increase free water to 200 cc every 6 Follow BMP Lovenox for DVT prophylaxis. (1) CVA (cerebral vascular accident) Qualifiers: Laterality of affected vessel: right (3) Protein calorie malnutrition Qualifiers: Protein-calorie malnutrition severity: severe Qualified Code(s): E43 - Unspecified severe protein-calorie malnutrition (4) COPD (chronic obstructive pulmonary disease) Qualifiers: COPD type: unspecified COPD Qualified Code(s): J44.9 - Chronic obstructive pulmonary disease, unspecified
--- NOTE | 2018-06-05 10:55 | P.PNGI ---
Subjective Interval history: Pt confused, in soft wrist restraints. PEG tube with clean, dry and intact gauze bandage. <Maria E Lovett - Last Filed: 06/05/18 10:49> Physical Exam Vital signs: Vital Signs 06/04/18 12:00 06/04/18 16:00 06/04/18 17:37 Temperature 97.8 F 97.6 F Pulse Rate 93 H 90 Respiratory Rate 17 17 Blood Pressure 167/74 H 108/53 L Pulse Oximetry 92 L 93 L 93 L 06/04/18 20:00 06/04/18 23:35 06/05/18 00:00 Temperature 97.4 F L 97.0 F L Pulse Rate 88 87 89 Respiratory Rate 20 20 Blood Pressure 103/75 133/75 Pulse Oximetry 99 98 06/05/18 04:00 06/05/18 08:00 Temperature 97.8 F 97.1 F L Pulse Rate 95 H 90 Respiratory Rate 20 18 Blood Pressure 130/65 134/72 Pulse Oximetry 96 95 Intake & Output 06/04/18 06/05/18 06/05/18 18:59 06:59 18:59 Intake Total 650 / 650 100 / 100 100 / 100 Balance 650 / 650 100 / 100 100 / 100 Intake: IV 350 / 350 100 / 100 100 / 100 Azithromycin Inj 250 MG In NS 250 / 250 Inj 250 ML @ 250 mls/hr IV.SIG Q24H [facility]STO Rx#:[id number] Maxipime Inj 2,000 MG In NS Inj 100 / 100 100 / 100 100 / 100 100 ML @ 200 mls/hr IV.SIG Q12H ERNESTO Rx#:[id number] LR 1000 mL Inj 1,000 ML @ 30 0 / 0 mls/hr IV.SIG .Q24H ERNESTO Rx#: [id number] Anesthesia Amount 300 / 300 Other: # Voids 1 # Incontinent Voids 3 Date of Last Bowel Movement 06/03/18 # Bowel Movements 0 - Constitutional no acute distress, cachectic - Routine HEENT Exam Head: Present: normocephalic, atraumatic - Routine Respiratory Exam Absent: accessory muscle use - Routine Abdominal Exam Present: soft, normoactive bowel sounds. Absent: tenderness, distended - Routine Skin Exam Present: dry, warm <Maria E Lovett - Last Filed: 06/05/18 10:49> Vital signs: Vital Signs 06/04/18 23:35 06/05/18 00:00 06/05/18 04:00 Temperature 97.0 F L 97.8 F Pulse Rate 87 89 95 H Respiratory Rate 20 20 Blood Pressure 133/75 130/65 Pulse Oximetry 98 96 06/05/18 08:00 06/05/18 11:43 06/05/18 16:00 Temperature 97.1 F L 97 F L 97 F L Pulse Rate 90 92 H 90 Respiratory Rate 18 18 18 Blood Pressure 134/72 144/80 H 125/72 Pulse Oximetry 95 91 L 93 L 06/05/18 20:00 Temperature 97.6 F Pulse Rate 93 H Respiratory Rate 18 Blood Pressure 118/70 Pulse Oximetry 91 L Intake & Output 06/05/18 06/05/18 06/06/18 06:59 18:59 06:59 Intake Total 100 / 100 350 / 350 Output Total 500 / 500 Balance 100 / 100 -150 / -150 Intake: IV 100 / 100 350 / 350 Azithromycin Inj 250 MG In NS 250 / 250 Inj 250 ML @ 250 mls/hr IV.SIG Q24H ERNESTO Rx#:[id number] Maxipime Inj 2,000 MG In NS Inj 100 / 100 100 / 100 100 ML @ 200 mls/hr IV.SIG Q12H ERNESTO Rx#:[id number] Output: Urine 500 / 500 Other: # Incontinent Voids 3 # Bowel Movements 0 <Jayden Garcia E - Last Filed: 06/05/18 21:51> Results - Labs CBC & Chem 7: 06/05/18 07:27 06/05/18 07:27 Laboratory Results - last 24 hr 06/05/18 06/05/18 07:27 07:27 WBC 8.6 RBC 3.52 L Hgb 11.7 L Hct 34.8 L MCV 99.0 MCH 33.2 MCHC 33.5 RDW 17.8 H Plt Count 95 L MPV 9.0 Prelim Diff (Auto) Slide review pending Neut % (Auto) 86.1 H Lymph % (Auto) 9.6 [place] % (Auto) 3.9 Eos % (Auto) 0.3 Baso % (Auto) 0.1 Neut # (Auto) 7.4 Lymph # (Auto) 0.8 L [place] # (Auto) 0.3 Eos # (Auto) 0.0 Baso # (Auto) 0.0 WBC Differential . Diff Scan Auto diff confirmed Differential Comment . Sodium 145 Potassium 3.8 Chloride 108 H Carbon Dioxide 31.2 Anion Gap 6 BUN 36 H Creatinine 0.79 Estimated GFR Greater than 89 Random Glucose 80 Calcium 8.6 <Maria E Lovett - Last Filed: 06/05/18 10:49> - Labs CBC & Chem 7: 06/05/18 07:27 06/05/18 07:27 Laboratory Results - last 24 hr 06/05/18 06/05/18 07:27 07:27 WBC 8.6 RBC 3.52 L Hgb 11.7 L Hct 34.8 L MCV 99.0 MCH 33.2 MCHC 33.5 RDW 17.8 H Plt Count 95 L MPV 9.0 Prelim Diff (Auto) Slide review pending Neut % (Auto) 86.1 H Lymph % (Auto) 9.6 [place] % (Auto) 3.9 Eos % (Auto) 0.3 Baso % (Auto) 0.1 Neut # (Auto) 7.4 Lymph # (Auto) 0.8 L [place] # (Auto) 0.3 Eos # (Auto) 0.0 Baso # (Auto) 0.0 WBC Differential . Diff Scan Auto diff confirmed Differential Comment . Sodium 145 Potassium 3.8 Chloride 108 H Carbon Dioxide 31.2 Anion Gap 6 BUN 36 H Creatinine 0.79 Estimated GFR Greater than 89 Random Glucose 80 Calcium 8.6 <Jayden Garcia - Last Filed: 06/05/18 21:51> Assessment and Plan (1) Dysphagia Status: Acute Code(s): R13.10 - Dysphagia, unspecified - Plan Assessment: - Dysphagia secondary to encephalopathy- pt pulled out NG tube S/P EGD with PEG --> Normal EGD, successful PEg placement Appreciate nutrition recommendations- Jevity 1.5 with goal rate of 60 mL/hr with 1094 ml free water flushes Plan: TF per dietary recommendations Jevity 1.5 with goal rate 60 mL/hr 1094 mL of free water flushes Flush PEG with 50 cc of water q 4-6 hours Flush PEG after feedings Apply abdominal binder as necessary Clamp PEG after use and flush Our service will sign off, please reconsult as needed Pt has been seen and examined by myself and Dr. Garcia and this note is written on his behalf <Maria E Lovett - Last Filed: 06/05/18 10:49> (1) Dysphagia Status: Acute Code(s): R13.10 - Dysphagia, unspecified - Plan Patient seen and examined Agree with above Continue with current supportive care Monitor labs We will sign off <Jayden Garcia - Last Filed: 06/05/18 21:51>
[2018-06-05] MEDS: Enoxaparin Inj 30 MG/0.3 ML Syringe SQ SCH (11:28)
[2018-06-05] MEDS: Azithromycin Inj 250 MG in Sodium Chlor 0.9% Inj 250 ML IV.SIG SCH (17:12)
[2018-06-05] MEDS: LORazepam 1 MG Tablet PO PRN (22:33)
[2018-06-06 07:46] LABS: INR 1.1 Ratio; Prothrombin Time 10.9 sec (9.8-11.6)
[2018-06-06] MEDS: MethylPREDNISolone Sod Succinate Inj 40 MG/ML Vial IV.PUSH SCH (08:00)
[2018-06-06] MEDS: Enoxaparin Inj 30 MG/0.3 ML Syringe SQ SCH (08:01)
[2018-06-06] MEDS: Aspirin 300 MG Supp RECTAL SCH (08:01)
[2018-06-06] MEDS: Furosemide 20 MG Tablet PO SCH (11:29)
--- NOTE | 2018-06-06 11:53 | CT ---
EXAM DATE: 06/06/2018 11:17 AM EDT AGE/SEX: 68 years / Male INDICATIONS: Right lung fluid collection. CLINICAL DATA: This is the patient's subsequent encounter. Patient reports that signs and symptoms h ave been present for 4 - 6 days and indicates a pain score of 0/10. MEDICAL/SURGICAL HISTORY: Chronic obstructive pulmonary disease. Cerebrovascular disease. pleural effusion, pneumonia None. RADIATION DOSE: 5.49 CTDI (mGy) [place] [facility] [place]. . TECHNIQUE: Multiple contiguous axial images were obtained through the chest without contrast. Image s were obtained in suspended respiration using multiple row detector helical technique. Using automa serafin exposure control and adjustment of the mA and/or kV according to patient size, radiation dose was kept as low as reasonably achievable to obtain optimal diagnostic quality images. DICOM format imag e data is available electronically for review and comparison. FINDINGS: There is been considerable interval decrease in size of a right pleural effusion from the prior CT ex am. Adjacent atelectatic lung is again noted. A stable peripheral nodule with spiculation in the ante rolateral right upper lobe is worrisome for neoplasm. Minimal atelectasis present in the posterior le ft lung base. Mediastinum is stable in appearance with no definite adenopathy. Dense atherosclerotic calcifications in the coronaries. No evidence of axillary adenopathy or chest wall destruction. Gastr ostomy noted in the upper abdomen. CONCLUSION: Significant interval decrease in size of right pleural effusion from the prior exam. Electronically signed by: Francois Abarca MD 06/06/2018 11:52 AM EDT
--- NOTE | 2018-06-06 16:30 | P.PNIM ---
Subjective Interval history: Follow-up metabolic encephalopathy, CVA, dysphagia, acute protein calorie malnutrition, COPD pleural effusions. Patient seen and examined laying in bed, sleepy awakened for assessment opens eyes to stimulus. No verbal response, and does not follow commands. Patient seems comfortable in bed, nurse denies any patient's complaint. Physical Exam Vital signs: Vital Signs 06/05/18 16:00 06/05/18 20:00 06/06/18 00:00 Temperature 97 F L 97.6 F 97.8 F Pulse Rate 90 93 H 96 H Respiratory Rate 18 18 18 Blood Pressure 125/72 118/70 134/74 Pulse Oximetry 93 L 91 L 98 06/06/18 04:00 06/06/18 08:00 06/06/18 12:00 Temperature 97.2 F L 97.2 F L 97.1 F L Pulse Rate 87 87 93 H Respiratory Rate 17 18 18 Blood Pressure 104/65 115/77 140/72 Pulse Oximetry 96 96 92 L Intake & Output 06/05/18 06/06/18 06/06/18 18:59 06:59 18:59 Intake Total 350 / 350 100 / 100 100 / 100 Output Total 500 / 500 Balance -150 / -150 100 / 100 100 / 100 Weight 34.6 kg Intake: IV 350 / 350 100 / 100 100 / 100 Azithromycin Inj 250 MG In NS 250 / 250 Inj 250 ML @ 250 mls/hr IV.SIG Q24H ERNESTO Rx#:[id number] Maxipime Inj 2,000 MG In NS Inj 100 / 100 100 / 100 100 / 100 100 ML @ 200 mls/hr IV.SIG Q12H ERNESTO Rx#:[id number] Output: Urine 500 / 500 Other: # Incontinent Voids 3 Date of Last Bowel Movement 06/03/18 Narrative: GENERAL: Ill-appearing thin male, in no acute distress SKIN: Warm and dry. Soft restraint in place on bilateral hands HEAD: Atraumatic. Normocephalic. EYES: Pupils equal and round. No scleral icterus. No injection or drainage. ENT: No nasal bleeding or discharge. Mucous membranes pink and moist. NECK: Trachea midline. No JVD. CARDIOVASCULAR: Regular rate and rhythm. RESPIRATORY: No accessory muscle use. Diminished in the bases auscultation. Breath sounds equal bilaterally. GASTROINTESTINAL: Abdomen soft, non-tender, nondistended. Hepatic and splenic margins not palpable. G-tube in place MUSCULOSKELETAL: Extremities without clubbing, cyanosis, or edema. No obvious deformities. NEUROLOGICAL: Sleepy, awakened with stimulus, opens eyes to stimulus. Does not follow commands, no verbal response. Generalized weakness PSYCHIATRIC: Flat mood and affect; uncooperative Results - Labs CBC & Chem 7: 06/05/18 07:27 06/05/18 07:27 Laboratory Results - last 24 hr 06/06/18 06:45 PT 10.9 INR 1.1 - Imaging Impressions Chest CT 06/06/18 00:00 CONCLUSION: Significant interval decrease in size of right pleural effusion from the prior exam. Assessment and Plan - Assessment (1) CVA (cerebral vascular accident) Code(s): I63.9 - Cerebral infarction, unspecified Status: Acute (2) Pneumonia Code(s): J18.9 - Pneumonia, unspecified organism Status: Acute (3) Protein calorie malnutrition Code(s): E46 - Unspecified protein-calorie malnutrition Status: Acute (4) COPD (chronic obstructive pulmonary disease) Code(s): J44.9 - Chronic obstructive pulmonary disease, unspecified Status: Chronic (5) Pleural effusion Code(s): J90 - Pleural effusion, not elsewhere classified Status: Acute (6) Respiratory insufficiency Code(s): R06.89 - Other abnormalities of breathing Status: Acute (7) Mass of upper lobe of left lung Code(s): R91.8 - Other nonspecific abnormal finding of lung field Status: Acute - Plan 68-year-old male who was brought in after he was found at home by his landlord. The patient was altered and found to be covered in urine and feces. He was then brought into our emergency department for evaluation. Acute metabolic encephalopathy, possibly secondary to CVA, dehydration, infection Acute ischemic right frontal CVA MRI of the brain shows right frontal lobe infarction, 2-3 tiny foci. Possibly embolic stroke. No evidence of A. fib on telemetry Family endorses prior CVA 12 years ago, he did have residual expressive aphasia and possibly some swallowing difficulty. -Continue with neuro checks Neurology service recommendations appreciated. Echocardiogram done, EF 60%, trace mitral valve regurgitation, small pericardial effusion. -Carotid ultrasound results noted, left internal carotid occluded, right carotid moderate plaque, status post vascular surgery evaluation with no surgical intervention recommended. Continue with Lipitor and aspirin -CTA of the carotids which reveals only about 50% right internal carotid artery stenosis, occluded left internal carotid artery at its origin. PT/OT/ST per protocol for eval and treatment Dysphagia Severe protein calorie malnutrition Prealbumin 9 NG tube was pulled out by patient -Continues to fail swallow evaluation -Status post PEG placement with GI 06/04 -Continue Jevity 1.5 at 30 cc and advance to goal of 60 mils per hour -Dietary consult appreciated tube feeding recommendation,/calorie count COPD with exacerbation without asthma Community acquired pneumonia-cxr with poss findings of RLL pna 05/28 CT findings noted, Extensive alveolar consolidations are noted within the right upper and lower lobes consistent with probable pneumonia. Emphysematous changes. Moderate size right pleural effusion. -Wean off of Ventimask to nasal cannula to keep sats greater than 92 Continue with duo nebs Wean off Solu-Medrol, decrease to 40 mg IV daily -CXR 05/30, bilateral pleural effusions, right greater than left airspace disease, both slightly worsened. -changed antibiotics to cefepime 2 g IV every [address] findings[address] Continue with Zithromax -CT chest on 06/06/2018:Significant interval decrease in size of right pleural effusion from the prior exam. A stable peripheral nodule with spiculation in the anterolateral right upper lobe is worrisome for neoplasm. Incidental findings of a spiculated mass right upper lobe suspicious for primary bronchogenic malignancy per CTA of neck Patient's son endorses that patient has been debilitated prior to stroke, positive for unintentional weight loss No prior history of malignancy History of tobacco and alcohol abuse -CT of the chest piculated noncalcified nodule within the right upper lobe measuring 13 mm which is suspicious for bronchogenic carcinoma. Precarinal and subcarinal mediastinal as well as right heel or lymphadenopathy is noted. -Tumor markers done, within normal limits. -Further workup depending on family's wishes after they speak to palliative care Pleural effusions Chest x-ray with findings of bilateral pleural effusions -Increase Lasix -CT chest on 06/06/2018:Significant interval decrease in size of right pleural effusion from the prior exam. -Patient agreed with therapeutic thoracentesis if it is necessary History of alcohol abuse Patient restless overnight, now in restraints -CIWA protocol in place Left ischium ulcer -Continue wound care. -Wound care nurse consult Hypokalemia Hypernatremia, -Monitor and replace electrolytes as needed -Continue daily potassium, 20 meq, given extra liquid 25 mEq a day. -Hyponatremia has improved with increase free water to 200 cc every 6 Follow BMP DVT prophylaxis: Continue Lovenox Code Status: DNR Discussed Condition With: Patient and nurse (1) CVA (cerebral vascular accident) Qualifiers: Laterality of affected vessel: right (3) Protein calorie malnutrition Qualifiers: Protein-calorie malnutrition severity: severe Qualified Code(s): E43 - Unspecified severe protein-calorie malnutrition (4) COPD (chronic obstructive pulmonary disease) Qualifiers: COPD type: unspecified COPD Qualified Code(s): J44.9 - Chronic obstructive pulmonary disease, unspecified
[2018-06-06] MEDS: Azithromycin Inj 250 MG in Sodium Chlor 0.9% Inj 250 ML IV.SIG SCH (17:42)
--- NOTE | 2018-06-06 22:10 | P.PN ---
Subjective Interval history: NOT SEEN Physical Exam Vital signs: Vital Signs 06/06/18 00:00 06/06/18 04:00 06/06/18 08:00 Temperature 97.8 F 97.2 F L 97.2 F L Pulse Rate 96 H 87 87 Respiratory Rate 18 17 18 Blood Pressure 134/74 104/65 115/77 Pulse Oximetry 98 96 96 06/06/18 12:00 06/06/18 16:00 06/06/18 17:57 Temperature 97.1 F L 97.1 F L Pulse Rate 93 H 91 H Respiratory Rate 18 16 Blood Pressure 140/72 101/60 Pulse Oximetry 92 L 92 L 92 L 06/06/18 20:00 Temperature 98.3 F Pulse Rate 89 Respiratory Rate 20 Blood Pressure 136/68 Pulse Oximetry 96 Intake & Output 06/06/18 06/06/18 06/07/18 06:59 18:59 06:59 Intake Total 100 / 100 350 / 350 Balance 100 / 100 350 / 350 Weight 34.6 kg Intake: IV 100 / 100 350 / 350 Azithromycin Inj 250 MG In NS 250 / 250 Inj 250 ML @ 250 mls/hr IV.SIG Q24H ERNESTO Rx#:[id number] Maxipime Inj 2,000 MG In NS Inj 100 / 100 100 / 100 100 ML @ 200 mls/hr IV.SIG Q12H ERNESTO Rx#:[id number] Other: # Incontinent Voids 3 Date of Last Bowel Movement 06/03/18 Narrative: GENERAL: Ill-appearing thin male, in no acute distress SKIN: Warm and dry. Soft restraint in place on bilateral hands CARDIOVASCULAR: Regular rate and rhythm. RESPIRATORY: No accessory muscle use. Diminished in the bases auscultation. Breath sounds equal bilaterally. GASTROINTESTINAL: Abdomen soft, non-tender, nondistended. G-tube in place MUSCULOSKELETAL: Extremities without clubbing, cyanosis, or edema. No obvious deformities. NEUROLOGICAL: Sleepy, awakened with stimulus, opens eyes to stimulus. Does not follow commands, no verbal response. Generalized weakness PSYCHIATRIC: Flat mood and affect; uncooperative Results - Labs CBC & Chem 7: 06/05/18 07:27 06/05/18 07:27 Laboratory Results - last 24 hr 06/06/18 06:45 PT 10.9 INR 1.1 - Imaging ITS Impressions Head MRI 05/26/18 00:00 Diffusion weighted images demonstrate tiny foci of restricted diffusion in the right frontal cortex. There is diffuse atrophy. There is a large area of encephalomalacia and scoliosis in the left frontal lobe from previous infarction. There is slight ex vacuo dilatation of the left lateral ventricle and remote left basal ganglia lacunar infarcts. In addition remote right occipital infarct and encephalomalacia noted. There are no signs of acute intracranial hemorrhage though there is evidence of remote hemosiderin along the right parietal cortex. No abnormal areas of enhancement are seen. There is no evidence for mass.. CONCLUSION: 1. Atrophy and white matter disease with remote infarcts identified. 2. 2-3 tiny foci of restricted diffusion in the right frontal lobe characteristic of tiny foci of acute infarction. Head CT 05/26/18 12:11 CONCLUSION: 1. No acute findings. Atrophy and remote infarcts. . Carotid Doppler Study 05/28/18 00:00 CONCLUSION: 1. Mild to moderate stenosis on the right not felt to be hemodynamically significant at this point. CT angiography could be used to exclude soft plaque. 2. Occluded left internal carotid artery Head MRA 05/28/18 00:00 CONCLUSION: 1. Occluded left internal carotid artery. Neck CTA 05/30/18 00:00 CONCLUSION: 1. 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 2. Occluded left internal carotid artery at its origin. 3. Less than 50% stenosis of the right internal carotid artery secondary to atherosclerotic plaquing. 4. Emphysema and right upper lobe/lower lobe parenchymal infiltrate. 5. Spiculated mass in the right upper lobe suspicious for primary bronchogenic malignancy until proven otherwise. Chest X-Ray 05/30/18 14:04 CONCLUSION: Bilateral pleural effusions and right greater than left airspace disease, both slightly worsened compared with May 18. No pneumothorax. NG tube in stomach. Abdomen X-Ray 06/03/18 00:00 CONCLUSION: Nasogastric tube is in the right lower lobe airways. Chest CT 06/06/18 00:00 CONCLUSION: Significant interval decrease in size of right pleural effusion from the prior exam. - Procedures PEG Assessment and Plan - Assessment (1) CVA (cerebral vascular accident) Code(s): I63.9 - Cerebral infarction, unspecified Status: Acute (2) Pneumonia Code(s): J18.9 - Pneumonia, unspecified organism Status: Acute (3) Protein calorie malnutrition Code(s): E46 - Unspecified protein-calorie malnutrition Status: Acute (4) COPD (chronic obstructive pulmonary disease) Code(s): J44.9 - Chronic obstructive pulmonary disease, unspecified Status: Chronic (5) Pleural effusion Code(s): J90 - Pleural effusion, not elsewhere classified Status: Acute (6) Respiratory insufficiency Code(s): R06.89 - Other abnormalities of breathing Status: Acute (7) Mass of upper lobe of left lung Code(s): R91.8 - Other nonspecific abnormal finding of lung field Status: Acute - Plan 68-year-old male who was brought in after he was found at home by his landlord. The patient was altered and found to be covered in urine and feces. He was then brought into our emergency department for evaluation. Acute metabolic encephalopathy, possibly secondary to CVA, dehydration, infection Acute ischemic right frontal CVA MRI of the brain shows right frontal lobe infarction, 2-3 tiny foci. Possibly embolic stroke. No evidence of A. fib on telemetry Family endorses prior CVA 12 years ago, he did have residual expressive aphasia and possibly some swallowing difficulty. -Continue with neuro checks Neurology service recommendations appreciated. Echocardiogram done, EF 60%, trace mitral valve regurgitation, small pericardial effusion. -Carotid ultrasound results noted, left internal carotid occluded, right carotid moderate plaque, status post vascular surgery evaluation with no surgical intervention recommended. Continue with Lipitor and aspirin -CTA of the carotids which reveals only about 50% right internal carotid artery stenosis, occluded left internal carotid artery at its origin. PT/OT/ST per protocol for eval and treatment Dysphagia Severe protein calorie malnutrition Prealbumin 9 NG tube was pulled out by patient -Continues to fail swallow evaluation -Status post PEG placement with GI 06/04 -Continue Jevity 1.5 at 30 cc and advance to goal of 60 mils per hour -Dietary consult appreciated tube feeding recommendation,/calorie count COPD with exacerbation without asthma Community acquired pneumonia-cxr with poss findings of RLL pna 05/28 CT findings noted, Extensive alveolar consolidations are noted within the right upper and lower lobes consistent with probable pneumonia. Emphysematous changes. Moderate size right pleural effusion. -Wean off of Ventimask to nasal cannula to keep sats greater than 92 Continue with duo nebs Wean off Solu-Medrol, decrease to 40 mg IV daily -CXR 05/30, bilateral pleural effusions, right greater than left airspace disease, both slightly worsened. -changed antibiotics to cefepime 2 g IV every [address] findings[address] Continue with Zithromax -CT chest on 06/06/2018:Significant interval decrease in size of right pleural effusion from the prior exam. A stable peripheral nodule with spiculation in the anterolateral right upper lobe is worrisome for neoplasm. Incidental findings of a spiculated mass right upper lobe suspicious for primary bronchogenic malignancy per CTA of neck Patient's son endorses that patient has been debilitated prior to stroke, positive for unintentional weight loss No prior history of malignancy History of tobacco and alcohol abuse -CT of the chest piculated noncalcified nodule within the right upper lobe measuring 13 mm which is suspicious for bronchogenic carcinoma. Precarinal and subcarinal mediastinal as well as right heel or lymphadenopathy is noted. -Tumor markers done, within normal limits. -Further workup depending on family's wishes after they speak to palliative care Pleural effusions Chest x-ray with findings of bilateral pleural effusions -Increase Lasix -CT chest on 06/06/2018:Significant interval decrease in size of right pleural effusion from the prior exam. -Patient agreed with therapeutic thoracentesis if it is necessary History of alcohol abuse Patient restless overnight, now in restraints -CIWA protocol in place Left ischium ulcer -Continue wound care. -Wound care nurse consult Hypokalemia Hypernatremia, -Monitor and replace electrolytes as needed -Continue daily potassium, 20 meq, given extra liquid 25 mEq a day. -Hyponatremia has improved with increase free water to 200 cc every 6 Follow BMP DVT prophylaxis: Continue Lovenox (1) CVA (cerebral vascular accident) Qualifiers: Laterality of affected vessel: right (3) Protein calorie malnutrition Qualifiers: Protein-calorie malnutrition severity: severe Qualified Code(s): E43 - Unspecified severe protein-calorie malnutrition (4) COPD (chronic obstructive pulmonary disease) Qualifiers: COPD type: unspecified COPD Qualified Code(s): J44.9 - Chronic obstructive pulmonary disease, unspecified
[2018-06-06] MEDS: LORazepam 1 MG Tablet PO PRN (23:01)
[2018-06-07] MEDS: Furosemide 20 MG Tablet PO SCH (09:07)
[2018-06-07] MEDS: Aspirin 300 MG Supp RECTAL SCH (09:07)
[2018-06-07] MEDS: Enoxaparin Inj 30 MG/0.3 ML Syringe SQ SCH (09:08)
[2018-06-07] MEDS: MethylPREDNISolone Sod Succinate Inj 40 MG/ML Vial IV.PUSH SCH (09:08)
--- NOTE | 2018-06-07 13:12 | P.PNIM ---
Subjective Interval history: The patient appeared comfortable. His family was at the bedside. The patient has been nonverbal and sleeping. Family was interested in the possibility of hospice. Discussed with nursing. Physical Exam Vital signs: Vital Signs 06/06/18 16:00 06/06/18 17:57 06/06/18 20:00 Temperature 97.1 F L 98.3 F Pulse Rate 91 H 89 Respiratory Rate 16 20 Blood Pressure 101/60 136/68 Pulse Oximetry 92 L 92 L 96 06/07/18 01:17 06/07/18 04:23 06/07/18 08:00 Temperature 97.8 F 98.0 F 97.2 F L Pulse Rate 96 H 97 H 90 Respiratory Rate 22 22 16 Blood Pressure 130/65 139/73 131/75 Pulse Oximetry 94 L 98 93 L Intake & Output 06/06/18 06/07/18 06/07/18 18:59 06:59 18:59 Intake Total 350 / 350 100 / 100 100 / 100 Output Total 0 / 0 Balance 350 / 350 100 / 100 100 / 100 Intake: IV 350 / 350 100 / 100 100 / 100 Azithromycin Inj 250 MG In NS 250 / 250 Inj 250 ML @ 250 mls/hr IV.SIG Q24H ERNESTO Rx#:[id number] Maxipime Inj 2,000 MG In NS Inj 100 / 100 100 / 100 100 / 100 100 ML @ 200 mls/hr IV.SIG Q12H ERNESTO Rx#:[id number] Output: Stool 0 / 0 Other: # Voids 2 Narrative: GENERAL: Ill-appearing thin male, in no acute distress, on Venturi mask. SKIN: Warm and dry. CARDIOVASCULAR: Regular rate and rhythm. RESPIRATORY: No accessory muscle use. Diminished in the bases auscultation. Breath sounds equal bilaterally. GASTROINTESTINAL: Abdomen soft, non-tender, nondistended. G-tube in place. MUSCULOSKELETAL: Extremities without clubbing, cyanosis, or edema. No obvious deformities. NEUROLOGICAL: Does not follow commands, no verbal response. Generalized weakness. Results - Labs CBC & Chem 7: 06/05/18 07:27 06/05/18 07:27 - Procedures PEG Assessment and Plan - Assessment (1) CVA (cerebral vascular accident) Code(s): I63.9 - Cerebral infarction, unspecified Status: Acute (2) Pneumonia Code(s): J18.9 - Pneumonia, unspecified organism Status: Acute (3) Protein calorie malnutrition Code(s): E46 - Unspecified protein-calorie malnutrition Status: Acute (4) COPD (chronic obstructive pulmonary disease) Code(s): J44.9 - Chronic obstructive pulmonary disease, unspecified Status: Chronic (5) Pleural effusion Code(s): J90 - Pleural effusion, not elsewhere classified Status: Acute (6) Respiratory insufficiency Code(s): R06.89 - Other abnormalities of breathing Status: Acute (7) Mass of upper lobe of left lung Code(s): R91.8 - Other nonspecific abnormal finding of lung field Status: Acute - Plan 68-year-old male who was brought in after he was found at home by his landlord. The patient was altered and found to be covered in urine and feces. He was then brought into our emergency department for evaluation. Acute metabolic encephalopathy, possibly secondary to CVA, dehydration, infection Acute ischemic right frontal CVA MRI of the brain shows right frontal lobe infarction, 2-3 tiny foci. Possibly embolic stroke. No evidence of A. fib on telemetry Family endorses prior CVA 12 years ago, he did have residual expressive aphasia and possibly some swallowing difficulty. -Continue with neuro checks Neurology service recommendations appreciated. Echocardiogram done, EF 60%, trace mitral valve regurgitation, small pericardial effusion. -Carotid ultrasound results noted, left internal carotid occluded, right carotid moderate plaque, status post vascular surgery evaluation with no surgical intervention recommended. Continue with Lipitor and aspirin -CTA of the carotids which reveals only about 50% right internal carotid artery stenosis, occluded left internal carotid artery at its origin. PT/OT/ST per protocol for eval and treatment -Palliative care consult appreciated. The family is considering hospice. Dysphagia Severe protein calorie malnutrition Prealbumin 9 NG tube was pulled out by patient -Continues to fail swallow evaluation -Status post PEG placement with GI 06/04 -Continue Jevity 1.5 at 30 cc and advance to goal of 60 mils per hour -Dietary consult appreciated. COPD with exacerbation without asthma Community acquired pneumonia-cxr with poss findings of RLL pna 05/28 CT findings noted, Extensive alveolar consolidations are noted within the right upper and lower lobes consistent with probable pneumonia. Emphysematous changes. Moderate size right pleural effusion. -Wean off of Ventimask to nasal cannula to keep sats greater than 92 Continue with duo nebs Wean off Solu-Medrol, decrease to 40 mg IV daily -CXR 05/30, bilateral pleural effusions, right greater than left airspace disease, both slightly worsened. -changed antibiotics to cefepime 2 g IV every [address] findings[address] Continue with Zithromax -CT chest on 06/06/2018:Significant interval decrease in size of right pleural effusion from the prior exam. A stable peripheral nodule with spiculation in the anterolateral right upper lobe is worrisome for neoplasm. Incidental findings of a spiculated mass right upper lobe suspicious for primary bronchogenic malignancy per CTA of neck Patient's son endorses that patient has been debilitated prior to stroke, positive for unintentional weight loss No prior history of malignancy History of tobacco and alcohol abuse -CT of the chest piculated noncalcified nodule within the right upper lobe measuring 13 mm which is suspicious for bronchogenic carcinoma. Precarinal and subcarinal mediastinal as well as right heel or lymphadenopathy is noted. -Tumor markers done, within normal limits. Pleural effusions Chest x-ray with findings of bilateral pleural effusions -Increase Lasix -CT chest on 06/06/2018:Significant interval decrease in size of right pleural effusion from the prior exam. -Patient agreed with therapeutic thoracentesis if it is necessary History of alcohol abuse Patient restless overnight, now in restraints -CIWA protocol in place Left ischium ulcer -Continue wound care. -Wound care nurse consult Hypokalemia Hypernatremia, -Monitor and replace electrolytes as needed -Continue daily potassium, 20 meq, given extra liquid 25 mEq a day. -Hyponatremia has improved with increase free water to 200 cc every 6 Follow BMP DVT prophylaxis: Continue Lovenox Discharge Planning: Possible hospice in the next few days (1) CVA (cerebral vascular accident) Qualifiers: Laterality of affected vessel: right (3) Protein calorie malnutrition Qualifiers: Protein-calorie malnutrition severity: severe Qualified Code(s): E43 - Unspecified severe protein-calorie malnutrition (4) COPD (chronic obstructive pulmonary disease) Qualifiers: COPD type: unspecified COPD Qualified Code(s): J44.9 - Chronic obstructive pulmonary disease, unspecified
[2018-06-08] MEDS: Furosemide 20 MG Tablet PO SCH (09:00)
[2018-06-08] MEDS: Enoxaparin Inj 30 MG/0.3 ML Syringe SQ SCH (09:00)
[2018-06-08] MEDS: Aspirin 300 MG Supp RECTAL SCH (09:00)
[2018-06-08] MEDS: MethylPREDNISolone Sod Succinate Inj 40 MG/ML Vial IV.PUSH SCH (09:00)
--- NOTE | 2018-06-08 10:28 | P.DIET ---
Nutritional Evaluation Type of nutrition evaluation: follow-up Nutrition consult regarding: Diet Evaluation Screening comments: 06/06/18 [facility] bolus TF'ing Recs 06/03/18 [facility] TF'ing 05/28/18 [facility] Malnutrition Subjective Barriers to Nutrition: Swallowing problem Objective - Diagnosis Encephalopathy - Objective [place] body weight: 72.7 kg % IBW: 69 Body Weight Used for Calculations: Actual (49.9kg) Energy Needs - Lower Range (kCal/kg): 40 Energy Needs - Upper Range (kCal/kg): 45 Lower Limit kCal/kg (kCals): 1,996 Upper Limit kCal/kg (kCals): 2,246 Lower Limit Protein Factor (Grams per Kg): 1.4 Upper Limit Protein Factor (Grams per Kg): 1.8 Lower Protein Needs (Protein): 70 Upper Protein Needs (Protein): 90 Dietitian Reviewed in Medical Record: Curent medications, Intake & Output, Labs , Medical history, Wound/DTI Diet Order: TF'ing Jevity 1.5 @ goal rate 60ml/hr Speech Therapy Recommendations: Yes (06/03 NPO) Wound Care Note: 05/27/18 WOCN note: Left Ischium unstageable pressure injury Objective Comments: PMH includes: CVA Integumentary: Left Ischium Pressure Injury; Coccyx maceration 06/04/18 PEG tube placement Albumin 2.6; prealbumin 9.0 Meds include: Lipitor, Haldol, Lasix Assessment Assessment: Pt continues at high nutritional risk r/t clinical status and need to remain NPO per ST and very low BMI 11.3. Pt tolerating TF'ing w/ Rec Jevity 1.5 at goal rate 55ml/hr via PEG tube. Rec TF 'ing w/Jevity 1.5 goal rate is 60ml/hr to offer 2160 kcal, 92g protein and 1094ml free water. For Bolus feedings, Rec Jevity 1.5 w/ 240ml @ 6am, 10am, 2pm , 6pm, 10pm and 2am. Free Water Flushes per MD. Labs reviewed-noted concern for low albumin and prealbumin; however, albumin and prealbumin are no longer considered to be indicators of nutritional status and are negative-acute phase reactants relative to the presence of inflammation in the body. Wt changes noted. Additional Recs to follow r/t Clinical Course. Recommendations: 1. Rec TF'ing w/Jevity 1.5 goal rate is 60ml/hr 2. For Bolus feedings, Rec Jevity 1.5 w/ 240ml @ 6am, 10am, 2pm, 6pm, 10pm and 2am 3. Free Water Flushes per MD 4. Noted concern for low albumin and prealbumin; however, albumin and prealbumin are no longer considered to be indicators of nutritional status and are negative-acute phase reactants relative to the presence of inflammation in the body 5. Additional Recs to follow r/t Clinical Course Dietitian to Monitor: Lab values, Electrolytes, Intake & Output, Tube feeding tolerance, Weight change, Wound/skin status, Swallow recommendations, Medical course
--- NOTE | 2018-06-08 11:22 | P.PNIM ---
Subjective Interval history: The patient was resting in bed. He was able to respond to questions. He denied any acute complaints. He seemed a little confused. Physical Exam Vital signs: Vital Signs 06/07/18 12:00 06/07/18 16:00 06/07/18 18:04 Temperature 97.1 F L 97.2 F L Pulse Rate 88 91 H Respiratory Rate 17 17 Blood Pressure 118/71 113/64 Pulse Oximetry 98 96 96 06/07/18 20:00 06/07/18 20:30 06/08/18 00:00 Temperature 97.5 F L 97.3 F L Pulse Rate 95 H 97 H 98 H Respiratory Rate 16 17 Blood Pressure 121/68 130/70 Pulse Oximetry 95 97 06/08/18 00:30 06/08/18 04:00 06/08/18 08:00 Temperature 97.2 F L 98 F Pulse Rate 97 H 97 H 102 H Respiratory Rate 17 18 Blood Pressure 124/76 131/75 Pulse Oximetry 96 94 L Intake & Output 06/07/18 06/08/18 06/08/18 18:59 06:59 18:59 Intake Total 100 / 100 100 / 100 100 / 100 Balance 100 / 100 100 / 100 100 / 100 Weight 34.6 kg Intake: IV 100 / 100 100 / 100 100 / 100 Maxipime Inj 2,000 MG In NS Inj 100 / 100 100 / 100 100 / 100 100 ML @ 200 mls/hr IV.SIG Q12H [facility] Rx#:[id number] Other: # Voids 3 4 # Incontinent Voids 1 Narrative: GENERAL: Ill-appearing thin male, in no acute distress, on Venturi mask. SKIN: Warm and dry. CARDIOVASCULAR: Regular rate and rhythm. RESPIRATORY: No accessory muscle use. Crackles noted. GASTROINTESTINAL: Abdomen soft, non-tender, nondistended. G-tube in place. MUSCULOSKELETAL: Extremities without clubbing, cyanosis, or edema. No obvious deformities. NEUROLOGICAL: Responding to questions. Confused. Generalized weakness. Results - Labs CBC & Chem 7: 06/05/18 07:27 06/05/18 07:27 Assessment and Plan - Assessment (1) CVA (cerebral vascular accident) Code(s): I63.9 - Cerebral infarction, unspecified Status: Acute (2) Pneumonia Code(s): J18.9 - Pneumonia, unspecified organism Status: Acute (3) Protein calorie malnutrition Code(s): E46 - Unspecified protein-calorie malnutrition Status: Acute (4) COPD (chronic obstructive pulmonary disease) Code(s): J44.9 - Chronic obstructive pulmonary disease, unspecified Status: Chronic (5) Pleural effusion Code(s): J90 - Pleural effusion, not elsewhere classified Status: Acute (6) Respiratory insufficiency Code(s): R06.89 - Other abnormalities of breathing Status: Acute (7) Mass of upper lobe of left lung Code(s): R91.8 - Other nonspecific abnormal finding of lung field Status: Acute - Plan 68-year-old male who was brought in after he was found at home by his landlord. The patient was altered and found to be covered in urine and feces. He was then brought into our emergency department for evaluation. Acute metabolic encephalopathy, possibly secondary to CVA, dehydration, infection Acute ischemic right frontal CVA MRI of the brain shows right frontal lobe infarction, 2-3 tiny foci. Possibly embolic stroke. No evidence of A. fib on telemetry Family endorses prior CVA 12 years ago, he did have residual expressive aphasia and possibly some swallowing difficulty. -Continue with neuro checks. Neurology service recommendations appreciated. Echocardiogram done, EF 60%, trace mitral valve regurgitation, small pericardial effusion. -Carotid ultrasound results noted, left internal carotid occluded, right carotid moderate plaque, status post vascular surgery evaluation with no surgical intervention recommended. Continue with Lipitor and aspirin. -CTA of the carotids which reveals only about 50% right internal carotid artery stenosis, occluded left internal carotid artery at its origin. PT/OT/ST per protocol for eval and treatment. -Palliative care consult appreciated. The family is considering hospice. Follow up with palliative care. Dysphagia Severe protein calorie malnutrition. Prealbumin 9. NG tube was pulled out by patient. -Continues to fail swallow evaluation. Follow with speech therapy. -Status post PEG placement with GI 06/04. -Continue Jevity 1.5. Dietary consult appreciated. COPD with exacerbation without asthma Community acquired pneumonia-cxr with poss findings of RLL pna 05/28 CT findings noted, Extensive alveolar consolidations are noted within the right upper and lower lobes consistent with probable pneumonia. Emphysematous changes. Moderate size right pleural effusion. -Wean off of Ventimask to nasal cannula to keep sats greater than 92. Continue with duo nebs. -wean off steroids. -CXR 05/30, bilateral pleural effusions, right greater than left airspace disease, both slightly worsened. -changed antibiotics to cefepime 2 g IV every [address] findings[address] Continue with Zithromax. -CT chest on 06/06/2018:Significant interval decrease in size of right pleural effusion from the prior exam. A stable peripheral nodule with spiculation in the anterolateral right upper lobe is worrisome for neoplasm. Incidental findings of a spiculated mass right upper lobe suspicious for primary bronchogenic malignancy per CTA of neck Patient's son endorses that patient has been debilitated prior to stroke, positive for unintentional weight loss No prior history of malignancy History of tobacco and alcohol abuse -CT of the chest piculated noncalcified nodule within the right upper lobe measuring 13 mm which is suspicious for bronchogenic carcinoma. Precarinal and subcarinal mediastinal as well as right heel or lymphadenopathy is noted. -Tumor markers done, within normal limits. Pleural effusions Chest x-ray with findings of bilateral pleural effusions -Lasix. -CT chest on 06/06/2018:Significant interval decrease in size of right pleural effusion from the prior exam. -Patient agreed with therapeutic thoracentesis if it is necessary. History of alcohol abuse Patient restless overnight, now in restraints -s/p CIWA protocol. Left ischium ulcer -Continue wound care. -Wound care nurse consult. Hypokalemia Hypernatremia, -Monitor and replace electrolytes as needed -Continue daily potassium, 20 meq, given extra liquid 25 mEq a day. -Hyponatremia has improved with increase free water to 200 cc every 6 check BMP in AM. DVT prophylaxis: Continue Lovenox Discharge Planning: Possible hospice in the next few days (1) CVA (cerebral vascular accident) Qualifiers: Laterality of affected vessel: right (3) Protein calorie malnutrition Qualifiers: Protein-calorie malnutrition severity: severe Qualified Code(s): E43 - Unspecified severe protein-calorie malnutrition (4) COPD (chronic obstructive pulmonary disease) Qualifiers: COPD type: unspecified COPD Qualified Code(s): J44.9 - Chronic obstructive pulmonary disease, unspecified
[2018-06-08] MEDS: Haloperidol Inj 5 MG/ML Ampul IV.PUSH PRN (13:10)
[2018-06-08] MEDS: predniSONE 20 MG Tablet PO SCH (22:14)
[2018-06-09] MEDS: Furosemide 20 MG Tablet PO SCH (08:32)
[2018-06-09] MEDS: predniSONE 20 MG Tablet PO SCH ×2 (08:33→20:17)
[2018-06-09] MEDS: Enoxaparin Inj 30 MG/0.3 ML Syringe SQ SCH (08:35)
[2018-06-09] MEDS: Haloperidol Inj 5 MG/ML Ampul IV.PUSH PRN ×2 (08:35→10:11)
[2018-06-09] MEDS: Aspirin 300 MG Supp RECTAL SCH (09:41)
--- NOTE | 2018-06-09 10:43 | P.PNIM ---
Subjective Interval history: The patient was alert. He seemed to be responding with nods and shakes of his head. He was not speaking. He seemed to indicate some discomfort but was unable to specify. Discussed with nursing. Physical Exam Vital signs: Vital Signs 06/08/18 12:00 06/08/18 16:00 06/08/18 20:00 Temperature 97.5 F L 97.2 F L 97.4 F L Pulse Rate 99 H 98 H 98 H Respiratory Rate 18 18 21 Blood Pressure 124/72 126/73 116/74 Pulse Oximetry 93 L 96 93 L 06/09/18 00:00 06/09/18 04:00 06/09/18 08:00 Temperature 97.7 F 97.4 F L 97.4 F L Pulse Rate 115 H 118 H 114 H Respiratory Rate 21 22 24 Blood Pressure 161/88 H 161/84 H 169/79 H Pulse Oximetry 93 L 93 L 90 L Intake & Output 06/08/18 06/09/18 06/09/18 18:59 06:59 18:59 Intake Total 100 / 100 100 / 100 100 / 100 Balance 100 / 100 100 / 100 100 / 100 Weight 34.6 kg Intake: IV 100 / 100 100 / 100 100 / 100 Maxipime Inj 2,000 MG In NS Inj 100 / 100 100 / 100 100 / 100 100 ML @ 200 mls/hr IV.SIG Q12H [facility] Rx#:[id number] Other: # Voids 2 6 Date of Last Bowel Movement 06/08/18 06/09/18 # Bowel Movements 4 Narrative: GENERAL: Ill-appearing thin male, in no acute distress, on Venturi mask. SKIN: Warm and dry. CARDIOVASCULAR: Regular rate and rhythm. RESPIRATORY: No accessory muscle use. Crackles noted. GASTROINTESTINAL: Abdomen soft, non-tender, nondistended. G-tube in place. MUSCULOSKELETAL: Extremities without clubbing, cyanosis, or edema. No obvious deformities. NEUROLOGICAL: Confused. Generalized weakness. Somewhat following commands. Results - Labs CBC & Chem 7: 06/05/18 07:27 06/05/18 07:27 Laboratory Results - last 24 hr 06/09/18 09:07 Lactic Acid 2.3 H Assessment and Plan - Assessment (1) CVA (cerebral vascular accident) Code(s): I63.9 - Cerebral infarction, unspecified Status: Acute (2) Pneumonia Code(s): J18.9 - Pneumonia, unspecified organism Status: Acute (3) Protein calorie malnutrition Code(s): E46 - Unspecified protein-calorie malnutrition Status: Acute (4) COPD (chronic obstructive pulmonary disease) Code(s): J44.9 - Chronic obstructive pulmonary disease, unspecified Status: Chronic (5) Pleural effusion Code(s): J90 - Pleural effusion, not elsewhere classified Status: Acute (6) Respiratory insufficiency Code(s): R06.89 - Other abnormalities of breathing Status: Acute (7) Mass of upper lobe of left lung Code(s): R91.8 - Other nonspecific abnormal finding of lung field Status: Acute - Plan 68-year-old male who was brought in after he was found at home by his landlord. The patient was altered and found to be covered in urine and feces. He was then brought into our emergency department for evaluation. Acute metabolic encephalopathy, possibly secondary to CVA, dehydration, infection Acute ischemic right frontal CVA MRI of the brain shows right frontal lobe infarction, 2-3 tiny foci. Possibly embolic stroke. No evidence of A. fib on telemetry Family endorses prior CVA 12 years ago, he did have residual expressive aphasia and possibly some swallowing difficulty. -Continue with neuro checks. Neurology service recommendations appreciated. Echocardiogram done, EF 60%, trace mitral valve regurgitation, small pericardial effusion. -Carotid ultrasound results noted, left internal carotid occluded, right carotid moderate plaque, status post vascular surgery evaluation with no surgical intervention recommended. Continue with Lipitor and aspirin. -CTA of the carotids which reveals only about 50% right internal carotid artery stenosis, occluded left internal carotid artery at its origin. PT/OT/ST per protocol for eval and treatment. -Palliative care consult appreciated. The family is considering hospice. Follow up with palliative care. -restraints as needed for safety. -morphine as needed for discomfort or dyspnea. Dysphagia Severe protein calorie malnutrition. Prealbumin 9. NG tube was pulled out by patient. -Continues to fail swallow evaluation. Follow with speech therapy. -Status post PEG placement with GI 06/04. -Continue Jevity 1.5. Dietary consult appreciated. COPD with exacerbation without asthma Community acquired pneumonia-cxr with poss findings of RLL pna 05/28 CT findings noted, Extensive alveolar consolidations are noted within the right upper and lower lobes consistent with probable pneumonia. Emphysematous changes. Moderate size right pleural effusion. -Wean off of Ventimask to nasal cannula to keep sats greater than 92. Continue with duo nebs. -wean off steroids. -CXR 05/30, bilateral pleural effusions, right greater than left airspace disease, both slightly worsened. -changed antibiotics to cefepime 2 g IV every [address] findings[address] Continue with Zithromax. -CT chest on 06/06/2018:Significant interval decrease in size of right pleural effusion from the prior exam. A stable peripheral nodule with spiculation in the anterolateral right upper lobe is worrisome for neoplasm. Incidental findings of a spiculated mass right upper lobe suspicious for primary bronchogenic malignancy per CTA of neck Patient's son endorses that patient has been debilitated prior to stroke, positive for unintentional weight loss No prior history of malignancy History of tobacco and alcohol abuse -CT of the chest piculated noncalcified nodule within the right upper lobe measuring 13 mm which is suspicious for bronchogenic carcinoma. Precarinal and subcarinal mediastinal as well as right heel or lymphadenopathy is noted. -Tumor markers done, within normal limits. Pleural effusions Chest x-ray with findings of bilateral pleural effusions -Lasix. -CT chest on 06/06/2018:Significant interval decrease in size of right pleural effusion from the prior exam. -Patient agreed with therapeutic thoracentesis if necessary. History of alcohol abuse Patient restless overnight, now in restraints -s/p CIWA protocol. Left ischium ulcer -Continue wound care per wound care nurse. Hypokalemia Hypernatremia, -Monitor and replace electrolytes as needed -Continue daily potassium, 20 meq, given extra liquid 25 mEq a day. -Hyponatremia has improved with increase free water to 200 cc every 6 check BMP in AM. DVT prophylaxis: Continue Lovenox Discharge Planning: Possible hospice in the next few days (1) CVA (cerebral vascular accident) Qualifiers: Laterality of affected vessel: right (3) Protein calorie malnutrition Qualifiers: Protein-calorie malnutrition severity: severe Qualified Code(s): E43 - Unspecified severe protein-calorie malnutrition (4) COPD (chronic obstructive pulmonary disease) Qualifiers: COPD type: unspecified COPD Qualified Code(s): J44.9 - Chronic obstructive pulmonary disease, unspecified
[2018-06-09 10:48] LABS: Calcium 8.9 mg/dL (8.5-10.1); Carbon Dioxide 28.8 meq/L (21.0-32.0); Magnesium 2.2 mg/dL (1.5-2.5); Phosphorus 1.6 mg/dL (2.5-4.9); Potassium 4.4 meq/L (3.5-5.1)
[2018-06-09] MEDS: Morphine Sulfate Inj 2 MG/ML Vial IV.PUSH PRN ×2 (20:17→23:08)
[2018-06-10] MEDS: Morphine Sulfate Inj 2 MG/ML Vial IV.PUSH PRN ×3 (02:32→22:14)
[2018-06-10] MEDS: predniSONE 20 MG Tablet PO SCH ×2 (09:24→20:11)
[2018-06-10] MEDS: Furosemide 20 MG Tablet PO SCH (09:24)
[2018-06-10] MEDS: Enoxaparin Inj 30 MG/0.3 ML Syringe SQ SCH (09:25)
[2018-06-10] MEDS ORDERED: Dextrose 50% in Water 50 ML Vial IV.PUSH PRN (12:04)
--- NOTE | 2018-06-10 12:06 | P.PNIM ---
Subjective Interval history: The patient was resting in bed. He was alert but not responding. He was blinking his eyes erratically. No acute concerns reported overnight. Physical Exam Vital signs: Vital Signs 06/09/18 14:40 06/09/18 16:00 06/09/18 20:00 Temperature 97.8 F 97.3 F L Pulse Rate 104 H 110 H Respiratory Rate 22 20 Blood Pressure 138/73 141/80 H Pulse Oximetry 97 96 99 06/10/18 00:00 06/10/18 04:00 06/10/18 08:00 Temperature 97.8 F 98 F 97.2 F L Pulse Rate 103 H 99 H 104 H Respiratory Rate 17 17 16 Blood Pressure 139/79 133/78 103/55 L Pulse Oximetry 99 98 98 Intake & Output 06/09/18 06/10/18 06/10/18 18:59 06:59 18:59 Intake Total 300 / 300 100 / 100 Balance 300 / 300 100 / 100 Weight 34.6 kg Intake: IV 100 / 100 100 / 100 Maxipime Inj 2,000 MG In NS Inj 100 / 100 100 / 100 100 ML @ 200 mls/hr IV.SIG Q12H [facility] Rx#:[id number] Oral 0 / 0 Water Bolus Amount 200 / 200 Other: # Incontinent Voids 0 4 Date of Last Bowel Movement 06/09/18 06/09/18 # Incontinent Bowel Movements 2 Narrative: GENERAL: Ill-appearing thin male, in no acute distress, on Venturi mask. SKIN: Warm and dry. CARDIOVASCULAR: Regular rate and rhythm. RESPIRATORY: No accessory muscle use. Crackles noted. GASTROINTESTINAL: Abdomen soft, non-tender, nondistended. G-tube in place. MUSCULOSKELETAL: Extremities without clubbing, cyanosis, or edema. No obvious deformities. NEUROLOGICAL: Confused. Generalized weakness. Alert but not following commands. Results - Labs CBC & Chem 7: 06/05/18 07:27 06/09/18 09:07 Assessment and Plan - Assessment (1) CVA (cerebral vascular accident) Code(s): I63.9 - Cerebral infarction, unspecified Status: Acute (2) Pneumonia Code(s): J18.9 - Pneumonia, unspecified organism Status: Acute (3) Protein calorie malnutrition Code(s): E46 - Unspecified protein-calorie malnutrition Status: Acute (4) COPD (chronic obstructive pulmonary disease) Code(s): J44.9 - Chronic obstructive pulmonary disease, unspecified Status: Chronic (5) Pleural effusion Code(s): J90 - Pleural effusion, not elsewhere classified Status: Acute (6) Respiratory insufficiency Code(s): R06.89 - Other abnormalities of breathing Status: Acute (7) Mass of upper lobe of left lung Code(s): R91.8 - Other nonspecific abnormal finding of lung field Status: Acute - Plan 68-year-old male who was brought in after he was found at home by his landlord. The patient was altered and found to be covered in urine and feces. He was then brought into our emergency department for evaluation. Acute metabolic encephalopathy, possibly secondary to CVA, dehydration, infection Acute ischemic right frontal CVA MRI of the brain shows right frontal lobe infarction, 2-3 tiny foci. Possibly embolic stroke. No evidence of A. fib on telemetry Family endorses prior CVA 12 years ago, he did have residual expressive aphasia and possibly some swallowing difficulty. -Continue with neuro checks. Neurology service recommendations appreciated. Echocardiogram done, EF 60%, trace mitral valve regurgitation, small pericardial effusion. -Carotid ultrasound results noted, left internal carotid occluded, right carotid moderate plaque, status post vascular surgery evaluation with no surgical intervention recommended. Continue with Lipitor and aspirin. -CTA of the carotids which reveals only about 50% right internal carotid artery stenosis, occluded left internal carotid artery at its origin. PT/OT/ST per protocol for eval and treatment. -Palliative care consult appreciated. The family is considering hospice. Follow up with palliative care. Hospice consult placed. -restraints as needed for safety. -morphine as needed for discomfort or dyspnea. Dysphagia Severe protein calorie malnutrition. Prealbumin 9. NG tube was pulled out by patient. -Continues to fail swallow evaluation. Follow with speech therapy. -Status post PEG placement with GI 06/04. -Continue Jevity 1.5. Dietary consult appreciated. COPD with exacerbation without asthma Community acquired pneumonia-cxr with poss findings of RLL pna 05/28 CT findings noted, Extensive alveolar consolidations are noted within the right upper and lower lobes consistent with probable pneumonia. Emphysematous changes. Moderate size right pleural effusion. -Wean off of Ventimask to nasal cannula to keep sats greater than 92. Continue with duo nebs. -wean off steroids. -CXR 05/30, bilateral pleural effusions, right greater than left airspace disease, both slightly worsened. -changed antibiotics to cefepime 2 g IV every [address] findings[address] Continue with Zithromax. -CT chest on 06/06/2018:Significant interval decrease in size of right pleural effusion from the prior exam. A stable peripheral nodule with spiculation in the anterolateral right upper lobe is worrisome for neoplasm. Incidental findings of a spiculated mass right upper lobe suspicious for primary bronchogenic malignancy per CTA of neck Patient's son endorses that patient has been debilitated prior to stroke, positive for unintentional weight loss No prior history of malignancy History of tobacco and alcohol abuse -CT of the chest piculated noncalcified nodule within the right upper lobe measuring 13 mm which is suspicious for bronchogenic carcinoma. Precarinal and subcarinal mediastinal as well as right heel or lymphadenopathy is noted. -Tumor markers done, within normal limits. Pleural effusions Chest x-ray with findings of bilateral pleural effusions -Lasix. -CT chest on 06/06/2018:Significant interval decrease in size of right pleural effusion from the prior exam. -Patient agreed with therapeutic thoracentesis if necessary. History of alcohol abuse Patient restless overnight, now in restraints -s/p CIWA protocol. Left ischium ulcer -Continue wound care per wound care nurse. Hypokalemia Hypernatremia, -Monitor and replace electrolytes as needed -Continue daily potassium, 20 meq, given extra liquid 25 mEq a day. -Hyponatremia has improved with increase free water to 200 cc every 6h. DVT prophylaxis: Continue Lovenox Discharge Planning: Possible hospice in the next few days (1) CVA (cerebral vascular accident) Qualifiers: Laterality of affected vessel: right (3) Protein calorie malnutrition Qualifiers: Protein-calorie malnutrition severity: severe Qualified Code(s): E43 - Unspecified severe protein-calorie malnutrition (4) COPD (chronic obstructive pulmonary disease) Qualifiers: COPD type: unspecified COPD Qualified Code(s): J44.9 - Chronic obstructive pulmonary disease, unspecified
[2018-06-10] MEDS: Aspirin 300 MG Supp RECTAL SCH (12:26)
[2018-06-11] MEDS: Aspirin 300 MG Supp RECTAL SCH (10:31)
[2018-06-11] MEDS: predniSONE 20 MG Tablet PO SCH ×2 (10:32→22:26)
[2018-06-11] MEDS: Furosemide 20 MG Tablet PO SCH (10:32)
[2018-06-11] MEDS: Enoxaparin Inj 30 MG/0.3 ML Syringe SQ SCH (10:32)
--- NOTE | 2018-06-11 14:14 | P.PNIM ---
Subjective Interval history: The patient seems comfortable in bed. He had mittens on. He did not indicate he had any complaints or concerns. He was nonverbal but nodding his head yes and no. Physical Exam Vital signs: Vital Signs 06/10/18 16:00 06/10/18 20:00 06/10/18 23:22 Temperature 97.2 F L 97.3 F L Pulse Rate 99 H 103 H Respiratory Rate 16 18 18 Blood Pressure 97/54 L 135/77 Pulse Oximetry 97 95 06/11/18 00:00 06/11/18 04:00 06/11/18 08:00 Temperature 98.7 F 98 F 97.3 F L Pulse Rate 86 103 H 103 H Respiratory Rate 18 19 16 Blood Pressure 128/73 108/55 L 109/64 Pulse Oximetry 95 98 100 06/11/18 08:59 06/11/18 12:00 Temperature 97.4 F L Pulse Rate 104 H Respiratory Rate 17 Blood Pressure 124/70 Pulse Oximetry 99 100 Intake & Output 06/10/18 06/11/18 06/11/18 18:59 06:59 18:59 Intake Total 100 / 100 1260 / 1260 Balance 100 / 100 1260 / 1260 Weight 34.6 kg Intake: IV 100 / 100 100 / 100 Maxipime Inj 2,000 MG In NS Inj 100 / 100 100 / 100 100 ML @ 200 mls/hr IV.SIG Q12H [facility] Rx#:[id number] Tube Feeding 960 / 960 Water Bolus Amount 200 / 200 Other: # Incontinent Voids 4 Date of Last Bowel Movement 06/09/18 Narrative: GENERAL: Ill-appearing thin male, in no acute distress, on Venturi mask. SKIN: Warm and dry. CARDIOVASCULAR: Regular rate and rhythm. RESPIRATORY: No accessory muscle use. Crackles noted. GASTROINTESTINAL: Abdomen soft, non-tender, nondistended. G-tube in place. MUSCULOSKELETAL: Extremities without clubbing, cyanosis, or edema. No obvious deformities. NEUROLOGICAL: Generalized weakness. Nonverbal. Nodding/shaking head in response to questions. Results - Labs CBC & Chem 7: 06/05/18 07:27 06/09/18 09:07 Assessment and Plan - Assessment (1) CVA (cerebral vascular accident) Code(s): I63.9 - Cerebral infarction, unspecified Status: Acute (2) Pneumonia Code(s): J18.9 - Pneumonia, unspecified organism Status: Acute (3) Protein calorie malnutrition Code(s): E46 - Unspecified protein-calorie malnutrition Status: Acute (4) COPD (chronic obstructive pulmonary disease) Code(s): J44.9 - Chronic obstructive pulmonary disease, unspecified Status: Chronic (5) Pleural effusion Code(s): J90 - Pleural effusion, not elsewhere classified Status: Acute (6) Respiratory insufficiency Code(s): R06.89 - Other abnormalities of breathing Status: Acute (7) Mass of upper lobe of left lung Code(s): R91.8 - Other nonspecific abnormal finding of lung field Status: Acute - Plan 68-year-old male who was brought in after he was found at home by his landlord. The patient was altered and found to be covered in urine and feces. He was then brought into our emergency department for evaluation. Acute metabolic encephalopathy, possibly secondary to CVA, dehydration, infection Acute ischemic right frontal CVA MRI of the brain shows right frontal lobe infarction, 2-3 tiny foci. Possibly embolic stroke. No evidence of A. fib on telemetry Family endorses prior CVA 12 years ago, he did have residual expressive aphasia and possibly some swallowing difficulty. -Continue with neuro checks. Neurology service recommendations appreciated. Echocardiogram done, EF 60%, trace mitral valve regurgitation, small pericardial effusion. -Carotid ultrasound results noted, left internal carotid occluded, right carotid moderate plaque, status post vascular surgery evaluation with no surgical intervention recommended. Continue with Lipitor and aspirin. -CTA of the carotids which reveals only about 50% right internal carotid artery stenosis, occluded left internal carotid artery at its origin. PT/OT/ST per protocol for eval and treatment. -Palliative care consult appreciated. The family is considering hospice. Follow up with palliative care. Hospice consulted and currently attempting to contact family. -restraints as needed for safety. -morphine as needed for discomfort or dyspnea. Dysphagia Severe protein calorie malnutrition. Prealbumin 9. NG tube was pulled out by patient. -Continues to fail swallow evaluation. Follow with speech therapy. -Status post PEG placement with GI 06/04. -Continue Jevity 1.5. Dietary consult appreciated. COPD with exacerbation without asthma Community acquired pneumonia-cxr with poss findings of RLL pna 05/28 CT findings noted, Extensive alveolar consolidations are noted within the right upper and lower lobes consistent with probable pneumonia. Emphysematous changes. Moderate size right pleural effusion. -Wean off of Ventimask to nasal cannula to keep sats greater than 92. Continue with duo nebs. -wean off steroids. -CXR 05/30, bilateral pleural effusions, right greater than left airspace disease, both slightly worsened. -changed antibiotics to cefepime 2 g IV every [address] findings[address] Continue with Zithromax. -CT chest on 06/06/2018:Significant interval decrease in size of right pleural effusion from the prior exam. A stable peripheral nodule with spiculation in the anterolateral right upper lobe is worrisome for neoplasm. Incidental findings of a spiculated mass right upper lobe suspicious for primary bronchogenic malignancy per CTA of neck Patient's son endorses that patient has been debilitated prior to stroke, positive for unintentional weight loss No prior history of malignancy History of tobacco and alcohol abuse -CT of the chest piculated noncalcified nodule within the right upper lobe measuring 13 mm which is suspicious for bronchogenic carcinoma. Precarinal and subcarinal mediastinal as well as right heel or lymphadenopathy is noted. -Tumor markers done, within normal limits. Pleural effusions Chest x-ray with findings of bilateral pleural effusions -Lasix. -CT chest on 06/06/2018:Significant interval decrease in size of right pleural effusion from the prior exam. -Patient agreed with therapeutic thoracentesis if necessary. History of alcohol abuse Patient restless overnight, now in restraints -s/p CIWA protocol. Left ischium ulcer -Continue wound care per wound care nurse. Hypokalemia Hypernatremia, -Monitor and replace electrolytes as needed -Continue daily potassium, 20 meq, given extra liquid 25 mEq a day. -Hyponatremia has improved with increase free water to 200 cc every 6h. DVT prophylaxis: Continue Lovenox Discharge Planning: Possible hospice in the next few days (1) CVA (cerebral vascular accident) Qualifiers: Laterality of affected vessel: right (3) Protein calorie malnutrition Qualifiers: Protein-calorie malnutrition severity: severe Qualified Code(s): E43 - Unspecified severe protein-calorie malnutrition (4) COPD (chronic obstructive pulmonary disease) Qualifiers: COPD type: unspecified COPD Qualified Code(s): J44.9 - Chronic obstructive pulmonary disease, unspecified
[2018-06-12] MEDS: Aspirin 300 MG Supp RECTAL SCH (10:27)
[2018-06-12] MEDS: Furosemide 20 MG Tablet PO SCH (10:28)
[2018-06-12] MEDS: predniSONE 20 MG Tablet PO SCH ×2 (10:28→22:28)
[2018-06-12] MEDS: Enoxaparin Inj 30 MG/0.3 ML Syringe SQ SCH (10:29)
[2018-06-12] MEDS: Haloperidol Inj 5 MG/ML Ampul IV.PUSH PRN (10:46)
--- NOTE | 2018-06-12 15:09 | P.PNIM ---
Subjective Interval history: The patient was resting in bed. Nursing reports he was requiring Haldol as he was getting at. The patient endorsed pain but was unable to specify what kind. He appeared comfortable. Physical Exam Vital signs: Vital Signs 06/11/18 16:00 06/11/18 20:00 06/12/18 00:00 Temperature 97.8 F 98.7 F 98.9 F Pulse Rate 100 H 104 H 102 H Respiratory Rate 16 18 19 Blood Pressure 118/65 103/63 119/66 Pulse Oximetry 100 100 100 06/12/18 12:00 Temperature 97.1 F L Pulse Rate 96 H Respiratory Rate 14 Blood Pressure 120/60 Pulse Oximetry 100 Intake & Output 06/11/18 06/12/18 06/12/18 18:59 06:59 18:59 Intake Total 100 / 100 1340 / 1340 100 / 100 Balance 100 / 100 1340 / 1340 100 / 100 Weight 36.8 kg Intake: IV 100 / 100 100 / 100 100 / 100 Maxipime Inj 2,000 MG In NS Inj 100 / 100 100 / 100 100 / 100 100 ML @ 200 mls/hr IV.SIG Q12H [facility] Rx#:[id number] Tube Feeding 720 / 720 Tube Irrigant 120 / 120 Water Bolus Amount 400 / 400 Other: Date of Last Bowel Movement 06/11/18 06/11/18 Narrative: GENERAL: Ill-appearing thin male, in no acute distress. SKIN: Warm and dry. CARDIOVASCULAR: Regular rate and rhythm. RESPIRATORY: No accessory muscle use. CTAB. GASTROINTESTINAL: Abdomen soft, non-tender, nondistended. G-tube in place. MUSCULOSKELETAL: Extremities without clubbing, cyanosis, or edema. No obvious deformities. NEUROLOGICAL: Generalized weakness. Minimally verbal. Nodding/shaking head in response to questions. Results - Labs CBC & Chem 7: 06/05/18 07:27 06/09/18 09:07 Assessment and Plan - Assessment (1) CVA (cerebral vascular accident) Code(s): I63.9 - Cerebral infarction, unspecified Status: Acute (2) Pneumonia Code(s): J18.9 - Pneumonia, unspecified organism Status: Acute (3) Protein calorie malnutrition Code(s): E46 - Unspecified protein-calorie malnutrition Status: Acute (4) COPD (chronic obstructive pulmonary disease) Code(s): J44.9 - Chronic obstructive pulmonary disease, unspecified Status: Chronic (5) Pleural effusion Code(s): J90 - Pleural effusion, not elsewhere classified Status: Acute (6) Respiratory insufficiency Code(s): R06.89 - Other abnormalities of breathing Status: Acute (7) Mass of upper lobe of left lung Code(s): R91.8 - Other nonspecific abnormal finding of lung field Status: Acute - Plan 68-year-old male who was brought in after he was found at home by his landlord. The patient was altered and found to be covered in urine and feces. He was then brought into our emergency department for evaluation. Acute metabolic encephalopathy, possibly secondary to CVA, dehydration, infection Acute ischemic right frontal CVA MRI of the brain shows right frontal lobe infarction, 2-3 tiny foci. Possibly embolic stroke. No evidence of A. fib on telemetry Family endorses prior CVA 12 years ago, he did have residual expressive aphasia and possibly some swallowing difficulty. -Continue with neuro checks. Neurology service recommendations appreciated. Echocardiogram done, EF 60%, trace mitral valve regurgitation, small pericardial effusion. -Carotid ultrasound results noted, left internal carotid occluded, right carotid moderate plaque, status post vascular surgery evaluation with no surgical intervention recommended. Continue with Lipitor and aspirin. -CTA of the carotids which reveals only about 50% right internal carotid artery stenosis, occluded left internal carotid artery at its origin. PT/OT/ST per protocol for eval and treatment. -Palliative care consult appreciated. Family declined hospice. Follow up with palliative care. -restraints and Haldol as needed for safety and agitation. -morphine as needed for discomfort or dyspnea. Dysphagia Severe protein calorie malnutrition. Prealbumin 9. NG tube was pulled out by patient. -Continues to fail swallow evaluation. Follow with speech therapy. -Status post PEG placement with GI 06/04. -Continue Jevity 1.5. Dietary consult appreciated. Tolerating tube feeds well. COPD with exacerbation without asthma Community acquired pneumonia-cxr with poss findings of RLL pna 05/28 CT findings noted, Extensive alveolar consolidations are noted within the right upper and lower lobes consistent with probable pneumonia. Emphysematous changes. Moderate size right pleural effusion. -Wean off of Ventimask to nasal cannula to keep sats greater than 92. Continue with duo nebs. -wean off steroids. -CXR 05/30, bilateral pleural effusions, right greater than left airspace disease, both slightly worsened. -changed antibiotics to cefepime 2 g IV every [address] findings[address] Continue with Zithromax. -CT chest on 06/06/2018:Significant interval decrease in size of right pleural effusion from the prior exam. A stable peripheral nodule with spiculation in the anterolateral right upper lobe is worrisome for neoplasm. -repeat CXR 06/12. Incidental findings of a spiculated mass right upper lobe suspicious for primary bronchogenic malignancy per CTA of neck Patient's son endorses that patient has been debilitated prior to stroke, positive for unintentional weight loss No prior history of malignancy History of tobacco and alcohol abuse -CT of the chest piculated noncalcified nodule within the right upper lobe measuring 13 mm which is suspicious for bronchogenic carcinoma. Precarinal and subcarinal mediastinal as well as right heel or lymphadenopathy is noted. -Tumor markers done, within normal limits. -family would like to pursue biopsy of mass. Reconsult palliative care and order biopsy if desired. Pleural effusions Chest x-ray with findings of bilateral pleural effusions -Lasix. -CT chest on 06/06/2018:Significant interval decrease in size of right pleural effusion from the prior exam. -Patient agreed with therapeutic thoracentesis if necessary. History of alcohol abuse Patient restless overnight, now in restraints -s/p CIWA protocol. Left ischium ulcer -Continue wound care per wound care nurse. Hypokalemia Hypernatremia, -Monitor and replace electrolytes as needed -Continue daily potassium, 20 meq, given extra liquid 25 mEq a day. -Hyponatremia has improved with increase free water to 200 cc every 6h. DVT prophylaxis: Continue Lovenox Discharge Planning: Await palliative re-consult. (1) CVA (cerebral vascular accident) Qualifiers: Laterality of affected vessel: right (3) Protein calorie malnutrition Qualifiers: Protein-calorie malnutrition severity: severe Qualified Code(s): E43 - Unspecified severe protein-calorie malnutrition (4) COPD (chronic obstructive pulmonary disease) Qualifiers: COPD type: unspecified COPD Qualified Code(s): J44.9 - Chronic obstructive pulmonary disease, unspecified
[2018-06-12] MEDS: Aspirin 325 MG Tablet G-TUBE SCH (15:38)
--- NOTE | 2018-06-12 16:14 | XR ---
EXAM DATE: 06/12/2018 3:56 PM EDT AGE/SEX: 68 years / Male INDICATIONS: Dyspnea CLINICAL DATA: This is the patient's subsequent encounter. Patient reports that signs and symptoms h ave been present for 4 - 6 days and indicates a pain score of Nonresponsive. MEDICAL/SURGICAL HISTORY: . Chronic obstructive pulmonary disease. Cerebrovascular disease. pl eural effusion, pneumonia None. COMPARISON: [facility] [place], CHEST 1V SINGLE AP, 05/30/2018. . FINDINGS: Two-view chest symptoms or there is airspace disease right lung base. There is no visible pneumothora x. Heart and mediastinum unremarkable. CONCLUSION: Persistent airspace disease in right lung base and right upper lobe. Electronically signed by: Ganesh Garibay MD 06/12/2018 4:13 PM EDT
--- NOTE | 2018-06-12 17:16 | P.PNPAL ---
Reason for Visit Reason for visit: a. To assist with evaluation and management of symptoms including:pain, dyspnea , dysphagia. b. To assist medical decision maker(s) with: better understanding of current medical conditions; weighing benefits/burdens of medical treatment options; making medical treatment decisions. Subjective Subjective/Interval History: Patient seen for medically necessary follow-up of symptom management for agitation, dyspnea, dysphasia goals of medical treatment. Patient seen sitting up in bed with son at bedside, he is awake, alert, nonverbal wearing mitten restraints because he continues to pull out his nasal cannula oxygen. Oxygen saturation is 100% on 3 L nasal cannula. Patient mildly dyspneic at rest, appears anxious, he is unable to quantify or qualify his dyspnea due to encephalopathy. He remains dysphasic, failing swallow evaluation and n.p.o. due to aspiration risk. He now has a PEG tube, infusing Jevity 1.5 at 60 mL/h. His dysphasia is severe, acute onset with the last stroke, with no exacerbating or relieving factors. Daily weights show an increase of 5 pounds over the prior 24 hours. He has been intermittently agitated, pulling lines and tubes, attempting to get out of bed and has required wrist restraints and Haldol. Agitation is moderate , intermittent, improved with antipsychotics. . Advance Directives Living Will: Never completed Health Care Surrogate: Never completed Durable Power of Volunteer Firefighter: Never completed Health Care Surrogate Name and Number: Health care proxy decision makers: SonMiguel AND daughter, Cass. Documented care wishes:: No written advanced directives. Objective Vital Signs: Vital Signs 06/11/18 20:00 06/12/18 00:00 06/12/18 12:00 Temperature 98.7 F 98.9 F 97.1 F L Pulse Rate 104 H 102 H 96 H Respiratory Rate 18 19 14 Blood Pressure 103/63 119/66 120/60 Pulse Oximetry 100 100 100 Intake & Output 06/11/18 06/12/18 06/12/18 18:59 06:59 18:59 Intake Total 100 / 100 1340 / 1340 100 / 100 Balance 100 / 100 1340 / 1340 100 / 100 Weight 81 lb 2.082 oz Intake: IV 100 / 100 100 / 100 100 / 100 Maxipime Inj 2,000 MG In NS Inj 100 / 100 100 / 100 100 / 100 100 ML @ 200 mls/hr IV.SIG Q12H [facility] Rx#:[id number] Tube Feeding 720 / 720 Tube Irrigant 120 / 120 Water Bolus Amount 400 / 400 Other: Date of Last Bowel Movement 06/11/18 06/11/18 06/12/18 Physical Exam: CONSTITUTIONAL/GENERAL: This is a frail, cachectic patient, in no apparent distress. TUBES/LINES/DRAINS: Nasal cannula O2, PEG, PIV, Mitton restraints. SKIN: Temporal and muscle wasting. No jaundice, rashes, or lesions. Dry skin. Bruises arms. No wounds seen anteriorly. Skin temperature appropriate. Not diaphoretic. EYES: eyes open, focusing, tracking. ENT: Hearing grossly normal. Nose without bleeding or purulent drainage. Oral mucosa dry. CARDIOVASCULAR: Regular rate and rhythm without murmurs, gallops, or rubs. No JVD. RESPIRATORY/CHEST: Symmetric, unlabored respirations. scattered rhonchi. GASTROINTESTINAL: Abdomen soft, non-tender, nondistended. No guarding. Bowel sounds present. PEG tube intact GENITOURINARY: Without palpable bladder distension. MUSCULOSKELETAL: Extremities without clubbing, cyanosis, or edema. No joint tenderness or effusion noted. No calf tenderness. No mottling or clubbing. NEUROLOGICAL: Awake, alert, nonverbal. PSYCHIATRIC: Agitation requiring Haldol over the past day. Diagnostic Tests Result Diagrams: 06/05/18 07:27 06/09/18 09:07 Imaging: Head MRI 05/26/18 00:00 Diffusion weighted images demonstrate tiny foci of restricted diffusion in the right frontal cortex. There is diffuse atrophy. There is a large area of encephalomalacia and scoliosis in the left frontal lobe from previous infarction. There is slight ex vacuo dilatation of the left lateral ventricle and remote left basal ganglia lacunar infarcts. In addition remote right occipital infarct and encephalomalacia noted. There are no signs of acute intracranial hemorrhage though there is evidence of remote hemosiderin along the right parietal cortex. No abnormal areas of enhancement are seen. There is no evidence for mass.. CONCLUSION: 1. Atrophy and white matter disease with remote infarcts identified. 2. 2-3 tiny foci of restricted diffusion in the right frontal lobe characteristic of tiny foci of acute infarction. Head CT 05/26/18 12:11 CONCLUSION: 1. No acute findings. Atrophy and remote infarcts. . Chest X-Ray 05/26/18 12:12 CONCLUSION: 1. Changes of obstructive pulmonary disease without acute abnormality or significant interval change. Carotid Doppler Study 05/28/18 00:00 CONCLUSION: 1. Mild to moderate stenosis on the right not felt to be hemodynamically significant at this point. CT angiography could be used to exclude soft plaque. 2. Occluded left internal carotid artery Chest X-Ray 05/28/18 00:00 CONCLUSION: Right lung airspace disease suspected. Head MRA 05/28/18 00:00 CONCLUSION: 1. Occluded left internal carotid artery. Abdomen X-Ray 05/30/18 00:00 CONCLUSION: NG tip in stomach. Bilateral iliac stents. Neck CTA 05/30/18 00:00 CONCLUSION: 1. 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 2. Occluded left internal carotid artery at its origin. 3. Less than 50% stenosis of the right internal carotid artery secondary to atherosclerotic plaquing. 4. Emphysema and right upper lobe/lower lobe parenchymal infiltrate. 5. Spiculated mass in the right upper lobe suspicious for primary bronchogenic malignancy until proven otherwise. Chest X-Ray 05/30/18 14:04 CONCLUSION: Bilateral pleural effusions and right greater than left airspace disease, both slightly worsened compared with May 18. No pneumothorax. NG tube in stomach. Chest CT 05/31/18 00:00 CONCLUSION: 1. Spiculated noncalcified nodule within the right upper lobe measuring 13 mm which is suspicious for bronchogenic carcinoma until proven otherwise. 2. Precarinal and subcarinal mediastinal as well as right hilar lymphadenopathy is noted. 3. Small pericardial effusion is noted. 4. Extensive alveolar consolidations are noted within the right upper and lower lobes consistent with probable pneumonia. 5. Emphysematous changes are noted bilaterally. 6. Moderate-sized right pleural effusion. 7. Mild degenerative changes and scoliosis of the thoracic spine are noted. 8. Multiple chronic mild compression deformities are noted throughout the thoracic spine. Abdomen X-Ray 06/01/18 02:30 CONCLUSION: Nasogastric tube with tip in distal esophagus and should be advanced at least 8 cm. Abdomen X-Ray 06/02/18 00:00 CONCLUSION: Negative single view abdomen. Abdomen X-Ray 06/02/18 00:00 CONCLUSION: NG tube is within the stomach. Abdomen X-Ray 06/02/18 00:00 CONCLUSION: 1. Suction-type NGT in the proximal stomach. Abdomen X-Ray 06/03/18 00:00 CONCLUSION: Nasogastric tube is in the right lower lobe airways. Chest CT 06/06/18 00:00 CONCLUSION: Significant interval decrease in size of right pleural effusion from the prior exam. Chest X-Ray 06/12/18 15:08 CONCLUSION: Persistent airspace disease in right lung base and right upper lobe. Assessment and Plan - Disease Oriented Problem List (1) CVA (cerebral vascular accident) (2) Pneumonia (3) Protein calorie malnutrition (4) COPD (chronic obstructive pulmonary disease) (5) Pleural effusion (6) Respiratory insufficiency (7) Mass of upper lobe of left lung Pertinent Non-Medical Issues: Psychosocial: Single. Has 1 son and 1 daughter. Spiritual: Sikh agnes. Legal:Patient is not capacitated to make his own health care decisions, uncertain if he will regain capacity. According to [place] statutes, health care proxy decision making falls to the majority of adult children. Ethical issues impacting care: No known concerns at this time. Important Contacts: * Miguel Saleem, son: [phone] * Cass, daughter: [phone] * Martita Saleem, [id number]: [phone] * Brandi Yvonne: Sister: [phone] Prognosis: Mr. hung is a 68-year-old male with remote stroke and new stroke with significant dysphagia, significant unintentional weight loss, cachexia requiring NG tube feedings, new finding of spiculated lung mass with mediastinal adenopathy concerning for malignancy. Patient with significant cognitive, nutritional and functional deficits. Overall prognosis appears poor. I suspect even with a confirmed, biopsy-proven diagnosis of malignancy he would not be a candidate for treatment. Hospice appropriate if goals are comfort oriented. Code Status: No Code DNR Plan: * Patient is not capacitated to make his own health care decisions, does not appear he will regain capacity. According to [place] statutes, health care proxy decision making falls to the majority of adult children. He has 1 son and 1 daughter. * DO NOT RESUSCITATE * Family wants to proceed with PEG tube per Martita MTZ. Advised nurse to call son AND daughter for consent. Considering CODE status and whether or not to proceed with lung biopsy. * SYMPTOMS: Dysphagia: Remote and recent stroke, carotid artery stenosis/ occlusion. Unintentional weight loss over the past 6 months. Tolerating TF via PEG tube. Dyspnea: History of COPD/ emphysema, new spiculated mass in lung likely cancer with mediastinal adenopathy. Family questioned possible biopsy but are aware that his performance status is to poor to receive chemotherapy or radiation, and they do not feel that that is in the best interest of the patient , so are foregoing biopsy at this time. Debility: Secondary to general decline , possible malignancy, malnutrition. Continue PT. Concerned patient will have continued decline. Agitation: Would recommend weaning O2 as patient was not previously oxygen dependent and the tube increases his agitation. As Haldol is an unacceptable medication for snf placement, would recommend discontinuing Haldol and adding Seroquel 25 mg 1-2 times daily to facilitate discontinuation of restraints and Haldol which will restrict patient's placement. * Palliative care will continue to follow throughout hospital course to assist with symptom management further clarification of goals of medical treatment. Attestation Attestation: To help prompt me to consider important information that might be impacting today's encounter and assessment, information from prior notes written by myself or my colleagues may have been "brought forward" into today's note. My signature on this note, however, is an attestation that I personally performed the exam, history, and/or decision-making noted today, and, unless otherwise indicated, the interactions with patient, family, and staff as well as the review of records all occurred today. I also attest that the listed assessment and stated plan reflect my best clinical judgment today based on the combination of historical information, prior notes, and today's exam/ interactions. When time spent is documented, it refers only to time spent today by the signer, or if indicated, combined time spent today by collaborating physician/nurse practitioner. .
[2018-06-12] MEDS: QUEtiapine 25 MG Tablet PO SCH (22:28)
[2018-06-12] MEDS: Morphine Sulfate Inj 2 MG/ML Vial IV.PUSH PRN (22:49)
[2018-06-13 07:08] LABS: Baso % (Auto) 0.1 % (0.0-2.0); Hematocrit 29.1 % (39.0-51.0); Hemoglobin 9.8 gm/dL (13.0-17.0); Lymph # (Auto) 0.4 th/mm3 (1.0-4.8); Lymph % (Auto) 6.2 % (9.0-44.0); Mean Corpuscular HGB Conc 33.6 % (32.0-36.0); Mean Corpuscular Hemoglobin 34.2 pg (27.0-34.0); Mean Corpuscular Volume 101.8 fL (80.0-100.0); Mono # (Auto) 0.4 th/mm3 (0.0-0.9); Mono % (Auto) 5.6 % (0.0-8.0); Neut # (Auto) 6.1 th/mm3 (1.8-7.7); Neut % (Auto) 88.1 % (16.0-70.0); Platelet Count 178 th/mm3 (150-450); Red Blood Count 2.86 mil/mm3 (4.50-5.90); Red Cell Distribution Width 19.1 % (11.6-17.2); White Blood Count 6.9 th/mm3 (4.0-11.0)
[2018-06-13 07:50] LABS: Anion Gap 6 meq/L (5-15); Blood Urea Nitrogen 36 mg/dL (7-18); Calcium 8.3 mg/dL (8.5-10.1); Carbon Dioxide 30.5 meq/L (21.0-32.0); Chloride 102 meq/L (98-107); Glomerular Filtration Rate Greater Than 89 mL/min (>89); Glucose,Random 138 mg/dL (74-106); Magnesium 2.1 mg/dL (1.5-2.5); Phosphorus 2.4 mg/dL (2.5-4.9); Potassium 4.6 meq/L (3.5-5.1); Sodium 138 meq/L (136-145)
[2018-06-13] MEDS: Morphine Sulfate Inj 2 MG/ML Vial IV.PUSH PRN ×2 (08:49→22:47)
[2018-06-13] MEDS: Enoxaparin Inj 30 MG/0.3 ML Syringe SQ SCH (08:50)
[2018-06-13] MEDS: Aspirin 325 MG Tablet G-TUBE SCH (08:50)
[2018-06-13] MEDS: Furosemide 20 MG Tablet PO SCH (08:51)
[2018-06-13] MEDS: predniSONE 20 MG Tablet PO SCH ×2 (08:51→21:19)
[2018-06-13] MEDS: QUEtiapine 25 MG Tablet PO SCH ×2 (08:51→21:19)
--- NOTE | 2018-06-13 11:55 | P.PNIM ---
Subjective Interval history: The patient was awake. He was minimally verbal. He appeared comfortable. Discussed with nursing at the bedside. No acute concerns. Physical Exam Vital signs: Vital Signs 06/12/18 12:00 06/12/18 20:00 06/12/18 23:37 Temperature 97.1 F L 98.2 F Pulse Rate 96 H 96 H 96 H Respiratory Rate 14 16 Blood Pressure 120/60 114/63 Pulse Oximetry 100 94 L 06/13/18 00:00 06/13/18 04:00 06/13/18 08:00 Temperature 98.1 F 97.7 F 97.6 F Pulse Rate 94 H 89 95 H Respiratory Rate 16 18 17 Blood Pressure 120/69 120/65 135/74 Pulse Oximetry 95 100 98 Intake & Output 06/12/18 06/13/18 06/13/18 18:59 06:59 18:59 Intake Total 100 / 100 100 / 100 100 / 100 Balance 100 / 100 100 / 100 100 / 100 Weight 36.8 kg Intake: IV 100 / 100 100 / 100 100 / 100 Maxipime Inj 2,000 MG In NS Inj 100 / 100 100 / 100 100 / 100 100 ML @ 200 mls/hr IV.SIG Q12H [facility] Rx#:[id number] Other: # Voids 4 4 Date of Last Bowel Movement 06/12/18 06/12/18 # Bowel Movements 1 4 Narrative: GENERAL: Ill-appearing thin male, in no acute distress. SKIN: Warm and dry. CARDIOVASCULAR: Regular rate and rhythm. RESPIRATORY: No accessory muscle use. CTAB. GASTROINTESTINAL: Abdomen soft, non-tender, nondistended. G-tube in place. MUSCULOSKELETAL: Extremities without clubbing, cyanosis, or edema. No obvious deformities. NEUROLOGICAL: Generalized weakness. Minimally verbal. Nodding/shaking head in response to questions. Results - Labs CBC & Chem 7: 06/13/18 06:38 06/13/18 06:38 Laboratory Results - last 24 hr 06/12/18 06/13/18 06/13/18 23:03 06:35 06:38 WBC 6.9 RBC 2.86 L Hgb 9.8 L Hct 29.1 L MCV 101.8 H MCH 34.2 H MCHC 33.6 RDW 19.1 H Plt Count 178 D MPV 9.0 Neut % (Auto) 88.1 H Lymph % (Auto) 6.2 L [place] % (Auto) 5.6 Eos % (Auto) 0.0 Baso % (Auto) 0.1 Neut # (Auto) 6.1 Lymph # (Auto) 0.4 L [place] # (Auto) 0.4 Eos # (Auto) 0.0 Baso # (Auto) 0.0 WBC Differential . Differential Comment Auto diff final Sodium Potassium Chloride Carbon Dioxide Anion Gap BUN Creatinine Estimated GFR POC Glucose 100 149 H Random Glucose Calcium Phosphorus Magnesium 06/13/18 06:38 WBC RBC Hgb Hct MCV MCH MCHC RDW Plt Count MPV Neut % (Auto) Lymph % (Auto) [place] % (Auto) Eos % (Auto) Baso % (Auto) Neut # (Auto) Lymph # (Auto) [place] # (Auto) Eos # (Auto) Baso # (Auto) WBC Differential Differential Comment Sodium 138 Potassium 4.6 Chloride 102 Carbon Dioxide 30.5 Anion Gap 6 BUN 36 H Creatinine 0.75 Estimated GFR Greater than 89 POC Glucose Random Glucose 138 H Calcium 8.3 L Phosphorus 2.4 L Magnesium 2.1 - Imaging Impressions Chest X-Ray 06/12/18 15:08 CONCLUSION: Persistent airspace disease in right lung base and right upper lobe. Assessment and Plan - Assessment (1) CVA (cerebral vascular accident) Code(s): I63.9 - Cerebral infarction, unspecified Status: Acute (2) Pneumonia Code(s): J18.9 - Pneumonia, unspecified organism Status: Acute (3) Protein calorie malnutrition Code(s): E46 - Unspecified protein-calorie malnutrition Status: Acute (4) COPD (chronic obstructive pulmonary disease) Code(s): J44.9 - Chronic obstructive pulmonary disease, unspecified Status: Chronic (5) Pleural effusion Code(s): J90 - Pleural effusion, not elsewhere classified Status: Acute (6) Respiratory insufficiency Code(s): R06.89 - Other abnormalities of breathing Status: Acute (7) Mass of upper lobe of left lung Code(s): R91.8 - Other nonspecific abnormal finding of lung field Status: Acute - Plan 68-year-old male who was brought in after he was found at home by his landlord. The patient was altered and found to be covered in urine and feces. He was then brought into our emergency department for evaluation. Acute metabolic encephalopathy, possibly secondary to CVA, dehydration, infection Acute ischemic right frontal CVA MRI of the brain shows right frontal lobe infarction, 2-3 tiny foci. Possibly embolic stroke. No evidence of A. fib on telemetry Family endorses prior CVA 12 years ago, he did have residual expressive aphasia and possibly some swallowing difficulty. -Continue with neuro checks. Neurology service recommendations appreciated. Echocardiogram done, EF 60%, trace mitral valve regurgitation, small pericardial effusion. -Carotid ultrasound results noted, left internal carotid occluded, right carotid moderate plaque, status post vascular surgery evaluation with no surgical intervention recommended. Continue with Lipitor and aspirin. -CTA of the carotids which reveals only about 50% right internal carotid artery stenosis, occluded left internal carotid artery at its origin. PT/OT/ST per protocol for eval and treatment. -Palliative care consult appreciated. Family declined hospice. Follow up with palliative care. -restraints as needed. Seroquel 25 mg BID added. -morphine as needed for discomfort or dyspnea. Dysphagia Severe protein calorie malnutrition. Prealbumin 9. NG tube was pulled out by patient. -Continues to fail swallow evaluation. Follow with speech therapy. -Status post PEG placement with GI 06/04. -Continue Jevity 1.5. Dietary consult appreciated. Tolerating tube feeds well. COPD with exacerbation without asthma Community acquired pneumonia-cxr with poss findings of RLL pna 05/28 CT findings noted, Extensive alveolar consolidations are noted within the right upper and lower lobes consistent with probable pneumonia. Emphysematous changes. Moderate size right pleural effusion. -Wean off of Ventimask to nasal cannula to keep sats greater than 92. Continue with duo nebs. -wean off steroids. -CXR 05/30, bilateral pleural effusions, right greater than left airspace disease, both slightly worsened. -changed antibiotics to cefepime 2 g IV every [address] findings[address] Continue with Zithromax. -CT chest on 06/06/2018:Significant interval decrease in size of right pleural effusion from the prior exam. A stable peripheral nodule with spiculation in the anterolateral right upper lobe is worrisome for neoplasm. -repeat CXR 06/12 with persistent airspace disease. Incidental findings of a spiculated mass right upper lobe suspicious for primary bronchogenic malignancy per CTA of neck Patient's son endorses that patient has been debilitated prior to stroke, positive for unintentional weight loss No prior history of malignancy History of tobacco and alcohol abuse -CT of the chest piculated noncalcified nodule within the right upper lobe measuring 13 mm which is suspicious for bronchogenic carcinoma. Precarinal and subcarinal mediastinal as well as right heel or lymphadenopathy is noted. -Tumor markers done, within normal limits. -family unsure of biopsy of mass. Palliative care following. Pleural effusions Chest x-ray with findings of bilateral pleural effusions -Lasix. -CT chest on 06/06/2018:Significant interval decrease in size of right pleural effusion from the prior exam. -Patient agreed with therapeutic thoracentesis if necessary. History of alcohol abuse Patient restless overnight, now in restraints -s/p CIWA protocol. Left ischium ulcer -Continue wound care per wound care nurse. Hypokalemia Hypernatremia, -Monitor and replace electrolytes as needed -Continue daily potassium, 20 meq, given extra liquid 25 mEq a day. -Hyponatremia has improved with increase free water to 200 cc every 6h. DVT prophylaxis: Continue Lovenox Discharge Planning: Palliative care assisting with goals of care. Family not pursuing hospice at this time. Ideally the pt would be discharged to SNF with hospice following. (1) CVA (cerebral vascular accident) Qualifiers: Laterality of affected vessel: right (3) Protein calorie malnutrition Qualifiers: Protein-calorie malnutrition severity: severe Qualified Code(s): E43 - Unspecified severe protein-calorie malnutrition (4) COPD (chronic obstructive pulmonary disease) Qualifiers: COPD type: unspecified COPD Qualified Code(s): J44.9 - Chronic obstructive pulmonary disease, unspecified
[2018-06-14] MEDS: Furosemide 20 MG Tablet PO SCH (08:25)
[2018-06-14] MEDS: QUEtiapine 25 MG Tablet PO SCH ×2 (08:25→21:30)
[2018-06-14] MEDS: predniSONE 20 MG Tablet PO SCH (08:25)
[2018-06-14] MEDS: Aspirin 325 MG Tablet G-TUBE SCH (08:25)
[2018-06-14] MEDS: Enoxaparin Inj 30 MG/0.3 ML Syringe SQ SCH (08:26)
--- NOTE | 2018-06-14 10:56 | P.PNIM ---
Subjective Interval history: f/u; CVA in no acute distress. denies pain. on restraints. Physical Exam Vital signs: Vital Signs 06/13/18 12:00 06/13/18 16:00 06/13/18 20:00 Temperature 97.9 F 97.8 F Pulse Rate 89 93 H 95 H Respiratory Rate 12 18 18 Blood Pressure 123/69 124/59 L 135/64 Pulse Oximetry 97 100 99 06/14/18 00:00 06/14/18 04:00 Temperature 98.4 F 98.0 F Pulse Rate 91 H 88 Respiratory Rate 18 17 Blood Pressure 136/66 120/66 Pulse Oximetry 95 97 Intake & Output 06/13/18 06/14/18 06/14/18 18:59 06:59 18:59 Intake Total 100 / 100 100 / 100 100 / 100 Balance 100 / 100 100 / 100 100 / 100 Weight 36.8 kg Intake: IV 100 / 100 100 / 100 100 / 100 Maxipime Inj 2,000 MG In NS Inj 100 / 100 100 / 100 100 / 100 100 ML @ 200 mls/hr IV.SIG Q12H ERNESTO Rx#:[id number] Other: # Voids 3 3 Date of Last Bowel Movement 06/12/18 06/12/18 # Bowel Movements 1 3 - Constitutional no acute distress - Routine Respiratory Exam Present: CTA bilaterally - Routine Cardiovascular Exam Present: RRR - Routine Abdominal Exam Present: soft - Routine Extremities Exam Comments: no pedal edema. - Routine Neurological Exam Present: alert Results - Labs CBC & Chem 7: 06/13/18 06:38 06/13/18 06:38 Laboratory Results - last 24 hr 06/13/18 06/14/18 21:22 05:52 POC Glucose 124 H 146 H Assessment and Plan - Assessment (1) CVA (cerebral vascular accident) Code(s): I63.9 - Cerebral infarction, unspecified Status: Acute (2) Pneumonia Code(s): J18.9 - Pneumonia, unspecified organism Status: Acute (3) Protein calorie malnutrition Code(s): E46 - Unspecified protein-calorie malnutrition Status: Acute (4) COPD (chronic obstructive pulmonary disease) Code(s): J44.9 - Chronic obstructive pulmonary disease, unspecified Status: Chronic (5) Pleural effusion Code(s): J90 - Pleural effusion, not elsewhere classified Status: Acute (6) Respiratory insufficiency Code(s): R06.89 - Other abnormalities of breathing Status: Acute (7) Mass of upper lobe of left lung Code(s): R91.8 - Other nonspecific abnormal finding of lung field Status: Acute - Plan 68-year-old male who was brought in after he was found at home by his landlord. The patient was altered and found to be covered in urine and feces. He was then brought into our emergency department for evaluation. Acute metabolic encephalopathy, possibly secondary to CVA, dehydration, infection Acute ischemic right frontal CVA MRI of the brain shows right frontal lobe infarction, 2-3 tiny foci. Possibly embolic stroke. No evidence of A. fib on telemetry Family endorses prior CVA 12 years ago, he did have residual expressive aphasia and possibly some swallowing difficulty. -Continue with neuro checks. Neurology service recommendations appreciated. Echocardiogram done, EF 60%, trace mitral valve regurgitation, small pericardial effusion. -Carotid ultrasound results noted, left internal carotid occluded, right carotid moderate plaque, status post vascular surgery evaluation with no surgical intervention recommended. Continue with Lipitor and aspirin. -CTA of the carotids which reveals only about 50% right internal carotid artery stenosis, occluded left internal carotid artery at its origin. PT/OT/ST per protocol for eval and treatment. -Palliative care consult appreciated. Family declined hospice. Follow up with palliative care. -restraints as needed. Seroquel 25 mg BID added. -morphine as needed for discomfort or dyspnea. Dysphagia Severe protein calorie malnutrition. Prealbumin 9. NG tube was pulled out by patient. -Continues to fail swallow evaluation. Follow with speech therapy. -Status post PEG placement with GI 06/04. -Continue Jevity 1.5. Dietary consult appreciated. Tolerating tube feeds well. COPD with exacerbation without asthma Community acquired pneumonia-cxr with poss findings of RLL pna 05/28 CT findings noted, Extensive alveolar consolidations are noted within the right upper and lower lobes consistent with probable pneumonia. Emphysematous changes. Moderate size right pleural effusion. Continue with duo nebs. -wean off steroids. -CXR 05/30, bilateral pleural effusions, right greater than left airspace disease, both slightly worsened. -will stop antibiotics within the next 24 hrs. -CT chest on 06/06/2018:Significant interval decrease in size of right pleural effusion from the prior exam. A stable peripheral nodule with spiculation in the anterolateral right upper lobe is worrisome for neoplasm. Incidental findings of a spiculated mass right upper lobe suspicious for primary bronchogenic malignancy per CTA of neck Patient's son endorses that patient has been debilitated prior to stroke, positive for unintentional weight loss No prior history of malignancy History of tobacco and alcohol abuse -CT of the chest piculated noncalcified nodule within the right upper lobe measuring 13 mm which is suspicious for bronchogenic carcinoma. Precarinal and subcarinal mediastinal as well as right heel or lymphadenopathy is noted. -Tumor markers done, within normal limits. -family unsure of biopsy of mass. Palliative care following. Pleural effusions Chest x-ray with findings of bilateral pleural effusions -Lasix. -CT chest on 06/06/2018:Significant interval decrease in size of right pleural effusion from the prior exam. -Patient agreed with therapeutic thoracentesis if necessary. History of alcohol abuse Patient restless overnight, now in restraints -s/p CIWA protocol. Left ischium ulcer -Continue wound care per wound care nurse. Hypokalemia- replaced. Hypernatremia-resolved. -Monitor and replace electrolytes as needed -continue free water via PEG. DVT prophylaxis: Continue Lovenox (1) CVA (cerebral vascular accident) Qualifiers: Laterality of affected vessel: right (3) Protein calorie malnutrition Qualifiers: Protein-calorie malnutrition severity: severe Qualified Code(s): E43 - Unspecified severe protein-calorie malnutrition (4) COPD (chronic obstructive pulmonary disease) Qualifiers: COPD type: unspecified COPD Qualified Code(s): J44.9 - Chronic obstructive pulmonary disease, unspecified
[2018-06-15] MEDS: Morphine Sulfate Inj 2 MG/ML Vial IV.PUSH PRN ×2 (01:22→05:22)
[2018-06-15] MEDS: Aspirin 325 MG Tablet G-TUBE SCH (09:42)
[2018-06-15] MEDS: Enoxaparin Inj 30 MG/0.3 ML Syringe SQ SCH (09:42)
[2018-06-15] MEDS: Furosemide 20 MG Tablet PO SCH (09:43)
[2018-06-15] MEDS: predniSONE 20 MG Tablet PO SCH (09:43)
[2018-06-15] MEDS: QUEtiapine 25 MG Tablet PO SCH ×2 (09:43→20:34)
[2018-06-15] MEDS ORDERED: QUEtiapine 25 MG Tablet PO ONE (09:46)
--- NOTE | 2018-06-15 09:49 | P.PNIM ---
Subjective Interval history: in no acute distress. but somewhat agitated and aggressive earlier today. currently on four-point restraints. d/w the RN. Physical Exam Vital signs: Vital Signs 06/14/18 12:00 06/14/18 16:00 06/14/18 20:00 Temperature 97.6 F 97.5 F L 97.6 F Pulse Rate 95 H 96 H 96 H Respiratory Rate 20 16 20 Blood Pressure 144/68 H 126/65 122/68 Pulse Oximetry 100 94 L 100 06/15/18 00:00 06/15/18 04:00 06/15/18 08:00 Temperature 98.4 F 97.6 F 97.5 F L Pulse Rate 92 H 94 H 95 H Respiratory Rate 17 17 20 Blood Pressure 113/67 132/72 125/68 Pulse Oximetry 94 L 95 99 Intake & Output 06/14/18 06/15/18 06/15/18 19:59 06:59 18:59 Intake Total Balance Weight Intake: IV Maxipime Inj 2,000 MG In NS Inj 100 ML @ 200 mls/hr IV.SIG Q12H ERNESTO Rx#:[id number] Tube Feeding Water Bolus Amount Other: # Incontinent Voids Date of Last Bowel Movement # Incontinent Bowel Movements - Constitutional no acute distress - Routine Respiratory Exam Present: CTA bilaterally - Routine Cardiovascular Exam Present: RRR - Routine Abdominal Exam Present: soft - Routine Extremities Exam Comments: no pedal edema. - Routine Neurological Exam Present: alert Results - Labs CBC & Chem 7: 06/13/18 06:38 06/13/18 06:38 Laboratory Results - last 24 hr 06/14/18 06/14/18 06/15/18 14:42 16:26 01:19 EST POC Glucose 136 H 138 H 115 H 06/15/18 05:20 POC Glucose 137 H Assessment and Plan - Assessment (1) CVA (cerebral vascular accident) Code(s): I63.9 - Cerebral infarction, unspecified Status: Acute (2) Pneumonia Code(s): J18.9 - Pneumonia, unspecified organism Status: Acute (3) Protein calorie malnutrition Code(s): E46 - Unspecified protein-calorie malnutrition Status: Acute (4) COPD (chronic obstructive pulmonary disease) Code(s): J44.9 - Chronic obstructive pulmonary disease, unspecified Status: Chronic (5) Pleural effusion Code(s): J90 - Pleural effusion, not elsewhere classified Status: Acute (6) Respiratory insufficiency Code(s): R06.89 - Other abnormalities of breathing Status: Acute (7) Mass of upper lobe of left lung Code(s): R91.8 - Other nonspecific abnormal finding of lung field Status: Acute - Plan 68-year-old male who was brought in after he was found at home by his landlord. The patient was altered and found to be covered in urine and feces. He was then brought into our emergency department for evaluation. Acute metabolic encephalopathy, possibly secondary to CVA, dehydration, infection Acute ischemic right frontal CVA MRI of the brain shows right frontal lobe infarction, 2-3 tiny foci. Possibly embolic stroke. No evidence of A. fib on telemetry Family endorses prior CVA 12 years ago, he did have residual expressive aphasia and possibly some swallowing difficulty. -Continue with neuro checks. Neurology service recommendations appreciated. Echocardiogram done, EF 60%, trace mitral valve regurgitation, small pericardial effusion. -Carotid ultrasound results noted, left internal carotid occluded, right carotid moderate plaque, status post vascular surgery evaluation with no surgical intervention recommended. Continue with Lipitor and aspirin. -CTA of the carotids which reveals only about 50% right internal carotid artery stenosis, occluded left internal carotid artery at its origin. PT/OT/ST per protocol for eval and treatment. -Palliative care consult appreciated. Family declined hospice. Follow up with palliative care. -restraints as needed. Seroquel will be increased to 50 mg BID . -morphine as needed for discomfort or dyspnea. Dysphagia Severe protein calorie malnutrition. Prealbumin 9. NG tube was pulled out by patient. -Continues to fail swallow evaluation. Follow with speech therapy. -Status post PEG placement with GI 06/04. -Continue Jevity 1.5. Dietary consult appreciated. Tolerating tube feeds well. COPD with exacerbation without asthma Community acquired pneumonia-cxr with poss findings of RLL pna 05/28 CT findings noted, Extensive alveolar consolidations are noted within the right upper and lower lobes consistent with probable pneumonia. Emphysematous changes. Moderate size right pleural effusion. Continue with duo nebs. -wean off steroids. -CXR 05/30, bilateral pleural effusions, right greater than left airspace disease, both slightly worsened. -will stop antibiotics within the next 24 hrs. -CT chest on 06/06/2018:Significant interval decrease in size of right pleural effusion from the prior exam. A stable peripheral nodule with spiculation in the anterolateral right upper lobe is worrisome for neoplasm. Incidental findings of a spiculated mass right upper lobe suspicious for primary bronchogenic malignancy per CTA of neck Patient's son endorses that patient has been debilitated prior to stroke, positive for unintentional weight loss No prior history of malignancy History of tobacco and alcohol abuse -CT of the chest piculated noncalcified nodule within the right upper lobe measuring 13 mm which is suspicious for bronchogenic carcinoma. Precarinal and subcarinal mediastinal as well as right heel or lymphadenopathy is noted. -Tumor markers done, within normal limits. -family unsure of biopsy of mass. Palliative care following. Pleural effusions Chest x-ray with findings of bilateral pleural effusions -Lasix. -CT chest on 06/06/2018:Significant interval decrease in size of right pleural effusion from the prior exam. -Patient agreed with therapeutic thoracentesis if necessary. History of alcohol abuse Patient restless overnight, now in restraints -s/p CIWA protocol. Left ischium ulcer -Continue wound care per wound care nurse. Hypokalemia- replaced. Hypernatremia-resolved. -Monitor and replace electrolytes as needed -continue free water via PEG. DVT prophylaxis: Continue Lovenox (1) CVA (cerebral vascular accident) Qualifiers: Laterality of affected vessel: right (3) Protein calorie malnutrition Qualifiers: Protein-calorie malnutrition severity: severe Qualified Code(s): E43 - Unspecified severe protein-calorie malnutrition (4) COPD (chronic obstructive pulmonary disease) Qualifiers: COPD type: unspecified COPD Qualified Code(s): J44.9 - Chronic obstructive pulmonary disease, unspecified
--- NOTE | 2018-06-15 10:49 | P.DIET ---
Nutritional Evaluation Type of nutrition evaluation: follow-up Nutrition consult regarding: Diet Evaluation Nutrition screening: [facility] [place] (wound) Screening comments: 06/13/18 [facility] [place] for wound 06/06/18 [facility] [place] bolus TF'ing Recs 06/03/18 [facility] [place] TF'ing 05/28/18 [facility] [place] Malnutrition Subjective Barriers to Nutrition: Swallowing problem Subjective Comments: NGT has been removed by Nursing Objective - Diagnosis Encephalopathy - Objective [place] body weight: 72.7 kg % IBW: 69 Body Weight Used for Calculations: Actual (49.9kg) Energy Needs - Lower Range (kCal/kg): 40 Energy Needs - Upper Range (kCal/kg): 45 Lower Limit kCal/kg (kCals): 1,996 Upper Limit kCal/kg (kCals): 2,246 Lower Limit Protein Factor (Grams per Kg): 1.4 Upper Limit Protein Factor (Grams per Kg): 1.8 Lower Protein Needs (Protein): 70 Upper Protein Needs (Protein): 90 Dietitian Reviewed in Medical Record: Curent medications, Intake & Output, Labs , Medical history, Wound/DTI Diet Order: TF'ing Jevity 1.5 @ goal rate 60ml/hr Speech Therapy Recommendations: Yes (06/03 NPO) Wound Care Note: 05/27/18 WOCN note: Left Ischium unstageable pressure injury Objective Comments: PMH includes: CVA Integumentary: Left Ischium Pressure Injury; Coccyx maceration 06/04/18 PEG tube placement Albumin 2.6; prealbumin 9.0 Meds include: Lipitor, Haldol, Lasix Assessment Assessment: Pt continues at high nutritional risk r/t clinical status and need to remain NPO per ST and very low BMI 11.3. Pt tolerating TF'ing w/ Rec Jevity 1.5 at goal rate 60ml/hr via PEG tube. [facility] [place] for wound received 06/13, reviewed left ischium ulcer, noted unstageable. RD to recommend Nicholas BID to aid in pressure ulcer healing. ST notes reviewed, pt currently rejecting multiple swallow eval attempts. Wt changes noted, labs reviewed Additional Recs to follow r/t Clinical Course. Recommendations: 1. Continue TF'ing w/Jevity 1.5 goal rate @ 60ml/hr 2. For Bolus feedings, Rec Jevity 1.5 w/ 240ml @ 6am, 10am, 2pm, 6pm, 10pm and 2am 3. Free Water Flushes per MD 4. RD to recommend Nicholas BID to aid in pressure ulcer healing 5. Additional Recs to follow r/t Clinical Course Dietitian to Monitor: Lab values, Electrolytes, Intake & Output, Tube feeding tolerance, Weight change, Wound/skin status, Swallow recommendations, Medical course
[2018-06-16] MEDS: Aspirin 325 MG Tablet G-TUBE SCH (09:06)
[2018-06-16] MEDS: predniSONE 20 MG Tablet PO SCH (09:06)
[2018-06-16] MEDS: Enoxaparin Inj 30 MG/0.3 ML Syringe SQ SCH (09:06)
[2018-06-16] MEDS: Furosemide 20 MG Tablet PO SCH (09:06)
[2018-06-16] MEDS: QUEtiapine 25 MG Tablet PO SCH ×2 (09:06→20:06)
--- NOTE | 2018-06-16 10:41 | P.PNIM ---
Subjective Interval history: in no acute distress. looks comfortable. otherwise no change. Physical Exam Vital signs: Vital Signs 06/15/18 12:00 06/15/18 12:02 06/15/18 16:00 Temperature 97.2 F L 97.9 F Pulse Rate 94 H 96 H Respiratory Rate 17 18 Blood Pressure 99/54 L 120/65 Pulse Oximetry 92 L 92 L 97 06/15/18 18:31 06/15/18 20:00 06/16/18 00:00 Temperature 97.5 F L 97.6 F Pulse Rate 97 H 98 H Respiratory Rate 18 18 20 Blood Pressure 135/63 155/81 H Pulse Oximetry 99 100 06/16/18 04:00 06/16/18 08:00 Temperature 98.1 F 98 F Pulse Rate 101 H 97 H Respiratory Rate 20 16 Blood Pressure 128/58 L 133/74 Pulse Oximetry 98 99 Intake & Output 06/15/18 06/16/18 06/16/18 18:59 06:59 18:59 Intake Total 649 / 649 100 / 100 100 / 100 Output Total 200 / 200 400 / 400 Balance 449 / 449 -300 / -300 100 / 100 Intake: IV 100 / 100 100 / 100 100 / 100 Maxipime Inj 2,000 MG In NS Inj 100 / 100 100 / 100 100 / 100 100 ML @ 200 mls/hr IV.SIG Q12H ERNESTO Rx#:[id number] Oral 0 / 0 Tube Feeding 489 / 489 Water Bolus Amount 60 / 60 Output: Urine 200 / 200 400 / 400 Other: # Voids 3 Date of Last Bowel Movement 06/15/18 06/15/18 # Bowel Movements 1 1 - Constitutional no acute distress - Routine Respiratory Exam Present: CTA bilaterally - Routine Cardiovascular Exam Present: RRR - Routine Abdominal Exam Present: soft - Routine Extremities Exam Comments: no pedal edema. - Routine Neurological Exam Present: alert Results - Labs CBC & Chem 7: 06/13/18 06:38 06/13/18 06:38 Laboratory Results - last 24 hr 06/15/18 06/15/18 06/16/18 12:08 17:46 04:34 POC Glucose 147 H 135 H 112 H Assessment and Plan - Assessment (1) CVA (cerebral vascular accident) Code(s): I63.9 - Cerebral infarction, unspecified Status: Acute (2) Pneumonia Code(s): J18.9 - Pneumonia, unspecified organism Status: Acute (3) Protein calorie malnutrition Code(s): E46 - Unspecified protein-calorie malnutrition Status: Acute (4) COPD (chronic obstructive pulmonary disease) Code(s): J44.9 - Chronic obstructive pulmonary disease, unspecified Status: Chronic (5) Pleural effusion Code(s): J90 - Pleural effusion, not elsewhere classified Status: Acute (6) Respiratory insufficiency Code(s): R06.89 - Other abnormalities of breathing Status: Acute (7) Mass of upper lobe of left lung Code(s): R91.8 - Other nonspecific abnormal finding of lung field Status: Acute - Plan 68-year-old male who was brought in after he was found at home by his landlord. The patient was altered and found to be covered in urine and feces. He was then brought into our emergency department for evaluation. Acute metabolic encephalopathy, possibly secondary to CVA, dehydration, infection Acute ischemic right frontal CVA MRI of the brain shows right frontal lobe infarction, 2-3 tiny foci. Possibly embolic stroke. No evidence of A. fib on telemetry Family endorses prior CVA 12 years ago, he did have residual expressive aphasia and possibly some swallowing difficulty. Neurology service recommendations appreciated. Echocardiogram done, EF 60%, trace mitral valve regurgitation, small pericardial effusion. -Carotid ultrasound results noted, left internal carotid occluded, right carotid moderate plaque, status post vascular surgery evaluation with no surgical intervention recommended. Continue with Lipitor and aspirin. -CTA of the carotids which reveals only about 50% right internal carotid artery stenosis, occluded left internal carotid artery at its origin. PT/OT/ST per protocol for eval and treatment. -Palliative care consult appreciated. Family declined hospice. Follow up with palliative care. -restraints as needed. continue Seroquel 50 mg BID . -morphine as needed for discomfort or dyspnea. Dysphagia Severe protein calorie malnutrition. Prealbumin 9. NG tube was pulled out by patient. -Continues to fail swallow evaluation. Follow with speech therapy. -Status post PEG placement with GI 06/04. -Continue Jevity 1.5. Dietary consult appreciated. Tolerating tube feeds well. COPD with exacerbation without asthma Community acquired pneumonia-cxr with poss findings of RLL pna 05/28 CT findings noted, Extensive alveolar consolidations are noted within the right upper and lower lobes consistent with probable pneumonia. Emphysematous changes. Moderate size right pleural effusion. Continue with duo nebs. -wean off steroids. -CXR 05/30, bilateral pleural effusions, right greater than left airspace disease, both slightly worsened. -will stop antibiotics today. -CT chest on 06/06/2018:Significant interval decrease in size of right pleural effusion from the prior exam. A stable peripheral nodule with spiculation in the anterolateral right upper lobe is worrisome for neoplasm. Incidental findings of a spiculated mass right upper lobe suspicious for primary bronchogenic malignancy per CTA of neck Patient's son endorses that patient has been debilitated prior to stroke, positive for unintentional weight loss No prior history of malignancy History of tobacco and alcohol abuse -CT of the chest piculated noncalcified nodule within the right upper lobe measuring 13 mm which is suspicious for bronchogenic carcinoma. Precarinal and subcarinal mediastinal as well as right heel or lymphadenopathy is noted. -Tumor markers done, within normal limits. -family unsure of biopsy of mass. Palliative care following. Pleural effusions Chest x-ray with findings of bilateral pleural effusions -Lasix. -CT chest on 06/06/2018:Significant interval decrease in size of right pleural effusion from the prior exam. -Patient agreed with therapeutic thoracentesis if necessary. History of alcohol abuse Patient restless overnight, now in restraints -s/p CIWA protocol. Left ischium ulcer -Continue wound care per wound care nurse. Hypokalemia- replaced. Hypernatremia-resolved. -Monitor and replace electrolytes as needed -continue free water via PEG. DVT prophylaxis: Continue Lovenox (1) CVA (cerebral vascular accident) Qualifiers: Laterality of affected vessel: right (3) Protein calorie malnutrition Qualifiers: Protein-calorie malnutrition severity: severe Qualified Code(s): E43 - Unspecified severe protein-calorie malnutrition (4) COPD (chronic obstructive pulmonary disease) Qualifiers: COPD type: unspecified COPD Qualified Code(s): J44.9 - Chronic obstructive pulmonary disease, unspecified
--- NOTE | 2018-06-16 17:32 | P.PNPAL ---
Reason for Visit Reason for visit: a. To assist with evaluation and management of symptoms including:pain, dyspnea , dysphagia. b. To assist medical decision maker(s) with: better understanding of current medical conditions; weighing benefits/burdens of medical treatment options; making medical treatment decisions. Subjective Subjective/Interval History: Follow-up of symptom management for agitation, pain, and dysphagia. Patient seen and examined in his room. No family at bedside. Patient is currently in bed with four-point soft restraints. Patient minimally verbal, oriented to self only. Not following simple commands. Patient denying pain. Report from bedside RN that patient usually mumbles angrily incomprehensible words during care. Patient currently on room air-not showing signs of dyspnea. Per bedside RN patient keeps taking off his oxygen. O2 saturation. Vital signs recorded showing high 90s. Patient has duo nebs scheduled every 4 hours for shortness of breath and prednisone 10 mg daily. Patient remains n.p.o. Swallow re-evaluation today 06/16/18 shows recommendations of staying n.p.o. Jevity 1.5 infusing via PEG tube. Patient is tolerating his tube feeds. Patient continues to be agitated, attempting to pull IVs and PEG tube requiring use of soft restraints to all 4 extremities. Patient is on Seroquel 50 mg twice daily [id number]. Family/Friend Interactions: No family at bedside Advance Directives Living Will: Never completed Health Care Surrogate: Never completed Durable Power of Transitional Kindergarten Teacher: Never completed Health Care Surrogate Name and Number: Health care proxy decision makers: Son, Miguel AND daughter, Cass. Documented care wishes:: No written advanced directives. Objective Vital Signs: Vital Signs 06/15/18 18:31 06/15/18 20:00 06/16/18 00:00 Temperature 97.5 F L 97.6 F Pulse Rate 97 H 98 H Respiratory Rate 18 18 20 Blood Pressure 135/63 155/81 H Pulse Oximetry 99 100 06/16/18 04:00 06/16/18 08:00 06/16/18 12:00 Temperature 98.1 F 98 F 97.2 F L Pulse Rate 101 H 97 H 96 H Respiratory Rate 20 16 16 Blood Pressure 128/58 L 133/74 116/64 Pulse Oximetry 98 99 100 06/16/18 16:00 Temperature 97.4 F L Pulse Rate 92 H Respiratory Rate 16 Blood Pressure 120/63 Pulse Oximetry 98 Intake & Output 06/15/18 06/16/18 06/16/18 18:59 06:59 18:59 Intake Total 649 / 649 100 / 100 100 / 100 Output Total 200 / 200 400 / 400 Balance 449 / 449 -300 / -300 100 / 100 Intake: IV 100 / 100 100 / 100 100 / 100 Maxipime Inj 2,000 MG In NS Inj 100 / 100 100 / 100 100 / 100 100 ML @ 200 mls/hr IV.SIG Q12H ERNESTO Rx#:[id number] Oral 0 / 0 Tube Feeding 489 / 489 Water Bolus Amount 60 / 60 Output: Urine 200 / 200 400 / 400 Other: # Voids 3 Date of Last Bowel Movement 06/15/18 06/15/18 # Bowel Movements 1 1 Physical Exam: CONSTITUTIONAL/GENERAL: This is a frail, cachectic patient, in no apparent distress. TUBES/LINES/DRAINS: Nasal cannula O2-, PEG, PIV, soft restraints to all 4 extremities. SKIN: Temporal and muscle wasting. No jaundice, rashes, or lesions. Dry skin. Ecchymosis to bilateral upper extremities no wounds seen anteriorly. Normothermic EYES: eyes open, focusing, tracking. ENT: Hearing grossly normal. Nose without bleeding or purulent drainage. Oral mucosa dry. CARDIOVASCULAR: Regular rate and rhythm without murmurs, gallops, or rubs. No JVD. RESPIRATORY/CHEST: Bilateral chest wall. symmetric, unlabored respirations. scattered rhonchi. GASTROINTESTINAL: Abdomen soft, non-tender, nondistended. No guarding. Bowel sounds present. PEG tube intact GENITOURINARY: Without palpable bladder distension. Condom catheter MUSCULOSKELETAL: Extremities without clubbing, cyanosis, or edema. No joint tenderness or effusion noted. No calf tenderness. No mottling or clubbing. NEUROLOGICAL: Awake, alert, minimally febrile. Spontaneously moving all 4 extremities, not following commands. PSYCHIATRIC: Agitation. Currently on Seroquel. Diagnostic Tests Laboratory: Laboratory Results - last 72 hr 06/13/18 06/14/18 06/14/18 21:22 05:52 14:42 POC Glucose 124 H 146 H 136 H 06/14/18 06/15/18 06/15/18 16:26 01:19 EST 05:20 POC Glucose 138 H 115 H 137 H 06/15/18 06/15/18 06/16/18 12:08 17:46 04:34 POC Glucose 147 H 135 H 112 H Result Diagrams: 06/13/18 06:38 06/13/18 06:38 Imaging: Head MRI 05/26/18 00:00 Diffusion weighted images demonstrate tiny foci of restricted diffusion in the right frontal cortex. There is diffuse atrophy. There is a large area of encephalomalacia and scoliosis in the left frontal lobe from previous infarction. There is slight ex vacuo dilatation of the left lateral ventricle and remote left basal ganglia lacunar infarcts. In addition remote right occipital infarct and encephalomalacia noted. There are no signs of acute intracranial hemorrhage though there is evidence of remote hemosiderin along the right parietal cortex. No abnormal areas of enhancement are seen. There is no evidence for mass.. CONCLUSION: 1. Atrophy and white matter disease with remote infarcts identified. 2. 2-3 tiny foci of restricted diffusion in the right frontal lobe characteristic of tiny foci of acute infarction. Head CT 05/26/18 12:11 CONCLUSION: 1. No acute findings. Atrophy and remote infarcts. . Carotid Doppler Study 05/28/18 00:00 CONCLUSION: 1. Mild to moderate stenosis on the right not felt to be hemodynamically significant at this point. CT angiography could be used to exclude soft plaque. 2. Occluded left internal carotid artery Head MRA 05/28/18 00:00 CONCLUSION: 1. Occluded left internal carotid artery. Neck CTA 05/30/18 00:00 CONCLUSION: 1. 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 2. Occluded left internal carotid artery at its origin. 3. Less than 50% stenosis of the right internal carotid artery secondary to atherosclerotic plaquing. 4. Emphysema and right upper lobe/lower lobe parenchymal infiltrate. 5. Spiculated mass in the right upper lobe suspicious for primary bronchogenic malignancy until proven otherwise. Abdomen X-Ray 06/03/18 00:00 CONCLUSION: Nasogastric tube is in the right lower lobe airways. Chest CT 06/06/18 00:00 CONCLUSION: Significant interval decrease in size of right pleural effusion from the prior exam. Chest X-Ray 06/12/18 15:08 CONCLUSION: Persistent airspace disease in right lung base and right upper lobe. Assessment and Plan - Disease Oriented Problem List (1) CVA (cerebral vascular accident) (2) Pneumonia (3) Protein calorie malnutrition (4) COPD (chronic obstructive pulmonary disease) (5) Pleural effusion (6) Respiratory insufficiency (7) Mass of upper lobe of left lung - Symptom Scale (1) Dysphagia 0-10 Scale: Unable to quantify (2) Dyspnea 0-10 Scale: Unable to quantify (3) Debility 0-10 Scale: Unable to quantify (4) Pain Comment: Currently denying pain Pertinent Non-Medical Issues: Psychosocial: Single. Has 1 son and 1 daughter. Spiritual: [employer] agnes. Legal:Patient is not capacitated to make his own health care decisions, uncertain if he will regain capacity. According to [place] statutes, health care proxy decision making falls to the majority of adult children. Ethical issues impacting care: No known concerns at this time. Important Contacts: * Miguel Saleem, son: [phone] * Cass, daughter: [phone] * Martita Saleem, [id number]: [phone] * Brandi Yvonne: Sister: [phone] Prognosis: Mr. Saleem is a 68-year-old male with remote stroke and new stroke with significant dysphagia, significant unintentional weight loss, cachexia requiring NG tube feedings, new finding of spiculated lung mass with mediastinal adenopathy concerning for malignancy. Patient with significant cognitive, nutritional and functional deficits. Overall prognosis appears poor. I suspect even with a confirmed, biopsy-proven diagnosis of malignancy he would not be a candidate for treatment. Hospice appropriate if goals are comfort oriented. . Code Status: No Code DNR Plan: * Patient is not capacitated to make his own health care decisions, does not appear he will regain capacity. According to [place] statutes, health care proxy decision making falls to the majority of adult children. He has 1 son and 1 daughter. * DO NOT RESUSCITATE * Family wants to proceed with PEG tube per Martita MTZ. Advised nurse to call son AND daughter for consent. Considering CODE status and whether or not to proceed with lung biopsy. * SYMPTOMS: Dysphagia: Remote and recent stroke, carotid artery stenosis/ occlusion. Unintentional weight loss over the past 6 months. Tolerating TF via PEG tube. Dyspnea: History of COPD/ emphysema, new spiculated mass in lung likely cancer with mediastinal adenopathy. Family questioned possible biopsy but are aware that his performance status is to poor to receive chemotherapy or radiation, and they do not feel that that is in the best interest of the patient , so are foregoing biopsy at this time. Debility: Secondary to general decline , possible malignancy, malnutrition. Continue PT. Concerned patient will have continued decline. Agitation: Would recommend weaning O2 as patient was not previously oxygen dependent and the tube increases his agitation. * Palliative care will continue to follow throughout hospital course to assist with symptom management further clarification of goals of medical treatment. Attestation Attestation: To help prompt me to consider important information that might be impacting today's encounter and assessment, information from prior notes written by myself or my colleagues may have been "brought forward" into today's note. My signature on this note, however, is an attestation that I personally performed the exam, history, and/or decision-making noted today, and, unless otherwise indicated, the interactions with patient, family, and staff as well as the review of records all occurred today. I also attest that the listed assessment and stated plan reflect my best clinical judgment today based on the combination of historical information, prior notes, and today's exam/ interactions. When time spent is documented, it refers only to time spent today by the signer, or if indicated, combined time spent today by collaborating physician/nurse practitioner.
[2018-06-17] MEDS: Enoxaparin Inj 30 MG/0.3 ML Syringe SQ SCH (08:13)
[2018-06-17] MEDS ORDERED: predniSONE 10 MG Tablet PO SCH (09:00)
[2018-06-17] MEDS: Aspirin 325 MG Tablet G-TUBE SCH (10:32)
[2018-06-17] MEDS: QUEtiapine 25 MG Tablet PO SCH ×2 (10:32→21:00)
[2018-06-17] MEDS: Furosemide 20 MG Tablet PO SCH (10:32)
--- NOTE | 2018-06-17 11:29 | P.PNIM ---
Subjective Interval history: in no acute distress. resting comfortably. removed the PEG tube over night. d/w the RN. Physical Exam Vital signs: Vital Signs 06/16/18 12:00 06/16/18 16:00 06/16/18 20:00 Temperature 97.2 F L 97.4 F L 98.4 F Pulse Rate 96 H 92 H 98 H Respiratory Rate 16 16 17 Blood Pressure 116/64 120/63 113/64 Pulse Oximetry 100 98 97 06/16/18 21:07 06/17/18 00:00 06/17/18 00:15 Temperature 97.4 F L Pulse Rate 96 H 99 H 98 H Respiratory Rate 17 Blood Pressure 146/82 H Pulse Oximetry 97 06/17/18 04:00 Temperature 98.0 F Pulse Rate 100 H Respiratory Rate 17 Blood Pressure 140/74 Pulse Oximetry 97 Intake & Output 06/16/18 06/17/18 06/17/18 18:59 06:59 18:59 Intake Total 100 / 100 0 / 0 Output Total 800 / 800 Balance 100 / 100 -800 / -800 Weight 97 kg Intake: IV 100 / 100 Maxipime Inj 2,000 MG In NS Inj 100 / 100 100 ML @ 200 mls/hr IV.SIG Q12H ERNESTO Rx#:[id number] Oral 0 / 0 Output: Urine 800 / 800 Other: Date of Last Bowel Movement 06/16/18 06/16/18 # Incontinent Bowel Movements 1 - Constitutional no acute distress (clinically no change.) Results - Labs CBC & Chem 7: 06/13/18 06:38 06/13/18 06:38 Laboratory Results - last 24 hr 06/17/18 11:15 POC Glucose 101 Assessment and Plan - Assessment (1) CVA (cerebral vascular accident) Code(s): I63.9 - Cerebral infarction, unspecified Status: Acute (2) Pneumonia Code(s): J18.9 - Pneumonia, unspecified organism Status: Acute (3) Protein calorie malnutrition Code(s): E46 - Unspecified protein-calorie malnutrition Status: Acute (4) COPD (chronic obstructive pulmonary disease) Code(s): J44.9 - Chronic obstructive pulmonary disease, unspecified Status: Chronic (5) Pleural effusion Code(s): J90 - Pleural effusion, not elsewhere classified Status: Acute (6) Respiratory insufficiency Code(s): R06.89 - Other abnormalities of breathing Status: Acute (7) Mass of upper lobe of left lung Code(s): R91.8 - Other nonspecific abnormal finding of lung field Status: Acute - Plan 68-year-old male who was brought in after he was found at home by his landlord. The patient was altered and found to be covered in urine and feces. He was then brought into our emergency department for evaluation. Acute metabolic encephalopathy, possibly secondary to CVA, dehydration, infection Acute ischemic right frontal CVA MRI of the brain shows right frontal lobe infarction, 2-3 tiny foci. Possibly embolic stroke. No evidence of A. fib on telemetry Family endorses prior CVA 12 years ago, he did have residual expressive aphasia and possibly some swallowing difficulty. Neurology service recommendations appreciated. Echocardiogram done, EF 60%, trace mitral valve regurgitation, small pericardial effusion. -Carotid ultrasound results noted, left internal carotid occluded, right carotid moderate plaque, status post vascular surgery evaluation with no surgical intervention recommended. Continue with Lipitor and aspirin. -CTA of the carotids which reveals only about 50% right internal carotid artery stenosis, occluded left internal carotid artery at its origin. PT/OT/ST per protocol for eval and treatment. -Palliative care consult appreciated. Family declined hospice. Follow up with palliative care. -restraints as needed. continue Seroquel 50 mg BID . -morphine as needed for discomfort or dyspnea. Dysphagia Severe protein calorie malnutrition. Prealbumin 9. NG tube was pulled out by patient. -Continues to fail swallow evaluation. Follow with speech therapy. -Status post PEG placement with GI 06/04- removed the PEG last night- GI was reconsulted. -start on IV fluid for now. COPD with exacerbation without asthma Community acquired pneumonia-cxr with poss findings of RLL pna 05/28 CT findings noted, Extensive alveolar consolidations are noted within the right upper and lower lobes consistent with probable pneumonia. Emphysematous changes. Moderate size right pleural effusion. Continue with duo nebs. -wean off steroids. -CXR 05/30, bilateral pleural effusions, right greater than left airspace disease, both slightly worsened. -dc'ed antibiotics . -CT chest on 06/06/2018:Significant interval decrease in size of right pleural effusion from the prior exam. A stable peripheral nodule with spiculation in the anterolateral right upper lobe is worrisome for neoplasm. Incidental findings of a spiculated mass right upper lobe suspicious for primary bronchogenic malignancy per CTA of neck Patient's son endorses that patient has been debilitated prior to stroke, positive for unintentional weight loss No prior history of malignancy History of tobacco and alcohol abuse -CT of the chest piculated noncalcified nodule within the right upper lobe measuring 13 mm which is suspicious for bronchogenic carcinoma. Precarinal and subcarinal mediastinal as well as right heel or lymphadenopathy is noted. -Tumor markers done, within normal limits. -family unsure of biopsy of mass. Palliative care following. Pleural effusions Chest x-ray with findings of bilateral pleural effusions -Lasix. -CT chest on 06/06/2018:Significant interval decrease in size of right pleural effusion from the prior exam. -Patient agreed with therapeutic thoracentesis if necessary. History of alcohol abuse Patient restless overnight, now in restraints -s/p CIWA protocol. Left ischium ulcer -Continue wound care per wound care nurse. Hypokalemia- replaced. Hypernatremia-resolved. -Monitor and replace electrolytes as needed -continue free water via PEG. DVT prophylaxis: Continue Lovenox (1) CVA (cerebral vascular accident) Qualifiers: Laterality of affected vessel: right (3) Protein calorie malnutrition Qualifiers: Protein-calorie malnutrition severity: severe Qualified Code(s): E43 - Unspecified severe protein-calorie malnutrition (4) COPD (chronic obstructive pulmonary disease) Qualifiers: COPD type: unspecified COPD Qualified Code(s): J44.9 - Chronic obstructive pulmonary disease, unspecified
[2018-06-17] MEDS ORDERED: Sod Chloride 0.9% Inj 1,000 ML IV.CONT SCH (13:15)
--- NOTE | 2018-06-17 13:58 | P.PNGI ---
Subjective Interval history: Patient sitting up in chair working with physical therapy. Awake and alert with bilateral wrist restraints Dressing over PEG tube site intact with scant amount of montgomery colored drainage Patient pulled out PEG tube yesterday <Phoebe Encinas - Last Filed: 06/17/18 13:46> Physical Exam Vital signs: Vital Signs 06/16/18 16:00 06/16/18 20:00 06/16/18 21:07 Temperature 97.4 F L 98.4 F Pulse Rate 92 H 98 H 96 H Respiratory Rate 16 17 Blood Pressure 120/63 113/64 Pulse Oximetry 98 97 06/17/18 00:00 06/17/18 00:15 06/17/18 04:00 Temperature 97.4 F L 98.0 F Pulse Rate 99 H 98 H 100 H Respiratory Rate 17 17 Blood Pressure 146/82 H 140/74 Pulse Oximetry 97 97 Intake & Output 06/16/18 06/17/18 06/17/18 18:59 06:59 18:59 Intake Total 100 / 100 0 / 0 0 / 0 Output Total 800 / 800 Balance 100 / 100 -800 / -800 0 / 0 Weight 97 kg Intake: IV 100 / 100 0 / 0 Maxipime Inj 2,000 MG In NS Inj 100 / 100 100 ML @ 200 mls/hr IV.SIG Q12H ERNESTO Rx#:[id number] Oral 0 / 0 Output: Urine 800 / 800 Other: Date of Last Bowel Movement 06/16/18 06/16/18 # Incontinent Bowel Movements 1 - Constitutional no acute distress - Routine HEENT Exam Head: Present: normocephalic - Routine Respiratory Exam Present: CTA bilaterally. Absent: accessory muscle use - Routine Abdominal Exam Present: soft, normoactive bowel sounds. Absent: tenderness, distended, guarding, firm Comments: PEG tube site with small amount of montgomery colored drainage on gauze dressing. No bleeding or sign of infection noted - Routine Extremities Exam Absent: edema - Routine Skin Exam Present: dry, warm - Routine Neurological Exam Present: alert <Phoebe Encinas - Last Filed: 06/17/18 13:46> Vital signs: Vital Signs 06/16/18 20:00 06/16/18 21:07 06/17/18 00:00 Temperature 98.4 F 97.4 F L Pulse Rate 98 H 96 H 99 H Respiratory Rate 17 17 Blood Pressure 113/64 146/82 H Pulse Oximetry 97 97 06/17/18 00:15 06/17/18 04:00 06/17/18 08:00 Temperature 98.0 F 97.5 F L Pulse Rate 98 H 100 H 100 H Respiratory Rate 17 18 Blood Pressure 140/74 132/78 Pulse Oximetry 97 97 06/17/18 12:00 Temperature 97.5 F L Pulse Rate 101 H Respiratory Rate 17 Blood Pressure 121/60 Pulse Oximetry 96 Intake & Output 06/17/18 06/17/18 06/18/18 06:59 18:59 06:59 Intake Total 0 / 0 0 / 0 Output Total 800 / 800 Balance -800 / -800 0 / 0 Weight 97 kg 44.383 kg Intake: IV 0 / 0 Oral 0 / 0 Output: Urine 800 / 800 Other: Date of Last Bowel Movement 06/16/18 06/16/18 # Incontinent Bowel Movements 1 <Bratu,Leslie - Last Filed: 06/17/18 19:10> Results - Labs CBC & Chem 7: 06/13/18 06:38 06/13/18 06:38 Laboratory Results - last 24 hr 06/17/18 11:15 POC Glucose 101 <Phoebe Encinas - Last Filed: 06/17/18 13:46> - Labs CBC & Chem 7: 06/13/18 06:38 06/13/18 06:38 Laboratory Results - last 24 hr 06/17/18 06/17/18 11:15 18:20 POC Glucose 101 83 <Sarah Williamrice - Last Filed: 06/17/18 19:10> Assessment and Plan (1) Dysphagia Status: Acute Code(s): R13.10 - Dysphagia, unspecified (2) PEG (percutaneous endoscopic gastrostomy) adjustment/replacement/removal Status: Acute Code(s): Z43.1 - Encounter for attention to gastrostomy - Plan 06/03/18 - GI consultation: This patient is a 68-year-old male patient with past medical history significant for CVA, alcohol abuse, tobacco use, and encephalopathy. Patient presented to the emergency room at [facility] on 1015 with altered mental status. Patient unable to provide medical history. Apparently patient was found in unsanitary conditions by his landlord. Neurology was consulted to see patient and found carotid Doppler ultrasound revealed moderate stenosis on the right with an occluded left internal carotid artery. EEG revealed mild encephalopathy. CT chest revealed 13 mm spiculated mass, mediastinal and right hilar adenopathy, emphysema bilaterally. Patient has had multiple swallow tests and has continued to fail test since admission. Presently patient is n.p.o., tolerating tube feedings via NG. Jevity 1.5 with a goal rate of 60 mL's per hour as noted per nutritional consult. Our service has been consulted for PEG placement. 06/17/2018 PEG tube replacement Swallow evaluation recommendation patient be n.p.o. Patient was previously getting Jevity 1.5 at 60 mL's per hour via PEG tube. Patient agitated with soft restraints. PEG tube inadvertently pulled out by patient and our service has been reconsulted to replace PEG tube. Plan -Nothing by mouth -Obtain consent for PEG placement -PEG placement tomorrow 06/18/2018 -Hold a.m. 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 William and this note is written on her behalf - Attending Attestation DR. WILLIAM <Phoebe Encinas - Last Filed: 06/17/18 13:46> (1) Dysphagia Status: Acute Code(s): R13.10 - Dysphagia, unspecified (2) PEG (percutaneous endoscopic gastrostomy) adjustment/replacement/removal Status: Acute Code(s): Z43.1 - Encounter for attention to gastrostomy - Attending Attestation seen, examined agree with above <Leslie William - Last Filed: 06/17/18 19:10>
--- NOTE | 2018-06-17 15:25 | P.PNPAL ---
Reason for Visit Reason for visit: a. To assist with evaluation and management of symptoms including:pain, dyspnea , dysphagia. b. To assist medical decision maker(s) with: better understanding of current medical conditions; weighing benefits/burdens of medical treatment options; making medical treatment decisions. Subjective Subjective/Interval History: Follow-up of symptom management for further clarification of goals of medical treatment. Patient seen and examined in his room. Patient remains in four- point restraints. Patient appears to be oriented to self only. Patient not verbalizing today. Not following commands. Patient is not showing any signs of pain at this time. Report from bedside RN that patient pulled out his PEG tube overnight. Currently his maintenance IV fluids infusing via peripheral IV. He remains on room air. O2 saturation mid to high 90s. Patient failed swallow reevaluation again. Remains n.p.o. Per bedside RN reports patient mainly gets agitated during care. Agitation managed with Seroquel 50 mg twice daily [id number]. Telephone calls to patient's daughter Cass ([phone]) with no response, left voice message. Another telephone call to Viral Saleem patient's son with no response. Telephone conversation to patient's otlattld-jz-gga Martita Saleem ([phone]) provided medical status update. Expressed concern regarding patient' s current condition and most likely medical complications he may continue to face. Also expressed to patient's vmppoykh-cj-apm that patient will not be accepted in any half-way as long as he remains in restraints. Notified her that patient has pulled out his PEG tube. Patient's ozehxigr-wt-smn stated that she will inform patient's children will he healthcare proxy`s and she is sure that they would want the PEG tube to be replaced. Inquired if family had had discussions regarding hospice. Patient's daughter in law stated that family have discussed and would like patient to have a biopsy of the mass that was noted on his left lung upper lobe so that they can make an informed decision regarding transitioning patient to comfort care through hospice or not. Patient's daughter in law will inform patient's children to call the hospital to give consent for a PEG tube placement. Case discussed with bedside RN and Dr. You. . Family/Friend Interactions: See interval note . Advance Directives Living Will: Never completed Health Care Surrogate: Never completed Durable Power of Candy Maker Helper: Never completed Health Care Surrogate Name and Number: Health care proxy decision makers: SonMiguel AND daughter, Cass. Documented care wishes:: No written advanced directives. Objective Vital Signs: Vital Signs 06/16/18 16:00 06/16/18 20:00 06/16/18 21:07 Temperature 97.4 F L 98.4 F Pulse Rate 92 H 98 H 96 H Respiratory Rate 16 17 Blood Pressure 120/63 113/64 Pulse Oximetry 98 97 06/17/18 00:00 06/17/18 00:15 06/17/18 04:00 Temperature 97.4 F L 98.0 F Pulse Rate 99 H 98 H 100 H Respiratory Rate 17 17 Blood Pressure 146/82 H 140/74 Pulse Oximetry 97 97 06/17/18 08:00 06/17/18 12:00 Temperature 97.5 F L 97.5 F L Pulse Rate 100 H 101 H Respiratory Rate 18 17 Blood Pressure 132/78 121/60 Pulse Oximetry 97 96 Intake & Output 06/16/18 06/17/18 06/17/18 18:59 06:59 18:59 Intake Total 100 / 100 0 / 0 0 / 0 Output Total 800 / 800 Balance 100 / 100 -800 / -800 0 / 0 Weight 97 kg 44.383 kg Intake: IV 100 / 100 0 / 0 Maxipime Inj 2,000 MG In NS Inj 100 / 100 100 ML @ 200 mls/hr IV.SIG Q12H [facility] Rx#:[id number] Oral 0 / 0 Output: Urine 800 / 800 Other: Date of Last Bowel Movement 06/16/18 06/16/18 # Incontinent Bowel Movements 1 Physical Exam: CONSTITUTIONAL/GENERAL: This is a frail, cachectic patient, in no apparent distress. TUBES/LINES/DRAINS: PIV, soft restraints to all 4 extremities. SKIN: Temporal and muscle wasting. No jaundice, rashes, or lesions. Dry skin. Ecchymosis to bilateral upper extremities no wounds seen anteriorly. Skin tear to left hand. Normothermic EYES: eyes open, focusing, tracking. ENT: Hearing grossly normal. Nose without bleeding or purulent drainage. Oral mucosa dry. CARDIOVASCULAR: Regular rate and rhythm without murmurs, gallops, or rubs. No JVD. RESPIRATORY/CHEST: Bilateral chest wall. symmetric, unlabored respirations. Diminished breath sounds. GASTROINTESTINAL: Abdomen soft, non-tender, nondistended. No guarding. Active bowel sounds GENITOURINARY: Without palpable bladder distension. Condom catheter MUSCULOSKELETAL: Extremities without clubbing, cyanosis, or edema. No joint tenderness or effusion noted. No calf tenderness. No mottling or clubbing. NEUROLOGICAL: Awake, alert, not verbalizing today. Spontaneously moving all 4 extremities, not following commands. PSYCHIATRIC: Agitation. Currently on Seroquel. . Diagnostic Tests Laboratory: Laboratory Results - last 72 hr 06/14/18 06/15/18 06/15/18 16:26 01:19 EST 05:20 POC Glucose 138 H 115 H 137 H 06/15/18 06/15/18 06/16/18 12:08 17:46 04:34 POC Glucose 147 H 135 H 112 H 06/17/18 11:15 POC Glucose 101 Result Diagrams: 06/13/18 06:38 06/13/18 06:38 Imaging: Head MRI 05/26/18 00:00 Diffusion weighted images demonstrate tiny foci of restricted diffusion in the right frontal cortex. There is diffuse atrophy. There is a large area of encephalomalacia and scoliosis in the left frontal lobe from previous infarction. There is slight ex vacuo dilatation of the left lateral ventricle and remote left basal ganglia lacunar infarcts. In addition remote right occipital infarct and encephalomalacia noted. There are no signs of acute intracranial hemorrhage though there is evidence of remote hemosiderin along the right parietal cortex. No abnormal areas of enhancement are seen. There is no evidence for mass.. CONCLUSION: 1. Atrophy and white matter disease with remote infarcts identified. 2. 2-3 tiny foci of restricted diffusion in the right frontal lobe characteristic of tiny foci of acute infarction. Head CT 05/26/18 12:11 CONCLUSION: 1. No acute findings. Atrophy and remote infarcts. . Carotid Doppler Study 05/28/18 00:00 CONCLUSION: 1. Mild to moderate stenosis on the right not felt to be hemodynamically significant at this point. CT angiography could be used to exclude soft plaque. 2. Occluded left internal carotid artery Head MRA 05/28/18 00:00 CONCLUSION: 1. Occluded left internal carotid artery. Neck CTA 05/30/18 00:00 CONCLUSION: 1. 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 2. Occluded left internal carotid artery at its origin. 3. Less than 50% stenosis of the right internal carotid artery secondary to atherosclerotic plaquing. 4. Emphysema and right upper lobe/lower lobe parenchymal infiltrate. 5. Spiculated mass in the right upper lobe suspicious for primary bronchogenic malignancy until proven otherwise. Abdomen X-Ray 06/03/18 00:00 CONCLUSION: Nasogastric tube is in the right lower lobe airways. Chest CT 06/06/18 00:00 CONCLUSION: Significant interval decrease in size of right pleural effusion from the prior exam. Chest X-Ray 06/12/18 15:08 CONCLUSION: Persistent airspace disease in right lung base and right upper lobe. Assessment and Plan - Disease Oriented Problem List (1) CVA (cerebral vascular accident) (2) Pneumonia (3) Protein calorie malnutrition (4) COPD (chronic obstructive pulmonary disease) (5) Pleural effusion (6) Respiratory insufficiency (7) Mass of upper lobe of left lung - Symptom Scale (1) Dysphagia 0-10 Scale: Unable to quantify (2) Dyspnea 0-10 Scale: Unable to quantify (3) Debility 0-10 Scale: Unable to quantify (4) Pain 0-10 Scale: Unable to quantify Comment: Currently denying pain Pertinent Non-Medical Issues: Psychosocial: Single. Has 1 son and 1 daughter. Spiritual: Islam agnes. Legal:Patient is not capacitated to make his own health care decisions, uncertain if he will regain capacity. According to [place] statutes, health care proxy decision making falls to the majority of adult children. Ethical issues impacting care: No known concerns at this time. Important Contacts: * Miguel Saleem, son: [phone] * Cass, daughter: [phone] * Martita Saleem, wayooubk-wu-xhs: [phone] * Brandi Russell: Sister: [phone] Prognosis: Mr. Saleem is a 68-year-old male with remote stroke and new stroke with significant dysphagia, significant unintentional weight loss, cachexia requiring NG tube feedings, new finding of spiculated lung mass with mediastinal adenopathy concerning for malignancy. Patient with significant cognitive, nutritional and functional deficits. Overall prognosis appears poor. I suspect even with a confirmed, biopsy-proven diagnosis of malignancy he would not be a candidate for treatment. Hospice appropriate if goals are comfort oriented. . Code Status: No Code DNR Plan: * Patient is not capacitated to make his own health care decisions, does not appear he will regain capacity. According to [place] statutes, health care proxy decision making falls to the majority of adult children. He has 1 son and 1 daughter. * DO NOT RESUSCITATE * Family wants to proceed with PEG tube per Martita MTZ. Advised nurse to call son AND daughter for consent. Considering CODE status and whether or not to proceed with lung biopsy. * SYMPTOMS: Dysphagia: Remote and recent stroke, carotid artery stenosis/ occlusion. Unintentional weight loss over the past 6 months. Continues to fail swallow evaluation. Patient pulled out his PEG tube on 06/17/18. Dyspnea: History of COPD/ emphysema, new spiculated mass in lung likely cancer with mediastinal adenopathy. Family questioned possible biopsy but are aware that his performance status is to poor to receive chemotherapy or radiation. Family questioning when he is biopsy would be done for them to be able to make a definitive decision regarding transitioning patient to comfort care or pursuing aggressive treatment. Debility: Secondary to general decline, possible malignancy, malnutrition. Continue PT. Concerned patient will have continued decline. Agitation: Patient remains in four-point soft restraints which will most likely hinder placement. Recommending increasing Seroquel to 75 mg twice daily * Palliative care will continue to follow throughout hospital course to assist with symptom management further clarification of goals of medical treatment. Attestation Attestation: To help prompt me to consider important information that might be impacting today's encounter and assessment, information from prior notes written by myself or my colleagues may have been "brought forward" into today's note. My signature on this note, however, is an attestation that I personally performed the exam, history, and/or decision-making noted today, and, unless otherwise indicated, the interactions with patient, family, and staff as well as the review of records all occurred today. I also attest that the listed assessment and stated plan reflect my best clinical judgment today based on the combination of historical information, prior notes, and today's exam/ interactions. When time spent is documented, it refers only to time spent today by the signer, or if indicated, combined time spent today by collaborating physician/nurse practitioner.
[2018-06-17] MEDS: KCL 20 mEq/D5W/NaCl 0.45% Inj 1,000 ML IV.SIG SCH (19:38)
[2018-06-17] MEDS: MethylPREDNISolone Sod Succinate Inj 40 MG/ML Vial IV.PUSH SCH ×2 (19:39→23:07)
--- NOTE | 2018-06-17 21:19 | MB ---
cc: Romeo Lopez MD DATE: 06/17/2018 REASON FOR CONSULTATION: Respiratory insufficiency, COPD and lung mass. HISTORY OF PRESENT ILLNESS: This is a 68-year-old man with a history of encephalopathy and a previous history for CVA who was admitted through the emergency room with disorientation, dehydration, hypoalbuminemia and hypothermia. The patient apparently was septic, tachycardic, and was sent for a CT of the head, which showed no acute changes; however, he was noted to have a UTI and possibly pneumonia and thus was placed on IV fluids, IV antibiotics, and a warming blanket due to hypothermia. The patient then was transferred to the medical floor and followup labs demonstrated the lactic acid to be elevated at 2.3. The patient also had elevated BUN. He did get hydrated, but he remained confused and has been pulling at his IVs, as well as PEG tube, which has previously been placed. Presently, his PEG tube is dislodged and he needs a replacement of the PEG tube. The patient is unable to provide any meaningful details, and is nonverbal and disoriented and encephalopathic. Past history has included a history for CVA and no other details are available about surgery. HABITS: The patient does have a previous history of smoking for over 30 years, about a pack a day and apparently does use alcohol. ALLERGIES: NO KNOWN DRUG ALLERGIES LISTED. REVIEW OF SYSTEMS: Unable to obtain. The patient does have significant weight loss and he has had trouble swallowing and thus has a PEG tube in place for feedings and has been unable to sit up or ambulate due to marked muscle wasting and weight loss. PHYSICAL EXAMINATION: GENERAL: This is a thinly built, elderly man who appears emaciated. VITAL SIGNS: Blood pressure 110/70, pulse is 110, respirations 24, temperature 97.8. HEENT: Head is normocephalic. Sclerae were injected. Throat is dry. Ears, no inflammation. NECK: Supple. No venous distention. Trachea midline. No thyroid enlargement. CHEST: Distant breath sounds with scattered coarse wheezes throughout both lung aponte prolonged expirations. HEART: Regular S1 and S2. No murmur. No S3. ABDOMEN: Scaphoid with PEG tube site under dressing. No organomegaly. Bowel sounds are active. EXTREMITIES: Reveal no edema. There is marked muscle wasting of all the extremities with diminished peripheral pulses, and reflexes are not well elicited. The patient does seem to have weakness of his arms and mild contractures. SKIN: Dry and skin turgor is diminished. IMPRESSION: 1. Encephalopathy with possible sepsis. 2. Metabolic encephalopathy. 3. Urinary tract infection. 4. Aspiration pneumonia. 5. History of cerebrovascular accident. 6. Chronic obstructive pulmonary disease. 7. Malnutrition. 8. Lung nodule. PLAN: The patient has had a CT of the chest which shows an over 1 cm nodule, which is spiculated and there are areas of consolidation as well as pleural effusion on the right. We will need to get a CT-guided needle biopsy, if the family is consenting, and also a thoracentesis if possible, but at this time, the patient needs to be stabilized, and PEG tube to be replaced, and nutritional status improved. We will start him on IV fluids for hydration, including D5 and half normal saline at 100 mL, and the patient will be placed on O2 at 2 liters at night and nebulized DuoNeb solution added q.i.d. and p.r.n. I will follow and discuss the case with Dr. You. Thank you for this consultation. MD MEREDITH Thompson/haresh , 06:53 PM , 07:07 PM
[2018-06-17] MEDS ORDERED: Sodium Chlor 0.9% Inj 500 ML IV.SIG SCH (23:00)
[2018-06-18] MEDS ORDERED: ceFAZolin 1 GM Premix Inj 1 GM/50 ML FROZ.PIGGY IV.SIG ONE (00:01)
[2018-06-18] MEDS: KCL 20 mEq/D5W/NaCl 0.45% Inj 1,000 ML IV.SIG SCH ×2 (06:14→19:34)
[2018-06-18] MEDS: MethylPREDNISolone Sod Succinate Inj 40 MG/ML Vial IV.PUSH SCH ×3 (08:34→20:41)
[2018-06-18] MEDS: QUEtiapine 25 MG Tablet PO SCH ×3 (08:35→20:39)
[2018-06-18] MEDS: Furosemide 20 MG Tablet PO SCH ×2 (08:35→08:51)
[2018-06-18] MEDS: Aspirin 325 MG Tablet G-TUBE SCH (08:48)
--- NOTE | 2018-06-18 10:31 | P.PNIM ---
Subjective Interval history: f/u; pulmonary nodule/ dysphagia in no acute distress. going for PEG placement today. d/w the RN and no acute issues over night. Physical Exam Vital signs: Vital Signs 06/17/18 12:00 06/17/18 20:00 06/18/18 00:00 Temperature 97.5 F L 97.8 F 98.0 F Pulse Rate 101 H 108 H 99 H Respiratory Rate 17 18 18 Blood Pressure 121/60 144/70 H 115/62 Pulse Oximetry 96 96 90 L 06/18/18 04:00 06/18/18 04:31 06/18/18 07:00 Temperature 97.1 F L Pulse Rate 95 H 95 H 99 H Respiratory Rate 18 16 18 Blood Pressure 132/71 Pulse Oximetry 98 95 06/18/18 07:23 06/18/18 08:00 Temperature 98.1 F Pulse Rate 98 H Respiratory Rate 16 Blood Pressure 153/71 H Pulse Oximetry 98 97 Intake & Output 06/17/18 06/18/18 06/18/18 18:59 06:59 18:59 Intake Total 0 / 0 1000 / 1000 Output Total 600 / 600 Balance 0 / 0 400 / 400 Weight 44.383 kg 44.1 kg Intake: IV 0 / 0 1000 / 1000 D5W/1/2NS + KCL 20 mEq Inj 1, 1000 / 1000 000 ML @ 100 mls/hr IV.SIG . Q10H [facility] Rx#:[id number] Oral 0 / 0 Output: Urine 600 / 600 Other: Date of Last Bowel Movement 06/16/18 - Constitutional no acute distress (clinically the same.) Results - Labs CBC & Chem 7: 06/13/18 06:38 06/13/18 06:38 Laboratory Results - last 24 hr 06/17/18 06/17/18 06/18/18 11:15 18:20 05:52 POC Glucose 101 83 121 H Assessment and Plan - Assessment (1) CVA (cerebral vascular accident) Code(s): I63.9 - Cerebral infarction, unspecified Status: Acute (2) Pneumonia Code(s): J18.9 - Pneumonia, unspecified organism Status: Acute (3) Protein calorie malnutrition Code(s): E46 - Unspecified protein-calorie malnutrition Status: Acute (4) COPD (chronic obstructive pulmonary disease) Code(s): J44.9 - Chronic obstructive pulmonary disease, unspecified Status: Chronic (5) Pleural effusion Code(s): J90 - Pleural effusion, not elsewhere classified Status: Acute (6) Respiratory insufficiency Code(s): R06.89 - Other abnormalities of breathing Status: Acute (7) Mass of upper lobe of left lung Code(s): R91.8 - Other nonspecific abnormal finding of lung field Status: Acute - Plan 68-year-old male who was brought in after he was found at home by his landlord. The patient was altered and found to be covered in urine and feces. He was then brought into our emergency department for evaluation. Acute metabolic encephalopathy, possibly secondary to CVA, dehydration, infection Acute ischemic right frontal CVA MRI of the brain shows right frontal lobe infarction, 2-3 tiny foci. Possibly embolic stroke. No evidence of A. fib on telemetry Family endorses prior CVA 12 years ago, he did have residual expressive aphasia and possibly some swallowing difficulty. Neurology service recommendations appreciated. Echocardiogram done, EF 60%, trace mitral valve regurgitation, small pericardial effusion. -Carotid ultrasound results noted, left internal carotid occluded, right carotid moderate plaque, status post vascular surgery evaluation with no surgical intervention recommended. Continue with Lipitor and aspirin. -CTA of the carotids which reveals only about 50% right internal carotid artery stenosis, occluded left internal carotid artery at its origin. PT/OT/ST per protocol for eval and treatment. -Palliative care consult appreciated. Family declined hospice. Follow up with palliative care. -restraints as needed. continue Seroquel 50 mg BID . -morphine as needed for discomfort or dyspnea. Dysphagia Severe protein calorie malnutrition. Prealbumin 9. NG tube was pulled out by patient. -Continues to fail swallow evaluation. Follow with speech therapy. -Status post PEG placement with GI 06/04- removed the PEG - GI was reconsulted; going for PEG placement today. -started on IV fluid for now. COPD with exacerbation without asthma Community acquired pneumonia-cxr with poss findings of RLL pna 05/[address] findings noted, Extensive alveolar consolidations are noted within the right upper and lower lobes consistent with probable pneumonia. Emphysematous changes. Moderate size right pleural effusion. Continue with duo nebs. -wean off steroids. -CXR 05/30, bilateral pleural effusions, right greater than left airspace disease, both slightly worsened. -dc'ed antibiotics . -CT chest on 06/06/2018:Significant interval decrease in size of right pleural effusion from the prior exam. A stable peripheral nodule with spiculation in the anterolateral right upper lobe is worrisome for neoplasm. -pulmonary consult appreciated. Incidental findings of a spiculated mass right upper lobe suspicious for primary bronchogenic malignancy per CTA of neck Patient's son endorses that patient has been debilitated prior to stroke, positive for unintentional weight loss No prior history of malignancy History of tobacco and alcohol abuse -CT of the chest piculated noncalcified nodule within the right upper lobe measuring 13 mm which is suspicious for bronchogenic carcinoma. Precarinal and subcarinal mediastinal as well as right heel or lymphadenopathy is noted. -Tumor markers done, within normal limits. -family unsure of biopsy of mass. Palliative care following. -pulmonary consult appreciated. Pleural effusions Chest x-ray with findings of bilateral pleural effusions -Lasix. -CT chest on 06/06/2018:Significant interval decrease in size of right pleural effusion from the prior exam. -Patient agreed with therapeutic thoracentesis if necessary. History of alcohol abuse Patient restless overnight, now in restraints -s/p CIWA protocol. Left ischium ulcer -Continue wound care per wound care nurse. Hypokalemia- replaced. Hypernatremia-resolved. -Monitor and replace electrolytes as needed -continue free water via PEG. DVT prophylaxis: Continue Lovenox (1) CVA (cerebral vascular accident) Qualifiers: Laterality of affected vessel: right (3) Protein calorie malnutrition Qualifiers: Protein-calorie malnutrition severity: severe Qualified Code(s): E43 - Unspecified severe protein-calorie malnutrition (4) COPD (chronic obstructive pulmonary disease) Qualifiers: COPD type: unspecified COPD Qualified Code(s): J44.9 - Chronic obstructive pulmonary disease, unspecified
--- NOTE | 2018-06-18 13:05 | GIPROC ---
[facility] [address] [facility]. [facility], [address] EGD WITH PEG PROCEDURE REPORT EXAM DATE: 06/18/2018 PATIENT NAME: Tom Saleem MR#: [id number] BIRTHDATE: 1950 ATTENDING: Leslie Sawant MD ORDER #: [id number] SECURITY SALES MANAGER: Steven Herrera and Kaitlin Birmingham STATUS: inpatient INDICATIONS: The patient is a 68 yr old male here for an EGD with PEG due to dysphagia, patietn pulled peg out PROCEDURE PERFORMED: EGD with biopsy EGD with PEG placement MEDICATIONS: Per Anesthesia and None. TOPICAL ANESTHETIC: none CONSENT: The patient understands the risks and benefits of the procedure and understands that these risks include, but are not limited to: sedation, allergic reaction, infection, perforation and/or bleeding. Alternative means of evaluation and treatment include, among others: physical exam, x-rays, and/or surgical intervention. The patient elects to proceed with this endoscopic procedure. medical equipment was checked for proper function. Hand hygiene and appropriate measures for infection prevention was taken. After the risks, benefits and alternatives of the procedure were thoroughly explained, Informed consent was verified, confirmed and timeout was successfully executed by the treatment team. The patient was anesthetized with topical anesthesia and the Pentax EG-[id number] endoscope was introduced through the mouth and advanced to the second portion of the duodenum. The instrument was slowly withdrawn as the mucosa was fully examined. Esophagitis was found in distal esophagus-biopsy, stricture midesophagus dilated with the scope, 100 cc of gastric fluid-suctioned . The stomach was then inflated with air, and by a combination of transillumination and manual palpation, the site for the gastrostomy tube placement was selected and marked on the anterior abdominal wall. The skin of the anterior abdomen was surgically prepped and draped with sterile towels. Utilizing strict sterile technique, the selected site was then anesthetized with 1% xylocaine by injection into the skin and subcutaneous tissue. A 1 cm incision was made through the skin and subcutaneous tissue, and the needle/cannula assembly was then passed through the abdominal wall and through the anterior wall of the stomach, maintaining visualization with the endoscope. A snare device previously placed through the instrument channel was then opened and placed around the cannula, the needle was removed, and the insertion wire was passed through the cannula and into the stomach lumen. The snare was then loosened from the cannula, and repositioned to snare the insertion wire. The snare was then pulled up to the endoscope distal tip, and the scope was then withdrawn bringing with it the snare and insertion wire. The insertion wire was then released from the snare, and then loop-attached to the gastrostomy tube. Using the "pull technique", the G-tube was then pulled into place by traction on the insertion wire at the abdominal wall end. The G-tube insertion site was then cleansed once again, and the external bolster was placed over the tube to secure it to the abdominal wall. A sterile dressing was then applied, and the procedure terminated. a hiatal hernia The gastroscope was then slowly withdrawn and removed. ADVERSE EVENT: There were no complications. IMPRESSIONS: 1. Esophagitis was found 2. A hiatal hernia 3.s/p peg placement RECOMMENDATIONS: 1. Anti-reflux regimen 2. Await biopsy results. Biopsy results will not be ready for 7-10 days. If you don't hear from us in two weeks, call our office for biopsy results. 3. Begin feeding tomorrow 4. Continue PPI 5. Avoid NSAIDS 6. abdominal binder REPEAT EXAM: Return 4 week(s) EGD Leslie Sawant MD eSigned: Leslie Sawant MD 06/18/2018 1:04 PM cc: PATIENT NAME: Tom Saleem MR#: [id number]
--- NOTE | 2018-06-18 16:26 | P.PNPAL ---
Reason for Visit Reason for visit: a. To assist with evaluation and management of symptoms including:pain, dyspnea , dysphagia, debility. b. To assist medical decision maker(s) with: better understanding of current medical conditions; weighing benefits/burdens of medical treatment options; making medical treatment decisions. Subjective Subjective/Interval History: Follow-up medically necessary for symptom management. Patient seen and examined in his room. Patient remains on four-point soft restraints to all extremities. Patient sleeping, briefly arouses when his name is called. Not verbalizing. Spontaneously moving all 4 extremities. Not following simple commands. Patient remains n.p.o. Patient underwent EGD with PEG tube placement today by GI Dr. Sawant with no complications. Esophagitis was noted and a hiatal hernia. Biopsies were obtained. Pulmonology Dr. Siddiqi consulted on for evaluation and management of patient with respiratory insufficiency, COPD and lung mass, recommended CT- guided needle biopsy of lung mass and thoracentesis after PEG tube placement and improvement of nutritional status. Case discussed with bedside RN. . Family/Friend Interactions: No family at bedside . Advance Directives Living Will: Never completed Health Care Surrogate: Never completed Durable Power of Rn Maternity: Never completed Health Care Surrogate Name and Number: Health care proxy decision makers: Son, Miguel AND daughter, Cass. Documented care wishes:: No written advanced directives. . Objective Vital Signs: Vital Signs 06/17/18 20:00 06/18/18 00:00 06/18/18 04:00 Temperature 97.8 F 98.0 F 97.1 F L Pulse Rate 108 H 99 H 95 H Respiratory Rate 18 18 18 Blood Pressure 144/70 H 115/62 132/71 Pulse Oximetry 96 90 L 98 06/18/18 04:31 06/18/18 07:00 06/18/18 07:23 Temperature 98.1 F Pulse Rate 95 H 99 H 98 H Respiratory Rate 16 18 16 Blood Pressure 153/71 H Pulse Oximetry 95 98 06/18/18 08:00 Temperature Pulse Rate Respiratory Rate Blood Pressure Pulse Oximetry 97 Intake & Output 06/17/18 06/18/18 06/18/18 18:59 06:59 18:59 Intake Total 0 / 0 1000 / 1000 Output Total 600 / 600 Balance 0 / 0 400 / 400 Weight 44.383 kg 44.1 kg Intake: IV 0 / 0 1000 / 1000 D5W/1/2NS + KCL 20 mEq Inj 1, 1000 / 1000 000 ML @ 100 mls/hr IV.SIG . Q10H ERNESTO Rx#:[id number] Oral 0 / 0 Output: Urine 600 / 600 Other: Date of Last Bowel Movement 06/16/18 Physical Exam: CONSTITUTIONAL/GENERAL: This is a frail, cachectic patient, in no apparent distress. TUBES/LINES/DRAINS: PIV, soft restraints to all 4 extremities. SKIN: Temporal and muscle wasting. No jaundice, rashes, or lesions. Dry skin. Ecchymosis to bilateral upper extremities. Skin tear to left hand. Normothermic EYES: eyes open, focusing, tracking. ENT: Hearing grossly normal. Nose without bleeding or purulent drainage. Oral mucosa dry. CARDIOVASCULAR: Regular rate and rhythm without murmurs, gallops, or rubs. No JVD. RESPIRATORY/CHEST: Symmetric, unlabored respirations. Diminished breath sounds. GASTROINTESTINAL: Abdomen soft, non-tender, nondistended. No guarding. New PEG tube clamped GENITOURINARY: Without palpable bladder distension. Condom catheter MUSCULOSKELETAL: Extremities without clubbing, cyanosis, or edema. No joint tenderness or effusion noted. No calf tenderness. No mottling or clubbing. NEUROLOGICAL: Sleeping,arousable, not verbalizing today. Spontaneously moving all 4 extremities, not following commands. PSYCHIATRIC: Currently calm. Currently on Seroquel. . Diagnostic Tests Laboratory: Laboratory Results - last 72 hr 06/15/18 06/16/18 06/17/18 17:46 04:34 11:15 POC Glucose 135 H 112 H 101 06/17/18 06/18/18 18:20 05:52 POC Glucose 83 121 H Result Diagrams: 06/13/18 06:38 06/13/18 06:38 Imaging: Head MRI 05/26/18 00:00 Diffusion weighted images demonstrate tiny foci of restricted diffusion in the right frontal cortex. There is diffuse atrophy. There is a large area of encephalomalacia and scoliosis in the left frontal lobe from previous infarction. There is slight ex vacuo dilatation of the left lateral ventricle and remote left basal ganglia lacunar infarcts. In addition remote right occipital infarct and encephalomalacia noted. There are no signs of acute intracranial hemorrhage though there is evidence of remote hemosiderin along the right parietal cortex. No abnormal areas of enhancement are seen. There is no evidence for mass.. CONCLUSION: 1. Atrophy and white matter disease with remote infarcts identified. 2. 2-3 tiny foci of restricted diffusion in the right frontal lobe characteristic of tiny foci of acute infarction. Head CT 05/26/18 12:11 CONCLUSION: 1. No acute findings. Atrophy and remote infarcts. . Carotid Doppler Study 05/28/18 00:00 CONCLUSION: 1. Mild to moderate stenosis on the right not felt to be hemodynamically significant at this point. CT angiography could be used to exclude soft plaque. 2. Occluded left internal carotid artery Head MRA 05/28/18 00:00 CONCLUSION: 1. Occluded left internal carotid artery. Neck CTA 05/30/18 00:00 CONCLUSION: 1. 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 2. Occluded left internal carotid artery at its origin. 3. Less than 50% stenosis of the right internal carotid artery secondary to atherosclerotic plaquing. 4. Emphysema and right upper lobe/lower lobe parenchymal infiltrate. 5. Spiculated mass in the right upper lobe suspicious for primary bronchogenic malignancy until proven otherwise. Abdomen X-Ray 06/03/18 00:00 CONCLUSION: Nasogastric tube is in the right lower lobe airways. Chest CT 06/06/18 00:00 CONCLUSION: Significant interval decrease in size of right pleural effusion from the prior exam. Chest X-Ray 06/12/18 15:08 CONCLUSION: Persistent airspace disease in right lung base and right upper lobe. Procedures: 06/04/18-EGD with PEG placement 06/18/18-EGD with PEG tube placement Assessment and Plan - Disease Oriented Problem List (1) CVA (cerebral vascular accident) (2) Pneumonia (3) Protein calorie malnutrition (4) COPD (chronic obstructive pulmonary disease) (5) Pleural effusion (6) Respiratory insufficiency (7) Mass of upper lobe of left lung - Symptom Scale (1) Dysphagia 0-10 Scale: Unable to quantify Comment: Remains n.p.o. (2) Dyspnea 0-10 Scale: Unable to quantify (4) Pain Comment: Currently denying pain Pertinent Non-Medical Issues: Psychosocial: Single. Has 1 son and 1 daughter. Spiritual: Uatsdin agnes. Legal:Patient is not capacitated to make his own health care decisions, uncertain if he will regain capacity. According to [place] statutes, health care proxy decision making falls to the majority of adult children. Ethical issues impacting care: No known concerns at this time. Important Contacts: * Miguel Saleem, son: [phone] * Cass, daughter: [phone] * Martita Saleem, [id number]: [phone] * Brandi Russell: Sister: [phone] Prognosis: Mr. Saleem is a 68-year-old male with remote stroke and new stroke with significant dysphagia, significant unintentional weight loss, cachexia requiring NG tube feedings, new finding of spiculated lung mass with mediastinal adenopathy concerning for malignancy. Patient with significant cognitive, nutritional and functional deficits. Overall prognosis appears poor. I suspect even with a confirmed, biopsy-proven diagnosis of malignancy he would not be a candidate for treatment. Hospice appropriate if goals are comfort oriented. . Code Status: No Code DNR Plan: * Patient is not capacitated to make his own health care decisions, does not appear he will regain capacity. According to [place] statutes, health care proxy decision making falls to the majority of adult children. He has 1 son and 1 daughter. * DO NOT RESUSCITATE * Family wants to proceed with PEG tube per Martita MTZ. Advised nurse to call son AND daughter for consent. Considering CODE status and whether or not to proceed with lung biopsy. * SYMPTOMS: Dysphagia: Remote and recent stroke, carotid artery stenosis/ occlusion. Unintentional weight loss over the past 6 months. Continues to fail swallow evaluation. Patient pulled out his PEG tube on 06/17/18 PEG tube inserted 06/18/18. Currently clamped. Dyspnea: History of COPD/ emphysema, new spiculated mass in lung likely cancer with mediastinal adenopathy. Debility: Secondary to general decline, possible malignancy, malnutrition. Continue PT. Concerned patient will have continued decline. Agitation: Patient remains in four-point soft restraints which will most likely hinder placement. Recommending increasing Seroquel to 75 mg twice daily. * Family questioned possible biopsy but are aware that his performance status is to poor to receive chemotherapy or radiation. Family questioning when he is biopsy would be done for them to be able to make a definitive decision regarding transitioning patient to comfort care or pursuing aggressive treatment. * Palliative care will continue to follow throughout hospital course to assist with symptom management further clarification of goals of medical treatment. Attestation Attestation: To help prompt me to consider important information that might be impacting today's encounter and assessment, information from prior notes written by myself or my colleagues may have been "brought forward" into today's note. My signature on this note, however, is an attestation that I personally performed the exam, history, and/or decision-making noted today, and, unless otherwise indicated, the interactions with patient, family, and staff as well as the review of records all occurred today. I also attest that the listed assessment and stated plan reflect my best clinical judgment today based on the combination of historical information, prior notes, and today's exam/ interactions. When time spent is documented, it refers only to time spent today by the signer, or if indicated, combined time spent today by collaborating physician/nurse practitioner.
--- NOTE | 2018-06-18 18:42 | P.PN ---
Subjective Interval history: Pt Awake and nods to commands Family wants DNR. Went for PEG placement. Has a left lung nodule . Physical Exam Vital signs: Vital Signs 06/17/18 20:00 06/18/18 00:00 06/18/18 04:00 Temperature 97.8 F 98.0 F 97.1 F L Pulse Rate 108 H 99 H 95 H Respiratory Rate 18 18 18 Blood Pressure 144/70 H 115/62 132/71 Pulse Oximetry 96 90 L 98 06/18/18 04:31 06/18/18 07:00 06/18/18 07:23 Temperature 98.1 F Pulse Rate 95 H 99 H 98 H Respiratory Rate 16 18 16 Blood Pressure 153/71 H Pulse Oximetry 95 98 06/18/18 08:00 06/18/18 16:00 06/18/18 17:14 Temperature 97.2 F L Pulse Rate 94 H 94 H Respiratory Rate 16 16 Blood Pressure 125/78 Pulse Oximetry 97 97 97 Intake & Output 06/17/18 06/18/18 06/18/18 18:59 06:59 18:59 Intake Total 0 / 0 1000 / 1000 Output Total 600 / 600 Balance 0 / 0 400 / 400 Weight 44.383 kg 44.1 kg Intake: IV 0 / 0 1000 / 1000 D5W/1/2NS + KCL 20 mEq Inj 1, 1000 / 1000 000 ML @ 100 mls/hr IV.SIG . Q10H ERNESTO Rx#:[id number] Oral 0 / 0 Output: Urine 600 / 600 Other: # Voids 1 Date of Last Bowel Movement 06/16/18 Narrative: GENERAL: Ill-appearing thin male, in no acute distress. SKIN: Warm and dry. CARDIOVASCULAR: Regular rate and rhythm. RESPIRATORY: Occ Wheeze all over GASTROINTESTINAL: Abdomen soft, non-tender, nondistended. G-tube in place. MUSCULOSKELETAL: Extremities with multiple deformities. Muscle wasting NEUROLOGICAL: Generalized weakness. Minimally verbal. Nodding/shaking head . Results - Labs CBC & Chem 7: 06/13/18 06:38 06/13/18 06:38 Laboratory Results - last 24 hr 06/18/18 05:52 POC Glucose 121 H Assessment and Plan - Assessment (1) CVA (cerebral vascular accident) Code(s): I63.9 - Cerebral infarction, unspecified Status: Acute (2) Pneumonia Code(s): J18.9 - Pneumonia, unspecified organism Status: Acute (3) Protein calorie malnutrition Code(s): E46 - Unspecified protein-calorie malnutrition Status: Acute (4) COPD (chronic obstructive pulmonary disease) Code(s): J44.9 - Chronic obstructive pulmonary disease, unspecified Status: Chronic (5) Pleural effusion Code(s): J90 - Pleural effusion, not elsewhere classified Status: Acute (6) Respiratory insufficiency Code(s): R06.89 - Other abnormalities of breathing Status: Acute (7) Mass of upper lobe of left lung Code(s): R91.8 - Other nonspecific abnormal finding of lung field Status: Acute (8) Dysphagia Code(s): R13.10 - Dysphagia, unspecified Status: Acute - Plan 1. Cont solumedrol 20 mg BID 2. Duoneb nebs qid. 3. Will schedule Needle biopsy of left lung mass 4. Continue tube feeds at 40 CC 5. CBC,BMP Coags. (1) CVA (cerebral vascular accident) Qualifiers: Laterality of affected vessel: right (3) Protein calorie malnutrition Qualifiers: Protein-calorie malnutrition severity: severe Qualified Code(s): E43 - Unspecified severe protein-calorie malnutrition (4) COPD (chronic obstructive pulmonary disease) Qualifiers: COPD type: unspecified COPD Qualified Code(s): J44.9 - Chronic obstructive pulmonary disease, unspecified
--- NOTE | 2018-06-18 19:23 | XR ---
EXAM DATE: 06/18/2018 7:09 PM EST AGE/SEX: 68 years / Male INDICATIONS: Shortness of breath. CLINICAL DATA: This is the patient's initial encounter. Patient reports that signs and symptoms have been present for 2 days and indicates a pain score of Nonresponsive. MEDICAL/SURGICAL HISTORY: . Chronic obstructive pulmonary disease. Cerebrovascular disease. ple ural effusion. Pneumonia. None. COMPARISON: [facility] [place] CHEST W/O CONTRAST, 06/06/2018. . FINDINGS: Patchy infiltrate again seen of the right base and right upper lobe, not significantly changed. Left lung remains reasonably clear. Very small right pleural effusion possible. Heart size stable, within normal limits. CONCLUSION: Persisting consolidation and small effusion on the right. Electronically signed by: Francois Arnold MD 06/18/2018 7:21 PM EST
[2018-06-19] MEDS: Furosemide 20 MG Tablet PO SCH (09:21)
[2018-06-19] MEDS: MethylPREDNISolone Sod Succinate Inj 40 MG/ML Vial IV.PUSH SCH ×2 (09:21→22:37)
[2018-06-19] MEDS: QUEtiapine 25 MG Tablet PO SCH ×2 (09:22→22:38)
[2018-06-19] MEDS: Enoxaparin Inj 30 MG/0.3 ML Syringe SQ SCH (09:23)
[2018-06-19] MEDS: Aspirin 325 MG Tablet G-TUBE SCH (09:23)
[2018-06-19] MEDS: KCL 20 mEq/D5W/NaCl 0.45% Inj 1,000 ML IV.SIG SCH ×3 (09:24→21:00)
--- NOTE | 2018-06-19 11:08 | P.PNIM ---
Subjective Interval history: in no acute distress. looks comfortable. on restraints. Physical Exam Vital signs: Vital Signs 06/18/18 16:00 06/18/18 17:14 06/18/18 20:00 Temperature 97.2 F L 97.7 F Pulse Rate 94 H 94 H 105 H Respiratory Rate 16 16 16 Blood Pressure 125/78 142/71 H Pulse Oximetry 97 97 93 L 06/19/18 00:00 06/19/18 04:00 06/19/18 04:59 Temperature 98.2 F 97.3 F L Pulse Rate 103 H 98 H 98 H Respiratory Rate 17 18 18 Blood Pressure 147/83 H 142/79 H Pulse Oximetry 97 96 06/19/18 08:00 06/19/18 08:44 Temperature 97.7 F Pulse Rate 95 H 96 H Respiratory Rate 14 17 Blood Pressure 157/76 H Pulse Oximetry 96 93 L Intake & Output 06/18/18 06/19/18 06/19/18 18:59 06:59 18:59 Intake Total 1200 / 1200 240 / 240 Balance 1200 / 1200 240 / 240 Weight 46.2 kg Intake: IV 1050 / 1050 D5W/1/2NS + KCL 20 mEq Inj 1, 1000 / 1000 000 ML @ 100 mls/hr IV.SIG . Q10H ERNESTO Rx#:[id number] Oral 240 / 240 Anesthesia Amount 150 / 150 Other: # Voids 1 # Incontinent Voids 4 Date of Last Bowel Movement 06/18/18 06/18/18 - Constitutional no acute distress - Routine Respiratory Exam Present: CTA bilaterally - Routine Cardiovascular Exam Present: RRR - Routine Abdominal Exam Present: soft - Routine Extremities Exam Comments: no pedal edema. - Routine Neurological Exam awake. Results - Labs CBC & Chem 7: 06/13/18 06:38 06/13/18 06:38 Laboratory Results - last 24 hr 06/18/18 20:49 POC Glucose 100 - Imaging Impressions Chest X-Ray 06/18/18 00:00 CONCLUSION: Persisting consolidation and small effusion on the right. Assessment and Plan - Assessment (1) CVA (cerebral vascular accident) Code(s): I63.9 - Cerebral infarction, unspecified Status: Acute (2) Pneumonia Code(s): J18.9 - Pneumonia, unspecified organism Status: Acute (3) Protein calorie malnutrition Code(s): E46 - Unspecified protein-calorie malnutrition Status: Acute (4) COPD (chronic obstructive pulmonary disease) Code(s): J44.9 - Chronic obstructive pulmonary disease, unspecified Status: Chronic (5) Pleural effusion Code(s): J90 - Pleural effusion, not elsewhere classified Status: Acute (6) Respiratory insufficiency Code(s): R06.89 - Other abnormalities of breathing Status: Acute (7) Mass of upper lobe of left lung Code(s): R91.8 - Other nonspecific abnormal finding of lung field Status: Acute - Plan 68-year-old male who was brought in after he was found at home by his landlord. The patient was altered and found to be covered in urine and feces. He was then brought into our emergency department for evaluation. Acute metabolic encephalopathy, possibly secondary to CVA, dehydration, infection Acute ischemic right frontal CVA MRI of the brain shows right frontal lobe infarction, 2-3 tiny foci. Possibly embolic stroke. Family endorses prior CVA 12 years ago, he did have residual expressive aphasia and possibly some swallowing difficulty. Neurology service recommendations appreciated. Echocardiogram done, EF 60%, trace mitral valve regurgitation, small pericardial effusion. -Carotid ultrasound results noted, left internal carotid occluded, right carotid moderate plaque, status post vascular surgery evaluation with no surgical intervention recommended. Continue with Lipitor and aspirin. -CTA of the carotids which reveals only about 50% right internal carotid artery stenosis, occluded left internal carotid artery at its origin. PT/OT/ST per protocol for eval and treatment. -Palliative care consult appreciated. Family declined hospice. Follow up with palliative care. -restraints as needed. continue Seroquel . -morphine as needed for discomfort or dyspnea. Dysphagia Severe protein calorie malnutrition. Prealbumin 9. NG tube was pulled out by patient. -Continues to fail swallow evaluation. Follow with speech therapy. -Status post PEG placement with GI 06/04- removed the PEG - GI was reconsulted; s/p PEG replacement on 06/18/18. -continue with tube feeding. COPD with exacerbation without asthma Community acquired pneumonia-cxr with poss findings of RLL pna 05/[address] findings noted, Extensive alveolar consolidations are noted within the right upper and lower lobes consistent with probable pneumonia. Emphysematous changes. Moderate size right pleural effusion. Continue with duo nebs. -wean off steroids. -CXR 05/30, bilateral pleural effusions, right greater than left airspace disease, both slightly worsened. -dc'ed antibiotics . -CT chest on 06/06/2018:Significant interval decrease in size of right pleural effusion from the prior exam. A stable peripheral nodule with spiculation in the anterolateral right upper lobe is worrisome for neoplasm. -pulmonary consult appreciated; IR consulted for lung biopsy. Incidental findings of a spiculated mass right upper lobe suspicious for primary bronchogenic malignancy per CTA of neck Patient's son endorses that patient has been debilitated prior to stroke, positive for unintentional weight loss No prior history of malignancy History of tobacco and alcohol abuse -CT of the chest piculated noncalcified nodule within the right upper lobe measuring 13 mm which is suspicious for bronchogenic carcinoma. Precarinal and subcarinal mediastinal as well as right heel or lymphadenopathy is noted. -Tumor markers done, within normal limits. -for lung biopsy as noted above. -pulmonary consult appreciated. Pleural effusions Chest x-ray with findings of bilateral pleural effusions -Lasix. -CT chest on 06/06/2018:Significant interval decrease in size of right pleural effusion from the prior exam. -Patient agreed with therapeutic thoracentesis if necessary. History of alcohol abuse Patient restless overnight, now in restraints -s/p CIWA protocol. Left ischium ulcer -Continue wound care per wound care nurse. Hypokalemia- replaced. Hypernatremia-resolved. -Monitor and replace electrolytes as needed -continue free water via PEG. DVT prophylaxis: Continue Lovenox Discharge Planning: awaiting lung biopsy. (1) CVA (cerebral vascular accident) Qualifiers: Laterality of affected vessel: right (3) Protein calorie malnutrition Qualifiers: Protein-calorie malnutrition severity: severe Qualified Code(s): E43 - Unspecified severe protein-calorie malnutrition (4) COPD (chronic obstructive pulmonary disease) Qualifiers: COPD type: unspecified COPD Qualified Code(s): J44.9 - Chronic obstructive pulmonary disease, unspecified
--- NOTE | 2018-06-19 12:07 | P.PNGI ---
Subjective Interval history: Patient laying supine in bed, appears comfortable Post PEG placement, soft restraints and abdominal binder in place PEG tube intact without any noted drainage or sign of infection. <Phoebe Encinas - Last Filed: 06/19/18 12:01> Physical Exam Vital signs: Vital Signs 06/18/18 16:00 06/18/18 17:14 06/18/18 20:00 Temperature 97.2 F L 97.7 F Pulse Rate 94 H 94 H 105 H Respiratory Rate 16 16 16 Blood Pressure 125/78 142/71 H Pulse Oximetry 97 97 93 L 06/19/18 00:00 06/19/18 04:00 06/19/18 04:59 Temperature 98.2 F 97.3 F L Pulse Rate 103 H 98 H 98 H Respiratory Rate 17 18 18 Blood Pressure 147/83 H 142/79 H Pulse Oximetry 97 96 06/19/18 08:00 06/19/18 08:44 Temperature 97.7 F Pulse Rate 95 H 96 H Respiratory Rate 14 17 Blood Pressure 157/76 H Pulse Oximetry 96 93 L Intake & Output 06/18/18 06/19/18 06/19/18 18:59 06:59 18:59 Intake Total 1200 / 1200 240 / 240 Balance 1200 / 1200 240 / 240 Weight 46.2 kg Intake: IV 1050 / 1050 D5W/1/2NS + KCL 20 mEq Inj 1, 1000 / 1000 000 ML @ 100 mls/hr IV.SIG . Q10H [facility] Rx#:[id number] Oral 240 / 240 Anesthesia Amount 150 / 150 Other: # Voids 1 # Incontinent Voids 4 Date of Last Bowel Movement 06/18/18 06/18/18 - Constitutional no acute distress - Routine HEENT Exam Head: Present: normocephalic - Routine Respiratory Exam Present: CTA bilaterally. Absent: accessory muscle use - Routine Abdominal Exam Present: soft, normoactive bowel sounds. Absent: tenderness, distended, guarding, firm - Routine Skin Exam Present: dry, warm - Routine Neurological Exam Present: alert, altered mental status <Phoebe Encinas - Last Filed: 06/19/18 12:01> Vital signs: Vital Signs 06/19/18 00:00 06/19/18 04:00 06/19/18 04:59 Temperature 98.2 F 97.3 F L Pulse Rate 103 H 98 H 98 H Respiratory Rate 17 18 18 Blood Pressure 147/83 H 142/79 H Pulse Oximetry 97 96 06/19/18 08:00 06/19/18 08:44 06/19/18 09:00 Temperature 97.7 F Pulse Rate 95 H 96 H 109 H Respiratory Rate 14 17 Blood Pressure 157/76 H Pulse Oximetry 96 93 L 06/19/18 12:00 06/19/18 12:47 06/19/18 16:00 Temperature 97.1 F L 97.3 F L Pulse Rate 105 H 114 H Respiratory Rate 20 16 Blood Pressure 107/68 106/64 Pulse Oximetry 60 L 89 L 89 L 06/19/18 16:02 06/19/18 20:00 06/19/18 21:20 Temperature 97.9 F Pulse Rate 115 H 117 H 110 H Respiratory Rate 22 18 16 Blood Pressure 116/62 Pulse Oximetry 98 96 Intake & Output 06/19/18 06/19/18 06/20/18 06:59 18:59 06:59 Intake Total 240 / 240 100 / 100 Balance 240 / 240 100 / 100 Weight 46.2 kg Intake: IV 100 / 100 Maxipime Inj 1,000 MG In NS Inj 100 / 100 100 ML @ 200 mls/hr IV.SIG Q8H [facility] Rx#:[id number] Oral 240 / 240 Other: # Incontinent Voids 4 Date of Last Bowel Movement 06/18/18 06/18/18 <Leslie Sawant - Last Filed: 06/19/18 21:51> Results - Labs CBC & Chem 7: 06/13/18 06:38 06/13/18 06:38 Laboratory Results - last 24 hr 06/18/18 20:49 POC Glucose 100 - Imaging Impressions Chest X-Ray 06/18/18 00:00 CONCLUSION: Persisting consolidation and small effusion on the right. <Phoebe Encinas - Last Filed: 06/19/18 12:01> - Labs CBC & Chem 7: 06/13/18 06:38 06/13/18 06:38 - Imaging Impressions Chest X-Ray 06/19/18 00:00 CONCLUSION: Slight increase in right lung base opacity since the prior exam. <Leslie Sawant - Last Filed: 06/19/18 21:51> Assessment and Plan (1) Dysphagia Status: Acute Code(s): R13.10 - Dysphagia, unspecified (2) PEG (percutaneous endoscopic gastrostomy) adjustment/replacement/removal Status: Acute Code(s): Z43.1 - Encounter for attention to gastrostomy - Plan 06/03/18 - GI consultation: This patient is a 68-year-old male patient with past medical history significant for CVA, alcohol abuse, tobacco use, and encephalopathy. Patient presented to the emergency room at [facility] on 1015 with altered mental status. Patient unable to provide medical history. Apparently patient was found in unsanitary conditions by his landlord. Neurology was consulted to see patient and found carotid Doppler ultrasound revealed moderate stenosis on the right with an occluded left internal carotid artery. EEG revealed mild encephalopathy. CT chest revealed 13 mm spiculated mass, mediastinal and right hilar adenopathy, emphysema bilaterally. Patient has had multiple swallow tests and has continued to fail test since admission. Presently patient is n.p.o., tolerating tube feedings via NG. Jevity 1.5 with a goal rate of 60 mL's per hour as noted per nutritional consult. Our service has been consulted for PEG placement. 06/17/2018 PEG tube replacement Swallow evaluation recommendation patient be n.p.o. Patient was previously getting Jevity 1.5 at 60 mL's per hour via PEG tube. Patient agitated with soft restraints. PEG tube inadvertently pulled out by patient and our service has been reconsulted to replace PEG tube. 06/19/2018 PEG tube replaced 06/18/18 As per nutritional consult, tube feeding to consist of Jevity 1.5 at 60 mL's per hour via PEG. Begin feedings at 1530, PEG tube in place with dressing dry and intact. Soft restraints and abdominal binder in place. Plan -Begin PEG tube feedings Jevity 1.5 at 60 mL's per hour (goal rate) via PEG -Free water flushes as ordered -Check for residuals as ordered -Supportive care This patient has been seen by myself and Dr. Sawant and this note is written on her behalf - Attending Attestation Dr. Sawant <Phoebe Encinas - Last Filed: 06/19/18 12:01> (1) Dysphagia Status: Acute Code(s): R13.10 - Dysphagia, unspecified (2) PEG (percutaneous endoscopic gastrostomy) adjustment/replacement/removal Status: Acute Code(s): Z43.1 - Encounter for attention to gastrostomy - Attending Attestation seen, examined agree with above abdominal binder gi will sign off call us as needed <Leslie Sawant - Last Filed: 06/19/18 21:51>
--- NOTE | 2018-06-19 12:47 | P.PN ---
Subjective Interval history: Awake and has Low sats. On 6 L O2 Will go for Lung biopsy when stable. Physical Exam Vital signs: Vital Signs 06/18/18 16:00 06/18/18 17:14 06/18/18 20:00 Temperature 97.2 F L 97.7 F Pulse Rate 94 H 94 H 105 H Respiratory Rate 16 16 16 Blood Pressure 125/78 142/71 H Pulse Oximetry 97 97 93 L 06/19/18 00:00 06/19/18 04:00 06/19/18 04:59 Temperature 98.2 F 97.3 F L Pulse Rate 103 H 98 H 98 H Respiratory Rate 17 18 18 Blood Pressure 147/83 H 142/79 H Pulse Oximetry 97 96 06/19/18 08:00 06/19/18 08:44 Temperature 97.7 F Pulse Rate 95 H 96 H Respiratory Rate 14 17 Blood Pressure 157/76 H Pulse Oximetry 96 93 L Intake & Output 06/18/18 06/19/18 06/19/18 18:59 06:59 18:59 Intake Total 1200 / 1200 240 / 240 Balance 1200 / 1200 240 / 240 Weight 46.2 kg Intake: IV 1050 / 1050 D5W/1/2NS + KCL 20 mEq Inj 1, 1000 / 1000 000 ML @ 100 mls/hr IV.SIG . Q10H [facility] Rx#:[id number] Oral 240 / 240 Anesthesia Amount 150 / 150 Other: # Voids 1 # Incontinent Voids 4 Date of Last Bowel Movement 06/18/18 06/18/18 Narrative: GENERAL: Ill-appearing thin male, in no acute distress.Nods at times SKIN: Warm and dry. CARDIOVASCULAR: Regular rate and rhythm. RESPIRATORY: Occ Wheeze all over with Crackles. GASTROINTESTINAL: Abdomen soft, non-tender, nondistended. G-tube in place. MUSCULOSKELETAL: Extremities with multiple deformities. Muscle wasting NEUROLOGICAL: Generalized weakness. Minimally verbal. Nodding/shaking head . Results - Labs CBC & Chem 7: 06/13/18 06:38 06/13/18 06:38 Laboratory Results - last 24 hr 06/18/18 20:49 POC Glucose 100 - Imaging Impressions Chest X-Ray 06/18/18 00:00 CONCLUSION: Persisting consolidation and small effusion on the right. Assessment and Plan - Assessment (1) CVA (cerebral vascular accident) Code(s): I63.9 - Cerebral infarction, unspecified Status: Acute (2) Pneumonia Code(s): J18.9 - Pneumonia, unspecified organism Status: Acute (3) Protein calorie malnutrition Code(s): E46 - Unspecified protein-calorie malnutrition Status: Acute (4) COPD (chronic obstructive pulmonary disease) Code(s): J44.9 - Chronic obstructive pulmonary disease, unspecified Status: Chronic (5) Pleural effusion Code(s): J90 - Pleural effusion, not elsewhere classified Status: Acute (6) Respiratory insufficiency Code(s): R06.89 - Other abnormalities of breathing Status: Acute (7) Mass of upper lobe of left lung Code(s): R91.8 - Other nonspecific abnormal finding of lung field Status: Acute (8) Dysphagia Code(s): R13.10 - Dysphagia, unspecified Status: Acute - Plan 1. Cont solumedrol 20 mg IV BID 2. Duoneb nebs qid. 3. Will schedule Needle biopsy of left lung mass if stable 4. Continue tube feeds at 50 CC 5. Ventimask at 50 % and Keep sat >92 6. DNR status. (1) CVA (cerebral vascular accident) Qualifiers: Laterality of affected vessel: right (3) Protein calorie malnutrition Qualifiers: Protein-calorie malnutrition severity: severe Qualified Code(s): E43 - Unspecified severe protein-calorie malnutrition (4) COPD (chronic obstructive pulmonary disease) Qualifiers: COPD type: unspecified COPD Qualified Code(s): J44.9 - Chronic obstructive pulmonary disease, unspecified
--- NOTE | 2018-06-19 14:16 | XR ---
EXAM DATE: 06/19/2018 2:10 PM EST AGE/SEX: 68 years / Male INDICATIONS: Dyspnea. CLINICAL DATA: This is the patient's initial encounter. Patient reports that signs and symptoms have been present for 2 days and indicates a pain score of Nonresponsive. MEDICAL/SURGICAL HISTORY: Chronic obstructive pulmonary disease. Cerebrovascular disease. pleu ral effusion, pneumonia None. COMPARISON: [facility] – [place], CHEST 1V SINGLE AP, 06/18/2018. . FINDINGS: There is possibly slight worsening in right lung base opacity probably consolidation and/or pleural e ffusion . The rest of the examination has not changed. CONCLUSION: Slight increase in right lung base opacity since the prior exam. Electronically signed by: Radha Arrington MD 06/19/2018 2:14 PM EST
[2018-06-20 07:08] LABS: Baso % (Auto) 0.1 % (0.0-2.0); Hematocrit 31.6 % (39.0-51.0); Lymph # (Auto) 0.3 th/mm3 (1.0-4.8); Lymph % (Auto) 4.7 % (9.0-44.0); Mean Corpuscular HGB Conc 34.8 % (32.0-36.0); Mean Corpuscular Hemoglobin 35.1 pg (27.0-34.0); Mean Corpuscular Volume 100.7 fL (80.0-100.0); Mean Platelet Volume 8.4 fL (7.0-11.0); Mono # (Auto) 0.3 th/mm3 (0.0-0.9); Mono % (Auto) 4.3 % (0.0-8.0); Neut # (Auto) 6.1 th/mm3 (1.8-7.7); Neut % (Auto) 90.9 % (16.0-70.0); Platelet Count 189 th/mm3 (150-450); Red Blood Count 3.14 mil/mm3 (4.50-5.90); White Blood Count 6.7 th/mm3 (4.0-11.0)
[2018-06-20 07:25] LABS: Anion Gap 10 meq/L (5-15); Blood Urea Nitrogen 23 mg/dL (7-18); Calcium 8.3 mg/dL (8.5-10.1); Carbon Dioxide 27.5 meq/L (21.0-32.0); Chloride 100 meq/L (98-107); Glomerular Filtration Rate Greater Than 89 mL/min (>89); Glucose,Random 87 mg/dL (74-106); Potassium 4.3 meq/L (3.5-5.1); Sodium 137 meq/L (136-145)
[2018-06-20] MEDS: MethylPREDNISolone Sod Succinate Inj 40 MG/ML Vial IV.PUSH SCH ×2 (07:30→20:55)
[2018-06-20] MEDS: QUEtiapine 25 MG Tablet PO SCH ×2 (08:20→20:53)
[2018-06-20] MEDS: Furosemide 20 MG Tablet PO SCH (08:20)
[2018-06-20] MEDS ORDERED: Lidocaine 1%/Epinephrine 1:100,000 Inj 50 ML Vial ONE (09:07)
[2018-06-20] MEDS ORDERED: fentaNYL Citrate Inj 100 MCG/2 ML Ampul ONE (09:25)
--- NOTE | 2018-06-20 10:46 | P.PNIM ---
Subjective Interval history: in no acute distress. denies pain. awaiting lung biopsy. Physical Exam Vital signs: Vital Signs 06/19/18 12:00 06/19/18 12:47 06/19/18 16:00 Temperature 97.1 F L 97.3 F L Pulse Rate 105 H 114 H Respiratory Rate 20 16 Blood Pressure 107/68 106/64 Pulse Oximetry 60 L 89 L 89 L 06/19/18 16:02 06/19/18 20:00 06/19/18 21:20 Temperature 97.9 F Pulse Rate 115 H 117 H 110 H Respiratory Rate 22 18 16 Blood Pressure 116/62 Pulse Oximetry 98 96 06/20/18 00:00 06/20/18 03:28 06/20/18 04:00 Temperature 97.9 F 97.6 F Pulse Rate 111 H 80 108 H Respiratory Rate 18 18 Blood Pressure 141/73 H 124/72 Pulse Oximetry 95 95 06/20/18 07:51 06/20/18 08:00 Temperature 96.5 F L Pulse Rate 101 H Respiratory Rate 16 Blood Pressure 134/72 Pulse Oximetry 95 98 Intake & Output 06/19/18 06/20/18 06/20/18 18:59 06:59 18:59 Intake Total 760 / 760 Output Total 350 / 350 Balance 410 / 410 Weight 46.2 kg Intake: IV 200 / 200 Maxipime Inj 1,000 MG In NS Inj 200 / 200 100 ML @ 200 mls/hr IV.SIG Q8H [facility] Rx#:[id number] Tube Feeding 160 / 160 Water Bolus Amount 400 / 400 Output: Urine 350 / 350 Other: Date of Last Bowel Movement 06/18/18 06/19/18 06/19/18 # Incontinent Bowel Movements 1 - Constitutional no acute distress - Routine Respiratory Exam Present: CTA bilaterally - Routine Cardiovascular Exam Present: RRR - Routine Abdominal Exam Present: soft - Routine Extremities Exam Comments: no pedal edema. - Routine Neurological Exam Present: alert Results - Labs CBC & Chem 7: 06/20/18 06:32 06/20/18 06:32 Laboratory Results - last 24 hr 06/20/18 06/20/18 06/20/18 01:24 05:57 06:32 WBC 6.7 RBC 3.14 L Hgb 11.0 L Hct 31.6 L MCV 100.7 H MCH 35.1 H MCHC 34.8 RDW 19.0 H Plt Count 189 MPV 8.4 Neut % (Auto) 90.9 H Lymph % (Auto) 4.7 L Ray % (Auto) 4.3 Eos % (Auto) 0.0 Baso % (Auto) 0.1 Neut # (Auto) 6.1 Lymph # (Auto) 0.3 L Ray # (Auto) 0.3 Eos # (Auto) 0.0 Baso # (Auto) 0.0 WBC Differential . Differential Comment Auto diff final Sodium Potassium Chloride Carbon Dioxide Anion Gap BUN Creatinine Estimated GFR POC Glucose 94 92 Random Glucose Calcium 06/20/18 06:32 WBC RBC Hgb Hct MCV MCH MCHC RDW Plt Count MPV Neut % (Auto) Lymph % (Auto) Ray % (Auto) Eos % (Auto) Baso % (Auto) Neut # (Auto) Lymph # (Auto) Ray # (Auto) Eos # (Auto) Baso # (Auto) WBC Differential Differential Comment Sodium 137 Potassium 4.3 Chloride 100 Carbon Dioxide 27.5 Anion Gap 10 BUN 23 H Creatinine 0.62 Estimated GFR Greater than 89 POC Glucose Random Glucose 87 Calcium 8.3 L - Imaging Impressions Chest X-Ray 06/19/18 00:00 CONCLUSION: Slight increase in right lung base opacity since the prior exam. Assessment and Plan - Assessment (1) CVA (cerebral vascular accident) Code(s): I63.9 - Cerebral infarction, unspecified Status: Acute (2) Pneumonia Code(s): J18.9 - Pneumonia, unspecified organism Status: Acute (3) Protein calorie malnutrition Code(s): E46 - Unspecified protein-calorie malnutrition Status: Acute (4) COPD (chronic obstructive pulmonary disease) Code(s): J44.9 - Chronic obstructive pulmonary disease, unspecified Status: Chronic (5) Pleural effusion Code(s): J90 - Pleural effusion, not elsewhere classified Status: Acute (6) Respiratory insufficiency Code(s): R06.89 - Other abnormalities of breathing Status: Acute (7) Mass of upper lobe of left lung Code(s): R91.8 - Other nonspecific abnormal finding of lung field Status: Acute - Plan 68-year-old male who was brought in after he was found at home by his landlord. The patient was altered and found to be covered in urine and feces. He was then brought into our emergency department for evaluation. Acute metabolic encephalopathy, possibly secondary to CVA, dehydration, infection Acute ischemic right frontal CVA MRI of the brain shows right frontal lobe infarction, 2-3 tiny foci. Possibly embolic stroke. Family endorses prior CVA 12 years ago, he did have residual expressive aphasia and possibly some swallowing difficulty. Neurology service recommendations appreciated. Echocardiogram done, EF 60%, trace mitral valve regurgitation, small pericardial effusion. -Carotid ultrasound results noted, left internal carotid occluded, right carotid moderate plaque, status post vascular surgery evaluation with no surgical intervention recommended. Continue with Lipitor and aspirin. -CTA of the carotids which reveals only about 50% right internal carotid artery stenosis, occluded left internal carotid artery at its origin. PT/OT/ST per protocol for eval and treatment. -Palliative care consult appreciated. Family declined hospice. Follow up with palliative care. -restraints as needed. continue Seroquel . -morphine as needed for discomfort or dyspnea. Dysphagia Severe protein calorie malnutrition. -Continues to fail swallow evaluation. Follow with speech therapy. -Status post PEG placement with GI 06/04- removed the PEG - GI was reconsulted; s/p PEG replacement on 06/18/18. -continue with tube feeding. COPD with exacerbation without asthma Community acquired pneumonia-cxr with poss findings of RLL pna 05/[address] findings noted, Extensive alveolar consolidations are noted within the right upper and lower lobes consistent with probable pneumonia. Emphysematous changes. Moderate size right pleural effusion. Continue with duo nebs. -will change IV steroid to po within the next 24 hrs. -will deescalate IV Abx within the next 24-48 hrs if stable. -CT chest on 06/06/2018:Significant interval decrease in size of right pleural effusion from the prior exam. A stable peripheral nodule with spiculation in the anterolateral right upper lobe is worrisome for neoplasm. -pulmonary consult appreciated; IR consulted for lung biopsy. Incidental findings of a spiculated mass right upper lobe suspicious for primary bronchogenic malignancy per CTA of neck Patient's son endorses that patient has been debilitated prior to stroke, positive for unintentional weight loss No prior history of malignancy History of tobacco and alcohol abuse -CT of the chest piculated noncalcified nodule within the right upper lobe measuring 13 mm which is suspicious for bronchogenic carcinoma. Precarinal and subcarinal mediastinal as well as right heel or lymphadenopathy is noted. -Tumor markers done, within normal limits. -for lung biopsy as noted above. -pulmonary consult appreciated. Pleural effusions Chest x-ray with findings of bilateral pleural effusions -Lasix. -CT chest on 06/06/2018:Significant interval decrease in size of right pleural effusion from the prior exam. -Patient agreed with therapeutic thoracentesis if necessary. History of alcohol abuse Patient restless overnight, now in restraints -s/p CIWA protocol. Left ischium ulcer -Continue wound care per wound care nurse. Hypokalemia- replaced. Hypernatremia-resolved. -Monitor and replace electrolytes as needed -continue free water via PEG. DVT prophylaxis: Continue Lovenox Discharge Planning: awaiting lung biopsy. (1) CVA (cerebral vascular accident) Qualifiers: Laterality of affected vessel: right (3) Protein calorie malnutrition Qualifiers: Protein-calorie malnutrition severity: severe Qualified Code(s): E43 - Unspecified severe protein-calorie malnutrition (4) COPD (chronic obstructive pulmonary disease) Qualifiers: COPD type: unspecified COPD Qualified Code(s): J44.9 - Chronic obstructive pulmonary disease, unspecified
--- NOTE | 2018-06-20 10:48 | XR ---
EXAM DATE: 06/20/2018 10:33 AM EST AGE/SEX: 68 years / Male INDICATIONS: S/P lung biopsy. CLINICAL DATA: This is the patient's subsequent encounter. Patient reports that signs and symptoms h ave been present for 1 day and indicates a pain score of 0/10. MEDICAL/SURGICAL HISTORY: . Chronic obstructive pulmonary disease. Cerebrovascular disease. ple ural effusion, pneumonia None. COMPARISON: [facility] – [place], CHEST 1V SINGLE AP, 06/19/2018. . FINDINGS: A single frontal expiratory view of the chest was performed. The lungs are symmetrically aerated and clear. No evidence of pneumothorax. Mediastinal structures are in the midline. CONCLUSION: No evidence of pneumothorax post lung biopsy. Electronically signed by: Wilfred Ndiaye MD 06/20/2018 10:46 AM EST
[2018-06-20] MEDS: Enoxaparin Inj 30 MG/0.3 ML Syringe SQ SCH (10:54)
[2018-06-20] MEDS: Aspirin 325 MG Tablet G-TUBE SCH (10:54)
--- NOTE | 2018-06-20 13:16 | CT ---
EXAM DATE: 06/20/2018 11:00 AM EST AGE/SEX: 68 years / Male INDICATIONS: Right lung mass. CLINICAL DATA: This is the patient's initial encounter. Patient reports that signs and symptoms have been present for 1 day and indicates a pain score of 0/10. MEDICAL/SURGICAL HISTORY: Cerebrovascular disease. Chronic obstructive pulmonary disease. Pleu ral effusion, pneumonia. None. COMPARISON: [facility] – [place], CT CHEST W/O CONTRAST, 06/06/2018. . BIOPSY SITE: Right lung MEDICATION(S): 2mg midazolam (Versed) IV 100mcg fentanyl (Sublimaze) IV DEVICE(S): 20 gauge BARD biopsy needle 19 gauge Introducer Three core specimen(s) sent to the laboratory for pathologic evaluation. . . PROCEDURE: CT guided Right lung biopsy Prior to the procedure informed consent was obtained. Any appropriate prior imaging studies were rev iewed. Using automated exposure control and adjustment of the mA and/or kV according to patient size , radiation dose was kept as low as reasonably achievable to obtain optimal diagnostic quality images . DICOM format image data is available electronically for review and comparison. The site was prepped in a sterile fashion. Full sterile technique was used, including cap, mask, bismark rile gloves and gown and a large sterile sheet. Hand hygiene and 2% chlorhexidine and/or betadine/al cohol prep was utilized per protocol for cutaneous antisepsis. The skin and subcutaneous tissues wer e infiltrated with local anesthetic solution. With CT guidance the previously identified target was localized. Biopsy was performed using the presc ribed needle as above. Adequate hemostasis was obtained with compression at the puncture site. Follow-up CT scan reveals no pneumothorax. Conscious sedation was performed with the prescribed dosages and duration as above in the presence of an independent trained radiology nurse to assist in the monitoring of the patient. EKG and oximetry remained stable throughout the procedure. The patient tolerated the procedure well and there were no complications. The patient was sent to Radiology Outpatient Unit in stable condition. FINDINGS: The mass was localized without difficulty and 3 passes were made into the lesion. A small pneumothora x was identified. This did not expand with serial observation. CONCLUSION: 1. CT-guided biopsy with small right pneumothorax. Delayed radiographs are to be performed. Electronically signed by: Jony Gonzalez MD 06/20/2018 1:14 PM EST
--- NOTE | 2018-06-20 14:16 | XR ---
EXAM DATE: 06/20/2018 2:11 PM EST AGE/SEX: 68 years / Male INDICATIONS: S/P lung biopsy. CLINICAL DATA: This is the patient's initial encounter. Patient reports that signs and symptoms have been present for 1 day and indicates a pain score of Nonresponsive. MEDICAL/SURGICAL HISTORY: . Chronic obstructive pulmonary disease. Cerebrovascular disease. ple ural effusion, pneumonia None. . COMPARISON: [facility] – [place], [place] BIOPSY LUNG RIGHT, 06/20/2018. . FINDINGS: A single frontal expiratory view of the chest was performed. No evidence of pneumothorax. Biopsied mass in the right upper lobe is not well demonstrated. Hazy opacity in the right lower lung zone cons istent with small pleural effusion. Mediastinal structures are in the midline. CONCLUSION: 1. No significant pneumothorax status post right lung mass biopsy. Electronically signed by: Jc Caraballo MD 06/20/2018 2:15 PM EST
--- NOTE | 2018-06-20 15:59 | P.PNPAL ---
Reason for Visit Reason for visit: a. To assist with evaluation and management of symptoms including:pain, dyspnea , dysphagia, debility. b. To assist medical decision maker(s) with: better understanding of current medical conditions; weighing benefits/burdens of medical treatment options; making medical treatment decisions. Subjective Subjective/Interval History: Follow-up medically necessary for symptom management and further clarification of goals of medical treatment. Patient seen and examined in his room. Patient underwent CT-guided right lung biopsy today 06/20/18 with no complications. A small right pneumothorax was noted. Patient remains in four-point soft restraints to all extremities, continues to attempt to pull out peripheral IVs and PEG tube. Patient currently receiving DuoNeb treatments. Respiratory therapist at bedside. Alert, oriented to self, with confusion. Patient was able to verbalize, "I`m okay" today. Patient not able to answer whether he is in pain or not. Currently not showing any signs of pain. Report from bedside nurse that patient is intermittently agitated. PEG tube currently clamped- TF to be soon resumed per bedside RN. Patient has been tolerating his tube feeds. Telephone call to patient's [id number] response-left voice message and callback number. Received call back from patient's son Miguel, updated him on patient's current medical status and notified him that lung biopsy has been performed today. Family will be awaiting pathology results for biopsy to make better informed decision regarding goals of medical treatment. Hospice topic has been discussed before. Case discussed with bedside RN. . Family/Friend Interactions: See interval note. . Advance Directives Living Will: Never completed Health Care Surrogate: Never completed Durable Power of Car Barn Laborer: Never completed Health Care Surrogate Name and Number: Health care proxy decision makers: SonMiguel AND daughterCass. Documented care wishes:: No written advanced directives. . Objective Vital Signs: Vital Signs 06/19/18 16:00 06/19/18 16:02 06/19/18 20:00 Temperature 97.3 F L 97.9 F Pulse Rate 114 H 115 H 117 H Respiratory Rate 16 22 18 Blood Pressure 106/64 116/62 Pulse Oximetry 89 L 98 06/19/18 21:20 06/20/18 00:00 06/20/18 03:28 Temperature 97.9 F Pulse Rate 110 H 111 H 80 Respiratory Rate 16 18 Blood Pressure 141/73 H Pulse Oximetry 96 95 06/20/18 04:00 06/20/18 07:51 06/20/18 08:00 Temperature 97.6 F 96.5 F L Pulse Rate 108 H 101 H Respiratory Rate 18 16 Blood Pressure 124/72 134/72 Pulse Oximetry 95 95 98 06/20/18 10:30 06/20/18 10:45 06/20/18 11:00 Temperature 97.7 F Pulse Rate 101 H 101 H 101 H Respiratory Rate 20 20 20 Blood Pressure 120/81 131/82 122/80 Pulse Oximetry 95 97 93 L 06/20/18 11:30 06/20/18 12:00 06/20/18 12:30 Temperature Pulse Rate 100 H 101 H 101 H Respiratory Rate 16 20 18 Blood Pressure 137/70 137/83 134/82 Pulse Oximetry 97 93 L 06/20/18 15:24 Temperature Pulse Rate 102 H Respiratory Rate 16 Blood Pressure Pulse Oximetry 96 Intake & Output 06/19/18 06/20/18 06/20/18 18:59 06:59 18:59 Intake Total 760 / 760 100 / 100 Output Total 350 / 350 Balance 410 / 410 100 / 100 Weight 46.2 kg Intake: IV 200 / 200 100 / 100 Maxipime Inj 1,000 MG In NS Inj 200 / 200 100 / 100 100 ML @ 200 mls/hr IV.SIG Q8H [facility] Rx#:[id number] Tube Feeding 160 / 160 Water Bolus Amount 400 / 400 Output: Urine 350 / 350 Other: Date of Last Bowel Movement 06/18/18 06/19/18 06/19/18 # Incontinent Bowel Movements 1 Physical Exam: CONSTITUTIONAL/GENERAL: This is a frail, cachectic patient, in no apparent distress. TUBES/LINES/DRAINS: PIV, soft restraints to all 4 extremities. SKIN: Temporal and muscle wasting. No jaundice, rashes, or lesions. Dry skin. Ecchymosis to bilateral upper extremities. Skin tear to left hand covered with Toni wrap. EYES: eyes open, focusing, tracking. ENT: Hearing grossly normal. Nose without bleeding or purulent drainage. Oral mucosa dry. CARDIOVASCULAR: S1, S2 normal, no murmurs, gallops, or rubs. No JVD. RESPIRATORY/CHEST: Symmetric, unlabored respirations. Diminished breath sounds. GASTROINTESTINAL: Abdomen soft, non-tender, nondistended. New PEG tube clamped. Tube feeds to be resumed soon GENITOURINARY: Without palpable bladder distension. Condom catheter MUSCULOSKELETAL: Extremities without clubbing, cyanosis, or edema. No joint tenderness or effusion noted. No calf tenderness. No mottling or clubbing. NEUROLOGICAL: Sleeping,arousable, not verbalizing today. Spontaneously moving all 4 extremities, not following commands. PSYCHIATRIC: Currently calm. Currently on Seroquel. . Diagnostic Tests Laboratory: Laboratory Results - last 72 hr 06/17/18 06/18/18 06/18/18 18:20 05:52 20:49 WBC RBC Hgb Hct MCV MCH MCHC RDW Plt Count MPV Neut % (Auto) Lymph % (Auto) [place] % (Auto) Eos % (Auto) Baso % (Auto) Neut # (Auto) Lymph # (Auto) [place] # (Auto) Eos # (Auto) Baso # (Auto) WBC Differential Differential Comment Sodium Potassium Chloride Carbon Dioxide Anion Gap BUN Creatinine Estimated GFR POC Glucose 83 121 H 100 Random Glucose Calcium 06/20/18 06/20/18 06/20/18 01:24 05:57 06:32 WBC 6.7 RBC 3.14 L Hgb 11.0 L Hct 31.6 L MCV 100.7 H MCH 35.1 H MCHC 34.8 RDW 19.0 H Plt Count 189 MPV 8.4 Neut % (Auto) 90.9 H Lymph % (Auto) 4.7 L [place] % (Auto) 4.3 Eos % (Auto) 0.0 Baso % (Auto) 0.1 Neut # (Auto) 6.1 Lymph # (Auto) 0.3 L [place] # (Auto) 0.3 Eos # (Auto) 0.0 Baso # (Auto) 0.0 WBC Differential . Differential Comment Auto diff final Sodium Potassium Chloride Carbon Dioxide Anion Gap BUN Creatinine Estimated GFR POC Glucose 94 92 Random Glucose Calcium 06/20/18 06:32 WBC RBC Hgb Hct MCV MCH MCHC RDW Plt Count MPV Neut % (Auto) Lymph % (Auto) [place] % (Auto) Eos % (Auto) Baso % (Auto) Neut # (Auto) Lymph # (Auto) [place] # (Auto) Eos # (Auto) Baso # (Auto) WBC Differential Differential Comment Sodium 137 Potassium 4.3 Chloride 100 Carbon Dioxide 27.5 Anion Gap 10 BUN 23 H Creatinine 0.62 Estimated GFR Greater than 89 POC Glucose Random Glucose 87 Calcium 8.3 L Result Diagrams: 06/20/18 06:32 06/20/18 06:32 Imaging: Head MRI 05/26/18 00:00 Diffusion weighted images demonstrate tiny foci of restricted diffusion in the right frontal cortex. There is diffuse atrophy. There is a large area of encephalomalacia and scoliosis in the left frontal lobe from previous infarction. There is slight ex vacuo dilatation of the left lateral ventricle and remote left basal ganglia lacunar infarcts. In addition remote right occipital infarct and encephalomalacia noted. There are no signs of acute intracranial hemorrhage though there is evidence of remote hemosiderin along the right parietal cortex. No abnormal areas of enhancement are seen. There is no evidence for mass.. CONCLUSION: 1. Atrophy and white matter disease with remote infarcts identified. 2. 2-3 tiny foci of restricted diffusion in the right frontal lobe characteristic of tiny foci of acute infarction. Head CT 05/26/18 12:11 CONCLUSION: 1. No acute findings. Atrophy and remote infarcts. . Carotid Doppler Study 05/28/18 00:00 CONCLUSION: 1. Mild to moderate stenosis on the right not felt to be hemodynamically significant at this point. CT angiography could be used to exclude soft plaque. 2. Occluded left internal carotid artery Head MRA 05/28/18 00:00 CONCLUSION: 1. Occluded left internal carotid artery. Neck CTA 05/30/18 00:00 CONCLUSION: 1. 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 2. Occluded left internal carotid artery at its origin. 3. Less than 50% stenosis of the right internal carotid artery secondary to atherosclerotic plaquing. 4. Emphysema and right upper lobe/lower lobe parenchymal infiltrate. 5. Spiculated mass in the right upper lobe suspicious for primary bronchogenic malignancy until proven otherwise. Abdomen X-Ray 06/03/18 00:00 CONCLUSION: Nasogastric tube is in the right lower lobe airways. Chest CT 06/06/18 00:00 CONCLUSION: Significant interval decrease in size of right pleural effusion from the prior exam. Lung Biopsy CT 06/20/18 00:00 CONCLUSION: 1. CT-guided biopsy with small right pneumothorax. Delayed radiographs are to be performed. Chest X-Ray 06/20/18 14:00 CONCLUSION: No evidence of pneumothorax post lung biopsy. Procedures: 06/04/18-EGD with PEG placement 06/18/18-EGD with PEG tube placement 06/20/[id number] right lung biopsy Assessment and Plan - Disease Oriented Problem List (1) CVA (cerebral vascular accident) (2) Pneumonia (3) Protein calorie malnutrition (4) COPD (chronic obstructive pulmonary disease) (5) Pleural effusion (6) Respiratory insufficiency (7) Mass of upper lobe of left lung - Symptom Scale (1) Dysphagia 0-10 Scale: Unable to quantify Comment: Remains n.p.o. (2) Dyspnea 0-10 Scale: Unable to quantify (3) Debility 0-10 Scale: Unable to quantify (4) Pain 0-10 Scale: 2 Comment: Currently denying pain Pertinent Non-Medical Issues: Psychosocial: Single. Has 1 son and 1 daughter. Spiritual: Uatsdin agnes. Legal:Patient is not capacitated to make his own health care decisions, uncertain if he will regain capacity. According to [place] statutes, health care proxy decision making falls to the majority of adult children. Ethical issues impacting care: No known concerns at this time. Important Contacts: * Miguel Saleem, son: [phone] * Cass, daughter: [phone] * Martita Saleem, [id number]: [phone] * Brandi Russell: Sister: [phone] Prognosis: Mr. Saleem is a 68-year-old male with remote stroke and new stroke with significant dysphagia, significant unintentional weight loss, cachexia requiring NG tube feedings, new finding of spiculated lung mass with mediastinal adenopathy concerning for malignancy. Patient with significant cognitive, nutritional and functional deficits. Overall prognosis appears poor. I suspect even with a confirmed, biopsy-proven diagnosis of malignancy he would not be a candidate for treatment. Hospice appropriate if goals are comfort oriented. . Code Status: No Code DNR Plan: * Patient is not capacitated to make his own health care decisions, does not appear he will regain capacity. According to [place] statutes, health care proxy decision making falls to the majority of adult children. He has 1 son and 1 daughter. * DO NOT RESUSCITATE * Family wants to proceed with PEG tube per Martita MTZ. Advised nurse to call son AND daughter for consent. Considering CODE status and whether or not to proceed with lung biopsy. * SYMPTOMS: Dysphagia: Remote and recent stroke, carotid artery stenosis/ occlusion. Unintentional weight loss over the past 6 months. Continues to fail swallow evaluation. Patient pulled out his PEG tube on 06/17/18 PEG tube inserted 06/18/18. Currently clamped. Dyspnea: History of COPD/ emphysema, new spiculated mass in lung likely cancer with mediastinal adenopathy-underwent CT- guided lung biopsy 06/20/18. Debility: Secondary to general decline, possible malignancy, malnutrition. Continue PT. Concerned patient will have continued decline. Agitation: Patient remains in four-point soft restraints which will most likely hinder placement. Recommending increasing Seroquel to 75 mg twice daily. * Family questioned possible biopsy but are aware that his performance status is to poor to receive chemotherapy or radiation. Patient is status post lung biopsy 06/20/18-pathology pending * Palliative care will continue to follow throughout hospital course to assist with symptom management further clarification of goals of medical treatment. Attestation Attestation: To help prompt me to consider important information that might be impacting today's encounter and assessment, information from prior notes written by myself or my colleagues may have been "brought forward" into today's note. My signature on this note, however, is an attestation that I personally performed the exam, history, and/or decision-making noted today, and, unless otherwise indicated, the interactions with patient, family, and staff as well as the review of records all occurred today. I also attest that the listed assessment and stated plan reflect my best clinical judgment today based on the combination of historical information, prior notes, and today's exam/ interactions. When time spent is documented, it refers only to time spent today by the signer, or if indicated, combined time spent today by collaborating physician/nurse practitioner.
--- NOTE | 2018-06-20 19:38 | P.PN ---
Subjective Interval history: Went for CT needle biopsy of lung nodule. Doing better. Responds to commands. Physical Exam Vital signs: Vital Signs 06/19/18 20:00 06/19/18 21:20 06/20/18 00:00 Temperature 97.9 F 97.9 F Pulse Rate 117 H 110 H 111 H Respiratory Rate 18 16 18 Blood Pressure 116/62 141/73 H Pulse Oximetry 98 96 95 06/20/18 03:28 06/20/18 04:00 06/20/18 07:51 Temperature 97.6 F 96.5 F L Pulse Rate 80 108 H 101 H Respiratory Rate 18 16 Blood Pressure 124/72 134/72 Pulse Oximetry 95 95 06/20/18 08:00 06/20/18 10:30 06/20/18 10:45 Temperature 97.7 F Pulse Rate 101 H 101 H Respiratory Rate 20 20 Blood Pressure 120/81 131/82 Pulse Oximetry 98 95 97 06/20/18 11:00 06/20/18 11:30 06/20/18 12:00 Temperature Pulse Rate 101 H 100 H 101 H Respiratory Rate 20 16 20 Blood Pressure 122/80 137/70 137/83 Pulse Oximetry 93 L 97 93 L 06/20/18 12:30 06/20/18 15:24 06/20/18 16:00 Temperature 97.2 F L Pulse Rate 101 H 102 H 101 H Respiratory Rate 18 16 16 Blood Pressure 134/82 116/74 Pulse Oximetry 96 98 Intake & Output 06/20/18 06/20/18 06/21/18 06:59 18:59 06:59 Intake Total 760 / 760 600 / 600 Output Total 350 / 350 1000 / 1000 Balance 410 / 410 -400 / -400 Weight 46.2 kg Intake: IV 200 / 200 200 / 200 Maxipime Inj 1,000 MG In NS Inj 200 / 200 200 / 200 100 ML @ 200 mls/hr IV.SIG Q8H [facility] Rx#:[id number] Tube Feeding 160 / 160 Water Bolus Amount 400 / 400 400 / 400 Output: Urine 350 / 350 1000 / 1000 Other: Date of Last Bowel Movement 06/19/18 06/19/18 # Incontinent Bowel Movements 1 Narrative: GENERAL: Ill-appearing thin male, in no acute distress.responds to commands SKIN: Warm and dry. CARDIOVASCULAR: Regular rate and rhythm. RESPIRATORY: Occ Wheeze upper chest with Crackles. GASTROINTESTINAL: Abdomen soft, non-tender, nondistended. G-tube in place. MUSCULOSKELETAL: Extremities with multiple deformities. Muscle wasting NEUROLOGICAL: Generalized weakness. Results - Labs CBC & Chem 7: 06/20/18 06:32 06/20/18 06:32 Laboratory Results - last 24 hr 06/20/18 06/20/18 06/20/18 01:24 05:57 06:32 WBC 6.7 RBC 3.14 L Hgb 11.0 L Hct 31.6 L MCV 100.7 H MCH 35.1 H MCHC 34.8 RDW 19.0 H Plt Count 189 MPV 8.4 Neut % (Auto) 90.9 H Lymph % (Auto) 4.7 L [place] % (Auto) 4.3 Eos % (Auto) 0.0 Baso % (Auto) 0.1 Neut # (Auto) 6.1 Lymph # (Auto) 0.3 L [place] # (Auto) 0.3 Eos # (Auto) 0.0 Baso # (Auto) 0.0 WBC Differential . Differential Comment Auto diff final Sodium Potassium Chloride Carbon Dioxide Anion Gap BUN Creatinine Estimated GFR POC Glucose 94 92 Random Glucose Calcium 06/20/18 06/20/18 06:32 17:28 WBC RBC Hgb Hct MCV MCH MCHC RDW Plt Count MPV Neut % (Auto) Lymph % (Auto) [place] % (Auto) Eos % (Auto) Baso % (Auto) Neut # (Auto) Lymph # (Auto) [place] # (Auto) Eos # (Auto) Baso # (Auto) WBC Differential Differential Comment Sodium 137 Potassium 4.3 Chloride 100 Carbon Dioxide 27.5 Anion Gap 10 BUN 23 H Creatinine 0.62 Estimated GFR Greater than 89 POC Glucose 108 Random Glucose 87 Calcium 8.3 L - Imaging Impressions Lung Biopsy CT 06/20/18 00:00 CONCLUSION: 1. CT-guided biopsy with small right pneumothorax. Delayed radiographs are to be performed. Chest X-Ray 06/20/18 10:07 CONCLUSION: 1. No significant pneumothorax status post right lung mass biopsy. Chest X-Ray 06/20/18 14:00 CONCLUSION: No evidence of pneumothorax post lung biopsy. Assessment and Plan - Assessment (1) CVA (cerebral vascular accident) Code(s): I63.9 - Cerebral infarction, unspecified Status: Acute (2) Pneumonia Code(s): J18.9 - Pneumonia, unspecified organism Status: Acute (3) Protein calorie malnutrition Code(s): E46 - Unspecified protein-calorie malnutrition Status: Acute (4) COPD (chronic obstructive pulmonary disease) Code(s): J44.9 - Chronic obstructive pulmonary disease, unspecified Status: Chronic (5) Pleural effusion Code(s): J90 - Pleural effusion, not elsewhere classified Status: Acute (6) Respiratory insufficiency Code(s): R06.89 - Other abnormalities of breathing Status: Acute (7) Mass of upper lobe of left lung Code(s): R91.8 - Other nonspecific abnormal finding of lung field Status: Acute (8) Dysphagia Code(s): R13.10 - Dysphagia, unspecified Status: Acute - Plan 1. Cont solumedrol 20 mg IV BID 2. Duoneb nebs qid. 3. CXR in am 4. Continue tube feeds at 50 CC 5. Ventimask at 50 % and Keep sat >92 6. Await Path reports (1) CVA (cerebral vascular accident) Qualifiers: Laterality of affected vessel: right (3) Protein calorie malnutrition Qualifiers: Protein-calorie malnutrition severity: severe Qualified Code(s): E43 - Unspecified severe protein-calorie malnutrition (4) COPD (chronic obstructive pulmonary disease) Qualifiers: COPD type: unspecified COPD Qualified Code(s): J44.9 - Chronic obstructive pulmonary disease, unspecified
[2018-06-20] MEDS: Morphine Sulfate Inj 2 MG/ML Vial IV.PUSH PRN (20:54)
[2018-06-21] MEDS: Morphine Sulfate Inj 2 MG/ML Vial IV.PUSH PRN ×2 (02:48→10:18)
[2018-06-21] MEDS: QUEtiapine 25 MG Tablet PO SCH ×2 (09:25→21:37)
[2018-06-21] MEDS: MethylPREDNISolone Sod Succinate Inj 40 MG/ML Vial IV.PUSH SCH (09:27)
[2018-06-21] MEDS: Enoxaparin Inj 30 MG/0.3 ML Syringe SQ SCH (09:31)
[2018-06-21] MEDS: Furosemide 20 MG Tablet PO SCH (09:33)
[2018-06-21] MEDS: Aspirin 325 MG Tablet G-TUBE SCH (09:33)
--- NOTE | 2018-06-21 10:32 | P.PNIM ---
Subjective Interval history: in no acute distress. clinically the same. d/w the RN and no acute issues over night. Physical Exam Vital signs: Vital Signs 06/20/18 10:30 06/20/18 10:45 06/20/18 11:00 Temperature 97.7 F Pulse Rate 101 H 101 H 101 H Respiratory Rate 20 20 20 Blood Pressure 120/81 131/82 122/80 Pulse Oximetry 95 97 93 L 06/20/18 11:30 06/20/18 12:00 06/20/18 12:30 Temperature Pulse Rate 100 H 101 H 101 H Respiratory Rate 16 20 18 Blood Pressure 137/70 137/83 134/82 Pulse Oximetry 97 93 L 06/20/18 15:24 06/20/18 16:00 06/20/18 20:00 Temperature 97.2 F L 97.9 F Pulse Rate 102 H 101 H 107 H Respiratory Rate 16 16 17 Blood Pressure 116/74 140/65 Pulse Oximetry 96 98 90 L 06/21/18 00:00 06/21/18 04:00 06/21/18 08:00 Temperature 97.5 F L 97.3 F L 97.3 F L Pulse Rate 99 H 99 H 109 H Respiratory Rate 17 19 20 Blood Pressure 129/68 110/70 113/60 Pulse Oximetry 92 L 94 L 94 L 06/21/18 08:25 Temperature Pulse Rate 102 H Respiratory Rate 18 Blood Pressure Pulse Oximetry 95 Intake & Output 06/20/18 06/21/18 06/21/18 18:59 06:59 18:59 Intake Total 600 / 600 100 / 100 Output Total 1000 / 1000 450 / 450 Balance -400 / -400 -350 / -350 Weight 46.2 kg Intake: IV 200 / 200 100 / 100 Maxipime Inj 1,000 MG In NS Inj 200 / 200 100 / 100 100 ML @ 200 mls/hr IV.SIG Q8H [facility] Rx#:[id number] Water Bolus Amount 400 / 400 Output: Urine 1000 / 1000 450 / 450 Other: Date of Last Bowel Movement 06/19/18 - Constitutional no acute distress - Routine Respiratory Exam Present: CTA bilaterally - Routine Cardiovascular Exam Present: RRR - Routine Abdominal Exam Present: soft - Routine Extremities Exam Comments: no pedal edema. - Routine Neurological Exam Present: alert Results - Labs CBC & Chem 7: 06/20/18 06:32 06/20/18 06:32 Laboratory Results - last 24 hr 06/20/18 17:28 POC Glucose 108 - Imaging Impressions Lung Biopsy CT 06/20/18 00:00 CONCLUSION: 1. CT-guided biopsy with small right pneumothorax. Delayed radiographs are to be performed. Chest X-Ray 06/20/18 10:07 CONCLUSION: 1. No significant pneumothorax status post right lung mass biopsy. Chest X-Ray 06/20/18 14:00 CONCLUSION: No evidence of pneumothorax post lung biopsy. - Procedures lung biopsy. Assessment and Plan - Assessment (1) CVA (cerebral vascular accident) Code(s): I63.9 - Cerebral infarction, unspecified Status: Acute (2) Pneumonia Code(s): J18.9 - Pneumonia, unspecified organism Status: Acute (3) Protein calorie malnutrition Code(s): E46 - Unspecified protein-calorie malnutrition Status: Acute (4) COPD (chronic obstructive pulmonary disease) Code(s): J44.9 - Chronic obstructive pulmonary disease, unspecified Status: Chronic (5) Pleural effusion Code(s): J90 - Pleural effusion, not elsewhere classified Status: Acute (6) Respiratory insufficiency Code(s): R06.89 - Other abnormalities of breathing Status: Acute (7) Mass of upper lobe of left lung Code(s): R91.8 - Other nonspecific abnormal finding of lung field Status: Acute - Plan 68-year-old male who was brought in after he was found at home by his landlord. The patient was altered and found to be covered in urine and feces. He was then brought into our emergency department for evaluation. Acute metabolic encephalopathy, possibly secondary to CVA, dehydration, infection Acute ischemic right frontal CVA MRI of the brain shows right frontal lobe infarction, 2-3 tiny foci. Possibly embolic stroke. Family endorses prior CVA 12 years ago, he did have residual expressive aphasia and possibly some swallowing difficulty. Neurology service recommendations appreciated. Echocardiogram done, EF 60%, trace mitral valve regurgitation, small pericardial effusion. -Carotid ultrasound results noted, left internal carotid occluded, right carotid moderate plaque, status post vascular surgery evaluation with no surgical intervention recommended. Continue with Lipitor and aspirin. -CTA of the carotids which reveals only about 50% right internal carotid artery stenosis, occluded left internal carotid artery at its origin. PT/OT/ST per protocol for eval and treatment. -Palliative care consult appreciated. Family declined hospice. Follow up with palliative care. -restraints as needed. continue Seroquel . -morphine as needed for discomfort or dyspnea. Dysphagia Severe protein calorie malnutrition. -Continues to fail swallow evaluation. Follow with speech therapy. -Status post PEG placement with GI 06/04- removed the PEG - GI was reconsulted; s/p PEG replacement on 06/18/18. -continue with tube feeding. COPD with exacerbation without asthma Community acquired pneumonia-cxr with poss findings of RLL pna 05/[address] findings noted, Extensive alveolar consolidations are noted within the right upper and lower lobes consistent with probable pneumonia. Emphysematous changes. Moderate size right pleural effusion. Continue with duo nebs. -will change IV steroid to po within the next 24 hrs. -will deescalate IV Abx within the next 24-48 hrs if stable. Incidental findings of a spiculated mass right upper lobe suspicious for primary bronchogenic malignancy per CTA of neck Patient's son endorses that patient has been debilitated prior to stroke, positive for unintentional weight loss No prior history of malignancy History of tobacco and alcohol abuse -CT of the chest piculated noncalcified nodule within the right upper lobe measuring 13 mm which is suspicious for bronchogenic carcinoma. Precarinal and subcarinal mediastinal as well as right heel or lymphadenopathy is noted. -Tumor markers done, within normal limits. -s/p lung biopsy. -pulmonary consult appreciated. Pleural effusions Chest x-ray with findings of bilateral pleural effusions -Lasix. -CT chest on 06/06/2018:Significant interval decrease in size of right pleural effusion from the prior exam. -Patient agreed with therapeutic thoracentesis if necessary. History of alcohol abuse Patient restless overnight, now in restraints -s/p CIWA protocol. Left ischium ulcer -Continue wound care per wound care nurse. Hypokalemia- replaced. Hypernatremia-resolved. -Monitor and replace electrolytes as needed -continue free water via PEG. DVT prophylaxis: Continue Lovenox Discharge Planning: awaiting lung biopsy. (1) CVA (cerebral vascular accident) Qualifiers: Laterality of affected vessel: right (3) Protein calorie malnutrition Qualifiers: Protein-calorie malnutrition severity: severe Qualified Code(s): E43 - Unspecified severe protein-calorie malnutrition (4) COPD (chronic obstructive pulmonary disease) Qualifiers: COPD type: unspecified COPD Qualified Code(s): J44.9 - Chronic obstructive pulmonary disease, unspecified
[2018-06-21] MEDS: Amoxicillin/Clavulanate 875/125 MG Tablet G-TUBE SCH ×2 (13:13→23:34)
--- NOTE | 2018-06-21 19:17 | P.PN ---
Subjective Interval history: Awake and in restraints. PEG in. Pulls at tubes. Off O2 now and sats 95. Physical Exam Vital signs: Vital Signs 06/20/18 20:00 06/21/18 00:00 06/21/18 04:00 Temperature 97.9 F 97.5 F L 97.3 F L Pulse Rate 107 H 99 H 99 H Respiratory Rate 17 17 19 Blood Pressure 140/65 129/68 110/70 Pulse Oximetry 90 L 92 L 94 L 06/21/18 08:00 06/21/18 08:25 06/21/18 09:00 Temperature 97.3 F L Pulse Rate 109 H 102 H 109 H Respiratory Rate 20 18 Blood Pressure 113/60 Pulse Oximetry 94 L 95 06/21/18 12:00 06/21/18 16:00 Temperature 97.4 F L 96.8 F L Pulse Rate 113 H 108 H Respiratory Rate 20 20 Blood Pressure 148/84 H 122/67 Pulse Oximetry 99 97 Intake & Output 06/21/18 06/21/18 06/22/18 06:59 18:59 06:59 Intake Total 100 / 100 986 / 986 Output Total 450 / 450 Balance -350 / -350 986 / 986 Weight 46.2 kg Intake: IV 100 / 100 100 / 100 Maxipime Inj 1,000 MG In NS Inj 100 / 100 100 / 100 100 ML @ 200 mls/hr IV.SIG Q8H [facility] Rx#:[id number] Tube Feeding 486 / 486 Water Bolus Amount 400 / 400 Output: Urine 450 / 450 Other: Date of Last Bowel Movement 06/19/18 Narrative: GENERAL: Ill-appearing thin male, in no acute distress.responds to commands SKIN: Warm and dry. CARDIOVASCULAR: Regular rate and rhythm. RESPIRATORY: Occ Wheeze upper chest and no Crackles. GASTROINTESTINAL: Abdomen soft, non-tender, nondistended. G-tube in place. MUSCULOSKELETAL: Extremities with multiple deformities. Muscle wasting NEUROLOGICAL: Generalized weakness. Results - Labs CBC & Chem 7: 06/20/18 06:32 06/20/18 06:32 - Procedures lung biopsy. Assessment and Plan - Assessment (1) CVA (cerebral vascular accident) Code(s): I63.9 - Cerebral infarction, unspecified Status: Acute (2) Pneumonia Code(s): J18.9 - Pneumonia, unspecified organism Status: Acute (3) Protein calorie malnutrition Code(s): E46 - Unspecified protein-calorie malnutrition Status: Acute (4) COPD (chronic obstructive pulmonary disease) Code(s): J44.9 - Chronic obstructive pulmonary disease, unspecified Status: Chronic (5) Pleural effusion Code(s): J90 - Pleural effusion, not elsewhere classified Status: Acute (6) Respiratory insufficiency Code(s): R06.89 - Other abnormalities of breathing Status: Acute (7) Mass of upper lobe of left lung Code(s): R91.8 - Other nonspecific abnormal finding of lung field Status: Acute (8) Dysphagia Code(s): R13.10 - Dysphagia, unspecified Status: Acute - Plan 1. D/C solumedrol 2. Duoneb nebs qid. 3. Add Prednisone 10 mg BID 4. Continue tube feeds at 50 CC 5. O2 2 L N/C PRN 6. Await Path reports on Lung biopsy (1) CVA (cerebral vascular accident) Qualifiers: Laterality of affected vessel: right (3) Protein calorie malnutrition Qualifiers: Protein-calorie malnutrition severity: severe Qualified Code(s): E43 - Unspecified severe protein-calorie malnutrition (4) COPD (chronic obstructive pulmonary disease) Qualifiers: COPD type: unspecified COPD Qualified Code(s): J44.9 - Chronic obstructive pulmonary disease, unspecified
--- NOTE | 2018-06-22 10:10 | P.PNIM ---
Subjective Interval history: in no acute distress. looks comfortable. no fever. Physical Exam Vital signs: Vital Signs 06/21/18 12:00 06/21/18 16:00 06/21/18 20:00 Temperature 97.4 F L 96.8 F L 98.1 F Pulse Rate 113 H 108 H 114 H Respiratory Rate 20 20 17 Blood Pressure 148/84 H 122/67 135/84 Pulse Oximetry 99 97 93 L 06/22/18 00:00 06/22/18 04:00 06/22/18 08:00 Temperature 97.3 F L 97.5 F L 98.8 F Pulse Rate 114 H 115 H 107 H Respiratory Rate 19 18 20 Blood Pressure 118/73 140/83 112/62 Pulse Oximetry 93 L 93 L 95 Intake & Output 06/21/18 06/22/18 06/22/18 18:59 06:59 18:59 Intake Total 986 / 986 Output Total 450 / 450 Balance 986 / 986 -450 / -450 Weight 46.2 kg Intake: IV 100 / 100 Maxipime Inj 1,000 MG In NS Inj 100 / 100 100 ML @ 200 mls/hr IV.SIG Q8H [facility] Rx#:[id number] Tube Feeding 486 / 486 Water Bolus Amount 400 / 400 Output: Urine 450 / 450 Other: Date of Last Bowel Movement 06/19/18 - Constitutional no acute distress - Routine Respiratory Exam Present: CTA bilaterally - Routine Cardiovascular Exam Present: RRR - Routine Abdominal Exam Present: soft - Routine Extremities Exam Comments: no pedal edema. - Routine Neurological Exam Present: alert Results - Labs CBC & Chem 7: 06/20/18 06:32 06/20/18 06:32 - Procedures lung biopsy. Assessment and Plan - Assessment (1) CVA (cerebral vascular accident) Code(s): I63.9 - Cerebral infarction, unspecified Status: Acute (2) Pneumonia Code(s): J18.9 - Pneumonia, unspecified organism Status: Acute (3) Protein calorie malnutrition Code(s): E46 - Unspecified protein-calorie malnutrition Status: Acute (4) COPD (chronic obstructive pulmonary disease) Code(s): J44.9 - Chronic obstructive pulmonary disease, unspecified Status: Chronic (5) Pleural effusion Code(s): J90 - Pleural effusion, not elsewhere classified Status: Acute (6) Respiratory insufficiency Code(s): R06.89 - Other abnormalities of breathing Status: Acute (7) Mass of upper lobe of left lung Code(s): R91.8 - Other nonspecific abnormal finding of lung field Status: Acute - Plan 68-year-old male who was brought in after he was found at home by his landlord. The patient was altered and found to be covered in urine and feces. He was then brought into our emergency department for evaluation. Acute metabolic encephalopathy, possibly secondary to CVA, dehydration, infection Acute ischemic right frontal CVA MRI of the brain shows right frontal lobe infarction, 2-3 tiny foci. Possibly embolic stroke. Family endorses prior CVA 12 years ago, he did have residual expressive aphasia and possibly some swallowing difficulty. Neurology service recommendations appreciated. Echocardiogram done, EF 60%, trace mitral valve regurgitation, small pericardial effusion. -Carotid ultrasound results noted, left internal carotid occluded, right carotid moderate plaque, status post vascular surgery evaluation with no surgical intervention recommended. Continue with Lipitor and aspirin. -CTA of the carotids which reveals only about 50% right internal carotid artery stenosis, occluded left internal carotid artery at its origin. PT/OT/ST per protocol for eval and treatment. -Palliative care consult appreciated. Family declined hospice. Follow up with palliative care. -restraints as needed. continue Seroquel . -morphine as needed for discomfort or dyspnea. Dysphagia Severe protein calorie malnutrition. -Continues to fail swallow evaluation. Follow with speech therapy. -Status post PEG placement with GI 06/04- patient removed the PEG - GI was reconsulted; s/p PEG replacement on 06/18/18. -continue with tube feeding. COPD with exacerbation without asthma Community acquired pneumonia-cxr with poss findings of RLL pna 05/[address] findings noted, Extensive alveolar consolidations are noted within the right upper and lower lobes consistent with probable pneumonia. Emphysematous changes. Moderate size right pleural effusion. Continue with duo nebs. -continue prednisone and will start tapering down within the next 24-48 hrs. -continue Augmentin. Incidental findings of a spiculated mass right upper lobe suspicious for primary bronchogenic malignancy per CTA of neck Patient's son endorses that patient has been debilitated prior to stroke, positive for unintentional weight loss No prior history of malignancy History of tobacco and alcohol abuse -CT of the chest piculated noncalcified nodule within the right upper lobe measuring 13 mm which is suspicious for bronchogenic carcinoma. Precarinal and subcarinal mediastinal as well as right heel or lymphadenopathy is noted. -Tumor markers done, within normal limits. -s/p lung biopsy; will follow the pathology. -pulmonary consult appreciated. Pleural effusions Chest x-ray with findings of bilateral pleural effusions -Lasix. -CT chest on 06/06/2018:Significant interval decrease in size of right pleural effusion from the prior exam. -Patient agreed with therapeutic thoracentesis if necessary. History of alcohol abuse Patient restless overnight, now in restraints -s/p CIWA protocol. Left ischium ulcer -Continue wound care per wound care nurse. Hypokalemia- replaced. Hypernatremia-resolved. -Monitor and replace electrolytes as needed -continue free water via PEG. DVT prophylaxis: Continue Lovenox Discharge Planning: awaiting lung biopsy. (1) CVA (cerebral vascular accident) Qualifiers: Laterality of affected vessel: right (3) Protein calorie malnutrition Qualifiers: Protein-calorie malnutrition severity: severe Qualified Code(s): E43 - Unspecified severe protein-calorie malnutrition (4) COPD (chronic obstructive pulmonary disease) Qualifiers: COPD type: unspecified COPD Qualified Code(s): J44.9 - Chronic obstructive pulmonary disease, unspecified
[2018-06-22] MEDS: Enoxaparin Inj 30 MG/0.3 ML Syringe SQ SCH (10:12)
[2018-06-22] MEDS: Furosemide 20 MG Tablet PO SCH (10:12)
[2018-06-22] MEDS: QUEtiapine 25 MG Tablet PO SCH ×3 (10:12→22:30)
[2018-06-22] MEDS: predniSONE 20 MG Tablet G-TUBE SCH (10:13)
[2018-06-22] MEDS: Aspirin 325 MG Tablet G-TUBE SCH (10:13)
[2018-06-22] MEDS: Amoxicillin/Clavulanate 875/125 MG Tablet G-TUBE SCH ×2 (10:19→22:22)
--- NOTE | 2018-06-22 16:20 | P.DIET ---
Nutritional Evaluation Type of nutrition evaluation: follow-up Nutrition consult regarding: Tube Feeding Nutrition [place] [facility] [place] Screening comments: 06/13/18 [facility] [place] 06/06/18 [facility] [place] bolus TF'ing Recs 06/03/18 [facility] [place]'ing 05/28/18 [facility] [place] Malnutrition Subjective Barriers to Nutrition: Swallowing problem Objective - Diagnosis Encephalopathy - Objective [place] body weight: 72.7 kg % IBW: 69 Body Weight Used for Calculations: Actual (49.9kg) Energy Needs - Lower Range (kCal/kg): 40 Energy Needs - Upper Range (kCal/kg): 45 Lower Limit kCal/kg (kCals): 1,996 Upper Limit kCal/kg (kCals): 2,246 Lower Limit Protein Factor (Grams per Kg): 1.4 Upper Limit Protein Factor (Grams per Kg): 1.8 Lower Protein Needs (Protein): 70 Upper Protein Needs (Protein): 90 Dietitian Reviewed in Medical Record: Curent medications, Intake & Output, Labs , Medical history, Tube feeding, Wound/DTI Diet Order: TF'ing Jevity 1.5 @ goal rate 35ml/hr Speech Therapy Recommendations: Yes (NPO) Wound Care Note: 05/27/18 WOCN note: Left Ischium unstageable pressure injury Objective Comments: PMH includes: CVA Integumentary: Left Ischium Pressure Injury; Coccyx maceration 06/04/18 PEG tube placement-pt removed PEG tube s/p GI PEG tube placement 06/18 Meds include: Lipitor, Seroquel, Lasix LBM 06/19 Feeding - Current Tube Feeding Tube Feeding Product: Jevity 1.5 Tube Feeding Rate: 60 Current kCals Provided by Tube Feedin,160 Current Protein Provided by Tube Feeding (gPRO): 92 Current Free H2O Provided (m/l): 1,094 Assessment Assessment: Pt continues at high nutritional risk r/t clinical status, low BMI 15.0, increased needs for wound healing and need for TF'ing. Pt tolerating TF'ing w/Jevity 1.5 at Rec goal rate 60ml/hr via PEG tube; pt has abdominal binder in place. Rec 1-pkt Nicholas BID via feeding tube per protocol to aid in wound healing. For bolus feedings, Rec Jevity 1.5, 1-can (240ml) @ 6am, 10am, 2pm, 6pm, 10pm and 2am. Free Water Fushes per MD. Wt changes noted w and 06/17 wt's inaccurate r/t bedscale was broken. Labs reviewed. Additional Recs to follow r/t Clinical Course. Recommendations: 1. TF'ing w/Jevity 1.5 at Rec goal rate 60ml/hr 2. Rec 1-pkt Nicholas BID via feeding tube per protocol 3. For bolus feedings, Rec Jevity 1.5, 1-can(240ml) @ 6am, 10am, 2pm, 6pm, 10pm and 2am. 4. Free water flushes per MD 5. Additional Recs to follow r/t Clinical Course Dietitian to Monitor: Lab values, Intake & Output, Tube feeding tolerance, Weight change, Wound/skin status, Swallow recommendations, Medical course
--- NOTE | 2018-06-22 17:10 | P.PN ---
Subjective Interval history: No change and remains off O2. Pathology on Biopsy pending. No Fever. Physical Exam Vital signs: Vital Signs 06/21/18 20:00 06/22/18 00:00 06/22/18 04:00 Temperature 98.1 F 97.3 F L 97.5 F L Pulse Rate 114 H 114 H 115 H Respiratory Rate 17 19 18 Blood Pressure 135/84 118/73 140/83 Pulse Oximetry 93 L 93 L 93 L 06/22/18 08:00 06/22/18 09:00 06/22/18 12:00 Temperature 98.8 F 97.2 F L Pulse Rate 107 H 114 H 105 H Respiratory Rate 20 20 Blood Pressure 112/62 113/64 Pulse Oximetry 95 95 06/22/18 15:53 Temperature 97.6 F Pulse Rate 102 H Respiratory Rate 20 Blood Pressure 111/63 Pulse Oximetry 91 L Intake & Output 06/21/18 06/22/18 06/22/18 18:59 06:59 18:59 Intake Total 986 / 986 1367 / 1367 Output Total 450 / 450 Balance 986 / 986 -450 / -450 1367 / 1367 Weight 46.2 kg Intake: IV 100 / 100 Maxipime Inj 1,000 MG In NS Inj 100 / 100 100 ML @ 200 mls/hr IV.SIG Q8H [facility] Rx#:[id number] Tube Feeding 486 / 486 967 / 967 Water Bolus Amount 400 / 400 400 / 400 Output: Urine 450 / 450 Other: Date of Last Bowel Movement 06/19/18 06/19/18 Narrative: GENERAL: Elderly thin male, in no acute distress.responds to commands SKIN: Warm and dry. CARDIOVASCULAR: Regular rate and rhythm. RESPIRATORY: Occ Wheeze upper chest and no Crackles. GASTROINTESTINAL: Abdomen soft, non-tender, nondistended. G-tube in place. MUSCULOSKELETAL: Extremities with multiple deformities. Muscle wasting NEUROLOGICAL: Generalized weakness. Results - Labs CBC & Chem 7: 06/20/18 06:32 06/20/18 06:32 - Procedures lung biopsy. Assessment and Plan - Assessment (1) CVA (cerebral vascular accident) Code(s): I63.9 - Cerebral infarction, unspecified Status: Acute (2) Pneumonia Code(s): J18.9 - Pneumonia, unspecified organism Status: Acute (3) Protein calorie malnutrition Code(s): E46 - Unspecified protein-calorie malnutrition Status: Acute (4) COPD (chronic obstructive pulmonary disease) Code(s): J44.9 - Chronic obstructive pulmonary disease, unspecified Status: Chronic (5) Pleural effusion Code(s): J90 - Pleural effusion, not elsewhere classified Status: Acute (6) Respiratory insufficiency Code(s): R06.89 - Other abnormalities of breathing Status: Acute (7) Mass of upper lobe of left lung Code(s): R91.8 - Other nonspecific abnormal finding of lung field Status: Acute (8) Dysphagia Code(s): R13.10 - Dysphagia, unspecified Status: Acute - Plan 1. CBC,BMP in am 2. Duoneb nebs qid. 3. Prednisone 10 mg BID 4. Continue tube feeds at 50 CC 5. O2 2 L N/C PRN 6. Await Path reports on Lung biopsy (1) CVA (cerebral vascular accident) Qualifiers: Laterality of affected vessel: right (3) Protein calorie malnutrition Qualifiers: Protein-calorie malnutrition severity: severe Qualified Code(s): E43 - Unspecified severe protein-calorie malnutrition (4) COPD (chronic obstructive pulmonary disease) Qualifiers: COPD type: unspecified COPD Qualified Code(s): J44.9 - Chronic obstructive pulmonary disease, unspecified
[2018-06-22] MEDS: Morphine Sulfate Inj 2 MG/ML Vial IV.PUSH PRN (22:21)
[2018-06-23] MEDS: Aspirin 325 MG Tablet G-TUBE SCH (08:23)
[2018-06-23] MEDS: predniSONE 20 MG Tablet G-TUBE SCH (08:24)
[2018-06-23] MEDS: Furosemide 20 MG Tablet PO SCH (08:24)
[2018-06-23] MEDS: QUEtiapine 25 MG Tablet PO SCH ×2 (08:24→20:30)
[2018-06-23] MEDS: Enoxaparin Inj 30 MG/0.3 ML Syringe SQ SCH (08:24)
--- NOTE | 2018-06-23 10:41 | P.PNIM ---
Subjective Interval history: in no acute distress. looks comfortable. no fever. d/w the RN. Physical Exam Vital signs: Vital Signs 06/22/18 12:00 06/22/18 15:53 06/22/18 20:00 Temperature 97.2 F L 97.6 F 97.4 F L Pulse Rate 105 H 102 H 104 H Respiratory Rate 20 20 16 Blood Pressure 113/64 111/63 113/63 Pulse Oximetry 95 91 L 95 06/22/18 22:48 06/23/18 00:00 06/23/18 04:00 Temperature 96.9 F L 97.8 F Pulse Rate 102 H 97 H Respiratory Rate 18 17 17 Blood Pressure 116/64 109/64 Pulse Oximetry 94 L 93 L 06/23/18 06:30 Temperature 97.3 F L Pulse Rate 99 H Respiratory Rate 18 Blood Pressure 131/89 Pulse Oximetry 93 L Intake & Output 06/22/18 06/23/18 06/23/18 18:59 06:59 18:59 Intake Total 1367 / 1367 Output Total 400 / 400 Balance 1367 / 1367 -400 / -400 Weight 46 kg Intake: Tube Feeding 967 / 967 Water Bolus Amount 400 / 400 Output: Urine 400 / 400 Other: Date of Last Bowel Movement 06/19/18 06/21/18 # Bowel Movements 1 - Constitutional no acute distress - Routine Respiratory Exam Present: CTA bilaterally - Routine Cardiovascular Exam Present: RRR - Routine Abdominal Exam Present: soft - Routine Extremities Exam Comments: no pedal edema. - Routine Neurological Exam Present: alert Results - Labs CBC & Chem 7: 06/20/18 06:32 06/20/18 06:32 Laboratory Results - last 24 hr 06/23/18 07:34 POC Glucose 164 H - Procedures lung biopsy. Assessment and Plan - Assessment (1) CVA (cerebral vascular accident) Code(s): I63.9 - Cerebral infarction, unspecified Status: Acute (2) Pneumonia Code(s): J18.9 - Pneumonia, unspecified organism Status: Acute (3) Protein calorie malnutrition Code(s): E46 - Unspecified protein-calorie malnutrition Status: Acute (4) COPD (chronic obstructive pulmonary disease) Code(s): J44.9 - Chronic obstructive pulmonary disease, unspecified Status: Chronic (5) Pleural effusion Code(s): J90 - Pleural effusion, not elsewhere classified Status: Acute (6) Respiratory insufficiency Code(s): R06.89 - Other abnormalities of breathing Status: Acute (7) Mass of upper lobe of left lung Code(s): R91.8 - Other nonspecific abnormal finding of lung field Status: Acute - Plan 68-year-old male who was brought in after he was found at home by his landlord. The patient was altered and found to be covered in urine and feces. He was then brought into our emergency department for evaluation. Acute metabolic encephalopathy, possibly secondary to CVA, dehydration, infection Acute ischemic right frontal CVA MRI of the brain shows right frontal lobe infarction, 2-3 tiny foci. Possibly embolic stroke. Family endorses prior CVA 12 years ago, he did have residual expressive aphasia and possibly some swallowing difficulty. Neurology service recommendations appreciated. Echocardiogram done, EF 60%, trace mitral valve regurgitation, small pericardial effusion. -Carotid ultrasound results noted, left internal carotid occluded, right carotid moderate plaque, status post vascular surgery evaluation with no surgical intervention recommended. Continue with Lipitor and aspirin. -CTA of the carotids which reveals only about 50% right internal carotid artery stenosis, occluded left internal carotid artery at its origin. PT/OT/ST per protocol for eval and treatment. -Palliative care consult appreciated. Family declined hospice. Follow up with palliative care. -restraints as needed. continue Seroquel . -morphine as needed for discomfort or dyspnea. Dysphagia Severe protein calorie malnutrition. -Continues to fail swallow evaluation. Follow with speech therapy. -Status post PEG placement with GI 06/04- patient removed the PEG - GI was reconsulted; s/p PEG replacement on 06/18/18. -continue with tube feeding. COPD with exacerbation without asthma Community acquired pneumonia-cxr with poss findings of RLL pna 05/[address] findings noted, Extensive alveolar consolidations are noted within the right upper and lower lobes consistent with probable pneumonia. Emphysematous changes. Moderate size right pleural effusion. Continue with duo nebs. -continue prednisone and will start tapering down . -continue Augmentin. Incidental findings of a spiculated mass right upper lobe suspicious for primary bronchogenic malignancy per CTA of neck Patient's son endorses that patient has been debilitated prior to stroke, positive for unintentional weight loss No prior history of malignancy History of tobacco and alcohol abuse -CT of the chest piculated noncalcified nodule within the right upper lobe measuring 13 mm which is suspicious for bronchogenic carcinoma. Precarinal and subcarinal mediastinal as well as right heel or lymphadenopathy is noted. -Tumor markers done, within normal limits. -s/p lung biopsy; will follow the pathology. -pulmonary consult appreciated. Pleural effusions Chest x-ray with findings of bilateral pleural effusions -Lasix. -CT chest on 06/06/2018:Significant interval decrease in size of right pleural effusion from the prior exam. -Patient agreed with therapeutic thoracentesis if necessary. History of alcohol abuse Patient restless overnight, now in restraints -s/p CIWA protocol. Left ischium ulcer -Continue wound care per wound care nurse. Hypokalemia- replaced. Hypernatremia-resolved. -Monitor and replace electrolytes as needed -continue free water via PEG. DVT prophylaxis: Continue Lovenox Discharge Planning: awaiting the result of the lung biopsy. (1) CVA (cerebral vascular accident) Qualifiers: Laterality of affected vessel: right (3) Protein calorie malnutrition Qualifiers: Protein-calorie malnutrition severity: severe Qualified Code(s): E43 - Unspecified severe protein-calorie malnutrition (4) COPD (chronic obstructive pulmonary disease) Qualifiers: COPD type: unspecified COPD Qualified Code(s): J44.9 - Chronic obstructive pulmonary disease, unspecified
[2018-06-23] MEDS: Amoxicillin/Clavulanate 875/125 MG Tablet G-TUBE SCH (11:04)
[2018-06-23] MEDS: Potassium Chloride 25 MEQ Effervescent Tablet G-TUBE SCH (11:04)
--- NOTE | 2018-06-23 12:24 | P.PN ---
Subjective Interval history: Remains in restraints. No fever. pathology still pending. No fever Physical Exam Vital signs: Vital Signs 06/22/18 15:53 06/22/18 20:00 06/22/18 22:48 Temperature 97.6 F 97.4 F L Pulse Rate 102 H 104 H Respiratory Rate 20 16 18 Blood Pressure 111/63 113/63 Pulse Oximetry 91 L 95 06/23/18 00:00 06/23/18 04:00 06/23/18 06:30 Temperature 96.9 F L 97.8 F 97.3 F L Pulse Rate 102 H 97 H 99 H Respiratory Rate 17 17 18 Blood Pressure 116/64 109/64 131/89 Pulse Oximetry 94 L 93 L 93 L 06/23/18 11:51 Temperature 97.3 F L Pulse Rate 99 H Respiratory Rate 16 Blood Pressure 122/69 Pulse Oximetry 96 Intake & Output 06/22/18 06/23/18 06/23/18 18:59 06:59 18:59 Intake Total 1367 / 1367 200 / 200 Output Total 400 / 400 Balance 1367 / 1367 -400 / -400 200 / 200 Weight 46 kg Intake: Tube Feeding 967 / 967 Water Bolus Amount 400 / 400 200 / 200 Output: Urine 400 / 400 Other: Date of Last Bowel Movement 06/19/18 06/21/18 # Bowel Movements 1 Narrative: GENERAL: Elderly thin male, in no acute distress.responds to commands SKIN: Warm and dry. CARDIOVASCULAR: Regular rate and rhythm. RESPIRATORY: Occ Wheeze in upper chest and no Crackles. GASTROINTESTINAL: Abdomen soft, non-tender, nondistended. G-tube in place. MUSCULOSKELETAL: Extremities with Muscle wasting. Moves all . NEUROLOGICAL: Generalized weakness. Results - Labs CBC & Chem 7: 06/20/18 06:32 06/20/18 06:32 Laboratory Results - last 24 hr 06/23/18 06/23/18 07:34 12:17 POC Glucose 164 H 119 H - Procedures lung biopsy. Assessment and Plan - Assessment (1) CVA (cerebral vascular accident) Code(s): I63.9 - Cerebral infarction, unspecified Status: Acute (2) Pneumonia Code(s): J18.9 - Pneumonia, unspecified organism Status: Acute (3) Protein calorie malnutrition Code(s): E46 - Unspecified protein-calorie malnutrition Status: Acute (4) COPD (chronic obstructive pulmonary disease) Code(s): J44.9 - Chronic obstructive pulmonary disease, unspecified Status: Chronic (5) Pleural effusion Code(s): J90 - Pleural effusion, not elsewhere classified Status: Acute (6) Respiratory insufficiency Code(s): R06.89 - Other abnormalities of breathing Status: Acute (7) Mass of upper lobe of left lung Code(s): R91.8 - Other nonspecific abnormal finding of lung field Status: Acute (8) Dysphagia Code(s): R13.10 - Dysphagia, unspecified Status: Acute - Plan 1. Chest Xray in am. 2. Duoneb nebs TID 3. Prednisone 10 mg daily 4. Continue tube feeds at 50 CC 5. O2 2 L N/C PRN 6. Await Path reports on Lung biopsy (1) CVA (cerebral vascular accident) Qualifiers: Laterality of affected vessel: right (3) Protein calorie malnutrition Qualifiers: Protein-calorie malnutrition severity: severe Qualified Code(s): E43 - Unspecified severe protein-calorie malnutrition (4) COPD (chronic obstructive pulmonary disease) Qualifiers: COPD type: unspecified COPD Qualified Code(s): J44.9 - Chronic obstructive pulmonary disease, unspecified
--- NOTE | 2018-06-23 13:04 | P.PNPAL ---
Reason for Visit Reason for visit: a. To assist with evaluation and management of symptoms including:pain, dyspnea , dysphagia, debility. b. To assist medical decision maker(s) with: better understanding of current medical conditions; weighing benefits/burdens of medical treatment options; making medical treatment decisions. Subjective Subjective/Interval History: Follow-up medically necessary for symptom management. Patient sen and examined in the presence of his bedside RN. Patient is awake, alert and oriented to self only and pleasantly confused. Patient responding with 1-2 word sentences to simple questions. Smiling and trying to communicate- sometimes mumbling incomprehensible words with facial expressions. Denies pain, trying to show his mittens. Remains in restraints to all 4 extremities, has mittens to bilateral hands. Report from nursing staff that patient is usually agitated during care and tends to scratch staff. Remains on Seroquel 50mg BID. Sparingly needing prn pain medication. Patient remains NPO, TF infusing. Report form bedside RN that patient has been having high TF residuals >200ml. Pathology on biopsy pending. Pulmonology following. Case management assisting with discharge. Case discussed with bedside RN. . Family/Friend Interactions: No family at bedside. . Advance Directives Living Will: Never completed Health Care Surrogate: Never completed Durable Power of [employer]: Never completed Health Care Surrogate Name and Number: Health care proxy decision makers: SonMiguel AND daughter, Cass. Documented care wishes:: No written advanced directives. . Objective Vital Signs: Vital Signs 06/22/18 15:53 06/22/18 20:00 06/22/18 22:48 Temperature 97.6 F 97.4 F L Pulse Rate 102 H 104 H Respiratory Rate 20 16 18 Blood Pressure 111/63 113/63 Pulse Oximetry 91 L 95 06/23/18 00:00 06/23/18 04:00 06/23/18 06:30 Temperature 96.9 F L 97.8 F 97.3 F L Pulse Rate 102 H 97 H 99 H Respiratory Rate 17 17 18 Blood Pressure 116/64 109/64 131/89 Pulse Oximetry 94 L 93 L 93 L 06/23/18 11:51 Temperature 97.3 F L Pulse Rate 99 H Respiratory Rate 16 Blood Pressure 122/69 Pulse Oximetry 96 Intake & Output 06/22/18 06/23/18 06/23/18 18:59 06:59 18:59 Intake Total 1367 / 1367 200 / 200 Output Total 400 / 400 Balance 1367 / 1367 -400 / -400 200 / 200 Weight 46 kg Intake: Tube Feeding 967 / 967 Water Bolus Amount 400 / 400 200 / 200 Output: Urine 400 / 400 Other: Date of Last Bowel Movement 06/19/18 06/21/18 # Bowel Movements 1 Physical Exam: CONSTITUTIONAL/GENERAL: This is a frail,chronically ill looking, cachectic patient, in no apparent distress. TUBES/LINES/DRAINS: PIV, soft restraints to all 4 extremities, Mittens to BUE SKIN: Temporal and muscle wasting. No jaundice, rashes, or lesions. Dry skin. Ecchymosis to bilateral upper extremities. EYES: eyes open, focusing, tracking. ENT: Hearing grossly normal. Nose without bleeding or purulent drainage. Oral mucosa dry. CARDIOVASCULAR: S1, S2 normal, no murmurs, gallops, or rubs. No JVD. RESPIRATORY/CHEST: Symmetric, unlabored respirations. Diminished breath sounds. GASTROINTESTINAL: Abdomen soft, non-tender, nondistended. New PEG tube clamped. Tube feeds to be resumed soon GENITOURINARY: Without palpable bladder distension. Condom catheter MUSCULOSKELETAL: Extremities without clubbing, cyanosis, or edema. No calf tenderness. NEUROLOGICAL:Awake, alert, confused but pleasant.Making an effort to communicate today. Spontaneously moving all 4 extremities. PSYCHIATRIC: Currently calm. Currently on Seroquel. . Diagnostic Tests Laboratory: Laboratory Results - last 72 hr 06/20/18 06/23/18 06/23/18 17:28 07:34 12:17 POC Glucose 108 164 H 119 H Result Diagrams: 06/20/18 06:32 06/20/18 06:32 Imaging: Head MRI 05/26/18 00:00 Diffusion weighted images demonstrate tiny foci of restricted diffusion in the right frontal cortex. There is diffuse atrophy. There is a large area of encephalomalacia and scoliosis in the left frontal lobe from previous infarction. There is slight ex vacuo dilatation of the left lateral ventricle and remote left basal ganglia lacunar infarcts. In addition remote right occipital infarct and encephalomalacia noted. There are no signs of acute intracranial hemorrhage though there is evidence of remote hemosiderin along the right parietal cortex. No abnormal areas of enhancement are seen. There is no evidence for mass.. CONCLUSION: 1. Atrophy and white matter disease with remote infarcts identified. 2. 2-3 tiny foci of restricted diffusion in the right frontal lobe characteristic of tiny foci of acute infarction. Head CT 05/26/18 12:11 CONCLUSION: 1. No acute findings. Atrophy and remote infarcts. . Carotid Doppler Study 05/28/18 00:00 CONCLUSION: 1. Mild to moderate stenosis on the right not felt to be hemodynamically significant at this point. CT angiography could be used to exclude soft plaque. 2. Occluded left internal carotid artery Head MRA 05/28/18 00:00 CONCLUSION: 1. Occluded left internal carotid artery. Neck CTA 05/30/18 00:00 CONCLUSION: 1. 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 2. Occluded left internal carotid artery at its origin. 3. Less than 50% stenosis of the right internal carotid artery secondary to atherosclerotic plaquing. 4. Emphysema and right upper lobe/lower lobe parenchymal infiltrate. 5. Spiculated mass in the right upper lobe suspicious for primary bronchogenic malignancy until proven otherwise. Abdomen X-Ray 06/03/18 00:00 CONCLUSION: Nasogastric tube is in the right lower lobe airways. Chest CT 06/06/18 00:00 CONCLUSION: Significant interval decrease in size of right pleural effusion from the prior exam. Lung Biopsy CT 06/20/18 00:00 CONCLUSION: 1. CT-guided biopsy with small right pneumothorax. Delayed radiographs are to be performed. Chest X-Ray 06/20/18 14:00 CONCLUSION: No evidence of pneumothorax post lung biopsy. Procedures: 06/04/18-EGD with PEG placement 06/18/18-EGD with PEG tube placement 06/20/1806-[id number] right lung biopsy Assessment and Plan - Disease Oriented Problem List (1) CVA (cerebral vascular accident) (2) Pneumonia (3) Protein calorie malnutrition (4) COPD (chronic obstructive pulmonary disease) (5) Pleural effusion (6) Respiratory insufficiency (7) Mass of upper lobe of left lung - Symptom Scale (1) Dysphagia 0-10 Scale: Unable to quantify Comment: Remains n.p.o. (2) Dyspnea 0-10 Scale: Unable to quantify (3) Debility 0-10 Scale: Unable to quantify (4) Pain 0-10 Scale: 0 Comment: Currently denying pain Pertinent Non-Medical Issues: Psychosocial: Single. Has 1 son and 1 daughter. Spiritual: Hoahaoism agnes. Legal:Patient is not capacitated to make his own health care decisions, uncertain if he will regain capacity. According to [place] statutes, health care proxy decision making falls to the majority of adult children. Ethical issues impacting care: No known concerns at this time. Important Contacts: * Miguel Saleem, son: [phone] * Cass, daughter: [phone] * Martita Saleem, [id number]: [phone] * Brandi ConroyRussell: Sister: [phone] Prognosis: Mr. Saleem is a 68-year-old male with remote stroke and new stroke with significant dysphagia, significant unintentional weight loss, cachexia requiring NG tube feedings, new finding of spiculated lung mass with mediastinal adenopathy concerning for malignancy. Patient with significant cognitive, nutritional and functional deficits. Overall prognosis appears poor. I suspect even with a confirmed, biopsy-proven diagnosis of malignancy he would not be a candidate for treatment. Hospice appropriate if goals are comfort oriented. . Code Status: No Code DNR Plan: * Patient is not capacitated to make his own health care decisions, does not appear he will regain capacity. According to [place] statutes, health care proxy decision making falls to the majority of adult children. He has 1 son and 1 daughter. CODE STATUS: * DO NOT RESUSCITATE SYMPTOMS: * Dysphagia: Remote and recent stroke, carotid artery stenosis/occlusion. Unintentional weight loss over the past 6 months. Continues to fail swallow evaluation. Patient pulled out his PEG tube on 06/17/18 PEG tube inserted . Patient is gradually losing weight-admission weight= 49.895kg. On TF- not tolerating well-has high residuals. * Dyspnea: History of COPD/ emphysema, new spiculated mass in lung likely cancer with mediastinal adenopathy-underwent CT-guided lung biopsy 06/20/18. On Prednisone. Currently on RA with O2 saturation in the low to mid 90s. * Debility: Secondary to general decline, possible malignancy, malnutrition and prolonged hospitalization. Continue PT. Patient will most likely decline. * Agitation: Patient remains in four-point soft restraints with mittens to BUE which will most likely hinder placement. Recommending increasing Seroquel to 75 mg twice daily. * Family now awaiting pathology for lung biopsy but are aware that his performance status is to poor to receive chemotherapy or radiation. Patient is status post lung biopsy 06/20/18 * Palliative care will continue to follow throughout hospital course to assist with symptom management further clarification of goals of medical treatment. Attestation Attestation: To help prompt me to consider important information that might be impacting today's encounter and assessment, information from prior notes written by myself or my colleagues may have been "brought forward" into today's note. My signature on this note, however, is an attestation that I personally performed the exam, history, and/or decision-making noted today, and, unless otherwise indicated, the interactions with patient, family, and staff as well as the review of records all occurred today. I also attest that the listed assessment and stated plan reflect my best clinical judgment today based on the combination of historical information, prior notes, and today's exam/ interactions. When time spent is documented, it refers only to time spent today by the signer, or if indicated, combined time spent today by collaborating physician/nurse practitioner.
[2018-06-23] MEDS ORDERED: dilTIAZem Inj 125 MG in Sodium Chlor 0.9% Inj 100 ML IV.CONT PRN (15:37)
--- NOTE | 2018-06-23 15:40 | P.PNADD ---
Addendum to Inpatient Note Reason for Addendum: Additional Documentation (patient became hypoxic and tachycardic. was put back on oxygen- EKG with a-fib with RVR- will check stat CXR and ABG- transfer to ICU and start on Cardizem drip- d/w the RN and the sister was updated on his condition.)
--- NOTE | 2018-06-23 16:23 | XR ---
EXAM DATE: 06/23/2018 4:15 PM EST AGE/SEX: 68 years / Male INDICATIONS: Short of breath. CLINICAL DATA: This is the patient's subsequent encounter. Patient reports that signs and symptoms h ave been present for 1 week and indicates a pain score of 0/10. MEDICAL/SURGICAL HISTORY: . Chronic obstructive pulmonary disease. Cerebrovascular disease. Ple ural effusion, pneumonia. None. COMPARISON: [facility] – [place], CHEST 1V SINGLE AP, 06/19/2018. . FINDINGS: A single AP view of the chest demonstrates worsening opacification of the right lung, most pronounced in the medial lung base. Streaky opacification in the retrocardiac left lung base. The cardiomediast inal contours are unremarkable. Degenerative changes of the spine. CONCLUSION: 1. Worsening opacification of the right lung, predominantly in the medial lung base. This is concern ing for worsening pneumonia, but should be clinically correlated. 2. Streaky opacification of the retrocardiac left lung base, which may represent atelectasis. Electronically signed by: Silva Disla MD 06/23/2018 4:22 PM EST
[2018-06-23] MEDS ORDERED: Vancomycin Consult Pharmacy OTHER PRN (17:04)
[2018-06-23 17:13] LABS: ABG Base Excess 7.3 mmol/L (-2-2); ABG PCO2 37 mmHg (38-42); ABG PO2 164 mmHg (61-120)
[2018-06-23] MEDS ORDERED: Vancomycin Inj 1,000 MG in Sodium Chlor 0.9% Inj 250 ML IV.SIG ONE (17:30)
[2018-06-23] MEDS: Dextrose 5%/NaCl 0.45% Inj 1,000 ML IV.CONT SCH (18:07)
[2018-06-23] MEDS: Piperacil/Tazo 3.375 GM Premix 50 ML IV.SIG SCH (18:08)
[2018-06-23 18:09] LABS: Baso % (Auto) 0.1 % (0.0-2.0); Hematocrit 31.6 % (39.0-51.0); Hemoglobin 10.9 gm/dL (13.0-17.0); Lymph # (Auto) 0.2 th/mm3 (1.0-4.8); Mean Corpuscular HGB Conc 34.6 % (32.0-36.0); Mean Corpuscular Hemoglobin 35.7 pg (27.0-34.0); Mean Corpuscular Volume 103.3 fL (80.0-100.0); Mean Platelet Volume 8.8 fL (7.0-11.0); Mono # (Auto) 0.2 th/mm3 (0.0-0.9); Mono % (Auto) 2.4 % (0.0-8.0); Neut # (Auto) 7.7 th/mm3 (1.8-7.7); Neut % (Auto) 94.5 % (16.0-70.0); Platelet Count 139 th/mm3 (150-450); Red Blood Count 3.06 mil/mm3 (4.50-5.90); Red Cell Distribution Width 19.5 % (11.6-17.2); White Blood Count 8.1 th/mm3 (4.0-11.0)
--- NOTE | 2018-06-23 18:11 | P.PN ---
Subjective Interval history: was transferred to [facility] for resp distress and Atr Fibrillation with RVR Now on Cardizem. On a NRB mask. CXR showed increased infiltrates Physical Exam Vital signs: Vital Signs 06/22/18 20:00 06/22/18 22:48 06/23/18 00:00 Temperature 97.4 F L 96.9 F L Pulse Rate 104 H 102 H Respiratory Rate 16 18 17 Blood Pressure 113/63 116/64 Pulse Oximetry 95 94 L 06/23/18 04:00 06/23/18 06:30 06/23/18 11:51 Temperature 97.8 F 97.3 F L 97.3 F L Pulse Rate 97 H 99 H 99 H Respiratory Rate 17 18 16 Blood Pressure 109/64 131/89 122/69 Pulse Oximetry 93 L 93 L 96 06/23/18 15:05 06/23/18 15:20 Temperature 97.1 F L Pulse Rate 136 H 158 H Respiratory Rate 24 24 Blood Pressure 151/98 H 134/67 Pulse Oximetry 100 97 Intake & Output 06/22/18 06/23/18 06/23/18 18:59 06:59 18:59 Intake Total 1367 / 1367 200 / 200 Output Total 400 / 400 Balance 1367 / 1367 -400 / -400 200 / 200 Weight 46 kg Intake: Tube Feeding 967 / 967 Water Bolus Amount 400 / 400 200 / 200 Output: Urine 400 / 400 Other: Date of Last Bowel Movement 06/19/18 06/21/18 # Bowel Movements 1 Narrative: GENERAL: Elderly thin male, in some distress SKIN: Warm and dry. CARDIOVASCULAR: Irregular rate and rhythm. RESPIRATORY: Occ Wheeze in upper chest and basal Crackles. GASTROINTESTINAL: Abdomen soft, non-tender, nondistended. G-tube in place. MUSCULOSKELETAL: Extremities with Muscle wasting. Moves all . NEUROLOGICAL: Generalized weakness. Results - Labs CBC & Chem 7: 06/20/18 06:32 06/20/18 06:32 Laboratory Results - last 24 hr 06/23/18 06/23/18 06/23/18 07:34 12:17 17:00 Puncture Site Left radial Patient Temperature 98.6 O2 Saturation 97 ABG pH 7.53 H* ABG pCO2 37 L ABG pO2 164 H ABG HCO3 31 H ABG O2 Content 15.2 ABG Base Excess 7.3 H ABG Methemoglobin 0.9 Harshal Test Present Hemoglobin 10.9 L Carboxyhemoglobin 1.6 O2 Delivery Device Non-rebreathing mask Inspired O2 100 Critical Value Yes POC Glucose 164 H 119 H - Imaging Impressions Chest X-Ray 06/23/18 15:13 CONCLUSION: 1. Worsening opacification of the right lung, predominantly in the medial lung base. This is concerning for worsening pneumonia, but should be clinically correlated. 2. Streaky opacification of the retrocardiac left lung base, which may represent atelectasis. - Procedures lung biopsy. Assessment and Plan - Assessment (1) CVA (cerebral vascular accident) Code(s): I63.9 - Cerebral infarction, unspecified Status: Acute (2) Pneumonia Code(s): J18.9 - Pneumonia, unspecified organism Status: Acute (3) Protein calorie malnutrition Code(s): E46 - Unspecified protein-calorie malnutrition Status: Acute (4) COPD (chronic obstructive pulmonary disease) Code(s): J44.9 - Chronic obstructive pulmonary disease, unspecified Status: Chronic (5) Pleural effusion Code(s): J90 - Pleural effusion, not elsewhere classified Status: Acute (6) Respiratory insufficiency Code(s): R06.89 - Other abnormalities of breathing Status: Acute (7) Mass of upper lobe of left lung Code(s): R91.8 - Other nonspecific abnormal finding of lung field Status: Acute (8) Dysphagia Code(s): R13.10 - Dysphagia, unspecified Status: Acute - Plan 1. O2 at 5 L N/C 2. Duoneb nebs TID 3. Prednisone 30 mg daily 4. Continue tube feeds at 50 CC 5. O2 2 L N/C PRN 6. Zosyn /Vancomycin as ordered. 7. Cardizem drip for A Fib 8. CBC,BMP CXR in am. (1) CVA (cerebral vascular accident) Qualifiers: Laterality of affected vessel: right (3) Protein calorie malnutrition Qualifiers: Protein-calorie malnutrition severity: severe Qualified Code(s): E43 - Unspecified severe protein-calorie malnutrition (4) COPD (chronic obstructive pulmonary disease) Qualifiers: COPD type: unspecified COPD Qualified Code(s): J44.9 - Chronic obstructive pulmonary disease, unspecified
[2018-06-23 18:30] LABS: Alanine Aminotransferase 24 U/L (12-78); Anion Gap 8 meq/L (5-15); Aspartate Aminotransferase 16 U/L (15-37); Blood Urea Nitrogen 34 mg/dL (7-18); Calcium 8.9 mg/dL (8.5-10.1); Carbon Dioxide 30.9 meq/L (21.0-32.0); Chloride 98 meq/L (98-107); Glomerular Filtration Rate Greater Than 89 mL/min (>89); Glucose,Random 126 mg/dL (74-106); Potassium 4.2 meq/L (3.5-5.1); Sodium 137 meq/L (136-145)
[2018-06-23 18:39] LABS: Alkaline Phosphatase 92 U/L (45-117)
[2018-06-23] MEDS: Morphine Sulfate Inj 2 MG/ML Vial IV.PUSH PRN (20:40)
[2018-06-24] MEDS: Piperacil/Tazo 3.375 GM Premix 50 ML IV.SIG SCH ×3 (02:23→17:02)
--- NOTE | 2018-06-24 04:16 | XR ---
EXAM DATE: 06/24/2018 4:06 AM EST AGE/SEX: 68 years / Male INDICATIONS: Evaluate for pneumonia. CLINICAL DATA: This is the patient's subsequent encounter. Patient reports that signs and symptoms h ave been present for 1 month and indicates a pain score of Nonresponsive. MEDICAL/SURGICAL HISTORY: Stroke. Smoker. None. COMPARISON: [facility] – [place], CHEST 1V SINGLE AP, 06/23/2018. . FINDINGS: A single AP semierect view of the chest was obtained and again demonstrates abnormal opacity in the r ight lung greatest at the lung base. This is not significantly changed. The left lung appears clear w ith no focal consolidation or effusion. The heart size is within normal limits. Atherosclerotic gilliam es are present in the aorta. The bony thorax is intact. There are multiple overlying electrocardiogra m leads. CONCLUSION: No significant change. Abnormal opacity remains in the right lung. Electronically signed by: Wilberto Sanford MD 06/24/2018 4:14 AM EST
[2018-06-24] MEDS: Dextrose 5%/NaCl 0.45% Inj 1,000 ML IV.CONT SCH (09:37)
[2018-06-24] MEDS: Potassium Chloride 25 MEQ Effervescent Tablet G-TUBE SCH (09:38)
[2018-06-24] MEDS: QUEtiapine 25 MG Tablet PO SCH ×2 (09:38→20:41)
[2018-06-24] MEDS: predniSONE Liq 5 MG/5 ML UDC G-TUBE SCH (09:38)
[2018-06-24] MEDS: Furosemide 20 MG Tablet PO SCH (09:38)
[2018-06-24] MEDS: Aspirin 325 MG Tablet G-TUBE SCH (09:38)
[2018-06-24] MEDS: Enoxaparin Inj 30 MG/0.3 ML Syringe SQ SCH (09:39)
--- NOTE | 2018-06-24 09:41 | P.PN ---
Subjective Interval history: telemetry - currently in SR rate 90s awake and alert on 2 LNC- no acute distress denies any pain TF on hold with high residual yesterday Physical Exam Vital signs: Vital Signs 06/23/18 11:51 06/23/18 15:05 06/23/18 15:20 Temperature 97.3 F L 97.1 F L Pulse Rate 99 H 136 H 158 H Respiratory Rate 16 24 24 Blood Pressure 122/69 151/98 H 134/67 Pulse Oximetry 96 100 97 06/23/18 17:04 06/23/18 17:10 06/23/18 17:15 Temperature Pulse Rate 109 H 109 H 109 H Respiratory Rate 14 14 Blood Pressure 146/59 H 131/64 Pulse Oximetry 98 100 06/23/18 17:30 06/23/18 17:45 06/23/18 18:00 Temperature Pulse Rate 96 H 99 H 97 H Respiratory Rate 14 15 15 Blood Pressure 104/61 112/68 111/70 Pulse Oximetry 100 100 100 06/23/18 18:15 06/23/18 18:30 06/23/18 18:45 Temperature Pulse Rate 98 H 96 H 95 H Respiratory Rate 14 13 14 Blood Pressure 122/72 112/65 117/66 Pulse Oximetry 100 100 100 06/23/18 19:00 06/23/18 19:15 06/23/18 19:30 Temperature Pulse Rate 97 H 99 H 99 H Respiratory Rate 20 23 18 Blood Pressure 119/70 120/67 123/71 Pulse Oximetry 100 100 100 06/23/18 19:45 06/23/18 20:00 06/23/18 20:15 Temperature 98.0 F Pulse Rate 124 H 97 H 97 H Respiratory Rate 27 H 18 19 Blood Pressure 161/59 H 123/70 124/74 Pulse Oximetry 100 100 100 06/23/18 20:30 06/23/18 20:45 06/23/18 21:00 Temperature Pulse Rate 96 H 96 H 93 H Respiratory Rate 15 13 12 Blood Pressure 115/71 123/76 117/76 Pulse Oximetry 100 100 100 06/23/18 21:15 06/23/18 21:18 06/23/18 21:20 Temperature Pulse Rate 92 H 105 H Respiratory Rate 12 20 Blood Pressure 104/60 Pulse Oximetry 100 100 06/23/18 21:30 06/23/18 21:45 06/23/18 21:56 Temperature Pulse Rate 92 H 94 H Respiratory Rate 11 L 11 L 16 Blood Pressure 119/66 120/68 Pulse Oximetry 100 94 L 06/23/18 22:00 06/23/18 22:15 06/23/18 22:30 Temperature Pulse Rate 94 H 92 H 94 H Respiratory Rate 11 L 14 11 L Blood Pressure 113/67 130/72 113/62 Pulse Oximetry 93 L 93 L 95 06/23/18 22:45 06/23/18 23:00 06/23/18 23:15 Temperature Pulse Rate 90 89 88 Respiratory Rate 11 L 11 L 13 Blood Pressure 98/56 L 137/67 124/65 Pulse Oximetry 95 96 96 06/23/18 23:30 06/23/18 23:45 06/24/18 00:00 Temperature 97.8 F Pulse Rate 90 92 H 92 H Respiratory Rate 10 L 13 12 Blood Pressure 126/61 129/68 134/69 Pulse Oximetry 95 95 95 06/24/18 00:15 06/24/18 00:30 06/24/18 00:45 Temperature Pulse Rate 92 H 89 90 Respiratory Rate 10 L 11 L 10 L Blood Pressure 137/71 116/63 117/60 Pulse Oximetry 100 99 98 06/24/18 01:00 06/24/18 01:15 06/24/18 01:30 Temperature Pulse Rate 92 H 90 89 Respiratory Rate 14 15 10 L Blood Pressure 125/68 120/66 118/66 Pulse Oximetry 95 98 98 06/24/18 01:45 06/24/18 02:00 06/24/18 02:15 Temperature Pulse Rate 92 H 92 H 93 H Respiratory Rate 10 L 13 18 Blood Pressure 130/75 149/71 H 136/66 Pulse Oximetry 98 100 100 06/24/18 02:30 06/24/18 02:45 06/24/18 03:00 Temperature Pulse Rate 91 H 89 90 Respiratory Rate 12 13 11 L Blood Pressure 140/70 137/68 122/72 Pulse Oximetry 100 100 100 06/24/18 03:15 06/24/18 03:30 06/24/18 03:45 Temperature 97.6 F Pulse Rate 89 90 90 Respiratory Rate 11 L 20 12 Blood Pressure 117/66 125/75 124/73 Pulse Oximetry 99 98 97 06/24/18 04:00 06/24/18 04:07 06/24/18 04:15 Temperature Pulse Rate 90 92 H Respiratory Rate 19 14 Blood Pressure 133/78 135/76 Pulse Oximetry 100 100 100 06/24/18 04:30 06/24/18 04:45 06/24/18 05:00 Temperature Pulse Rate 94 H 93 H 95 H Respiratory Rate 12 17 18 Blood Pressure 131/77 135/74 122/71 Pulse Oximetry 100 100 100 06/24/18 05:15 06/24/18 05:30 06/24/18 05:45 Temperature Pulse Rate 96 H 96 H 97 H Respiratory Rate 11 L 19 15 Blood Pressure 126/75 121/72 119/71 Pulse Oximetry 100 99 98 06/24/18 06:00 06/24/18 06:15 06/24/18 06:30 Temperature Pulse Rate 97 H 97 H 98 H Respiratory Rate 18 21 18 Blood Pressure 121/67 125/67 118/69 Pulse Oximetry 97 96 95 06/24/18 06:45 06/24/18 07:00 06/24/18 07:15 Temperature Pulse Rate 98 H 98 H 98 H Respiratory Rate 13 14 13 Blood Pressure 128/73 128/81 115/67 Pulse Oximetry 97 97 97 06/24/18 07:30 06/24/18 07:45 06/24/18 08:00 Temperature 97.8 F Pulse Rate 99 H 98 H 96 H Respiratory Rate 14 11 L 13 Blood Pressure 138/73 130/72 120/70 Pulse Oximetry 96 96 97 06/24/18 08:15 06/24/18 09:00 Temperature Pulse Rate 97 H 95 H Respiratory Rate 15 Blood Pressure 136/77 Pulse Oximetry 97 Intake & Output 06/23/18 06/24/18 06/24/18 18:59 06:59 18:59 Intake Total 200 / 200 350 / 350 1000 / 1000 Output Total 650 / 650 200 / 200 Balance -450 / -450 150 / 150 1000 / 1000 Weight 97 kg Intake: IV 350 / 350 1000 / 1000 D5W/1/2 NS Inj 1,000 ML @ 75 1000 / 1000 mls/hr IV.CONT .[id number] ERNESTO Rx# :[id number] Zosyn 3.375 GM Premix 50 ML @ 100 / 100 100 mls/hr IV.SIG Q8H ERNESTO Rx#: [id number] Vancomycin Inj 1,000 MG In NS 250 / 250 Inj 250 ML @ 250 mls/hr IV.SIG ONCE ONE Rx#:[id number] Water Bolus Amount 200 / 200 Output: Urine 650 / 650 200 / 200 Other: Date of Last Bowel Movement 06/23/18 06/23/18 06/23/18 Narrative: awake and alert, speech soft but clear SKIN: Warm and dry. Lungs- decrease breath sounds and decrease vocal fremiti- right base to mid LF CARDIOVASCULAR: - regular rhythm GASTROINTESTINAL: Abdomen soft, non-tender, nondistended. G-tube in place. MUSCULOSKELETAL: Extremities with Muscle wasting. Moves all . -condom catheter in place NEUROLOGICAL: generalized weakness- right side weake compred to left but moves all spontaneously tongue midline Results - Labs CBC & Chem 7: 06/23/18 17:39 06/25/18 05:35 Laboratory Results - last 24 hr 06/23/18 06/23/18 06/23/18 12:17 17:00 17:39 WBC 8.1 RBC 3.06 L Hgb 10.9 L Hct 31.6 L MCV 103.3 H MCH 35.7 H MCHC 34.6 RDW 19.5 H Plt Count 139 L MPV 8.8 Neut % (Auto) 94.5 H Lymph % (Auto) 3.0 L Trinity % (Auto) 2.4 Eos % (Auto) 0.0 Baso % (Auto) 0.1 Neut # (Auto) 7.7 Lymph # (Auto) 0.2 L Trinity # (Auto) 0.2 Eos # (Auto) 0.0 Baso # (Auto) 0.0 WBC Differential . Differential Comment Auto diff final Puncture Site Left radial Patient Temperature 98.6 O2 Saturation 97 ABG pH 7.53 H* ABG pCO2 37 L ABG pO2 164 H ABG HCO3 31 H ABG O2 Content 15.2 ABG Base Excess 7.3 H ABG Methemoglobin 0.9 Harshal Test Present Hemoglobin 10.9 L Carboxyhemoglobin 1.6 O2 Delivery Device Non-rebreathing mask Inspired O2 100 Critical Value Yes Sodium Potassium Chloride Carbon Dioxide Anion Gap BUN Creatinine Estimated GFR POC Glucose 119 H Random Glucose Lactic Acid Calcium Total Bilirubin AST ALT Alkaline Phosphatase Total Protein Albumin 06/23/18 06/23/18 06/23/18 17:39 17:39 19:46 WBC RBC Hgb Hct MCV MCH MCHC RDW Plt Count MPV Neut % (Auto) Lymph % (Auto) Trinity % (Auto) Eos % (Auto) Baso % (Auto) Neut # (Auto) Lymph # (Auto) Trinity # (Auto) Eos # (Auto) Baso # (Auto) WBC Differential Differential Comment Puncture Site Patient Temperature O2 Saturation ABG pH ABG pCO2 ABG pO2 ABG HCO3 ABG O2 Content ABG Base Excess ABG Methemoglobin Harshal Test Hemoglobin Carboxyhemoglobin O2 Delivery Device Inspired O2 Critical Value Sodium 137 Potassium 4.2 Chloride 98 Carbon Dioxide 30.9 Anion Gap 8 BUN 34 H Creatinine 0.76 Estimated GFR Greater than 89 POC Glucose 118 H Random Glucose 126 H Lactic Acid 1.6 Calcium 8.9 Total Bilirubin 0.7 AST 16 ALT 24 Alkaline Phosphatase 92 Total Protein 6.0 L Albumin 2.0 L 06/23/18 06/24/18 23:57 06:36 WBC RBC Hgb Hct MCV MCH MCHC RDW Plt Count MPV Neut % (Auto) Lymph % (Auto) Trinity % (Auto) Eos % (Auto) Baso % (Auto) Neut # (Auto) Lymph # (Auto) Trinity # (Auto) Eos # (Auto) Baso # (Auto) WBC Differential Differential Comment Puncture Site Patient Temperature O2 Saturation ABG pH ABG pCO2 ABG pO2 ABG HCO3 ABG O2 Content ABG Base Excess ABG Methemoglobin Harshal Test Hemoglobin Carboxyhemoglobin O2 Delivery Device Inspired O2 Critical Value Sodium Potassium Chloride Carbon Dioxide Anion Gap BUN Creatinine Estimated GFR POC Glucose 124 H 106 Random Glucose Lactic Acid Calcium Total Bilirubin AST ALT Alkaline Phosphatase Total Protein Albumin - Imaging Impressions Chest X-Ray 06/23/18 15:13 CONCLUSION: 1. Worsening opacification of the right lung, predominantly in the medial lung base. This is concerning for worsening pneumonia, but should be clinically correlated. 2. Streaky opacification of the retrocardiac left lung base, which may represent atelectasis. Chest X-Ray 06/24/18 00:00 CONCLUSION: No significant change. Abnormal opacity remains in the right lung. - Procedures lung biopsy. Assessment and Plan - Assessment (1) CVA (cerebral vascular accident) Code(s): I63.9 - Cerebral infarction, unspecified Status: Acute (2) Pneumonia Code(s): J18.9 - Pneumonia, unspecified organism Status: Acute (3) Protein calorie malnutrition Code(s): E46 - Unspecified protein-calorie malnutrition Status: Acute (4) COPD (chronic obstructive pulmonary disease) Code(s): J44.9 - Chronic obstructive pulmonary disease, unspecified Status: Chronic (5) Pleural effusion Code(s): J90 - Pleural effusion, not elsewhere classified Status: Acute (6) Respiratory insufficiency Code(s): R06.89 - Other abnormalities of breathing Status: Acute (7) Mass of upper lobe of left lung Code(s): R91.8 - Other nonspecific abnormal finding of lung field Status: Acute - Plan 68-year-old male who was brought in after he was found at home by his landlord. The patient was altered and found to be covered in urine and feces. He was then brought into our emergency department for evaluation. Acute metabolic encephalopathy, possibly secondary to CVA, dehydration, infection Acute ischemic right frontal CVA MRI of the brain shows right frontal lobe infarction, 2-3 tiny foci. Possibly embolic stroke. Family endorses prior CVA 12 years ago, he did have residual expressive aphasia and possibly some swallowing difficulty. Neurology service recommendations appreciated. Echocardiogram done, EF 60%, trace mitral valve regurgitation, small pericardial effusion. -Carotid ultrasound results noted, left internal carotid occluded, right carotid moderate plaque, status post vascular surgery evaluation with no surgical intervention recommended. Continue with Lipitor and aspirin. -CTA of the carotids which reveals only about 50% right internal carotid artery stenosis, occluded left internal carotid artery at its origin. PT/OT/ST per protocol for eval and treatment. -Palliative care consult appreciated. Family declined hospice. Follow up with palliative care. -restraints as needed. continue Seroquel . -morphine as needed for discomfort or dyspnea. -PT/OT consult Dysphagia Severe protein calorie malnutrition. -Continues to fail swallow evaluation. Follow with speech therapy. -Status post PEG placement with GI 06/04- patient removed the PEG - GI was reconsulted; s/p PEG replacement on 06/18/18. -continue with tube feeding. 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 Precarinal and subcarinal mediastinal as well as right heel or lymphadenopathy is noted. -Tumor markers done, within normal limits. -pulmonary ff - get Oncology input- ? candidate for any form of therapy Pleural effusions R > L- likley malignant Chest x-ray with findings of bilateral pleural effusions -Lasix. -CT chest on 06/06/2018:Significant interval decrease in size of right pleural effusion from the prior exam. -Patient agreed with therapeutic thoracentesis if necessary. - Pulmonary ff COPD Community acquired pneumonia-cxr with poss findings of RLL pna 05/[address] findings noted, Extensive alveolar consolidations are noted within the right upper and lower lobes consistent with probable pneumonia. Emphysematous changes. Moderate size right pleural effusion. Continue with duo nebs. -continue prednisone and will start tapering down . -on zosyn/Vancomycin -Pulmonary ff History of alcohol abuse Patient restless overnight, now in restraints -s/p CIWA protocol. Left ischium ulcer -Continue wound care per wound care nurse. Hypokalemia- replaced. Hypernatremia-resolved. -Monitor and replace electrolytes as needed -continue free water via PEG. FEN- on TF- high residual yesterday - restart TF this am- trickle feed- discuss with staff nurse DVT prophylaxis: Continue Lovenox Discharge Planning: Palliative/Hospice service ff call out to Palliative care nurse- Rudo- left message to call- to discuss pathology - will go ahead and consult Oncology (1) CVA (cerebral vascular accident) Qualifiers: Laterality of affected vessel: right (3) Protein calorie malnutrition Qualifiers: Protein-calorie malnutrition severity: severe Qualified Code(s): E43 - Unspecified severe protein-calorie malnutrition (4) COPD (chronic obstructive pulmonary disease) Qualifiers: COPD type: unspecified COPD Qualified Code(s): J44.9 - Chronic obstructive pulmonary disease, unspecified
--- NOTE | 2018-06-24 12:17 | P.PNPAL ---
Reason for Visit Reason for visit: a. To assist with evaluation and management of symptoms including:pain, dyspnea , dysphagia, debility. b. To assist medical decision maker(s) with: better understanding of current medical conditions; weighing benefits/burdens of medical treatment options; making medical treatment decisions. Subjective Subjective/Interval History: Follow-up medically necessary for symptom management and further clarification of goals of medical treatment. Patient was transferred to ICU on 06/23/18 after he became hypoxic and tachycardic with O2 saturation is low is mid 70s to mid 80s. EKG on 06/23 showed atrial fibrillation with rapid ventricular response. Atrial fibrillation was managed with Cardizem and he was put on 100% nonrebreather. Patient seen and examined in the presence of bedside RN. Patient is currently on O2 3 L nasal cannula. Patient remains agitated with four-point soft restraints to all 4 extremities plus mittens to bilateral upper extremities. Chest x-ray 06/24/18 demonstrates abnormal opacity in the right lung greatest at the lung base. Pathology from CT-guided needle biopsy of right lung revealed invasive poorly differentiated adenocarcinoma. Oncology consulted. Telephone call to patient's son Miguel, daughter Cass, lzxtvkwi-[id number]-eot Martita and Sister Brandi-with no response. Left voice message for Miguel and patient's daughter Cass with palliative care callback number. Case discussed with bedside RN. . Family/Friend Interactions: See interval note. . Advance Directives Living Will: Never completed Health Care Surrogate: Never completed Durable Power of Securities [employer] Real Estate Director: Never completed Health Care Surrogate Name and Number: Health care proxy decision makers: SonMiguel AND daughter, Cass. Documented care wishes:: No written advanced directives. . Objective Vital Signs: Vital Signs 06/23/18 11:51 06/23/18 15:05 06/23/18 15:20 Temperature 97.3 F L 97.1 F L Pulse Rate 99 H 136 H 158 H Respiratory Rate 16 24 24 Blood Pressure 122/69 151/98 H 134/67 Pulse Oximetry 96 100 97 06/23/18 17:04 06/23/18 17:10 06/23/18 17:15 Temperature Pulse Rate 109 H 109 H 109 H Respiratory Rate 14 14 Blood Pressure 146/59 H 131/64 Pulse Oximetry 98 100 06/23/18 17:30 06/23/18 17:45 06/23/18 18:00 Temperature Pulse Rate 96 H 99 H 97 H Respiratory Rate 14 15 15 Blood Pressure 104/61 112/68 111/70 Pulse Oximetry 100 100 100 06/23/18 18:15 06/23/18 18:30 06/23/18 18:45 Temperature Pulse Rate 98 H 96 H 95 H Respiratory Rate 14 13 14 Blood Pressure 122/72 112/65 117/66 Pulse Oximetry 100 100 100 06/23/18 19:00 06/23/18 19:15 06/23/18 19:30 Temperature Pulse Rate 97 H 99 H 99 H Respiratory Rate 20 23 18 Blood Pressure 119/70 120/67 123/71 Pulse Oximetry 100 100 100 06/23/18 19:45 06/23/18 20:00 06/23/18 20:15 Temperature 98.0 F Pulse Rate 124 H 97 H 97 H Respiratory Rate 27 H 18 19 Blood Pressure 161/59 H 123/70 124/74 Pulse Oximetry 100 100 100 06/23/18 20:30 06/23/18 20:45 06/23/18 21:00 Temperature Pulse Rate 96 H 96 H 93 H Respiratory Rate 15 13 12 Blood Pressure 115/71 123/76 117/76 Pulse Oximetry 100 100 100 06/23/18 21:15 06/23/18 21:18 06/23/18 21:20 Temperature Pulse Rate 92 H 105 H Respiratory Rate 12 20 Blood Pressure 104/60 Pulse Oximetry 100 100 06/23/18 21:30 06/23/18 21:45 06/23/18 21:56 Temperature Pulse Rate 92 H 94 H Respiratory Rate 11 L 11 L 16 Blood Pressure 119/66 120/68 Pulse Oximetry 100 94 L 06/23/18 22:00 06/23/18 22:15 06/23/18 22:30 Temperature Pulse Rate 94 H 92 H 94 H Respiratory Rate 11 L 14 11 L Blood Pressure 113/67 130/72 113/62 Pulse Oximetry 93 L 93 L 95 06/23/18 22:45 06/23/18 23:00 06/23/18 23:15 Temperature Pulse Rate 90 89 88 Respiratory Rate 11 L 11 L 13 Blood Pressure 98/56 L 137/67 124/65 Pulse Oximetry 95 96 96 06/23/18 23:30 06/23/18 23:45 06/24/18 00:00 Temperature 97.8 F Pulse Rate 90 92 H 92 H Respiratory Rate 10 L 13 12 Blood Pressure 126/61 129/68 134/69 Pulse Oximetry 95 95 95 06/24/18 00:15 06/24/18 00:30 06/24/18 00:45 Temperature Pulse Rate 92 H 89 90 Respiratory Rate 10 L 11 L 10 L Blood Pressure 137/71 116/63 117/60 Pulse Oximetry 100 99 98 06/24/18 01:00 06/24/18 01:15 06/24/18 01:30 Temperature Pulse Rate 92 H 90 89 Respiratory Rate 14 15 10 L Blood Pressure 125/68 120/66 118/66 Pulse Oximetry 95 98 98 06/24/18 01:45 06/24/18 02:00 06/24/18 02:15 Temperature Pulse Rate 92 H 92 H 93 H Respiratory Rate 10 L 13 18 Blood Pressure 130/75 149/71 H 136/66 Pulse Oximetry 98 100 100 06/24/18 02:30 06/24/18 02:45 06/24/18 03:00 Temperature Pulse Rate 91 H 89 90 Respiratory Rate 12 13 11 L Blood Pressure 140/70 137/68 122/72 Pulse Oximetry 100 100 100 06/24/18 03:15 06/24/18 03:30 06/24/18 03:45 Temperature 97.6 F Pulse Rate 89 90 90 Respiratory Rate 11 L 20 12 Blood Pressure 117/66 125/75 124/73 Pulse Oximetry 99 98 97 06/24/18 04:00 06/24/18 04:07 06/24/18 04:15 Temperature Pulse Rate 90 92 H Respiratory Rate 19 14 Blood Pressure 133/78 135/76 Pulse Oximetry 100 100 100 06/24/18 04:30 06/24/18 04:45 06/24/18 05:00 Temperature Pulse Rate 94 H 93 H 95 H Respiratory Rate 12 17 18 Blood Pressure 131/77 135/74 122/71 Pulse Oximetry 100 100 100 06/24/18 05:15 06/24/18 05:30 06/24/18 05:45 Temperature Pulse Rate 96 H 96 H 97 H Respiratory Rate 11 L 19 15 Blood Pressure 126/75 121/72 119/71 Pulse Oximetry 100 99 98 06/24/18 06:00 06/24/18 06:15 06/24/18 06:30 Temperature Pulse Rate 97 H 97 H 98 H Respiratory Rate 18 21 18 Blood Pressure 121/67 125/67 118/69 Pulse Oximetry 97 96 95 06/24/18 06:45 06/24/18 07:00 06/24/18 07:15 Temperature Pulse Rate 98 H 98 H 98 H Respiratory Rate 13 14 13 Blood Pressure 128/73 128/81 115/67 Pulse Oximetry 97 97 97 06/24/18 07:30 06/24/18 07:45 06/24/18 08:00 Temperature 97.8 F Pulse Rate 99 H 98 H 96 H Respiratory Rate 14 11 L 13 Blood Pressure 138/73 130/72 120/70 Pulse Oximetry 96 96 97 06/24/18 08:15 06/24/18 08:30 06/24/18 08:45 Temperature Pulse Rate 97 H 97 H 97 H Respiratory Rate 15 12 13 Blood Pressure 136/77 135/74 136/67 Pulse Oximetry 97 96 97 06/24/18 09:00 06/24/18 09:15 06/24/18 09:30 Temperature Pulse Rate 96 H 97 H 96 H Respiratory Rate 12 12 12 Blood Pressure 121/73 127/71 124/74 Pulse Oximetry 96 96 96 06/24/18 09:45 06/24/18 10:00 06/24/18 10:15 Temperature Pulse Rate 96 H 97 H Respiratory Rate 14 16 Blood Pressure 123/71 133/80 128/64 Pulse Oximetry 95 95 93 L 06/24/18 11:14 06/24/18 11:15 Temperature Pulse Rate 96 H Respiratory Rate 20 Blood Pressure Pulse Oximetry 93 L Intake & Output 06/23/18 06/24/18 06/24/18 18:59 06:59 18:59 Intake Total 200 / 200 350 / 350 1050 / 1050 Output Total 650 / 650 200 / 200 Balance -450 / -450 150 / 150 1050 / 1050 Weight 97 kg Intake: IV 350 / 350 1050 / 1050 D5W/1/2 NS Inj 1,000 ML @ 75 1000 / 1000 mls/hr IV.CONT .[id number] ERNESTO Rx# :[id number] Zosyn 3.375 GM Premix 50 ML @ 100 / 100 50 / 50 100 mls/hr IV.SIG Q8H ERNESTO Rx#: [id number] Vancomycin Inj 1,000 MG In NS 250 / 250 Inj 250 ML @ 250 mls/hr IV.SIG ONCE ONE Rx#:[id number] Water Bolus Amount 200 / 200 Output: Urine 650 / 650 200 / 200 Other: Date of Last Bowel Movement 06/23/18 06/23/18 06/23/18 Physical Exam: CONSTITUTIONAL/GENERAL: This is a frail,chronically ill looking, cachectic patient, in no apparent distress. TUBES/LINES/DRAINS: PIV, soft restraints to all 4 extremities, Mittens to BUE SKIN: Temporal and muscle wasting. No jaundice, rashes, or lesions. Dry skin. Ecchymosis to bilateral upper extremities. EYES: eyes open, focusing, tracking. ENT: Hearing grossly normal. Nose without bleeding or purulent drainage. Oral mucosa dry. CARDIOVASCULAR: S1, S2 normal, no murmurs, gallops, or rubs. No JVD. RESPIRATORY/CHEST: Symmetric, unlabored respirations. Diminished breath sounds. On 3 L nasal cannula GASTROINTESTINAL: Abdomen soft, non-tender, nondistended. TF resumed GENITOURINARY: Without palpable bladder distension. Condom catheter MUSCULOSKELETAL: Extremities without clubbing, cyanosis, or edema. No calf tenderness. NEUROLOGICAL:Awake, alert, confused but pleasant. Trying to communicate. Spontaneously moving all 4 extremities. PSYCHIATRIC: Currently calm. Currently on Seroquel. . Diagnostic Tests Laboratory: Laboratory Results - last 72 hr 06/23/18 06/23/18 06/23/18 07:34 12:17 17:00 WBC RBC Hgb Hct MCV MCH MCHC RDW Plt Count MPV Neut % (Auto) Lymph % (Auto) [place] % (Auto) Eos % (Auto) Baso % (Auto) Neut # (Auto) Lymph # (Auto) [place] # (Auto) Eos # (Auto) Baso # (Auto) WBC Differential Differential Comment Puncture Site Left radial Patient Temperature 98.6 O2 Saturation 97 ABG pH 7.53 H* ABG pCO2 37 L ABG pO2 164 H ABG HCO3 31 H ABG O2 Content 15.2 ABG Base Excess 7.3 H ABG Methemoglobin 0.9 Harshal Test Present Hemoglobin 10.9 L Carboxyhemoglobin 1.6 O2 Delivery Device Non-rebreathing mask Inspired O2 100 Critical Value Yes Sodium Potassium Chloride Carbon Dioxide Anion Gap BUN Creatinine Estimated GFR POC Glucose 164 H 119 H Random Glucose Lactic Acid Calcium Total Bilirubin AST ALT Alkaline Phosphatase Total Protein Albumin 06/23/18 06/23/18 06/23/18 17:39 17:39 17:39 WBC 8.1 RBC 3.06 L Hgb 10.9 L Hct 31.6 L MCV 103.3 H MCH 35.7 H MCHC 34.6 RDW 19.5 H Plt Count 139 L MPV 8.8 Neut % (Auto) 94.5 H Lymph % (Auto) 3.0 L [place] % (Auto) 2.4 Eos % (Auto) 0.0 Baso % (Auto) 0.1 Neut # (Auto) 7.7 Lymph # (Auto) 0.2 L [place] # (Auto) 0.2 Eos # (Auto) 0.0 Baso # (Auto) 0.0 WBC Differential . Differential Comment Auto diff final Puncture Site Patient Temperature O2 Saturation ABG pH ABG pCO2 ABG pO2 ABG HCO3 ABG O2 Content ABG Base Excess ABG Methemoglobin Harshal Test Hemoglobin Carboxyhemoglobin O2 Delivery Device Inspired O2 Critical Value Sodium 137 Potassium 4.2 Chloride 98 Carbon Dioxide 30.9 Anion Gap 8 BUN 34 H Creatinine 0.76 Estimated GFR Greater than 89 POC Glucose Random Glucose 126 H Lactic Acid 1.6 Calcium 8.9 Total Bilirubin 0.7 AST 16 ALT 24 Alkaline Phosphatase 92 Total Protein 6.0 L Albumin 2.0 L 06/23/18 06/23/18 06/24/18 19:46 23:57 06:36 WBC RBC Hgb Hct MCV MCH MCHC RDW Plt Count MPV Neut % (Auto) Lymph % (Auto) [place] % (Auto) Eos % (Auto) Baso % (Auto) Neut # (Auto) Lymph # (Auto) [place] # (Auto) Eos # (Auto) Baso # (Auto) WBC Differential Differential Comment Puncture Site Patient Temperature O2 Saturation ABG pH ABG pCO2 ABG pO2 ABG HCO3 ABG O2 Content ABG Base Excess ABG Methemoglobin Harshal Test Hemoglobin Carboxyhemoglobin O2 Delivery Device Inspired O2 Critical Value Sodium Potassium Chloride Carbon Dioxide Anion Gap BUN Creatinine Estimated GFR POC Glucose 118 H 124 H 106 Random Glucose Lactic Acid Calcium Total Bilirubin AST ALT Alkaline Phosphatase Total Protein Albumin Result Diagrams: 06/23/18 17:39 06/23/18 17:39 Imaging: Head MRI 05/26/18 00:00 Diffusion weighted images demonstrate tiny foci of restricted diffusion in the right frontal cortex. There is diffuse atrophy. There is a large area of encephalomalacia and scoliosis in the left frontal lobe from previous infarction. There is slight ex vacuo dilatation of the left lateral ventricle and remote left basal ganglia lacunar infarcts. In addition remote right occipital infarct and encephalomalacia noted. There are no signs of acute intracranial hemorrhage though there is evidence of remote hemosiderin along the right parietal cortex. No abnormal areas of enhancement are seen. There is no evidence for mass.. CONCLUSION: 1. Atrophy and white matter disease with remote infarcts identified. 2. 2-3 tiny foci of restricted diffusion in the right frontal lobe characteristic of tiny foci of acute infarction. Head CT 05/26/18 12:11 CONCLUSION: 1. No acute findings. Atrophy and remote infarcts. . Carotid Doppler Study 05/28/18 00:00 CONCLUSION: 1. Mild to moderate stenosis on the right not felt to be hemodynamically significant at this point. CT angiography could be used to exclude soft plaque. 2. Occluded left internal carotid artery Head MRA 05/28/18 00:00 CONCLUSION: 1. Occluded left internal carotid artery. Neck CTA 05/30/18 00:00 CONCLUSION: 1. 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 2. Occluded left internal carotid artery at its origin. 3. Less than 50% stenosis of the right internal carotid artery secondary to atherosclerotic plaquing. 4. Emphysema and right upper lobe/lower lobe parenchymal infiltrate. 5. Spiculated mass in the right upper lobe suspicious for primary bronchogenic malignancy until proven otherwise. Abdomen X-Ray 06/03/18 00:00 CONCLUSION: Nasogastric tube is in the right lower lobe airways. Chest CT 06/06/18 00:00 CONCLUSION: Significant interval decrease in size of right pleural effusion from the prior exam. Lung Biopsy CT 06/20/18 00:00 CONCLUSION: 1. CT-guided biopsy with small right pneumothorax. Delayed radiographs are to be performed. Chest X-Ray 06/24/18 00:00 CONCLUSION: No significant change. Abnormal opacity remains in the right lung. Procedures: 06/04/18-EGD with PEG placement 06/18/18-EGD with PEG tube placement 06/20/1815-[id number] right lung biopsy Other: Clinical History Right lung mass. Tissue CT GUIDED NEEDLE BIOPSY OF RIGHT LUNG Gross Description Two wispy montgomery barnett cores of tissue 0.9 and 1.0 cm in length. TE 2. DXN/iram Final Diagnosis LUNG, RIGHT, NEEDLE BIOPSY: - INVASIVE POORLY DIFFERENTIATED ADENOCARCINOMA (SEE COMMENT). DM/ssf Comment Immunohistochemical stains, with appropriately reactive positive and negative controls, have been performed on paraffin sections of the biopsy in order to further characterized the neoplasm (block 1A). The tumor cells are reactive for cytokeratin (AE1/AE3), cytokeratin 7, Napsin A and TTF-1 (nuclear pattern). Weak reactivity is noted in scattered cells for cytokeratin 5/6. There is no significant staining for cytokeratin 20 or p40. These findings are consistent with an adenocarcinoma of pulmonary origin. DMH/ssf *The immunohistochemical test(s)was developed and its performance characteristics determined by [facility]. It has not been cleared or approved by the FDA. The laboratory is regulated under CLIA as qualified to perform high-complexity testing. This is used for clinical purposes. It should not be regarded as investigational or for research. Assessment and Plan - Disease Oriented Problem List (1) CVA (cerebral vascular accident) (2) Pneumonia (3) Protein calorie malnutrition (4) COPD (chronic obstructive pulmonary disease) (5) Pleural effusion (6) Respiratory insufficiency (7) Mass of upper lobe of left lung - Symptom Scale (1) Dysphagia 0-10 Scale: Unable to quantify Comment: Remains n.p.o. (2) Dyspnea 0-10 Scale: Unable to quantify (3) Debility 0-10 Scale: Unable to quantify (4) Pain 0-10 Scale: Unable to quantify Comment: Currently denying pain Pertinent Non-Medical Issues: Psychosocial: Single. Has 1 son and 1 daughter. Spiritual: [employer]. Legal:Patient is not capacitated to make his own health care decisions, uncertain if he will regain capacity. According to [place] statutes, health care proxy decision making falls to the majority of adult children. Ethical issues impacting care: No known concerns at this time. Important Contacts: * Miguel Saleem, son: [phone] * Cass, daughter: [phone] * Martita Saleem, oifeoxik-ov-mnx: [phone] * Brandi Russell: Sister: [phone] Prognosis: Mr. Saleem is a 68-year-old male with remote stroke and new stroke with significant dysphagia, significant unintentional weight loss, cachexia requiring NG tube feedings, new finding of spiculated lung mass with mediastinal adenopathy concerning for malignancy. Patient with significant cognitive, nutritional and functional deficits. Overall prognosis appears poor. I suspect even with a confirmed, biopsy-proven diagnosis of malignancy he would not be a candidate for treatment. Hospice appropriate if goals are comfort oriented. . Code Status: No Code DNR Plan: * Patient is not capacitated to make his own health care decisions, does not appear he will regain capacity. According to [place] statutes, health care proxy decision making falls to the majority of adult children. He has 1 son and 1 daughter. CODE STATUS: * DO NOT RESUSCITATE SYMPTOMS: * Dysphagia: Remote and recent stroke, carotid artery stenosis/occlusion. Unintentional weight loss over the past 6 months. Continues to fail swallow evaluation. Patient pulled out his PEG tube on 06/17/18 PEG tube inserted . Patient is gradually losing weight-admission weight= 49.895kg. On TF- not tolerating well-has high residuals. * Dyspnea: History of COPD/ emphysema, new spiculated mass in lung likely cancer with mediastinal adenopathy-underwent CT-guided lung biopsy 06/20/18. On Prednisone. Currently on O2 3 L nasal cannula. Pathology revealed invasive poorly differentiated adenocarcinoma. * Debility: Secondary to general decline, possible malignancy, malnutrition and prolonged hospitalization. Continue PT. Patient will most likely decline. * Agitation: Patient remains in four-point soft restraints with mittens to BUE which will most likely hinder placement. Recommending increasing Seroquel to 75 mg twice daily. * Family now awaiting pathology for lung biopsy but are aware that his performance status is to poor to receive chemotherapy or radiation. Patient is status post lung biopsy 06/20/18. Attempted calling family members to notify them of pathology results,-no response- awaiting call back. * Palliative care will continue to follow throughout hospital course to assist with symptom management further clarification of goals of medical treatment. Attestation Attestation: To help prompt me to consider important information that might be impacting today's encounter and assessment, information from prior notes written by myself or my colleagues may have been "brought forward" into today's note. My signature on this note, however, is an attestation that I personally performed the exam, history, and/or decision-making noted today, and, unless otherwise indicated, the interactions with patient, family, and staff as well as the review of records all occurred today. I also attest that the listed assessment and stated plan reflect my best clinical judgment today based on the combination of historical information, prior notes, and today's exam/ interactions. When time spent is documented, it refers only to time spent today by the signer, or if indicated, combined time spent today by collaborating physician/nurse practitioner.
[2018-06-24] MEDS: Vancomycin Inj 800 MG in Sodium Chlor 0.9% Inj 250 ML IV.SIG SCH (12:25)
--- NOTE | 2018-06-24 15:10 | ECG ---
Date Performed: 06/23/2018 Time Performed: 15:33:33 PTAGE: 68 years EKG: ATRIAL FIBRILLATION WITH RAPID VENTRICULAR RESPONSE SEPTAL MYOCARDIAL INFARCTION , PROBABLY OLD BASELINE ARTIFACT ABNORMAL ECG Compared to PREVIOUS TRACING , the patient is now in atrial fibrillation with rapid ventricular rate. PREVIOUS TRACIN05/26/2018 12.31 DOCTOR: Yvonne Hylton Interpretating Date/Time 06/24/2018 15:09:15
--- NOTE | 2018-06-24 17:47 | P.PNPAL ---
Call to report sonMiguel at bedside requesting to meet with palliative care. Medical update provided including recent pathology results (poorly differentiated adenocarcinoma). Explained oncology has been consulted, consult pending. I reviewed 3 treatment options for cancer: surgery, chemotherapy and radiation therapy. I discussed with him my concern given prolonged hospital course and trajectory of cognitive, functional and nutritional decline that the patient is not likely to be a good candidate for treatment. Patient continues to fail swallow evaluations, not tolerating tube feeding (restarted trickle feeds today), persistent confusion, agitation requiring restraints. He is now in ICU after he developed A. Fib with RVR, currently in sinus rhythm/ sinus tach today. We reviewed chest x-ray results, patient is congested, opacity of right lung, with underlying emphysema and malignancy. We discussed waiting to get input from medical oncology to determine whether or not they feel he is a candidate for treatment (I suspect the answer is no). We talked about comfort measures with hospice support if patient is not a candidate for treatment. He verbalizes some family is "afraid of hospice because they will just medicate him and he will ." I explained his father is terminal especially if not treatment options for the cancer. I talked about his risk of dying with or without hospice. If unable to continue artificial nutrition that patient likely only has weeks to live. He was very appreciative of the time spent. He will speak with family tonight, offered my number if they have additional questions or concerns. SonMiguel ([phone]) is not available until after 4pm via phone as he is a teacher at [employer]. Palliative care will follow up after oncology sees patient to further clarify goals of medical treatment.
--- NOTE | 2018-06-24 19:03 | MB ---
cc: Fitz Poole MD DATE: 06/24/2018 ATTENDING PHYSICIAN: Franklin Almaguer MD REASON FOR CONSULTATION: Oncology was consulted to render an opinion regarding a patient with newly diagnosed lung cancer. HISTORY OF PRESENT ILLNESS: The patient is a 68-year-old male admitted on 05/26/2018 with altered mental status. At that time, he was found to have sepsis with a urinary tract infection and possible pneumonia. His MRI showed a tiny infarction. His CT scan on 05/31/2018 showed a 1.3 cm spiculated nodule in the right upper lobe with possible precarinal and subcarinal lymphadenopathy. There was also right hilar lymphadenopathy and a moderate right pleural effusion. He had extensive consolidation in the right lung. A repeat CT of the chest on 06/06/2018 showed the pleural effusion had significantly improved. The right upper lobe nodule persisted; however, there was no definite lymphadenopathy noted. 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 The patient remains in restraints. He is awake. He, however, is confused. He is not answering questions appropriately. He gets very agitated when you ask him a question. The history is obtained from his medical record. PAST MEDICAL HISTORY: Stroke, chronic obstructive pulmonary disease. PAST SURGICAL HISTORY: PEG tube placement. FAMILY HISTORY: Not obtainable. SOCIAL HISTORY: Report of alcohol and tobacco abuse. REVIEW OF SYSTEMS: Not obtainable. PHYSICAL EXAMINATION: VITAL SIGNS: Temperature 98, blood pressure 123/72, O2 saturation 100% on 2 liters nasal cannula. GENERAL: He is awake, but he is not answering questions appropriately. He gets agitated intermittently and screams, "I'm fine." HEENT: Atraumatic, normocephalic. Pupils are equal, round and reactive to light. Oropharynx with dry mucosa. NECK: No thyromegaly. No palpable masses. LYMPHATIC: No palpable cervical, clavicular, axillary or inguinal lymph nodes. CARDIOVASCULAR: Regular S1, S2. No murmur. LUNGS: Diffuse rhonchi. ABDOMEN: Soft, nontender. I cannot palpate the liver or spleen. EXTREMITIES: No cyanosis. No significant edema. No calf tenderness. SKIN: No rash or petechiae. NEUROLOGIC: He is moving all 4 extremities but confused. LABORATORY DATA: I have reviewed his lab work during this hospital stay. ASSESSMENT: 1. Non-small cell lung carcinoma. CT scan on presentation showed a 1.3 cm right upper lobe spiculated nodule. There were suspicious precarinal and subcarinal right hilar lymph nodes. There was a moderate right pleural effusion with a significant infiltrate in the right lung. He was thought to have a pneumonia and was treated with antibiotics. A repeat CT of the chest on 06/06/2018 showed a persistent right upper lobe nodule; however, there was no definite lymphadenopathy noted at this time. The right pleural effusion had improved. He underwent a biopsy on 06/20/2018 and the pathology showed invasive poorly differentiated adenocarcinoma consistent with a lung primary. It appears that this could be stage I non-small cell lung cancer since the CT does not show definite lymphadenopathy or distant metastasis. Normally, in this situation, I would recommend an evaluation by a cardiovascular surgeon for resection. However, the patient has encephalopathy and a poor performance status. He is not a candidate for surgical resection. If the family wants to be aggressive with treatment, I would recommend further staging workup with a CT of the abdomen and pelvis and a bone scan to see if there is any distant metastasis. A brain MRI did not show brain metastasis. If he indeed has localized stage I lung cancer, he may be a candidate for stereotactic radiation. At this point, palliative care medicine is following. They have been trying to reach family members without success at this time. 2. Encephalopathy. The patient is still very confused. 3. Pneumonia, which appears to have improved. 4. Urinary tract infection, which has improved. 5. Right pleural effusion, which may be due to pneumonia. It has improved. RECOMMENDATIONS: If family members want to be aggressive with treatment, I would recommend further staging workup with a CT of the abdomen and pelvis and bone scan. I would also consult radiation oncology to consider stereotactic radiation. Palliative care medicine is trying to reach the family members to discuss goal of care at this time. Thank you, Dr. Almaguer, for asking me to see this patient. We will follow with you. MD JENNA Ortiz/chinedu , 04:37 PM , 04:52 PM [facility]
--- NOTE | 2018-06-24 19:38 | P.PN ---
Subjective Interval history: He is better today and on O2 2 L. Pathology on lung Biopsy shows AdenoCarcinoma. He is not a surgical candidate. Physical Exam Vital signs: Vital Signs 06/23/18 19:45 06/23/18 20:00 06/23/18 20:15 Temperature 98.0 F Pulse Rate 124 H 97 H 97 H Respiratory Rate 27 H 18 19 Blood Pressure 161/59 H 123/70 124/74 Pulse Oximetry 100 100 100 06/23/18 20:30 06/23/18 20:45 06/23/18 21:00 Temperature Pulse Rate 96 H 96 H 93 H Respiratory Rate 15 13 12 Blood Pressure 115/71 123/76 117/76 Pulse Oximetry 100 100 100 06/23/18 21:15 06/23/18 21:18 06/23/18 21:20 Temperature Pulse Rate 92 H 105 H Respiratory Rate 12 20 Blood Pressure 104/60 Pulse Oximetry 100 100 06/23/18 21:30 06/23/18 21:45 06/23/18 21:56 Temperature Pulse Rate 92 H 94 H Respiratory Rate 11 L 11 L 16 Blood Pressure 119/66 120/68 Pulse Oximetry 100 94 L 06/23/18 22:00 06/23/18 22:15 06/23/18 22:30 Temperature Pulse Rate 94 H 92 H 94 H Respiratory Rate 11 L 14 11 L Blood Pressure 113/67 130/72 113/62 Pulse Oximetry 93 L 93 L 95 06/23/18 22:45 06/23/18 23:00 06/23/18 23:15 Temperature Pulse Rate 90 89 88 Respiratory Rate 11 L 11 L 13 Blood Pressure 98/56 L 137/67 124/65 Pulse Oximetry 95 96 96 06/23/18 23:30 06/23/18 23:45 06/24/18 00:00 Temperature 97.8 F Pulse Rate 90 92 H 92 H Respiratory Rate 10 L 13 12 Blood Pressure 126/61 129/68 134/69 Pulse Oximetry 95 95 95 06/24/18 00:15 06/24/18 00:30 06/24/18 00:45 Temperature Pulse Rate 92 H 89 90 Respiratory Rate 10 L 11 L 10 L Blood Pressure 137/71 116/63 117/60 Pulse Oximetry 100 99 98 06/24/18 01:00 06/24/18 01:15 06/24/18 01:30 Temperature Pulse Rate 92 H 90 89 Respiratory Rate 14 15 10 L Blood Pressure 125/68 120/66 118/66 Pulse Oximetry 95 98 98 06/24/18 01:45 06/24/18 02:00 06/24/18 02:15 Temperature Pulse Rate 92 H 92 H 93 H Respiratory Rate 10 L 13 18 Blood Pressure 130/75 149/71 H 136/66 Pulse Oximetry 98 100 100 06/24/18 02:30 06/24/18 02:45 06/24/18 03:00 Temperature Pulse Rate 91 H 89 90 Respiratory Rate 12 13 11 L Blood Pressure 140/70 137/68 122/72 Pulse Oximetry 100 100 100 06/24/18 03:15 06/24/18 03:30 06/24/18 03:45 Temperature 97.6 F Pulse Rate 89 90 90 Respiratory Rate 11 L 20 12 Blood Pressure 117/66 125/75 124/73 Pulse Oximetry 99 98 97 06/24/18 04:00 06/24/18 04:07 06/24/18 04:15 Temperature Pulse Rate 90 92 H Respiratory Rate 19 14 Blood Pressure 133/78 135/76 Pulse Oximetry 100 100 100 06/24/18 04:30 06/24/18 04:45 06/24/18 05:00 Temperature Pulse Rate 94 H 93 H 95 H Respiratory Rate 12 17 18 Blood Pressure 131/77 135/74 122/71 Pulse Oximetry 100 100 100 06/24/18 05:15 06/24/18 05:30 06/24/18 05:45 Temperature Pulse Rate 96 H 96 H 97 H Respiratory Rate 11 L 19 15 Blood Pressure 126/75 121/72 119/71 Pulse Oximetry 100 99 98 06/24/18 06:00 06/24/18 06:15 06/24/18 06:30 Temperature Pulse Rate 97 H 97 H 98 H Respiratory Rate 18 21 18 Blood Pressure 121/67 125/67 118/69 Pulse Oximetry 97 96 95 06/24/18 06:45 06/24/18 07:00 06/24/18 07:15 Temperature Pulse Rate 98 H 98 H 98 H Respiratory Rate 13 14 13 Blood Pressure 128/73 128/81 115/67 Pulse Oximetry 97 97 97 06/24/18 07:30 06/24/18 07:45 06/24/18 08:00 Temperature 97.8 F Pulse Rate 99 H 98 H 96 H Respiratory Rate 14 11 L 13 Blood Pressure 138/73 130/72 120/70 Pulse Oximetry 96 96 97 06/24/18 08:15 06/24/18 08:30 06/24/18 08:45 Temperature Pulse Rate 97 H 97 H 97 H Respiratory Rate 15 12 13 Blood Pressure 136/77 135/74 136/67 Pulse Oximetry 97 96 97 06/24/18 09:00 06/24/18 09:15 06/24/18 09:30 Temperature Pulse Rate 96 H 97 H 96 H Respiratory Rate 12 12 12 Blood Pressure 121/73 127/71 124/74 Pulse Oximetry 96 96 96 06/24/18 09:45 06/24/18 10:00 06/24/18 10:15 Temperature Pulse Rate 96 H 97 H Respiratory Rate 14 16 Blood Pressure 123/71 133/80 128/64 Pulse Oximetry 95 95 93 L 06/24/18 10:30 06/24/18 10:45 06/24/18 11:00 Temperature Pulse Rate 97 H 96 H 96 H Respiratory Rate 14 12 11 L Blood Pressure 104/59 L 98/61 L 107/64 Pulse Oximetry 94 L 96 97 06/24/18 11:14 06/24/18 11:15 06/24/18 11:30 Temperature Pulse Rate 96 H 96 H 100 H Respiratory Rate 20 12 11 L Blood Pressure 116/69 119/69 Pulse Oximetry 100 100 06/24/18 11:49 06/24/18 12:00 06/24/18 12:15 Temperature 97.6 F Pulse Rate 107 H 106 H 104 H Respiratory Rate 13 14 11 L Blood Pressure 101/62 103/65 132/62 Pulse Oximetry 95 93 L 94 L 06/24/18 12:30 06/24/18 12:45 06/24/18 13:00 Temperature Pulse Rate 105 H 103 H 101 H Respiratory Rate 11 L 11 L 10 L Blood Pressure 96/58 L 97/57 L 111/66 Pulse Oximetry 96 96 98 06/24/18 13:15 06/24/18 13:30 06/24/18 13:45 Temperature Pulse Rate 101 H 99 H 99 H Respiratory Rate 11 L 11 L 11 L Blood Pressure 111/68 100/68 110/65 Pulse Oximetry 98 99 99 06/24/18 14:00 06/24/18 14:15 06/24/18 14:30 Temperature Pulse Rate 97 H 98 H 98 H Respiratory Rate 12 11 L 11 L Blood Pressure 112/69 111/66 118/71 Pulse Oximetry 100 98 99 06/24/18 14:45 06/24/18 15:00 06/24/18 15:15 Temperature Pulse Rate 100 H 98 H 98 H Respiratory Rate 13 12 13 Blood Pressure 132/70 116/66 128/72 Pulse Oximetry 98 97 100 06/24/18 15:30 06/24/18 15:45 06/24/18 16:00 Temperature 98.0 F Pulse Rate 98 H 98 H 97 H Respiratory Rate 14 14 13 Blood Pressure 123/71 119/70 123/72 Pulse Oximetry 100 99 100 06/24/18 16:15 06/24/18 16:30 06/24/18 16:45 Temperature Pulse Rate 97 H 97 H 98 H Respiratory Rate 14 18 13 Blood Pressure 124/74 125/75 117/65 Pulse Oximetry 100 100 100 06/24/18 17:00 06/24/18 17:15 06/24/18 17:30 Temperature Pulse Rate 101 H 98 H 97 H Respiratory Rate 14 15 15 Blood Pressure 139/76 127/71 166/64 H Pulse Oximetry 100 99 99 06/24/18 17:45 06/24/18 18:00 06/24/18 19:16 Temperature Pulse Rate 97 H 98 H 101 H Respiratory Rate 17 15 18 Blood Pressure 115/65 133/73 Pulse Oximetry 99 99 Intake & Output 06/24/18 06/24/18 06/25/18 06:59 18:59 06:59 Intake Total 350 / 350 1308 / 1308 Output Total 200 / 200 Balance 150 / 150 1308 / 1308 Weight 97 kg 46 kg Intake: IV 350 / 350 1308 / 1308 D5W/1/2 NS Inj 1,000 ML @ 75 1000 / 1000 mls/hr IV.CONT .[id number] [facility] Rx# :[id number] Zosyn 3.375 GM Premix 50 ML @ 100 / 100 50 / 50 100 mls/hr IV.SIG Q8H [facility] Rx#: [id number] Vancomycin Inj 1,000 MG In NS 250 / 250 Inj 250 ML @ 250 mls/hr IV.SIG ONCE ONE Rx#:[id number] Vancomycin Inj 800 MG In NS Inj 258 / 258 250 ML @ 250 mls/hr IV.SIG Q18H [facility] Rx#:[id number] Output: Urine 200 / 200 Other: Date of Last Bowel Movement 06/23/18 06/23/18 Narrative: Thin elderly man awake and alert, speech soft SKIN: Warm and dry. Lungs- decrease breath sounds and occ wheeze CARDIOVASCULAR: - regular rhythm No murmur GASTROINTESTINAL: Abdomen soft, non-tender, nondistended. G-tube in place. MUSCULOSKELETAL: Extremities with Muscle wasting. Moves all . -condom catheter in place NEUROLOGICAL: generalized weakness- right side weak compared to left but moves all spontaneously tongue midline Results - Labs CBC & Chem 7: 06/23/18 17:39 06/23/18 17:39 Laboratory Results - last 24 hr 06/23/18 06/23/18 06/24/18 19:46 23:57 06:36 D-Dimer Quant (PE/DVT) POC Glucose 118 H 124 H 106 06/24/18 06/24/18 06/24/18 12:33 14:05 18:07 D-Dimer Quant (PE/DVT) 3.97 H POC Glucose 155 H 153 H - Imaging Impressions Chest X-Ray 06/24/18 00:00 CONCLUSION: No significant change. Abnormal opacity remains in the right lung. - Procedures lung biopsy. Assessment and Plan - Assessment (1) CVA (cerebral vascular accident) Code(s): I63.9 - Cerebral infarction, unspecified Status: Acute (2) Pneumonia Code(s): J18.9 - Pneumonia, unspecified organism Status: Acute (3) Protein calorie malnutrition Code(s): E46 - Unspecified protein-calorie malnutrition Status: Acute (4) COPD (chronic obstructive pulmonary disease) Code(s): J44.9 - Chronic obstructive pulmonary disease, unspecified Status: Chronic (5) Pleural effusion Code(s): J90 - Pleural effusion, not elsewhere classified Status: Acute (6) Respiratory insufficiency Code(s): R06.89 - Other abnormalities of breathing Status: Acute (7) Mass of upper lobe of left lung Code(s): R91.8 - Other nonspecific abnormal finding of lung field Status: Acute (8) Dysphagia Code(s): R13.10 - Dysphagia, unspecified Status: Acute - Plan 1. O2 at 2 L N/C 2. Duoneb nebs TID 3. Prednisone 20 mg daily 4. Continue tube feeds at 50 CC 5. O2 2 L N/C PRN 6. D/C Zosyn ,D/C Vancomycin 7. Cardizem PRN 8. CBC,BMP in am. (1) CVA (cerebral vascular accident) Qualifiers: Laterality of affected vessel: right (3) Protein calorie malnutrition Qualifiers: Protein-calorie malnutrition severity: severe Qualified Code(s): E43 - Unspecified severe protein-calorie malnutrition (4) COPD (chronic obstructive pulmonary disease) Qualifiers: COPD type: unspecified COPD Qualified Code(s): J44.9 - Chronic obstructive pulmonary disease, unspecified
[2018-06-25] MEDS: Piperacil/Tazo 3.375 GM Premix 50 ML IV.SIG SCH ×4 (00:29→17:13)
[2018-06-25] MEDS: Dextrose 5%/NaCl 0.45% Inj 1,000 ML IV.CONT SCH ×3 (01:41→12:21)
[2018-06-25] MEDS: Vancomycin Inj 800 MG in Sodium Chlor 0.9% Inj 250 ML IV.SIG SCH (06:27)
[2018-06-25 06:44] LABS: Glomerular Filtration Rate Greater Than 89 mL/min (>89)
[2018-06-25] MEDS: Furosemide 20 MG Tablet PO SCH (08:55)
[2018-06-25] MEDS: predniSONE Liq 5 MG/5 ML UDC G-TUBE SCH (08:55)
[2018-06-25] MEDS: Enoxaparin Inj 30 MG/0.3 ML Syringe SQ SCH (08:55)
[2018-06-25] MEDS: Potassium Chloride 25 MEQ Effervescent Tablet G-TUBE SCH (08:55)
[2018-06-25] MEDS: Aspirin 325 MG Tablet G-TUBE SCH (08:55)
[2018-06-25] MEDS: QUEtiapine 25 MG Tablet PO SCH ×2 (08:56→21:47)
--- NOTE | 2018-06-25 09:36 | P.PN ---
Subjective Interval history: awake and alert, smiling and interactive, denies any pain tolerating tf currently at 10 cc/hr moves all extremities spontaneously Physical Exam Vital signs: Vital Signs 06/24/18 09:45 06/24/18 10:00 06/24/18 10:15 Temperature Pulse Rate 96 H 97 H Respiratory Rate 14 16 Blood Pressure 123/71 133/80 128/64 Pulse Oximetry 95 95 93 L 06/24/18 10:30 06/24/18 10:45 06/24/18 11:00 Temperature Pulse Rate 97 H 96 H 96 H Respiratory Rate 14 12 11 L Blood Pressure 104/59 L 98/61 L 107/64 Pulse Oximetry 94 L 96 97 06/24/18 11:14 06/24/18 11:15 06/24/18 11:30 Temperature Pulse Rate 96 H 96 H 100 H Respiratory Rate 20 12 11 L Blood Pressure 116/69 119/69 Pulse Oximetry 100 100 06/24/18 11:49 06/24/18 12:00 06/24/18 12:15 Temperature 97.6 F Pulse Rate 107 H 106 H 104 H Respiratory Rate 13 14 11 L Blood Pressure 101/62 103/65 132/62 Pulse Oximetry 95 93 L 94 L 06/24/18 12:30 06/24/18 12:45 06/24/18 13:00 Temperature Pulse Rate 105 H 103 H 101 H Respiratory Rate 11 L 11 L 10 L Blood Pressure 96/58 L 97/57 L 111/66 Pulse Oximetry 96 96 98 06/24/18 13:15 06/24/18 13:30 06/24/18 13:45 Temperature Pulse Rate 101 H 99 H 99 H Respiratory Rate 11 L 11 L 11 L Blood Pressure 111/68 100/68 110/65 Pulse Oximetry 98 99 99 06/24/18 14:00 06/24/18 14:15 06/24/18 14:30 Temperature Pulse Rate 97 H 98 H 98 H Respiratory Rate 12 11 L 11 L Blood Pressure 112/69 111/66 118/71 Pulse Oximetry 100 98 99 06/24/18 14:45 06/24/18 15:00 06/24/18 15:15 Temperature Pulse Rate 100 H 98 H 98 H Respiratory Rate 13 12 13 Blood Pressure 132/70 116/66 128/72 Pulse Oximetry 98 97 100 06/24/18 15:30 06/24/18 15:45 11/13/18 16:00 Temperature 98.0 F Pulse Rate 98 H 98 H 97 H Respiratory Rate 14 14 13 Blood Pressure 123/71 119/70 123/72 Pulse Oximetry 100 99 100 06/24/18 16:15 06/24/18 16:30 06/24/18 16:45 Temperature Pulse Rate 97 H 97 H 98 H Respiratory Rate 14 18 13 Blood Pressure 124/74 125/75 117/65 Pulse Oximetry 100 100 100 06/24/18 17:00 06/24/18 17:15 06/24/18 17:30 Temperature Pulse Rate 101 H 98 H 97 H Respiratory Rate 14 15 15 Blood Pressure 139/76 127/71 166/64 H Pulse Oximetry 100 99 99 06/24/18 17:45 06/24/18 18:00 06/24/18 18:15 Temperature Pulse Rate 97 H 98 H 97 H Respiratory Rate 17 15 13 Blood Pressure 115/65 133/73 127/67 Pulse Oximetry 99 99 100 06/24/18 18:30 06/24/18 18:45 06/24/18 19:00 Temperature 98.3 F Pulse Rate 96 H 102 H 102 H Respiratory Rate 13 20 21 Blood Pressure 111/63 133/76 112/64 Pulse Oximetry 97 94 L 92 L 06/24/18 19:15 06/24/18 19:16 06/24/18 19:30 Temperature Pulse Rate 101 H 101 H 103 H Respiratory Rate 13 18 15 Blood Pressure 99/57 L 129/70 Pulse Oximetry 94 L 99 06/24/18 19:45 06/24/18 20:00 06/24/18 20:15 Temperature Pulse Rate 106 H 105 H 105 H Respiratory Rate 14 14 14 Blood Pressure 120/65 112/62 127/68 Pulse Oximetry 95 95 97 06/24/18 20:30 06/24/18 20:45 06/24/18 21:00 Temperature Pulse Rate 105 H 104 H 103 H Respiratory Rate 13 14 13 Blood Pressure 127/69 115/62 117/59 L Pulse Oximetry 96 95 96 06/24/18 21:15 06/24/18 21:30 06/24/18 21:45 Temperature Pulse Rate 102 H 101 H 101 H Respiratory Rate 14 14 13 Blood Pressure 99/56 L 123/67 124/71 Pulse Oximetry 96 97 97 06/24/18 22:00 06/24/18 22:06 06/24/18 22:36 Temperature Pulse Rate 101 H 100 H 100 H Respiratory Rate 13 14 14 Blood Pressure 125/68 121/70 128/70 Pulse Oximetry 97 98 97 06/24/18 23:00 06/24/18 23:06 06/24/18 23:36 Temperature Pulse Rate 101 H 101 H 101 H Respiratory Rate 13 15 14 Blood Pressure 129/97 H 141/75 H Pulse Oximetry 96 95 95 06/25/18 00:00 06/25/18 00:06 06/25/18 00:36 Temperature Pulse Rate 98 H 99 H 101 H Respiratory Rate 13 12 13 Blood Pressure 132/82 140/80 Pulse Oximetry 96 97 94 L 06/25/18 01:00 06/25/18 01:06 06/25/18 01:36 Temperature Pulse Rate 100 H 101 H 101 H Respiratory Rate 16 13 15 Blood Pressure 136/75 135/72 Pulse Oximetry 93 L 92 L 93 L 06/25/18 02:00 06/25/18 02:06 06/25/18 02:36 Temperature Pulse Rate 101 H 102 H 100 H Respiratory Rate 14 15 14 Blood Pressure 138/77 139/80 Pulse Oximetry 95 92 L 97 06/25/18 03:00 06/25/18 03:06 06/25/18 03:36 Temperature Pulse Rate 101 H 100 H 101 H Respiratory Rate 15 15 20 Blood Pressure 144/79 H 145/81 H Pulse Oximetry 96 97 96 06/25/18 03:59 06/25/18 04:00 06/25/18 04:06 Temperature Pulse Rate 100 H 100 H 100 H Respiratory Rate 17 21 14 Blood Pressure 144/78 H Pulse Oximetry 97 100 06/25/18 04:36 06/25/18 05:00 06/25/18 05:06 Temperature Pulse Rate 107 H 107 H 108 H Respiratory Rate 18 19 18 Blood Pressure 135/73 132/68 Pulse Oximetry 91 L 96 93 L 06/25/18 05:36 06/25/18 06:00 06/25/18 06:06 Temperature Pulse Rate 105 H 107 H 106 H Respiratory Rate 15 22 19 Blood Pressure 125/73 129/67 Pulse Oximetry 100 86 L 86 L 06/25/18 06:36 06/25/18 07:00 11/14/18 07:06 Temperature Pulse Rate 102 H 103 H 104 H Respiratory Rate 45 H 41 H 44 H Blood Pressure 112/56 L 119/68 Pulse Oximetry 91 L 93 L 92 L 06/25/18 07:36 06/25/18 08:00 06/25/18 08:06 Temperature Pulse Rate 103 H 101 H 101 H Respiratory Rate 32 H 22 29 H Blood Pressure 114/65 131/69 Pulse Oximetry 96 97 96 Intake & Output 06/24/18 06/25/18 06/25/18 18:59 06:59 18:59 Intake Total 1358 / 1358 1100 / 1100 258 / 258 Balance 1358 / 1358 1100 / 1100 258 / 258 Weight 46 kg 97 kg Intake: IV 1358 / 1358 1100 / 1100 258 / 258 D5W/1/2 NS Inj 1,000 ML @ 75 1000 / 1000 1000 / 1000 mls/hr IV.CONT .[id number] ERNESTO Rx# :[id number] Zosyn 3.375 GM Premix 50 ML @ 100 / 100 100 / 100 100 mls/hr IV.SIG Q6H ERNESTO Rx#: [id number] Vancomycin Inj 800 MG In NS Inj 258 / 258 258 / 258 250 ML @ 250 mls/hr IV.SIG Q18H ERNESTO Rx#:[id number] Other: Date of Last Bowel Movement 06/23/18 06/25/18 06/25/18 Narrative: awake and alert, speech soft but clear SKIN: Warm and dry. no nuchal rigidity Lungs- decrease breath sounds and decrease vocal fremiti- right base to mid LF CARDIOVASCULAR: - regular rhythm GASTROINTESTINAL: Abdomen soft, non-tender, nondistended. G-tube in place. MUSCULOSKELETAL: Extremities with Muscle wasting. Moves all extremities spontaenoulsy, good peripheral pulses -condom catheter in place NEUROLOGICAL: generalized weakness- right side weak compared to left but moves all spontaneously tongue midline Results - Labs CBC & Chem 7: 06/23/18 17:39 06/25/18 05:35 Laboratory Results - last 24 hr 06/24/18 06/24/18 06/24/18 12:33 14:05 18:07 D-Dimer Quant (PE/DVT) 3.97 H Creatinine Estimated GFR POC Glucose 155 H 153 H 06/25/18 06/25/18 06/25/18 00:20 05:35 07:08 D-Dimer Quant (PE/DVT) Creatinine 0.57 L Estimated GFR Greater than 89 POC Glucose 130 H 103 - Procedures lung biopsy. Assessment and Plan - Assessment (1) CVA (cerebral vascular accident) Code(s): I63.9 - Cerebral infarction, unspecified Status: Acute (2) Pneumonia Code(s): J18.9 - Pneumonia, unspecified organism Status: Acute (3) Protein calorie malnutrition Code(s): E46 - Unspecified protein-calorie malnutrition Status: Acute (4) COPD (chronic obstructive pulmonary disease) Code(s): J44.9 - Chronic obstructive pulmonary disease, unspecified Status: Chronic (5) Pleural effusion Code(s): J90 - Pleural effusion, not elsewhere classified Status: Acute (6) Respiratory insufficiency Code(s): R06.89 - Other abnormalities of breathing Status: Acute (7) Mass of upper lobe of left lung Code(s): R91.8 - Other nonspecific abnormal finding of lung field Status: Acute - Plan 68-year-old male who was brought in after he was found at home by his landlord. The patient was altered and found to be covered in urine and feces. He was then brought into our emergency department for evaluation. Acute metabolic encephalopathy, possibly secondary to CVA, dehydration, infection- MS improved Acute ischemic right frontal CVA MRI of the brain shows right frontal lobe infarction, 2-3 tiny foci. Possibly embolic stroke. Family endorses prior CVA 12 years ago, he did have residual expressive aphasia and possibly some swallowing difficulty. Neurology service recommendations appreciated. Echocardiogram done, EF 60%, trace mitral valve regurgitation, small pericardial effusion. -Carotid ultrasound results noted, left internal carotid occluded, right carotid moderate plaque, status post vascular surgery evaluation with no surgical intervention recommended. Continue with Lipitor and aspirin. -CTA of the carotids which reveals only about 50% right internal carotid artery stenosis, occluded left internal carotid artery at its origin. PT/OT/ST per protocol for eval and treatment. -Palliative care consult appreciated. Family declined hospice. Follow up with palliative care. -restraints as needed. continue Seroquel . -morphine as needed for discomfort or dyspnea. -PT/OT daily Dysphagia Severe protein calorie malnutrition. -Continues to fail swallow evaluation. Follow with speech therapy. -Status post PEG placement with GI 06/04- patient removed the PEG - GI was reconsulted; s/p PEG replacement on 06/18/18. 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 Precarinal and subcarinal mediastinal as well as right heel or lymphadenopathy is noted. -Tumor markers done, within normal limits. -pulmonary ff - get Oncology input-not a surgical candidate - ? candidate for any form of therapy Pleural effusions R > L- likley malignant Chest x-ray with findings of bilateral pleural effusions -Lasix. -CT chest on 06/06/2018:Significant interval decrease in size of right pleural effusion from the prior exam. -Patient agreed with therapeutic thoracentesis if necessary. - Pulmonary ff COPD Community acquired pneumonia-cxr with poss findings of RLL pna 05/[address] findings noted, Extensive alveolar consolidations are noted within the right upper and lower lobes consistent with probable pneumonia. Emphysematous changes. Moderate size right pleural effusion. Continue with duo nebs. -continue prednisone and will start tapering down . -on zosyn/Vancomycin -Pulmonary ff History of alcohol abuse -s/p CIWA protocol. Left ischium ulcer -Continue wound care per wound care nurse. Hypokalemia- replaced. Hypernatremia-resolved. -Monitor and replace electrolytes as needed -continue free water via PEG. FEN- increase TF to goal rate - discuss with staff nurse 06/25 DVT prophylaxis: Continue Lovenox Discharge Planning: Palliative care met with family yesterday 06/24 - discuss all options- aware not a surgical candidate - we will go ahead and consult Oncology for input and recommendations (1) CVA (cerebral vascular accident) Qualifiers: Laterality of affected vessel: right (3) Protein calorie malnutrition Qualifiers: Protein-calorie malnutrition severity: severe Qualified Code(s): E43 - Unspecified severe protein-calorie malnutrition (4) COPD (chronic obstructive pulmonary disease) Qualifiers: COPD type: unspecified COPD Qualified Code(s): J44.9 - Chronic obstructive pulmonary disease, unspecified
--- NOTE | 2018-06-25 12:26 | P.PN ---
Subjective Interval history: Awake and on O2 N/C. Biopsy is [place]. Needs Oncology to see No chest pain. Answers questions Physical Exam Vital signs: Vital Signs 06/24/18 12:30 06/24/18 12:45 06/24/18 13:00 Temperature Pulse Rate 105 H 103 H 101 H Respiratory Rate 11 L 11 L 10 L Blood Pressure 96/58 L 97/57 L 111/66 Pulse Oximetry 96 96 98 06/24/18 13:15 06/24/18 13:30 06/24/18 13:45 Temperature Pulse Rate 101 H 99 H 99 H Respiratory Rate 11 L 11 L 11 L Blood Pressure 111/68 100/68 110/65 Pulse Oximetry 98 99 99 06/24/18 14:00 06/24/18 14:15 06/24/18 14:30 Temperature Pulse Rate 97 H 98 H 98 H Respiratory Rate 12 11 L 11 L Blood Pressure 112/69 111/66 118/71 Pulse Oximetry 100 98 99 06/24/18 14:45 06/24/18 15:00 06/24/18 15:15 Temperature Pulse Rate 100 H 98 H 98 H Respiratory Rate 13 12 13 Blood Pressure 132/70 116/66 128/72 Pulse Oximetry 98 97 100 06/24/18 15:30 06/24/18 15:45 06/24/18 16:00 Temperature 98.0 F Pulse Rate 98 H 98 H 97 H Respiratory Rate 14 14 13 Blood Pressure 123/71 119/70 123/72 Pulse Oximetry 100 99 100 06/24/18 16:15 06/24/18 16:30 06/24/18 16:45 Temperature Pulse Rate 97 H 97 H 98 H Respiratory Rate 14 18 13 Blood Pressure 124/74 125/75 117/65 Pulse Oximetry 100 100 100 06/24/18 17:00 06/24/18 17:15 06/24/18 17:30 Temperature Pulse Rate 101 H 98 H 97 H Respiratory Rate 14 15 15 Blood Pressure 139/76 127/71 166/64 H Pulse Oximetry 100 99 99 06/24/18 17:45 06/24/18 18:00 06/24/18 18:15 Temperature Pulse Rate 97 H 98 H 97 H Respiratory Rate 17 15 13 Blood Pressure 115/65 133/73 127/67 Pulse Oximetry 99 99 100 06/24/18 18:30 06/24/18 18:45 06/24/18 19:00 Temperature 98.3 F Pulse Rate 96 H 102 H 102 H Respiratory Rate 13 20 21 Blood Pressure 111/63 133/76 112/64 Pulse Oximetry 97 94 L 92 L 06/24/18 19:15 06/24/18 19:16 06/24/18 19:30 Temperature Pulse Rate 101 H 101 H 103 H Respiratory Rate 13 18 15 Blood Pressure 99/57 L 129/70 Pulse Oximetry 94 L 99 06/24/18 19:45 06/24/18 20:00 06/24/18 20:15 Temperature Pulse Rate 106 H 105 H 105 H Respiratory Rate 14 14 14 Blood Pressure 120/65 112/62 127/68 Pulse Oximetry 95 95 97 06/24/18 20:30 06/24/18 20:45 06/24/18 21:00 Temperature Pulse Rate 105 H 104 H 103 H Respiratory Rate 13 14 13 Blood Pressure 127/69 115/62 117/59 L Pulse Oximetry 96 95 96 06/24/18 21:15 06/24/18 21:30 06/24/18 21:45 Temperature Pulse Rate 102 H 101 H 101 H Respiratory Rate 14 14 13 Blood Pressure 99/56 L 123/67 124/71 Pulse Oximetry 96 97 97 06/24/18 22:00 06/24/18 22:06 06/24/18 22:36 Temperature Pulse Rate 101 H 100 H 100 H Respiratory Rate 13 14 14 Blood Pressure 125/68 121/70 128/70 Pulse Oximetry 97 98 97 06/24/18 23:00 06/24/18 23:06 06/24/18 23:36 Temperature Pulse Rate 101 H 101 H 101 H Respiratory Rate 13 15 14 Blood Pressure 129/97 H 141/75 H Pulse Oximetry 96 95 95 06/25/18 00:00 06/25/18 00:06 06/25/18 00:36 Temperature Pulse Rate 98 H 99 H 101 H Respiratory Rate 13 12 13 Blood Pressure 132/82 140/80 Pulse Oximetry 96 97 94 L 06/25/18 01:00 06/25/18 01:06 06/25/18 01:36 Temperature Pulse Rate 100 H 101 H 101 H Respiratory Rate 16 13 15 Blood Pressure 136/75 135/72 Pulse Oximetry 93 L 92 L 93 L 06/25/18 02:00 06/25/18 02:06 06/25/18 02:36 Temperature Pulse Rate 101 H 102 H 100 H Respiratory Rate 14 15 14 Blood Pressure 138/77 139/80 Pulse Oximetry 95 92 L 97 06/25/18 03:00 06/25/18 03:06 06/25/18 03:36 Temperature Pulse Rate 101 H 100 H 101 H Respiratory Rate 15 15 20 Blood Pressure 144/79 H 145/81 H Pulse Oximetry 96 97 96 06/25/18 03:59 06/25/18 04:00 06/25/18 04:06 Temperature Pulse Rate 100 H 100 H 100 H Respiratory Rate 17 21 14 Blood Pressure 144/78 H Pulse Oximetry 97 100 06/25/18 04:36 06/25/18 05:00 06/25/18 05:06 Temperature Pulse Rate 107 H 107 H 108 H Respiratory Rate 18 19 18 Blood Pressure 135/73 132/68 Pulse Oximetry 91 L 96 93 L 06/25/18 05:36 06/25/18 06:00 06/25/18 06:06 Temperature Pulse Rate 105 H 107 H 106 H Respiratory Rate 15 22 19 Blood Pressure 125/73 129/67 Pulse Oximetry 100 86 L 86 L 06/25/18 06:36 06/25/18 07:00 06/25/18 07:06 Temperature Pulse Rate 102 H 103 H 104 H Respiratory Rate 45 H 41 H 44 H Blood Pressure 112/56 L 119/68 Pulse Oximetry 91 L 93 L 92 L 06/25/18 07:36 06/25/18 08:00 06/25/18 08:06 Temperature Pulse Rate 103 H 101 H 101 H Respiratory Rate 32 H 22 29 H Blood Pressure 114/65 131/69 Pulse Oximetry 96 97 96 06/25/18 08:36 06/25/18 09:00 06/25/18 09:06 Temperature Pulse Rate 105 H 101 H 102 H Respiratory Rate 42 H 16 29 H Blood Pressure 120/65 134/77 Pulse Oximetry 95 92 L 91 L 06/25/18 09:36 06/25/18 10:00 06/25/18 10:06 Temperature Pulse Rate 100 H 101 H Respiratory Rate 15 21 24 Blood Pressure 115/65 152/82 H Pulse Oximetry 94 L 98 95 06/25/18 11:48 Temperature Pulse Rate 100 H Respiratory Rate 17 Blood Pressure Pulse Oximetry 97 Intake & Output 06/24/18 06/25/1806/25/18 18:59 06:59 18:59 Intake Total 1358 / 1358 1100 / 1100 258 / 258 Balance 1358 / 1358 1100 / 1100 258 / 258 Weight 46 kg 97 kg Intake: IV 1358 / 1358 1100 / 1100 258 / 258 D5W/1/2 NS Inj 1,000 ML @ 75 1000 / 1000 1000 / 1000 mls/hr IV.CONT .[id number] ER[facility]STO Rx# :[id number] Zosyn 3.375 GM Premix 50 ML @ 100 / 100 100 / 100 100 mls/hr IV.SIG Q6H ERNESTO Rx#: [id number] Vancomycin Inj 800 MG In NS Inj 258 / 258 258 / 258 250 ML @ 250 mls/hr IV.SIG Q18H ERNESTO Rx#:[id number] Other: Date of Last Bowel Movement 06/23/18 06/25/18 06/25/18 Narrative: awake and alert, Thin W/M speech soft. SKIN: Warm and dry. no nuchal rigidity Lungs- decrease breath sounds and occ Wheeze . CARDIOVASCULAR: - regular rhythm GASTROINTESTINAL: Abdomen soft, non-tender, nondistended. G-tube in place. MUSCULOSKELETAL: Extremities with Muscle wasting. Moves all extremities spontaneously. good peripheral pulses -condom catheter in place NEUROLOGICAL: generalized weakness- right side weak compared to left but moves all spontaneously tongue midline Results - Labs CBC & Chem 7: 06/23/18 17:39 06/25/18 05:35 Laboratory Results - last 24 hr 06/24/18 06/24/18 06/24/18 12:33 14:05 18:07 D-Dimer Quant (PE/DVT) 3.97 H Creatinine Estimated GFR POC Glucose 155 H 153 H 06/25/18 06/25/18 06/25/18 00:20 05:35 07:08 D-Dimer Quant (PE/DVT) Creatinine 0.57 L Estimated GFR Greater than 89 POC Glucose 130 H 103 06/25/18 11:47 D-Dimer Quant (PE/DVT) Creatinine Estimated GFR POC Glucose 109 - Procedures lung biopsy. Assessment and Plan - Assessment (1) CVA (cerebral vascular accident) Code(s): I63.9 - Cerebral infarction, unspecified Status: Acute (2) Pneumonia Code(s): J18.9 - Pneumonia, unspecified organism Status: Acute (3) Protein calorie malnutrition Code(s): E46 - Unspecified protein-calorie malnutrition Status: Acute (4) COPD (chronic obstructive pulmonary disease) Code(s): J44.9 - Chronic obstructive pulmonary disease, unspecified Status: Chronic (5) Pleural effusion Code(s): J90 - Pleural effusion, not elsewhere classified Status: Acute (6) Respiratory insufficiency Code(s): R06.89 - Other abnormalities of breathing Status: Acute (7) Mass of upper lobe of left lung Code(s): R91.8 - Other nonspecific abnormal finding of lung field Status: Acute (8) Dysphagia Code(s): R13.10 - Dysphagia, unspecified Status: Acute - Plan 1. O2 at 2 L N/C 2. Cont Duoneb nebs TID 3. Prednisone 20 mg daily 4. Continue tube feeds at 50 CC 5. O2 2 L N/C PRN 6. Oncology consult. 7. Palliative care to see 8. Transfer to tele (1) CVA (cerebral vascular accident) Qualifiers: Laterality of affected vessel: right (3) Protein calorie malnutrition Qualifiers: Protein-calorie malnutrition severity: severe Qualified Code(s): E43 - Unspecified severe protein-calorie malnutrition (4) COPD (chronic obstructive pulmonary disease) Qualifiers: COPD type: unspecified COPD Qualified Code(s): J44.9 - Chronic obstructive pulmonary disease, unspecified
--- NOTE | 2018-06-25 16:32 | P.PNONC ---
Subjective Interval history: Patient awake and alert, working with physical therapy. He is not oriented, in soft medical restraints. No family is at the bedside. The patient is not oriented. He reports his pain is intermittent and will not localize location. Objective Vital Signs/Intake & Output: Vital Signs 06/24/18 16:30 06/24/18 16:45 06/24/18 17:00 Temperature Pulse Rate 97 H 98 H 101 H Respiratory Rate 18 13 14 Blood Pressure 125/75 117/65 139/76 Pulse Oximetry 100 100 100 06/24/18 17:15 06/24/18 17:30 06/24/18 17:45 Temperature Pulse Rate 98 H 97 H 97 H Respiratory Rate 15 15 17 Blood Pressure 127/71 166/64 H 115/65 Pulse Oximetry 99 99 99 06/24/18 18:00 06/24/18 18:15 06/24/18 18:30 Temperature Pulse Rate 98 H 97 H 96 H Respiratory Rate 15 13 13 Blood Pressure 133/73 127/67 111/63 Pulse Oximetry 99 100 97 06/24/18 18:45 06/24/18 19:00 06/24/18 19:15 Temperature 98.3 F Pulse Rate 102 H 102 H 101 H Respiratory Rate 20 21 13 Blood Pressure 133/76 112/64 99/57 L Pulse Oximetry 94 L 92 L 94 L 06/24/18 19:16 06/24/18 19:30 06/24/18 19:45 Temperature Pulse Rate 101 H 103 H 106 H Respiratory Rate 18 15 14 Blood Pressure 129/70 120/65 Pulse Oximetry 99 95 06/24/18 20:00 06/24/18 20:15 06/24/18 20:30 Temperature Pulse Rate 105 H 105 H 105 H Respiratory Rate 14 14 13 Blood Pressure 112/62 127/68 127/69 Pulse Oximetry 95 97 96 06/24/18 20:45 06/24/18 21:00 06/24/18 21:15 Temperature Pulse Rate 104 H 103 H 102 H Respiratory Rate 14 13 14 Blood Pressure 115/62 117/59 L 99/56 L Pulse Oximetry 95 96 96 06/24/18 21:30 06/24/18 21:45 06/24/18 22:00 Temperature Pulse Rate 101 H 101 H 101 H Respiratory Rate 14 13 13 Blood Pressure 123/67 124/71 125/68 Pulse Oximetry 97 97 97 06/24/18 22:06 06/24/18 22:36 06/24/18 23:00 Temperature Pulse Rate 100 H 100 H 101 H Respiratory Rate 14 14 13 Blood Pressure 121/70 128/70 Pulse Oximetry 98 97 96 06/24/18 23:06 06/24/18 23:36 06/25/18 00:00 Temperature Pulse Rate 101 H 101 H 98 H Respiratory Rate 15 14 13 Blood Pressure 129/97 H 141/75 H Pulse Oximetry 95 95 96 06/25/18 00:06 06/25/18 00:36 06/25/18 01:00 Temperature Pulse Rate 99 H 101 H 100 H Respiratory Rate 12 13 16 Blood Pressure 132/82 140/80 Pulse Oximetry 97 94 L 93 L 06/25/18 01:06 06/25/18 01:36 06/25/18 02:00 Temperature Pulse Rate 101 H 101 H 101 H Respiratory Rate 13 15 14 Blood Pressure 136/75 135/72 Pulse Oximetry 92 L 93 L 95 06/25/18 02:06 06/25/18 02:36 06/25/18 03:00 Temperature Pulse Rate 102 H 100 H 101 H Respiratory Rate 15 14 15 Blood Pressure 138/77 139/80 Pulse Oximetry 92 L 97 96 06/25/18 03:06 06/25/18 03:36 06/25/18 03:59 Temperature Pulse Rate 100 H 101 H 100 H Respiratory Rate 15 20 17 Blood Pressure 144/79 H 145/81 H Pulse Oximetry 97 96 06/25/18 04:00 06/25/18 04:06 06/25/18 04:36 Temperature Pulse Rate 100 H 100 H 107 H Respiratory Rate 21 14 18 Blood Pressure 144/78 H 135/73 Pulse Oximetry 97 100 91 L 06/25/18 05:00 06/25/18 05:06 06/25/18 05:36 Temperature Pulse Rate 107 H 108 H 105 H Respiratory Rate 19 18 15 Blood Pressure 132/68 125/73 Pulse Oximetry 96 93 L 100 06/25/18 06:00 06/25/18 06:06 06/25/18 06:36 Temperature Pulse Rate 107 H 106 H 102 H Respiratory Rate 22 19 45 H Blood Pressure 129/67 112/56 L Pulse Oximetry 86 L 86 L 91 L 06/25/18 07:00 06/25/18 07:06 06/25/18 07:36 Temperature Pulse Rate 103 H 104 H 103 H Respiratory Rate 41 H 44 H 32 H Blood Pressure 119/68 114/65 Pulse Oximetry 93 L 92 L 96 06/25/18 08:00 06/25/18 08:06 06/25/18 08:36 Temperature Pulse Rate 101 H 101 H 105 H Respiratory Rate 22 29 H 42 H Blood Pressure 131/69 120/65 Pulse Oximetry 97 96 95 06/25/18 09:00 06/25/18 09:06 06/25/18 09:36 Temperature Pulse Rate 101 H 102 H 100 H Respiratory Rate 16 29 H 15 Blood Pressure 134/77 115/65 Pulse Oximetry 92 L 91 L 94 L 06/25/18 10:00 06/25/18 10:06 06/25/18 10:36 Temperature Pulse Rate 101 H 99 H Respiratory Rate 21 24 17 Blood Pressure 152/82 H 149/85 H Pulse Oximetry 98 95 100 06/25/18 11:00 06/25/18 11:06 06/25/18 11:36 Temperature Pulse Rate 97 H 101 H Respiratory Rate 19 25 H 18 Blood Pressure 150/80 H 149/77 H Pulse Oximetry 99 98 06/25/18 11:48 06/25/18 12:00 06/25/18 12:06 Temperature Pulse Rate 100 H 102 H Respiratory Rate 17 16 15 Blood Pressure 153/74 H Pulse Oximetry 97 06/25/18 12:36 06/25/18 13:00 06/25/18 13:06 Temperature Pulse Rate 103 H 104 H 103 H Respiratory Rate 15 22 13 Blood Pressure 155/87 H 124/71 Pulse Oximetry 97 06/25/18 13:36 06/25/18 14:00 Temperature Pulse Rate 102 H 100 H Respiratory Rate 13 13 Blood Pressure 135/72 Pulse Oximetry Intake & Output 06/24/18 06/25/18 06/25/18 18:59 06:59 18:59 Intake Total 1358 / 1358 1100 / 1100 308 / 308 Balance 1358 / 1358 1100 / 1100 308 / 308 Weight 46 kg 97 kg Intake: IV 1358 / 1358 1100 / 1100 308 / 308 D5W/1/2 NS Inj 1,000 ML @ 75 1000 / 1000 1000 / 1000 mls/hr IV.CONT .[id number] [facility] Rx# :[id number] Zosyn 3.375 GM Premix 50 ML @ 100 / 100 100 / 100 50 / 50 100 mls/hr IV.SIG Q6H MEG Rx#: [id number] Vancomycin Inj 800 MG In NS Inj 258 / 258 258 / 258 250 ML @ 250 mls/hr IV.SIG Q18H MEG Rx#:[id number] Other: Date of Last Bowel Movement 06/23/18 06/25/18 06/24/18 Result Diagrams: 06/23/18 17:39 06/25/18 05:35 Laboratory Results: Laboratory Results - last 24 hr 06/24/18 06/25/18 06/25/18 18:07 00:20 05:35 Creatinine 0.57 L Estimated GFR Greater than 89 POC Glucose 153 H 130 H 06/25/18 06/25/18 07:08 11:47 Creatinine Estimated GFR POC Glucose 103 109 Medications: Active Medications Generic Name Dose Route Start Last Admin Trade Name Freq PRN Reason Stop Dose Admin Albuterol 1 ampul 06/23/18 20:00 06/25/18 11:44 Duoneb Neb (Meg) NEB 1 ampul Q8HR ALT NEB MEG Administration Aspirin 325 mg 06/12/18 15:15 06/25/18 08:55 Aspirin G-TUBE 325 mg DAILY MEG Administration Atorvastatin Calcium 20 mg 06/01/18 21:00 06/24/18 20:38 Lipitor NG/OG 20 mg HS MEG Administration Enoxaparin Sodium 30 mg 05/27/18 09:00 06/25/18 08:55 Lovenox Inj SQ 30 mg DAILY MEG Administration Furosemide 20 mg 06/03/18 09:00 06/25/18 08:55 Lasix PO 20 mg DAILY MEG Administration Vancomycin HCl 800 mg/ Sodium 258 mls @ 250 mls/hr 06/24/18 12:00 06/25/18 08 :57 Chloride IV.SIG Infused Q18H MEG Infusion Piperacillin/Tazobactam/Dextrose 50 mls @ 100 mls/hr 06/24/18 17:00 06/25/18 12:51 Zosyn 3.375 Gm Premix IV.SIG Infused Q6H MEG Infusion Dextrose/Sodium Chloride 1,000 mls @ 40 mls/hr 06/25/18 09:50 06/25/18 12:21 D5w/1/2 Ns Inj IV.CONT 40 mls/hr .Q24H MEG Administration Morphine Sulfate 2 mg 06/09/18 10:39 06/23/18 20:40 Morphine Inj IV.PUSH 2 mg Q3H PRN Administration pain 3-10/ discomfort/ dyspnea Potassium Bicarb/Potassium Chloride 25 meq 06/23/18 10:45 06/25/18 08:55 K-Lyte Cl Eff G-TUBE 25 meq DAILY MEG Administration Prednisone 30 mg 06/24/18 09:00 06/25/18 08:55 Deltasone Liq G-TUBE 30 mg DAILY MEG Administration Quetiapine Fumarate 50 mg 06/15/18 21:00 06/25/18 08:56 Seroquel PO 50 mg BID MEG Administration Sodium Chloride 2 ml 05/26/18 16:02 06/02/18 07:43 Ns Flush IV.FLUSH 2 ml PRN PRN Administration FLUSH AFTER USING IV ACCESS Sodium Chloride 2 ml 05/26/18 21:00 06/25/18 08:56 Ns Flush IV.FLUSH 2 ml BID MEG Administration Sterile Water 200 ml 06/03/18 18:00 06/25/18 12:22 Free Water NG/OG 200 ml Q6HR MEG Administration Objective Remarks: GENERAL: Cachectic chronically ill-appearing male patient, in no acute distress. SKIN: Warm and dry. HEAD: Normocephalic. EYES: No scleral icterus. No injection or drainage. NECK: Supple, trachea midline. CARDIOVASCULAR: Regular rate and rhythm without murmurs. RESPIRATORY: Breath sounds rhonchi, equal bilaterally. No accessory muscle use. GASTROINTESTINAL: Abdomen binder in place. EXTREMITIES: No cyanosis, or edema. MUSCULOSKELETAL: Decreased muscle tone. NEUROLOGICAL: Not oriented to person place or time. In soft medical restraints. PSYCHIATRIC: Calm. Assessment/Plan - Plan Oncology consulted in regards to newly diagnosed lung cancer. Recommendations: 1. Right lung mass, biopsy showed invasive poorly differentiated adenocarcinoma. Patient continues with encephalopathy and confusion, currently in soft medical restraints. He has a poor performance status. He is not a candidate for surgical resection. He is also not a candidate for chemotherapy. If the family wishes for aggressive treatment we would recommend staging workup with a CT of the abdomen and pelvis and a bone scan to see if there is any distant metastasis. If he is found to be a stage I lung cancer, the patient would be a candidate for stereotactic radiation only. 2. Palliative care is following. - Attending Statement The exam, history, and the medical decision-making described in the above note were completed with the assistance of the mid-level provider. I reviewed and agree with the findings presented. I attest that I had a [id number] encounter with the patient on the same day, and personally performed and documented my assessment and findings in the medical record. Patient is more alert this morning but he is still confused. I have discussed with palliative care medicine. At this point patient's family wants further workup and consider radiation. We will arrange for CT of the abdomen pelvis and bone scan. I am also going to consult radiation oncology to evaluate patient to see if he is a candidate for stereotactic radiation if his disease is localized.
--- NOTE | 2018-06-25 19:10 | P.PNPAL ---
Call from sonMiguel to request update on oncology consultation. I reviewed Dr. Poole's notes and advised his recommendation for CT abd/pelvis and bone scan to evaluate for distant disease and raditation oncology consult to determine if radiation would be an option. Son indicates family is considering transition to comfort measures. He would like to attempt imaging per Dr. Poole's recommendations. We talked about the difficulty patient may have laying still for tests. He agrees if patient unable this could be considered another sign. He asks more questions about hospice, medication use for comfort and whether or not tube feeding could be continued. I explained plan for symptom management would be discussed with family and the goal would be to use as little medication in effort to manage the symptoms understanding the meds cause some level of sedation. I told him tube feeding could be continued. I called Dr. Poole to notify family wishes to proceed with imaging if patient able and radiation consult for more information, he will place orders. Miguel and I agreed to talk again 06/26/18 with update.
[2018-06-25] MEDS ORDERED: Pharmacy Ordered Lab Info OTHER ONE (23:45)
[2018-06-26] MEDS: Vancomycin Inj 800 MG in Sodium Chlor 0.9% Inj 250 ML IV.SIG SCH ×2
--- NOTE | 2018-06-26 00:04 | CT ---
EXAM DATE: 06/25/2018 11:47 PM EST AGE/SEX: 68 years / Male INDICATIONS: Patient with lung cancer and pleural effusions is being evaluated for metastatic diseas e.. CLINICAL DATA: This is the patient's initial encounter. Patient reports that signs and symptoms have been present for 1 day and indicates a pain score of 0/10. MEDICAL/SURGICAL HISTORY: Cerebrovascular disease. Carcinoma, lung. Non-responsive. ORAL CONTRAST: No oral contrast ingested. RADIATION DOSE: 6.71 CTDI (mGy) COMPARISON: [facility] – [place], [place] CHEST W/O CONTRAST, 06/06/2018. . TECHNIQUE: Multiple contiguous axial images were obtained through the abdomen and pelvis following b olus infusion of 70 ml Omnipaque 350 (iohexol) nonionic water-soluble contrast as a single exam dos e. No oral contrast ingested. Using automated exposure control and adjustment of the mA and/or kV ac cording to patient size, radiation dose was kept as low as reasonably achievable to obtain optimal di agnostic quality images. DICOM format image data is available electronically for review and comparis on. FINDINGS: Lower Lungs: A moderate size right pleural effusion is now present. There is mild adjacent consolidat ion. There is a small left pleural effusion. There is a small amount of pericardial fluid noted. Ortega nary artery calcifications are present. There is evidence of mediastinal adenopathy. Liver: The liver has a homogeneous density without space-occupying lesion. There is no dilation of th e biliary tree. The gallbladder is unremarkable in appearance. There is a small amount of ascitic flu id surrounding portions of the liver. Spleen: Homogeneous density without enlargement. Pancreas: Unremarkable without mass or calcification. Kidneys: Normal in size and shape. No evidence of mass or hydronephrosis. Adrenal Glands: Unremarkable. Aorta: Atherosclerotic changes are present in the aorta with metallic stent catheter in the right i liac artery. Bowel/Mesentery: No oral contrast was given limiting the sensitivity of the examination. There is la rge amount of stool in the distal colon. Gas and stool is noted segmentally in the colon. There is a gastrostomy tube in the anterior stomach is fluid-filled. There is a small amount of ascitic fluid. T here is a tiny amount of residual free air along the anterior liver best seen on axial image #20. Abdominal Wall: Intact. Retroperitoneum: No evidence of adenopathy in the retrocrural, para-aortic, or deep pelvic regions. Bladder: Contours are smooth. Reproductive Organs: No abnormal masses or calcifications seen. Inguinal: The inguinal region is unremarkable without evidence of adenopathy. Bony Structures: Osteopenia, degenerative change and mild scoliosis are present. There is no definit e blastic or lytic lesions identified. CONCLUSION: 1. Bilateral pleural effusions right greater than left with consolidation in the right posterior edgardo g base. 2. Small amount of pericardial effusion and evidence of mediastinal adenopathy. 3. Small amount of ascitic fluid in right upper abdomen. 4. Nonspecific bowel gas pattern which may represent a mild ileus. There is a large amount stool in the distal colon. A gastrostomy tube is present. 5. There is a tiny amount of residual free air along the anterior liver margin. There was significan t free air on the recent chest CT, the majority of which has resolved. Electronically signed by: Wilberto Sanford MD 06/26/2018 12:03 AM EST
[2018-06-26] MEDS: Piperacil/Tazo 3.375 GM Premix 50 ML IV.SIG SCH ×4 (04:19→17:54)
[2018-06-26 05:09] LABS: Glomerular Filtration Rate Greater Than 89 mL/min (>89)
[2018-06-26] MEDS: Dextrose 5%/NaCl 0.45% Inj 1,000 ML IV.CONT SCH (05:11)
--- NOTE | 2018-06-26 08:13 | P.CON ---
History of Present Illness Service: Radiation oncology Consult date: 06/26/18 Requesting Physician: Fitz Poole Reason for Consult: Radiation treatment options Primary Care Provider: Je Graves MD Chief Complaint: New diagnosis of lung carcinoma History of Present Illness: 68-year-old white male which was initially admitted on 05/26/2018 with the complaints of altered mental status sepsis with UTI and possible pneumonia. On workup he was noted to have a 1.3 cm spiculated nodule in the right upper lobe with the precarinal and subcarinal lymphadenopathy. After improvement of his pulmonary status the right upper node nodule persisted and a biopsy was performed which is now positive for lung carcinoma. Patient has been evaluated by medical oncology for possible treatment options. I have discussed this case with Dr. Poole and he has requested evaluation by radiation oncology for possible treatment options. Review of Systems unobtainable due to mental condition, unobtainable due to mental status PMFSH - History History Provided By: Family Member - Medical History Medical History: Medical History (Last Reviewed 06/25/18 @ 08:24 by Chencho Cifuentes) Alcohol abuse Tobacco abuse CVA (cerebral vascular accident) - Family History Family History: Family History (Last Reviewed 06/23/18 @ 13:48 by Kristi Ngo) Mother Emphysema lung Father Myocardial infarction - Tobacco History Second Hand Smoke Exposure: Yes Tobacco Use In Past 30 Days: Yes Smoking Status: Current every day smoker Tobacco Type: Cigarettes - Alcohol History How Often Do You Have a Drink Containing Alcohol: Unable to Obtain (prior alocoholism, quit 12 years ago after stroke) - Substance Use History Substance History: Past History - Travel History Recent Travel in the [place] Within the Last 8 Weeks: No Recent Travel Out of the Country Within the Last 8 Weeks: No - Immunization History Tetanus Immunization: Unable to Assess Medications and Allergies Active Medications: Active Medications Albuterol (Duoneb Neb (Meg)) 1 ampul NEB Q8HR ALT NEB MEG Last Admin: 06/26/18 03:55 Dose: 1 ampul Aspirin (Aspirin) 325 mg G-TUBE DAILY [facility] Last Admin: 06/25/18 08:55 Dose: 325 mg Atorvastatin Calcium (Lipitor) 20 mg NG/OG HS MEG Last Admin: 06/25/18 21:47 Dose: 20 mg Dextrose (D50w Vial) 50 ml IV.PUSH UNSCH PRN PRN Reason: PER HYPOGLYCEMIA PROTOCOL Enoxaparin Sodium (Lovenox Inj) 30 mg SQ DAILY [facility] Last Admin: 06/25/18 08:55 Dose: 30 mg Furosemide (Lasix) 20 mg PO DAILY [facility] Last Admin: 06/25/18 08:55 Dose: 20 mg Glucagon (Glucagon Inj) 1 mg OTHER UNSCH PRN PRN Reason: for Hypoglycemia Protocol Diltiazem HCl 125 mg/ Sodium (Chloride) 125 mls @ 5 mls/hr IV.CONT TITRATE PRN ; Protocol PRN Reason: Per Protocol Vancomycin HCl 800 mg/ Sodium (Chloride) 258 mls @ 250 mls/hr IV.SIG Q18H [facility] Last Infusion: 06/26/18 02:50 Dose: Infused Piperacillin/Tazobactam/Dextrose (Zosyn 3.375 Gm Premix) 50 mls @ 100 mls/hr IV.SIG Q6H [facility] Last Infusion: 06/26/18 05:05 Dose: Infused Dextrose/Sodium Chloride (D5w/1/2 Ns Inj) 1,000 mls @ 40 mls/hr IV.CONT .Q24H [facility] Last Admin: 06/26/18 05:11 Dose: 40 mls/hr Morphine Sulfate (Morphine Inj) 2 mg IV.PUSH Q3H PRN PRN Reason: pain 3-10/ discomfort/ dyspnea Last Admin: 06/23/18 20:40 Dose: 2 mg Pharmacy Profile Note (Vancomycin Consult Pharmacy) 1 each OTHER UNSCH PRN PRN Reason: Pharmacy to dose Potassium Bicarb/Potassium Chloride (K-Lyte Cl Eff) 25 meq G-TUBE DAILY [facility] Last Admin: 06/25/18 08:55 Dose: 25 meq Prednisone (Deltasone Liq) 30 mg G-TUBE DAILY [facility] Last Admin: 06/25/18 08:55 Dose: 30 mg Quetiapine Fumarate (Seroquel) 50 mg PO BID [facility] Last Admin: 06/25/18 21:47 Dose: 50 mg Sodium Chloride (Ns Flush) 2 ml IV.FLUSH PRN PRN PRN Reason: FLUSH AFTER USING IV ACCESS Last Admin: 06/02/18 07:43 Dose: 2 ml Sodium Chloride (Ns Flush) 2 ml IV.FLUSH BID [facility] Last Admin: 06/25/18 21:47 Dose: 2 ml Sterile Water (Free Water) 200 ml NG/OG Q6HR [facility] Last Admin: 06/26/18 05:05 Dose: Not Given Allergies Allergy/AdvReac Type Severity Reaction Status Date / Time No Known Allergies Allergy Uncoded 07/11/16 17:32 Home Medications Medication Instructions Recorded Confirmed Type Unable to Obtain Home Meds 05/26/18 05/26/18 History Physical Exam Vital signs: Vital Signs 06/25/18 08:00 06/25/18 08:06 06/25/18 08:36 Temperature Pulse Rate 101 H 101 H 105 H Respiratory Rate 22 29 H 42 H Blood Pressure 131/69 120/65 Pulse Oximetry 97 96 95 06/25/18 09:00 06/25/18 09:06 06/25/18 09:36 Temperature Pulse Rate 101 H 102 H 100 H Respiratory Rate 16 29 H 15 Blood Pressure 134/77 115/65 Pulse Oximetry 92 L 91 L 94 L 06/25/18 10:00 06/25/18 10:06 06/25/18 10:36 Temperature Pulse Rate 101 H 99 H Respiratory Rate 21 24 17 Blood Pressure 152/82 H 149/85 H Pulse Oximetry 98 95 100 06/25/18 11:00 06/25/18 11:06 06/25/18 11:36 Temperature Pulse Rate 97 H 101 H Respiratory Rate 19 25 H 18 Blood Pressure 150/80 H 149/77 H Pulse Oximetry 99 98 06/25/18 11:48 06/25/18 12:00 06/25/18 12:06 Temperature Pulse Rate 100 H 102 H Respiratory Rate 17 16 15 Blood Pressure 153/74 H Pulse Oximetry 97 06/25/18 12:36 06/25/18 13:00 06/25/18 13:06 Temperature Pulse Rate 103 H 104 H 103 H Respiratory Rate 15 22 13 Blood Pressure 155/87 H 124/71 Pulse Oximetry 97 06/25/18 13:36 06/25/18 14:00 06/25/18 15:00 Temperature 97.3 F L Pulse Rate 102 H 100 H 101 H Respiratory Rate 13 13 14 Blood Pressure 135/72 143/79 H Pulse Oximetry 99 06/25/18 18:16 06/25/18 19:48 06/25/18 20:00 Temperature 96.8 F L Pulse Rate 104 H 105 H Respiratory Rate 18 15 Blood Pressure 148/84 H Pulse Oximetry 100 95 100 06/25/18 22:00 06/26/18 00:00 06/26/18 02:00 Temperature 98.5 F Pulse Rate 102 H 101 H 96 H Respiratory Rate 22 Blood Pressure 142/68 H Pulse Oximetry 100 06/26/18 03:58 06/26/18 04:00 06/26/18 06:00 Temperature 97.8 F Pulse Rate 95 H 96 H 97 H Respiratory Rate 17 16 Blood Pressure 162/74 H Pulse Oximetry 98 Intake & Output 06/25/18 06/26/18 06/26/18 18:59 06:59 18:59 Intake Total 358 / 358 1700 / 1700 Output Total 1550 / 1550 Balance 358 / 358 150 / 150 Weight 46 kg Intake: IV 358 / 358 1358 / 1358 D5W/1/2 NS Inj 1,000 ML @ 40 1000 / 1000 mls/hr IV.CONT .Q24H MEG Rx#: [id number] Zosyn 3.375 GM Premix 50 ML @ 100 / 100 100 / 100 100 mls/hr IV.SIG Q6H MEG Rx#: [id number] Vancomycin Inj 800 MG In NS Inj 258 / 258 258 / 258 250 ML @ 250 mls/hr IV.SIG Q18H MEG Rx#:[id number] Tube Feeding 342 / 342 Output: Urine 1550 / 1550 Other: Date of Last Bowel Movement 06/24/18 06/26/18 - Constitutional no acute distress, thin, cachectic, chronically ill appearing, disheveled, agitated Comments: Patient on restraints not able to follow commands. - Routine HEENT Exam Head: Present: normocephalic Eye: Present: EOMI ENT: Present: mucous membranes moist Comments: Patient with bilateral temporal wasting - Routine Neck Exam Present: supple, trachea midline - Routine Respiratory Exam Present: decreased breath sounds, rales, rhonchi, diminished air movement Comments: Decreased ventilation especially towards the bases bilaterally - Routine Cardiovascular Exam Comments: Heart appeared to be regular in rate and rhythm with no murmurs - Routine Extremities Exam Comments: No edema detected bilaterally. - Routine Skin Exam Present: intact, dry - Routine Neurological Exam Present: altered mental status, moving all extremities Patient disoriented in time and space. Patient unable to follow verbal commands. Patient not able to respond to questions. - Routine Psychiatric Exam Present: unable to assess Results - Labs CBC & Chem 7: 06/23/18 17:39 06/26/18 02:53 Labs: Laboratory Results - last 24 hr 06/25/18 06/25/18 06/25/18 11:47 17:49 18:17 Creatinine Estimated GFR POC Glucose 109 148 H Random Glucose Nasal Screen MRSA (PCR) Not detected Vancomycin Trough 06/25/18 06/25/18 06/26/18 23:55 23:55 02:53 Creatinine 0.85 Estimated GFR Greater than 89 POC Glucose Random Glucose 83 Nasal Screen MRSA (PCR) Vancomycin Trough 15.0 H 06/26/18 05:11 Creatinine Estimated GFR POC Glucose 105 Random Glucose Nasal Screen MRSA (PCR) Vancomycin Trough - Imaging Impressions Abdomen/Pelvis CT 06/25/18 00:00 CONCLUSION: 1. Bilateral pleural effusions right greater than left with consolidation in the right posterior lung base. 2. Small amount of pericardial effusion and evidence of mediastinal adenopathy. 3. Small amount of ascitic fluid in right upper abdomen. 4. Nonspecific bowel gas pattern which may represent a mild ileus. There is a large amount stool in the distal colon. A gastrostomy tube is present. 5. There is a tiny amount of residual free air along the anterior liver margin. There was significant free air on the recent chest CT, the majority of which has resolved. CT of the chest 06/25/2018: CONCLUSION: 1. Bilateral pleural effusions right greater than left with consolidation in the right posterior lung base. 2. Small amount of pericardial effusion and evidence of mediastinal adenopathy. 3. Small amount of ascitic fluid in right upper abdomen. 4. Nonspecific bowel gas pattern which may represent a mild ileus. There is a large amount stool in the distal colon. A gastrostomy tube is present. 5. There is a tiny amount of residual free air along the anterior liver margin. There was significant free air on the recent chest CT, the majority of which has resolved. MRI of the brain 05/26/2018: CONCLUSION: 1. Atrophy and white matter disease with remote infarcts identified. 2. 2-3 tiny foci of restricted diffusion in the right frontal lobe characteristic of tiny foci of acute infarction. CT of the chest 05/31/2018: CONCLUSION: 1. Spiculated noncalcified nodule within the right upper lobe measuring 13 mm which is suspicious for bronchogenic carcinoma until proven otherwise. 2. Precarinal and subcarinal mediastinal as well as right hilar lymphadenopathy is noted. 3. Small pericardial effusion is noted. 4. Extensive alveolar consolidations are noted within the right upper and lower lobes consistent with probable pneumonia. 5. Emphysematous changes are noted bilaterally. 6. Moderate-sized right pleural effusion. 7. Mild degenerative changes and scoliosis of the thoracic spine are noted. 8. Multiple chronic mild compression deformities are noted throughout the thoracic spine. Surgical pathology 06/18/2018: Final Diagnosis ESOPHAGEAL MUCOSAL AND MUSCULARIS BIOPSIES WITHOUT SIGNIFICANT HISTOPATHOLOGIC ABNORMALITY NEGATIVE FOR ESOPHAGITIS. Surgical pathology 06/20/2018: Final Diagnosis LUNG, RIGHT, NEEDLE BIOPSY: - INVASIVE POORLY DIFFERENTIATED ADENOCARCINOMA (SEE COMMENT). [facility]/f Comment Immunohistochemical stains, with appropriately reactive positive and negative controls, have been performed on paraffin sections of the biopsy in order to further characterized the neoplasm (block 1A). The tumor cells are reactive for cytokeratin (AE1/AE3), cytokeratin 7, Napsin A and TTF-1 (nuclear pattern). Weak reactivity is noted in scattered cells for cytokeratin 5/6. There is no significant staining for cytokeratin 20 or p40. These findings are consistent with an adenocarcinoma of pulmonary origin. Assessment and Plan - Assessment (1) Mass of upper lobe of left lung Code(s): R91.8 - Other nonspecific abnormal finding of lung field Status: Acute - Plan Assessment: 68-year-old white male with the diagnosis of lung carcinoma. Patient being evaluated for possible radiotherapy treatment options. Plan: I have placed a call to discuss the case with Dr. Poole. After evaluating the patient the patient's performance status is very low, he is not able to follow commands, he is disoriented, he is unable to stay still, as a result of this he would not be a candidate for radiosurgery or any radiotherapy unless the patient's performance status improves dramatically and he is able to lay still and follow commands. Due to the performance status of the patient it is my recommendation that the patient and family members consider hospice care, as I do not believe that radiation therapy will provide any long-term survival benefit to the patient. I advised the patient's nurse of the recommendations. I also left 1 of my business cards in case the family members want to contact me and discuss his case. No further actions will be taken from the radiotherapy at the present time. Dr. Poole thank you very much for the referral of this patient and allow me to participate in his care. If you have any further questions or concerns please do not hesitate to contact me
[2018-06-26] MEDS: QUEtiapine 25 MG Tablet PO SCH ×2 (09:05→20:15)
[2018-06-26] MEDS: Potassium Chloride 25 MEQ Effervescent Tablet G-TUBE SCH (09:05)
[2018-06-26] MEDS: Aspirin 325 MG Tablet G-TUBE SCH (09:06)
[2018-06-26] MEDS: Furosemide 20 MG Tablet PO SCH (09:06)
[2018-06-26] MEDS: Enoxaparin Inj 30 MG/0.3 ML Syringe SQ SCH (09:06)
[2018-06-26] MEDS: predniSONE Liq 5 MG/5 ML UDC G-TUBE SCH (10:58)
--- NOTE | 2018-06-26 13:51 | P.PNONC ---
Subjective Interval history: Patient found trying to place legs over bedside, and soft medical restraints. He remains confused. Objective Vital Signs/Intake & Output: Vital Signs 06/25/18 14:00 06/25/18 15:00 06/25/18 18:16 Temperature 97.3 F L Pulse Rate 100 H 101 H Respiratory Rate 13 14 Blood Pressure 143/79 H Pulse Oximetry 99 100 06/25/18 19:48 06/25/18 20:00 06/25/18 22:00 Temperature 96.8 F L Pulse Rate 104 H 105 H 102 H Respiratory Rate 18 15 Blood Pressure 148/84 H Pulse Oximetry 95 100 06/26/18 00:00 06/26/18 02:00 06/26/18 03:58 Temperature 98.5 F Pulse Rate 101 H 96 H 95 H Respiratory Rate 22 17 Blood Pressure 142/68 H Pulse Oximetry 100 06/26/18 04:00 06/26/18 06:00 06/26/18 07:00 Temperature 97.8 F Pulse Rate 96 H 97 H Respiratory Rate 16 Blood Pressure 162/74 H Pulse Oximetry 98 96 06/26/18 08:00 06/26/18 10:00 06/26/18 12:00 Temperature 97.8 F Pulse Rate 97 H 99 H 111 H Respiratory Rate Blood Pressure 121/70 Pulse Oximetry 97 Intake & Output 06/25/18 06/26/18 06/26/18 18:59 06:59 18:59 Intake Total 358 / 358 1700 / 1700 Output Total 1550 / 1550 Balance 358 / 358 150 / 150 Weight 46 kg Intake: IV 358 / 358 1358 / 1358 D5W/1/2 NS Inj 1,000 ML @ 40 1000 / 1000 mls/hr IV.CONT .Q24H MEG Rx#: [id number] Zosyn 3.375 GM Premix 50 ML @ 100 / 100 100 / 100 100 mls/hr IV.SIG Q6H MEG Rx#: [id number] Vancomycin Inj 800 MG In NS Inj 258 / 258 258 / 258 250 ML @ 250 mls/hr IV.SIG Q18H MEG Rx#:[id number] Tube Feeding 342 / 342 Output: Urine 1550 / 1550 Other: Date of Last Bowel Movement 06/24/18 06/26/18 06/26/18 Result Diagrams: 06/23/18 17:39 06/26/18 02:53 Laboratory Results: Laboratory Results - last 24 hr 06/25/18 06/25/18 06/25/18 17:49 18:17 23:55 Creatinine Estimated GFR POC Glucose 148 H Random Glucose Nasal Screen MRSA (PCR) Not detected Vancomycin Trough 15.0 H 06/25/18 06/26/18 06/26/18 23:55 02:53 05:11 Creatinine 0.85 Estimated GFR Greater than 89 POC Glucose 105 Random Glucose 83 Nasal Screen MRSA (PCR) Vancomycin Trough Imaging Studies: Impressions Abdomen/Pelvis CT 06/25/18 00:00 CONCLUSION: 1. Bilateral pleural effusions right greater than left with consolidation in the right posterior lung base. 2. Small amount of pericardial effusion and evidence of mediastinal adenopathy. 3. Small amount of ascitic fluid in right upper abdomen. 4. Nonspecific bowel gas pattern which may represent a mild ileus. There is a large amount stool in the distal colon. A gastrostomy tube is present. 5. There is a tiny amount of residual free air along the anterior liver margin. There was significant free air on the recent chest CT, the majority of which has resolved. Medications: Active Medications Generic Name Dose Route Start Last Admin Trade Name Freq PRN Reason Stop Dose Admin Albuterol 1 ampul 06/23/18 20:00 06/26/18 12:35 Duoneb Neb (Meg) NEB Not Given Q8HR ALT NEB MEG Aspirin 325 mg 06/12/18 15:15 06/26/18 09:06 Aspirin G-TUBE 325 mg DAILY MEG Administration Atorvastatin Calcium 20 mg 06/01/18 21:00 06/25/18 21:47 Lipitor NG/OG 20 mg HS MEG Administration Enoxaparin Sodium 30 mg 05/27/18 09:00 06/26/18 09:06 Lovenox Inj SQ 30 mg DAILY MEG Administration Furosemide 20 mg 06/03/18 09:00 06/26/18 09:06 Lasix PO 20 mg DAILY MEG Administration Piperacillin/Tazobactam/Dextrose 50 mls @ 100 mls/hr 06/24/18 17:00 06/26/18 05:05 Zosyn 3.375 Gm Premix IV.SIG Infused Q6H MEG Infusion Dextrose/Sodium Chloride 1,000 mls @ 40 mls/hr 06/25/18 09:50 06/26/18 05:11 D5w/1/2 Ns Inj IV.CONT 40 mls/hr .Q24H MEG Administration Morphine Sulfate 2 mg 06/09/18 10:39 06/23/18 20:40 Morphine Inj IV.PUSH 2 mg Q3H PRN Administration pain 3-10/ discomfort/ dyspnea Potassium Bicarb/Potassium Chloride 25 meq 06/23/18 10:45 06/26/18 09:05 K-Lyte Cl Eff G-TUBE 25 meq DAILY MEG Administration Prednisone 30 mg 06/24/18 09:00 06/25/18 08:55 Deltasone Liq G-TUBE 30 mg DAILY MEG Administration Quetiapine Fumarate 50 mg 06/15/18 21:00 06/26/18 09:05 Seroquel PO 50 mg BID MEG Administration Sodium Chloride 2 ml 05/26/18 16:02 06/02/18 07:43 Ns Flush IV.FLUSH 2 ml PRN PRN Administration FLUSH AFTER USING IV ACCESS Sodium Chloride 2 ml 05/26/18 21:00 06/26/18 09:06 Ns Flush IV.FLUSH 2 ml BID MEG Administration Sterile Water 200 ml 06/03/18 18:00 06/26/18 05:05 Free Water NG/OG Not Given Q6HR MEG Objective Remarks: GENERAL: Cachectic chronically ill-appearing male patient, in no acute distress. SKIN: Warm and dry. HEAD: Normocephalic. EYES: No scleral icterus. No injection or drainage. NECK: Supple, trachea midline. CARDIOVASCULAR: Regular rate and rhythm. RESPIRATORY: Breath sounds rhonchi, equal bilaterally. Nonlabored. GASTROINTESTINAL: Abdomen binder in place. EXTREMITIES: No cyanosis, or edema. MUSCULOSKELETAL: Decreased muscle tone. NEUROLOGICAL: Not oriented to person place or time. In soft medical restraints. PSYCHIATRIC: Anxious. Assessment/Plan - Plan Oncology consulted in regards to newly diagnosed lung cancer. Recommendations: 1. Right lung mass, biopsy showed invasive poorly differentiated adenocarcinoma. Patient continues with encephalopathy and confusion, continues in soft medical restraints. He has very poor performance status. He is not a candidate for surgical resection, chemotherapy or radiation therapy. 2. Palliative care is following, discussed with María who is awaiting the son 's call back. The patient has a very poor performance status and prognosis. He is currently not a candidate for any treatment at this time. Recommend hospice care. - Attending Statement The exam, history, and the medical decision-making described in the above note were completed with the assistance of the mid-level provider. I reviewed and agree with the findings presented. I attest that I had a [id number] encounter with the patient on the same day, and personally performed and documented my assessment and findings in the medical record. Patient remains very confused. He was transferred to ICU for respiratory distress. I have discussed the case with Dr. Bowman and patient is not a candidate for radiation at this point because he is not able to cooperate. Patient is not a candidate for systemic therapy given his poor performance status. I think hospice care as is appropriate. Given that he is not going to have radiation I am going to cancel all further testing because they are not going to change the management plan.
--- NOTE | 2018-06-26 17:17 | P.PN ---
Subjective Interval history: eyes opened to call of name, did ff some commands on FM- tachypneic ff simple commands on tube feedings Physical Exam Vital signs: Vital Signs 06/25/18 18:16 06/25/18 19:48 06/25/18 20:00 Temperature 96.8 F L Pulse Rate 104 H 105 H Respiratory Rate 18 15 Blood Pressure 148/84 H Pulse Oximetry 100 95 100 06/25/18 22:00 06/26/18 00:00 06/26/18 02:00 Temperature 98.5 F Pulse Rate 102 H 101 H 96 H Respiratory Rate 22 Blood Pressure 142/68 H Pulse Oximetry 100 06/26/18 03:58 06/26/18 04:00 06/26/18 06:00 Temperature 97.8 F Pulse Rate 95 H 96 H 97 H Respiratory Rate 17 16 Blood Pressure 162/74 H Pulse Oximetry 98 06/26/18 07:00 06/26/18 08:00 06/26/18 10:00 Temperature 97.8 F Pulse Rate 97 H 99 H Respiratory Rate Blood Pressure 121/70 Pulse Oximetry 96 97 06/26/18 12:00 06/26/18 14:00 06/26/18 16:00 Temperature Pulse Rate 111 H 96 H 97 H Respiratory Rate Blood Pressure Pulse Oximetry Intake & Output 06/25/18 06/26/18 06/26/18 18:59 06:59 18:59 Intake Total 358 / 358 1700 / 1700 Output Total 1550 / 1550 Balance 358 / 358 150 / 150 Weight 46 kg Intake: IV 358 / 358 1358 / 1358 D5W/1/2 NS Inj 1,000 ML @ 40 1000 / 1000 mls/hr IV.CONT .Q24H ERNESTO Rx#: [id number] Zosyn 3.375 GM Premix 50 ML @ 100 / 100 100 / 100 100 mls/hr IV.SIG Q6H ERNESTO Rx#: [id number] Vancomycin Inj 800 MG In NS Inj 258 / 258 258 / 258 250 ML @ 250 mls/hr IV.SIG Q18H ERNESTO Rx#:[id number] Tube Feeding 342 / 342 Output: Urine 1550 / 1550 Other: Date of Last Bowel Movement 06/24/18 06/26/18 06/26/18 Results - Labs CBC & Chem 7: 06/23/18 17:39 06/26/18 02:53 Laboratory Results - last 24 hr 06/25/18 06/25/18 06/25/18 17:49 18:17 23:55 Creatinine Estimated GFR POC Glucose 148 H Random Glucose Nasal Screen MRSA (PCR) Not detected Vancomycin Trough 15.0 H 06/25/18 06/26/18 06/26/18 23:55 02:53 05:11 Creatinine 0.85 Estimated GFR Greater than 89 POC Glucose 105 Random Glucose 83 Nasal Screen MRSA (PCR) Vancomycin Trough - Imaging Impressions Abdomen/Pelvis CT 06/25/18 00:00 CONCLUSION: 1. Bilateral pleural effusions right greater than left with consolidation in the right posterior lung base. 2. Small amount of pericardial effusion and evidence of mediastinal adenopathy. 3. Small amount of ascitic fluid in right upper abdomen. 4. Nonspecific bowel gas pattern which may represent a mild ileus. There is a large amount stool in the distal colon. A gastrostomy tube is present. 5. There is a tiny amount of residual free air along the anterior liver margin. There was significant free air on the recent chest CT, the majority of which has resolved. - Procedures lung biopsy. Assessment and Plan - Assessment (1) CVA (cerebral vascular accident) Code(s): I63.9 - Cerebral infarction, unspecified Status: Acute (2) Pneumonia Code(s): J18.9 - Pneumonia, unspecified organism Status: Acute (3) Protein calorie malnutrition Code(s): E46 - Unspecified protein-calorie malnutrition Status: Acute (4) COPD (chronic obstructive pulmonary disease) Code(s): J44.9 - Chronic obstructive pulmonary disease, unspecified Status: Chronic (5) Pleural effusion Code(s): J90 - Pleural effusion, not elsewhere classified Status: Acute (6) Respiratory insufficiency Code(s): R06.89 - Other abnormalities of breathing Status: Acute (7) Mass of upper lobe of left lung Code(s): R91.8 - Other nonspecific abnormal finding of lung field Status: Acute - Plan 68-year-old male who was brought in after he was found at home by his landlord. The patient was altered and found to be covered in urine and feces. He was then brought into our emergency department for evaluation. Acute metabolic encephalopathy, possibly secondary to CVA, dehydration, infection- MS improved Acute ischemic right frontal CVA MRI of the brain shows right frontal lobe infarction, 2-3 tiny foci. Possibly embolic stroke. Family endorses prior CVA 12 years ago, he did have residual expressive aphasia and possibly some swallowing difficulty. Neurology service recommendations appreciated. Echocardiogram done, EF 60%, trace mitral valve regurgitation, small pericardial effusion. -Carotid ultrasound results noted, left internal carotid occluded, right carotid moderate plaque, status post vascular surgery evaluation with no surgical intervention recommended. Continue with Lipitor and aspirin. -CTA of the carotids which reveals only about 50% right internal carotid artery stenosis, occluded left internal carotid artery at its origin. PT/OT/ST per protocol for eval and treatment. -Palliative care consult appreciated. Family declined hospice. Follow up with palliative care. -restraints as needed. continue Seroquel . -morphine as needed for discomfort or dyspnea. -PT/OT daily Dysphagia Severe protein calorie malnutrition. -Continues to fail swallow evaluation. Follow with speech therapy. -Status post PEG placement with GI 06/04- patient removed the PEG - GI was reconsulted; s/p PEG replacement on 06/18/18. 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 Precarinal and subcarinal mediastinal as well as right heel or lymphadenopathy is noted. -Tumor markers done, within normal limits. -pulmonary ff - get Oncology input-not a surgical candidate - ? candidate for any form of therapy Pleural effusions R > L- likley malignant Chest x-ray with findings of bilateral pleural effusions -Lasix. -CT chest on 06/06/2018:Significant interval decrease in size of right pleural effusion from the prior exam. -Patient agreed with therapeutic thoracentesis if necessary. - Pulmonary ff COPD Community acquired pneumonia-cxr with poss findings of RLL pna 05/[address] findings noted, Extensive alveolar consolidations are noted within the right upper and lower lobes consistent with probable pneumonia. Emphysematous changes. Moderate size right pleural effusion. Continue with duo nebs. -continue prednisone and will start tapering down . -on zosyn/Vancomycin -Pulmonary ff History of alcohol abuse -s/p CIWA protocol. Left ischium ulcer -Continue wound care per wound care nurse. Hypokalemia- replaced. Hypernatremia-resolved. -Monitor and replace electrolytes as needed -continue free water via PEG. FEN- TF to goal rate - discuss with staff nurse 06/25 DVT prophylaxis: Continue Lovenox Discharge Planning: Palliative care met with family 06/24 d/w family at bedside - meeting with [facility] today- [facility] (1) CVA (cerebral vascular accident) Qualifiers: Laterality of affected vessel: right (3) Protein calorie malnutrition Qualifiers: Protein-calorie malnutrition severity: severe Qualified Code(s): E43 - Unspecified severe protein-calorie malnutrition (4) COPD (chronic obstructive pulmonary disease) Qualifiers: COPD type: unspecified COPD Qualified Code(s): J44.9 - Chronic obstructive pulmonary disease, unspecified
--- NOTE | 2018-06-26 17:41 | P.PNPAL ---
Reason for Visit Reason for visit: a. To assist with evaluation and management of symptoms including:pain, dyspnea , dysphagia, debility, agitation. b. To assist medical decision maker(s) with: better understanding of current medical conditions; weighing benefits/burdens of medical treatment options; making medical treatment decisions. Subjective Subjective/Interval History: Follow-up medically necessary for symptom management and further clarification of goals of medical treatment. Patient seen and examined in ICU. Son, sister and nephew at bedside. Medical update provided. Radiation oncology was consulted and has determined patient is not a candidate for radiation therapy. Dr. Poole and Dr. Bowman recommend transition to comfort measures with hospice support. Dr. Poole has cancelled imaging since patient is not a candidate for treatment. Family is ready for transition to comfort with hospice support. No clinical change. He remains confused in restraints. Family/Friend Interactions: See interval note. Advance Directives Living Will: Never completed Health Care Surrogate: Never completed Durable Power of Drug And Alcohol Counselor: Never completed Health Care Surrogate Name and Number: Health care proxy decision makers: SonMiguel AND daughter, Cass. Documented care wishes:: No written advanced directives. . Significant change in goals:: NO CODE. Family desires transition to comfort measures with hospice support. Family wants to continue tube feeding. Objective Vital Signs: Vital Signs 06/25/18 18:16 06/25/18 19:48 06/25/18 20:00 Temperature 96.8 F L Pulse Rate 104 H 105 H Respiratory Rate 18 15 Blood Pressure 148/84 H Pulse Oximetry 100 95 100 06/25/18 22:00 06/26/18 00:00 06/26/18 02:00 Temperature 98.5 F Pulse Rate 102 H 101 H 96 H Respiratory Rate 22 Blood Pressure 142/68 H Pulse Oximetry 100 06/26/18 03:58 06/26/18 04:00 06/26/18 06:00 Temperature 97.8 F Pulse Rate 95 H 96 H 97 H Respiratory Rate 17 16 Blood Pressure 162/74 H Pulse Oximetry 98 06/26/18 07:00 06/26/18 08:00 06/26/18 10:00 Temperature 97.8 F Pulse Rate 97 H 99 H Respiratory Rate Blood Pressure 121/70 Pulse Oximetry 96 97 06/26/18 12:00 06/26/18 14:00 06/26/18 16:00 Temperature Pulse Rate 111 H 96 H 97 H Respiratory Rate Blood Pressure Pulse Oximetry Intake & Output 06/25/18 06/26/18 06/26/18 18:59 06:59 18:59 Intake Total 358 / 358 1700 / 1700 Output Total 1550 / 1550 Balance 358 / 358 150 / 150 Weight 46 kg Intake: IV 358 / 358 1358 / 1358 D5W/1/2 NS Inj 1,000 ML @ 40 1000 / 1000 mls/hr IV.CONT .Q24H ERNESTO Rx#: [id number] Zosyn 3.375 GM Premix 50 ML @ 100 / 100 100 / 100 100 mls/hr IV.SIG Q6H ERNESTO Rx#: [id number] Vancomycin Inj 800 MG In NS Inj 258 / 258 258 / 258 250 ML @ 250 mls/hr IV.SIG Q18H ERNESTO Rx#:[id number] Tube Feeding 342 / 342 Output: Urine 1550 / 1550 Other: Date of Last Bowel Movement 06/24/18 06/26/18 06/26/18 Physical Exam: CONSTITUTIONAL/GENERAL: This is a frail,chronically ill looking, cachectic patient, in no apparent distress. TUBES/LINES/DRAINS: PIV, soft restraints to all 4 extremities, Mittens to BUE SKIN: Temporal and muscle wasting. No jaundice, rashes, or lesions. Dry skin. Ecchymosis to bilateral upper extremities. EYES: eyes open, focusing, tracking. ENT: Hearing grossly normal. Nose without bleeding or purulent drainage. Oral mucosa dry. CARDIOVASCULAR: S1, S2 normal, no murmurs, gallops, or rubs. No JVD. RESPIRATORY/CHEST: Symmetric, unlabored respirations. Diminished breath sounds. On O2 via nasal cannula GASTROINTESTINAL: Abdomen soft, non-tender, nondistended. TF resumed GENITOURINARY: Without palpable bladder distension. Condom catheter MUSCULOSKELETAL: Extremities without clubbing, cyanosis, or edema. NEUROLOGICAL:Awake, alert, confused but pleasant. Trying to communicate. Spontaneously moving all 4 extremities. PSYCHIATRIC: Restless, intermittent agitation. . Diagnostic Tests Laboratory: Laboratory Results - last 72 hr 06/23/18 06/23/18 06/23/18 17:39 17:39 17:39 WBC 8.1 RBC 3.06 L Hgb 10.9 L Hct 31.6 L MCV 103.3 H MCH 35.7 H MCHC 34.6 RDW 19.5 H Plt Count 139 L MPV 8.8 Neut % (Auto) 94.5 H Lymph % (Auto) 3.0 L Wirt % (Auto) 2.4 Eos % (Auto) 0.0 Baso % (Auto) 0.1 Neut # (Auto) 7.7 Lymph # (Auto) 0.2 L Wirt # (Auto) 0.2 Eos # (Auto) 0.0 Baso # (Auto) 0.0 WBC Differential . Differential Comment Auto diff final D-Dimer Quant (PE/DVT) Sodium 137 Potassium 4.2 Chloride 98 Carbon Dioxide 30.9 Anion Gap 8 BUN 34 H Creatinine 0.76 Estimated GFR Greater than 89 POC Glucose Random Glucose 126 H Lactic Acid 1.6 Calcium 8.9 Total Bilirubin 0.7 AST 16 ALT 24 Alkaline Phosphatase 92 Total Protein 6.0 L Albumin 2.0 L Nasal Screen MRSA (PCR) Vancomycin Trough 06/23/18 06/23/18 06/24/18 19:46 23:57 06:36 WBC RBC Hgb Hct MCV MCH MCHC RDW Plt Count MPV Neut % (Auto) Lymph % (Auto) Wirt % (Auto) Eos % (Auto) Baso % (Auto) Neut # (Auto) Lymph # (Auto) Wirt # (Auto) Eos # (Auto) Baso # (Auto) WBC Differential Differential Comment D-Dimer Quant (PE/DVT) Sodium Potassium Chloride Carbon Dioxide Anion Gap BUN Creatinine Estimated GFR POC Glucose 118 H 124 H 106 Random Glucose Lactic Acid Calcium Total Bilirubin AST ALT Alkaline Phosphatase Total Protein Albumin Nasal Screen MRSA (PCR) Vancomycin Trough 06/24/18 06/24/18 06/24/18 12:33 14:05 18:07 WBC RBC Hgb Hct MCV MCH MCHC RDW Plt Count MPV Neut % (Auto) Lymph % (Auto) Wirt % (Auto) Eos % (Auto) Baso % (Auto) Neut # (Auto) Lymph # (Auto) Wirt # (Auto) Eos # (Auto) Baso # (Auto) WBC Differential Differential Comment D-Dimer Quant (PE/DVT) 3.97 H Sodium Potassium Chloride Carbon Dioxide Anion Gap BUN Creatinine Estimated GFR POC Glucose 155 H 153 H Random Glucose Lactic Acid Calcium Total Bilirubin AST ALT Alkaline Phosphatase Total Protein Albumin Nasal Screen MRSA (PCR) Vancomycin Trough 06/25/18 06/25/18 06/25/18 00:20 05:35 07:08 WBC RBC Hgb Hct MCV MCH MCHC RDW Plt Count MPV Neut % (Auto) Lymph % (Auto) Wirt % (Auto) Eos % (Auto) Baso % (Auto) Neut # (Auto) Lymph # (Auto) Wirt # (Auto) Eos # (Auto) Baso # (Auto) WBC Differential Differential Comment D-Dimer Quant (PE/DVT) Sodium Potassium Chloride Carbon Dioxide Anion Gap BUN Creatinine 0.57 L Estimated GFR Greater than 89 POC Glucose 130 H 103 Random Glucose Lactic Acid Calcium Total Bilirubin AST ALT Alkaline Phosphatase Total Protein Albumin Nasal Screen MRSA (PCR) Vancomycin Trough 06/25/18 06/25/18 06/25/18 11:47 17:49 18:17 WBC RBC Hgb Hct MCV MCH MCHC RDW Plt Count MPV Neut % (Auto) Lymph % (Auto) Wirt % (Auto) Eos % (Auto) Baso % (Auto) Neut # (Auto) Lymph # (Auto) Wirt # (Auto) Eos # (Auto) Baso # (Auto) WBC Differential Differential Comment D-Dimer Quant (PE/DVT) Sodium Potassium Chloride Carbon Dioxide Anion Gap BUN Creatinine Estimated GFR POC Glucose 109 148 H Random Glucose Lactic Acid Calcium Total Bilirubin AST ALT Alkaline Phosphatase Total Protein Albumin Nasal Screen MRSA (PCR) Not detected Vancomycin Trough 06/25/18 06/25/18 06/26/18 23:55 23:55 02:53 WBC RBC Hgb Hct MCV MCH MCHC RDW Plt Count MPV Neut % (Auto) Lymph % (Auto) Wirt % (Auto) Eos % (Auto) Baso % (Auto) Neut # (Auto) Lymph # (Auto) Wirt # (Auto) Eos # (Auto) Baso # (Auto) WBC Differential Differential Comment D-Dimer Quant (PE/DVT) Sodium Potassium Chloride Carbon Dioxide Anion Gap BUN Creatinine 0.85 Estimated GFR Greater than 89 POC Glucose Random Glucose 83 Lactic Acid Calcium Total Bilirubin AST ALT Alkaline Phosphatase Total Protein Albumin Nasal Screen MRSA (PCR) Vancomycin Trough 15.0 H 06/26/18 05:11 WBC RBC Hgb Hct MCV MCH MCHC RDW Plt Count MPV Neut % (Auto) Lymph % (Auto) Wirt % (Auto) Eos % (Auto) Baso % (Auto) Neut # (Auto) Lymph # (Auto) Wirt # (Auto) Eos # (Auto) Baso # (Auto) WBC Differential Differential Comment D-Dimer Quant (PE/DVT) Sodium Potassium Chloride Carbon Dioxide Anion Gap BUN Creatinine Estimated GFR POC Glucose 105 Random Glucose Lactic Acid Calcium Total Bilirubin AST ALT Alkaline Phosphatase Total Protein Albumin Nasal Screen MRSA (PCR) Vancomycin Trough Result Diagrams: 06/23/18 17:39 06/26/18 02:53 Imaging: Head MRI 05/26/18 00:00 Diffusion weighted images demonstrate tiny foci of restricted diffusion in the right frontal cortex. There is diffuse atrophy. There is a large area of encephalomalacia and scoliosis in the left frontal lobe from previous infarction. There is slight ex vacuo dilatation of the left lateral ventricle and remote left basal ganglia lacunar infarcts. In addition remote right occipital infarct and encephalomalacia noted. There are no signs of acute intracranial hemorrhage though there is evidence of remote hemosiderin along the right parietal cortex. No abnormal areas of enhancement are seen. There is no evidence for mass.. CONCLUSION: 1. Atrophy and white matter disease with remote infarcts identified. 2. 2-3 tiny foci of restricted diffusion in the right frontal lobe characteristic of tiny foci of acute infarction. Head CT 05/26/18 12:11 CONCLUSION: 1. No acute findings. Atrophy and remote infarcts. . Carotid Doppler Study 05/28/18 00:00 CONCLUSION: 1. Mild to moderate stenosis on the right not felt to be hemodynamically significant at this point. CT angiography could be used to exclude soft plaque. 2. Occluded left internal carotid artery Head MRA 05/28/18 00:00 CONCLUSION: 1. Occluded left internal carotid artery. Neck CTA 05/30/18 00:00 CONCLUSION: 1. 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 2. Occluded left internal carotid artery at its origin. 3. Less than 50% stenosis of the right internal carotid artery secondary to atherosclerotic plaquing. 4. Emphysema and right upper lobe/lower lobe parenchymal infiltrate. 5. Spiculated mass in the right upper lobe suspicious for primary bronchogenic malignancy until proven otherwise. Abdomen X-Ray 06/03/18 00:00 CONCLUSION: Nasogastric tube is in the right lower lobe airways. Chest CT 06/06/18 00:00 CONCLUSION: Significant interval decrease in size of right pleural effusion from the prior exam. Lung Biopsy CT 06/20/18 00:00 CONCLUSION: 1. CT-guided biopsy with small right pneumothorax. Delayed radiographs are to be performed. Chest X-Ray 06/24/18 00:00 CONCLUSION: No significant change. Abnormal opacity remains in the right lung. Abdomen/Pelvis CT 06/25/18 00:00 CONCLUSION: 1. Bilateral pleural effusions right greater than left with consolidation in the right posterior lung base. 2. Small amount of pericardial effusion and evidence of mediastinal adenopathy. 3. Small amount of ascitic fluid in right upper abdomen. 4. Nonspecific bowel gas pattern which may represent a mild ileus. There is a large amount stool in the distal colon. A gastrostomy tube is present. 5. There is a tiny amount of residual free air along the anterior liver margin. There was significant free air on the recent chest CT, the majority of which has resolved. Procedures: 06/04/18-EGD with PEG placement 06/18/18-EGD with PEG tube placement 06/20/[id number] right lung biopsy Assessment and Plan - Disease Oriented Problem List (1) CVA (cerebral vascular accident) (2) Pneumonia (3) Protein calorie malnutrition (4) COPD (chronic obstructive pulmonary disease) (5) Pleural effusion (6) Respiratory insufficiency (7) Mass of upper lobe of left lung - Symptom Scale (1) Dysphagia 0-10 Scale: Unable to quantify Comment: Remains n.p.o. (2) Dyspnea 0-10 Scale: Unable to quantify (3) Debility 0-10 Scale: Unable to quantify (4) Pain 0-10 Scale: Unable to quantify Comment: Currently denying pain (5) Restlessness and agitation 0-10 Scale: Unable to quantify Pertinent Non-Medical Issues: Psychosocial: Single. Has 1 son and 1 daughter. Spiritual: [employer]. Legal:Patient is not capacitated to make his own health care decisions, uncertain if he will regain capacity. According to [place] statutes, health care proxy decision making falls to the majority of adult children. Ethical issues impacting care: No known concerns at this time. Important Contacts: * Miguel Saleem, son: [phone] * aCss, daughter: [phone] * Martita Saleem, [id number]: [phone] * Brandi Russell: Sister: [phone] Prognosis: Mr. Saleem is a 68-year-old male with remote stroke and new stroke with significant dysphagia, significant unintentional weight loss, cachexia requiring NG tube feedings, new finding of spiculated lung mass with mediastinal adenopathy concerning for malignancy. Patient with significant cognitive, nutritional and functional deficits. Overall prognosis appears poor. I suspect even with a confirmed, biopsy-proven diagnosis of malignancy he would not be a candidate for treatment. Hospice appropriate if goals are comfort oriented. . Code Status: No Code DNR Plan: * Patient is not capacitated to make his own health care decisions, does not appear he will regain capacity. According to [place] statutes, health care proxy decision making falls to the majority of adult children. He has 1 son and 1 daughter. CODE STATUS: * NO CODE SYMPTOMS: * Dysphagia: Remote and recent stroke, carotid artery stenosis/occlusion. Unintentional weight loss over the past 6 months. Continues to fail swallow evaluation. Patient pulled out his PEG tube on 06/17/18 PEG tube inserted . Patient is gradually losing weight-admission weight= 49.895kg. On TF- not tolerating well-has high residuals. * Dyspnea: History of COPD/ emphysema, new spiculated mass in lung likely cancer with mediastinal adenopathy-underwent CT-guided lung biopsy 06/20/18. On Prednisone. Currently on O2 3 L nasal cannula. Pathology revealed invasive poorly differentiated adenocarcinoma. * Debility: Secondary to general decline, possible malignancy, malnutrition and prolonged hospitalization. Continue PT. Patient will most likely decline. * Agitation: Patient remains in four-point soft restraints with mittens to BUE which will most likely hinder placement. * Family now elects transition to comfort measures with hospice support. Hospice consulted. * Palliative care will continue to follow throughout hospital course to assist with symptom management further clarification of goals of medical treatment. Attestation Attestation: To help prompt me to consider important information that might be impacting today's encounter and assessment, information from prior notes written by myself or my colleagues may have been "brought forward" into today's note. My signature on this note, however, is an attestation that I personally performed the exam, history, and/or decision-making noted today, and, unless otherwise indicated, the interactions with patient, family, and staff as well as the review of records all occurred today. I also attest that the listed assessment and stated plan reflect my best clinical judgment today based on the combination of historical information, prior notes, and today's exam/ interactions. When time spent is documented, it refers only to time spent today by the signer, or if indicated, combined time spent today by collaborating physician/nurse practitioner.
[2018-06-26] MEDS ORDERED: Vancomycin Inj 1,000 MG in Sodium Chlor 0.9% Inj 250 ML IV.SIG SCH (18:00)
--- NOTE | 2018-06-26 19:33 | P.PN ---
Subjective Interval history: Off O2 and seems comfortable. Family to decide on Hospice care Physical Exam Vital signs: Vital Signs 06/25/18 19:48 06/25/18 20:00 06/25/18 22:00 Temperature 96.8 F L Pulse Rate 104 H 105 H 102 H Respiratory Rate 18 15 Blood Pressure 148/84 H Pulse Oximetry 95 100 06/26/18 00:00 06/26/18 02:00 06/26/18 03:58 Temperature 98.5 F Pulse Rate 101 H 96 H 95 H Respiratory Rate 22 17 Blood Pressure 142/68 H Pulse Oximetry 100 06/26/18 04:00 06/26/18 06:00 06/26/18 07:00 Temperature 97.8 F Pulse Rate 96 H 97 H Respiratory Rate 16 Blood Pressure 162/74 H Pulse Oximetry 98 96 06/26/18 08:00 06/26/18 10:00 06/26/18 12:00 Temperature 97.8 F Pulse Rate 97 H 99 H 111 H Respiratory Rate Blood Pressure 121/70 Pulse Oximetry 97 06/26/18 14:00 06/26/18 16:00 Temperature Pulse Rate 96 H 97 H Respiratory Rate Blood Pressure Pulse Oximetry Intake & Output 06/26/18 06/26/18 06/27/18 06:59 18:59 06:59 Intake Total 1700 / 1700 50 / 50 Output Total 1550 / 1550 Balance 150 / 150 50 / 50 Weight 46 kg Intake: IV 1358 / 1358 50 / 50 D5W/1/2 NS Inj 1,000 ML @ 40 1000 / 1000 mls/hr IV.CONT .Q24H ERNESTO Rx#: [id number] Zosyn 3.375 GM Premix 50 ML @ 100 / 100 50 / 50 100 mls/hr IV.SIG Q6H ERNESTO Rx#: [id number] Vancomycin Inj 800 MG In NS Inj 258 / 258 250 ML @ 250 mls/hr IV.SIG Q18H ERNESTO Rx#:[id number] Tube Feeding 342 / 342 Output: Urine 1550 / 1550 Other: Date of Last Bowel Movement 06/26/18 06/26/18 Narrative: awake and alert, Thin W/M speech soft. SKIN: Warm and dry. no nuchal rigidity Lungs- decreased breath sounds and occ Wheeze . CARDIOVASCULAR: - regular rhythm GASTROINTESTINAL: Abdomen soft, non-tender, nondistended. G-tube in place. MUSCULOSKELETAL: Extremities with Muscle wasting. Moves all extremities spontaneously. good peripheral pulses -condom catheter in place NEUROLOGICAL: generalized weakness- right side weak compared to left but moves all spontaneously Results - Labs CBC & Chem 7: 06/23/18 17:39 06/26/18 02:53 Laboratory Results - last 24 hr 06/25/18 06/25/18 06/25/18 18:17 23:55 23:55 Creatinine Estimated GFR POC Glucose Random Glucose 83 Nasal Screen MRSA (PCR) Not detected Vancomycin Trough 15.0 H 06/26/18 06/26/18 06/26/18 02:53 05:11 18:13 Creatinine 0.85 Estimated GFR Greater than 89 POC Glucose 105 80 Random Glucose Nasal Screen MRSA (PCR) Vancomycin Trough - Imaging Impressions Abdomen/Pelvis CT 06/25/18 00:00 CONCLUSION: 1. Bilateral pleural effusions right greater than left with consolidation in the right posterior lung base. 2. Small amount of pericardial effusion and evidence of mediastinal adenopathy. 3. Small amount of ascitic fluid in right upper abdomen. 4. Nonspecific bowel gas pattern which may represent a mild ileus. There is a large amount stool in the distal colon. A gastrostomy tube is present. 5. There is a tiny amount of residual free air along the anterior liver margin. There was significant free air on the recent chest CT, the majority of which has resolved. - Procedures lung biopsy. Assessment and Plan - Assessment (1) CVA (cerebral vascular accident) Code(s): I63.9 - Cerebral infarction, unspecified Status: Acute (2) Pneumonia Code(s): J18.9 - Pneumonia, unspecified organism Status: Acute (3) Protein calorie malnutrition Code(s): E46 - Unspecified protein-calorie malnutrition Status: Acute (4) COPD (chronic obstructive pulmonary disease) Code(s): J44.9 - Chronic obstructive pulmonary disease, unspecified Status: Chronic (5) Pleural effusion Code(s): J90 - Pleural effusion, not elsewhere classified Status: Acute (6) Respiratory insufficiency Code(s): R06.89 - Other abnormalities of breathing Status: Acute (7) Mass of upper lobe of left lung Code(s): R91.8 - Other nonspecific abnormal finding of lung field Status: Acute (8) Dysphagia Code(s): R13.10 - Dysphagia, unspecified Status: Acute - Plan 1. O2 at 2 L N/C PRN 2. Cont Duoneb nebs 3. Prednisone 10 mg daily 4. Continue tube feeds at 50 CC 5.To hospice care per family 6. Tube feeds at 50 CC/HR (1) CVA (cerebral vascular accident) Qualifiers: Laterality of affected vessel: right (3) Protein calorie malnutrition Qualifiers: Protein-calorie malnutrition severity: severe Qualified Code(s): E43 - Unspecified severe protein-calorie malnutrition (4) COPD (chronic obstructive pulmonary disease) Qualifiers: COPD type: unspecified COPD Qualified Code(s): J44.9 - Chronic obstructive pulmonary disease, unspecified
[2018-06-26] MEDS: Morphine Sulfate Inj 2 MG/ML Vial IV.PUSH PRN (20:13)
[2018-06-26 21:36] VITALS: PULSE 92
[2018-06-26 21:43] VITALS: BP 107/64; RESP 24; TEMP 99; O2SAT 94
--- NOTE | 2018-06-27 07:06 | P.DS ---
Date of admission: 05/27/18 18:27 Primary care physician: Je Graves MD Anticipated date of discharge: 06/26/18 Brief History from admission: 68-year-old admitted for encephalopathy. History is limited as the patient is disoriented and confused, brought in by his landlord. Largely obtained otherwise from emergency room staff. When I try to talk to the patient he makes eye contact but answers almost all questions incorrectly. Patient was brought in to the emergency department because he was found by his landlord to be disheveled and highly unsanitary conditions including being in feces and urine. In the emergency department patient's blood work was relatively unremarkable except for some very mild hypoalbuminemia. He was slightly hypothermic around 96.3 slightly tachycardic around 103. A chest x- ray was performed which I independently reviewed which was negative for any acute findings. He had a head CT done which showed no acute findings as well. Upon my review the UA does not look suspicious for urinary tract infection. Patient told that ER staff that he drinks. Patient was started on normal saline and a warming blanket. This patient has not been admitted to [facility] in at least 2 years. I am unable to obtain family history due to the patient's encephalopathic status. DS: Diagnosis - Discharge Diagnosis (1) CVA (cerebral vascular accident) Status: Acute (2) Pneumonia Status: Acute (3) Protein calorie malnutrition Status: Acute (4) COPD (chronic obstructive pulmonary disease) Status: Chronic (5) Pleural effusion Status: Acute (6) Respiratory insufficiency Status: Acute (7) Mass of upper lobe of left lung Status: Acute DS: Summary Hospital Course: 68-year-old male who was brought in after he was found at home by his landlord. The patient was altered and found to be covered in urine and feces. He was then brought into our emergency department for evaluation. Acute metabolic encephalopathy, possibly secondary to CVA, dehydration, infection- MS improved Acute ischemic right frontal CVA MRI of the brain shows right frontal lobe infarction, 2-3 tiny foci. Possibly embolic stroke. Family endorses prior CVA 12 years ago, he did have residual expressive aphasia and possibly some swallowing difficulty. Neurology service recommendations appreciated. Echocardiogram done, EF 60%, trace mitral valve regurgitation, small pericardial effusion. -Carotid ultrasound results noted, left internal carotid occluded, right carotid moderate plaque, status post vascular surgery evaluation with no surgical intervention recommended. Continue with Lipitor and aspirin. -CTA of the carotids which reveals only about 50% right internal carotid artery stenosis, occluded left internal carotid artery at its origin. PT/OT/ST per protocol for eval and treatment. -Palliative care consult appreciated. Family declined hospice. Follow up with palliative care. -restraints as needed. continue Seroquel . -morphine as needed for discomfort or dyspnea. -PT/OT daily Dysphagia Severe protein calorie malnutrition. -Continues to fail swallow evaluation. Follow with speech therapy. -Status post PEG placement with GI 06/04- patient removed the PEG - GI was reconsulted; s/p PEG replacement on 06/18/18. 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 Precarinal and subcarinal mediastinal as well as right heel or lymphadenopathy is noted. -Tumor markers done, within normal limits. -pulmonary ff - get Oncology input-not a surgical candidate - ? candidate for any form of therapy Pleural effusions R > L- likley malignant Chest x-ray with findings of bilateral pleural effusions -Lasix. -CT chest on 06/06/2018:Significant interval decrease in size of right pleural effusion from the prior exam. -Patient agreed with therapeutic thoracentesis if necessary. - Pulmonary ff COPD Community acquired pneumonia-cxr with poss findings of RLL pna 05/[address] findings noted, Extensive alveolar consolidations are noted within the right upper and lower lobes consistent with probable pneumonia. Emphysematous changes. Moderate size right pleural effusion. Continue with duo nebs. -continue prednisone and will start tapering down . -on zosyn/Vancomycin -Pulmonary ff History of alcohol abuse -s/p CIWA protocol. Left ischium ulcer -Continue wound care per wound care nurse. Hypokalemia- replaced. Hypernatremia-resolved. -Monitor and replace electrolytes as needed -continue free water via PEG. FEN- TF to goal rate - discuss with staff nurse 06/25 DVT prophylaxis: Continue Lovenox Discharge Planning: Palliative care met with family 06/24 d/w family at bedside - meeting with [facility] today- [facility] today (1) CVA (cerebral vascular accident) Qualifiers: Laterality of affected vessel: right (3) Protein calorie malnutrition Qualifiers: Protein-calorie malnutrition severity: severe Qualified Code(s): E43 - Unspecified severe protein-calorie malnutrition (4) COPD (chronic obstructive pulmonary disease) Qualifiers: COPD type: unspecified COPD Qualified Code(s): J44.9 - Chronic obstructive pulmonary disease, unspecified - Time Spent with Patient Total time spent providing and/or coordinating discharge services: Greater than 30 minutes - Quality: VTE Deep Vein Thrombosis/Pulmonary Embolism Present on Admission: No Exam Vital signs: Vital Signs 06/26/18 08:00 06/26/18 09:00 06/26/18 09:28 Temperature 97.8 F Pulse Rate 98 H 100 H Respiratory Rate 19 20 19 Blood Pressure 121/70 123/67 113/65 Pulse Oximetry 97 06/26/18 10:00 06/26/18 11:00 06/26/18 12:00 Temperature Pulse Rate 99 H 97 H 111 H Respiratory Rate 16 17 16 Blood Pressure 123/71 117/66 116/65 Pulse Oximetry 99 06/26/18 13:00 06/26/18 14:00 06/26/18 15:00 Temperature Pulse Rate 100 H 104 H 119 H Respiratory Rate 17 19 17 Blood Pressure 119/60 113/64 121/69 Pulse Oximetry 06/26/18 16:00 06/26/18 17:00 06/26/18 18:00 Temperature Pulse Rate 101 H 102 H 101 H Respiratory Rate 16 17 16 Blood Pressure 125/75 126/74 121/68 Pulse Oximetry 97 06/26/18 19:00 06/26/18 19:30 06/26/18 20:00 Temperature 99.0 F Pulse Rate 129 H 105 H 92 H Respiratory Rate 17 20 24 Blood Pressure 127/70 107/64 Pulse Oximetry 92 L 94 L Intake & Output 06/26/18 06/27/18 06/27/18 18:59 06:59 18:59 Intake Total 450 / 450 300 / 300 Output Total 1000 / 1000 Balance -550 / -550 300 / 300 Intake: IV 50 / 50 300 / 300 Zosyn 3.375 GM Premix 50 ML @ 50 / 50 50 / 50 100 mls/hr IV.SIG Q6H ERNESTO Rx#: [id number] Vancomycin Inj 1,000 MG In NS 250 / 250 Inj 250 ML @ 250 mls/hr IV.SIG Q18H ERNESTO Rx#:[id number] Water Bolus Amount 400 / 400 Output: Urine 1000 / 1000 Other: Date of Last Bowel Movement 06/26/18 06/26/18 Results Procedures completed during hospitalization: lung biopsy. Completed studies during hospitalization: Pending at discharge 06/18/18 16:59 Surgical [PTH] Routine Labs on day of discharge: Labs from last 24 hours 06/26/18 18:13 POC Glucose 80 - Impressions ITS Impressions Head MRI 05/26/18 00:00 Diffusion weighted images demonstrate tiny foci of restricted diffusion in the right frontal cortex. There is diffuse atrophy. There is a large area of encephalomalacia and scoliosis in the left frontal lobe from previous infarction. There is slight ex vacuo dilatation of the left lateral ventricle and remote left basal ganglia lacunar infarcts. In addition remote right occipital infarct and encephalomalacia noted. There are no signs of acute intracranial hemorrhage though there is evidence of remote hemosiderin along the right parietal cortex. No abnormal areas of enhancement are seen. There is no evidence for mass.. CONCLUSION: 1. Atrophy and white matter disease with remote infarcts identified. 2. 2-3 tiny foci of restricted diffusion in the right frontal lobe characteristic of tiny foci of acute infarction. Head CT 05/26/18 12:11 CONCLUSION: 1. No acute findings. Atrophy and remote infarcts. . Carotid Doppler Study 05/28/18 00:00 CONCLUSION: 1. Mild to moderate stenosis on the right not felt to be hemodynamically significant at this point. CT angiography could be used to exclude soft plaque. 2. Occluded left internal carotid artery Head MRA 05/28/18 00:00 CONCLUSION: 1. Occluded left internal carotid artery. Neck CTA 05/30/18 00:00 CONCLUSION: 1. 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 2. Occluded left internal carotid artery at its origin. 3. Less than 50% stenosis of the right internal carotid artery secondary to atherosclerotic plaquing. 4. Emphysema and right upper lobe/lower lobe parenchymal infiltrate. 5. Spiculated mass in the right upper lobe suspicious for primary bronchogenic malignancy until proven otherwise. Abdomen X-Ray 06/03/18 00:00 CONCLUSION: Nasogastric tube is in the right lower lobe airways. Chest CT 06/06/18 00:00 CONCLUSION: Significant interval decrease in size of right pleural effusion from the prior exam. Lung Biopsy CT 06/20/18 00:00 CONCLUSION: 1. CT-guided biopsy with small right pneumothorax. Delayed radiographs are to be performed. Chest X-Ray 06/24/18 00:00 CONCLUSION: No significant change. Abnormal opacity remains in the right lung. Abdomen/Pelvis CT 06/25/18 00:00 CONCLUSION: 1. Bilateral pleural effusions right greater than left with consolidation in the right posterior lung base. 2. Small amount of pericardial effusion and evidence of mediastinal adenopathy. 3. Small amount of ascitic fluid in right upper abdomen. 4. Nonspecific bowel gas pattern which may represent a mild ileus. There is a large amount stool in the distal colon. A gastrostomy tube is present. 5. There is a tiny amount of residual free air along the anterior liver margin. There was significant free air on the recent chest CT, the majority of which has resolved. Discharge Plan - Discharge Disposition Patient Disposition: [facility] Hospice/Med Facility - Discharge Order Discharge Orders: Discharge Order (Routine); Ordered 06/26/18 Ordered By: Fela Tate Pulmonology Clear for Discharge (Routine); Ordered 06/26/18 Ordered By: Francois Kenney - Physicians Team Primary Care Provider: Je Graves Attending Provider: Franklin Almaguer Other Providers: Jenn Barajas ; Kenia Olsen MD ; [facility] ; Mitzy Sena MD ; Jayden Garcia MD ; [facility] ; Antonio Alvarez MD ; Miriam Herrera MD ; Leslie Sawant MD ; Francois Kenney MD ; Fitz Poole MD ; Grayson Perez MD
[2018-06-28] MEDS ORDERED: Pharmacy Ordered Lab Info OTHER ONE (05:45)
== END 2018-06-26 21:00 | disposition hospice, inpatient (51) ==
LOC: NEPE 11:55 → NEDA 15:30 → INTOOBSV 15:30 → NEPGCP 16:30 → N07 05-30 02:06 → N03 06-23 17:04 → N06 06-25 15:02 → HIMC 06-25 18:10
PROVIDERS: ADMIT Internal Medicine; ATTEND Internal Medicine
PROC: PANENDO (2018-06-04 13:26)
DX: Z86.73 Personal history of transient ischemic attack (TIA), and cerebral infarction without residual deficits; I65.23 Occlusion and stenosis of bilateral carotid arteries; Z78.1 Physical restraint status; E86.0 Dehydration; R53.81 Other malaise; J44.0 Chronic obstructive pulmonary disease with (acute) lower respiratory infection; Z68.1 Body mass index [BMI] 19.9 or less, adult; R13.10 Dysphagia, unspecified; I63.521 Cerebral infarction due to unspecified occlusion or stenosis of right anterior cerebral artery; R64 Cachexia; C34.11 Malignant neoplasm of upper lobe, right bronchus or lung; R09.02 Hypoxemia; R06.03 Acute respiratory distress; I10 Essential (primary) hypertension; R00.0 Tachycardia, unspecified; E87.6 Hypokalemia; E87.0 Hyperosmolality and hypernatremia; E43 Unspecified severe protein-calorie malnutrition; J93.9 Pneumothorax, unspecified; G93.41 Metabolic encephalopathy; L89.320 Pressure ulcer of left buttock, unstageable; J90 Pleural effusion, not elsewhere classified; K22.2 Esophageal obstruction; K20.9 Esophagitis, unspecified; K44.9 Diaphragmatic hernia without obstruction or gangrene; J44.1 Chronic obstructive pulmonary disease with (acute) exacerbation; Z66 Do not resuscitate; F17.210 Nicotine dependence, cigarettes, uncomplicated; J18.9 Pneumonia, unspecified organism; R06.89 Other abnormalities of breathing; R68.0 Hypothermia, not associated with low environmental temperature; I48.91 Unspecified atrial fibrillation; N39.0 Urinary tract infection, site not specified